=== PATIENT | male | born 1940 | race Caucasian/White ===

== ENCOUNTER 2016-11-16 12:00 | Emergency (ER) | payer MEDICARE ==
--- NOTE | 2016-11-16 14:03 | XR ---
EXAMINATION TYPE: XR Hip RT and AP Pelvis DATE OF EXAM: 11/16/2016 1:44 PM COMPARISON: Lumbosacral spine same date HISTORY: Trauma and pain 3 days prior TECHNIQUE: A single AP view of the pelvis is obtained. Two views of the right hip are obtained. 4 im ages FINDINGS: There is no acute fracture/dislocation evident in the pelvis. The hip and sacroiliac join ts appear symmetric and unremarkable. The overlying soft tissue appears unremarkable. Two views of right hip show no acute fracture or dislocation. No focal lytic or sclerotic lesion see n in the proximal right femur. The overlying soft tissue is unremarkable. Joint space loss is prese nt, there is marginal spurring. Bone mineralization mildly reduced. Suspect there is a compression deformity of L4. Vascular calcifications are present within the pelvis . IMPRESSION: There is no acute fracture or dislocation in the pelvis or hip. Compression fracture L4
--- NOTE | 2016-11-16 14:05 | XR ---
Lumbosacral spine HISTORY: Trauma and pain 5 views of the lumbosacral spine Comparison abdomen film 2011 There is a levoscoliosis centered at the mid lumbar spine. Loss of vertebral body height is present a t L4, approximately 25%. No evident retropulsion. Vacuum phenomenon present at L3-4 disc space. Multi level spondylosis is present. Sclerosis present in the posterior elements. Bone mineralization is red uced. There are atherosclerotic vascular calcifications noted incidentally. Loss of disc height great est at L5-S1. No spondylolysis or spondylolisthesis evident. IMPRESSION: Osteoporotic compression fracture L4. Degenerative disc disease and facet arthropathy
--- NOTE | 2016-11-16 15:04 | ED ---
General Adult HPI - General Chief complaint: Extremity Injury, Lower Stated complaint: rt hip pain from fall, MAGGY Time Seen by Provider: 11/16/16 13:10 Source: patient, family, RN notes reviewed, old records reviewed Mode of arrival: wheelchair - History of Present Illness Initial comments: Chief complaint history of present illness is a 76-year-old female here with family. The patient reports she's fallen several times at home over the past week. He reports he tripped over a rug. Complains discomfort to the right hip pelvis and lumbar area. Denies any injury to his head. Not on any blood thinners. - Related Data Home Medications Medication Instructions Recorded Confirmed ALPRAZolam [Xanax] 1 mg PO BID 11/16/16 11/16/16 Bismuth Subsalicylate 262 mg PO TID PRN 11/16/16 11/16/16 [Pepto-Bismol] D-Methorphan/Acetamin/Doxylamn 30 ml PO HS PRN 11/16/16 11/16/16 [Vicks Nyquil Cold & Flu Liquid] HYDROcodone/APAP 10-325MG [[place] 1 tab PO DAILY PRN 11/16/16 11/16/16 10-325] Loperamide [Imodium] 2 mg PO QID PRN 11/16/16 11/16/16 Naproxen Sodium [Aleve] 220 mg PO BID PRN 11/16/16 11/16/16 Nicotine 21Mg/24Hr Patch [Habitrol 1 patch TRANSDERM DAILY 11/16/16 11/16/16 21Mg/24Hr Patch] Sertraline [Zoloft] 50 mg PO DAILY 11/16/16 11/16/16 Previous Rx's Medication Instructions Recorded Hydrocodone/Acetaminophen [[place] 1 each PO Q6HR PRN #30 tab 11/16/16 5-325] Allergies Allergy/AdvReac Type Severity Reaction Status Date / Time No Known Allergies Allergy Verified 11/16/16 13:11 Review of Systems ROS Statement: Those systems with pertinent positive or pertinent negative responses have been documented in the HPI. Review of systems. The patient's chronically short of breath because of COPD family reports she does not uses nebulizer and he does smoke. Obviously advised as to increase his use of the nebulizer decreased use of cigarettes. No headache no chest pain. No abdominal pain. Discomfort sciatic type right side lumbar to the right hip area. He is able to stand and walk. But with discomfort. All systems were reviewed past medical problems significant for COPD which is not treated properly hypertension chronic back pain. Denies any previous back compression fractures. Denies any surgeries or slight. Family history stroke. ALLERGIES none. He does smoke strongly encouraged stop , drinks alcohol . ROS Other: All systems not noted in ROS Statement are negative. Past Medical History Past Medical History: COPD, Hypertension Additional Past Medical History / Comment(s): chronic back pain anxiety per family he as some serious digestive issues chronic diarrhea History of Any Multi-Drug Resistant Organisms: None Reported Past Surgical History: No Surgical Hx Reported Past Psychological History: Anxiety Smoking Status: Current every day smoker Past Alcohol Use History: Daily General Exam - General Exam Comments Initial Comments: General: The patient is awake and alert, complaining of discomfort from the right lumbar to the right hip area. Vital signs temperature 98.0 pulse 84 story rate 20 pulse ox 95% room air blood pressure 157/81 Eye: Pupils are equal, , extra-ocular movements are intact; there is normal conjunctiva bilaterally. No signs of icterus. Ears, nose, mouth and throat: Mildly dry mucous membranes. Neck: The neck is supple, no complaint of neck pain. No headache or neck injury Cardiovascular: No chest pain or palpitations Respiratory: History of COPD and smoking. No wheezing at this time Back Pain right paralumbar region radiating around the buttock to the right hip area. Musculoskeletal: Able to stand neurovascular status feet intact. Pain as noted above right paralumbar to the right hip area. Neurological: No complaint of or evidence of any neuro deficits. Skin: No complaint of any rashes or skin infections Course Vital Signs 11/16/16 12:38 Temperature 98.0 F Pulse Rate 84 Respiratory 20 Rate Blood Pressure 157/81 O2 Sat by Pulse 95 Oximetry Medical Decision Making - Medical Decision Making Medical decision making the patient had x-rays of the pelvis and hip. The radiologist's report these to be without fracture per Dr. Perez. X-ray of the lumbosacral spine was done and reviewed by radiologist his impression is there is a level scoliosis and at the mid lumbar spine. Loss of vertebral body height is present at L4, approximately 25%. No evidence of retropulsion. Vacuum phenomenon present L3-L4 disc space. Multilevel spondylosis is present. Sclerosis present in the posterior elements. Bone mineralization is reduced. There are atherosclerotic vascular calcifications noted incidentally. Loss of disc height present at L5-S1. No spondylosis or spondylolisthesis evident. Impression; osteoporotic compression fracture L4. Degenerative disc disease and facet arthropathy. As read by Dr. Perez The radiographic findings were explained to the patient and one daughter at bedside. They will be given a prescription for a back brace Patient be referred on to orthopedic surgeon Dr. Bhardwaj. The patient be prescribed a lumbar corset for his L4 compression fracture and will be following up with his eye doctor and orthopedic back surgeon Dr. Bhardwaj. They're to call for appointment Disposition Clinical Impression: Compression fracture of L4 lumbar vertebra, History of COPD Disposition: HOME SELF-CARE Condition: Fair Instructions: Thoracolumbar Fracture (ED) Additional Instructions: Stop smoking or at least decrease is much she can. And use albuterol updrafts as needed. Change positions slowly. Use pain medication judiciously. No balance may become worse while on pain medication. Have someone help you get around. Follow-up with Dr. Bhardwaj, orthopedic back surgeon. Wear brace. Prescriptions: Hydrocodone/Acetaminophen [[place] 5-325] 1 each PO Q6HR PRN #30 tab PRN Reason: Pain Time of Disposition: 15:15
[2016-11-16] MEDS ORDERED: HYDROcodone/APAP 5-325MG 1 EACH TAB PO STA (15:14)
[2016-11-16 15:49] VITALS: BP 122/81; PULSE 74; RESP 18; TEMP 97.2
== END 2016-11-16 15:49 | disposition home or self-care (01) ==
LOC: EC 12:00
DX: S32.048A Other fracture of fourth lumbar vertebra, initial encounter for closed fracture (principal); W01.0XXA Fall on same level from slipping, tripping and stumbling without subsequent striking against object, initial encounter; Z91.81 History of falling; J44.9 Chronic obstructive pulmonary disease, unspecified; F17.210 Nicotine dependence, cigarettes, uncomplicated; F41.9 Anxiety disorder, unspecified; Z79.899 Other long term (current) drug therapy
CPT/HCPCS: 72110; 73502; 99283

== ENCOUNTER 2016-11-18 14:10 | Inpatient (IN) | payer MEDICARE ==
[2016-11-18] MEDS ORDERED: IPRATROPIUM-ALBUTEROL 3 ML NEB INHALATION STA (14:28)
[2016-11-18] MEDS ORDERED: SODIUM CHLORIDE 0.9% 1,000 ML IV STA (14:28)
[2016-11-18] MEDS ORDERED: PANTOPRAZOLE 40 MG/10 ML VIAL IVP STA (14:28)
[2016-11-18] MEDS ORDERED: LORazepam 2 MG/ML SYRINGE IV PRN ×2 (14:30)
--- NOTE | 2016-11-18 14:33 | ED ---
General Adult HPI - General Chief complaint: GI Bleed Stated complaint: gi bleed Time Seen by Provider: 11/18/16 14:20 Source: patient, family, RN notes reviewed Mode of arrival: wheelchair Limitations: no limitations - History of Present Illness Initial comments: Patient is a pleasant 76-year-old male presenting to the emergency Department with GI bleed. Patient has had dark stools for the past couple of weeks. Patient saw his doctor today who tested positive for blood. Patient has had some increase in his chronic fatigue and some increase in his chronic shortness of breath. Patient does have COPD. No abdominal pain. No fevers. Patient has had a couple falls recently and has a new lumbar compression fracture diagnosed just 2 days ago. No nausea or vomiting. Patient does drink alcohol daily. No blood thinners. - Related Data Home Medications Medication Instructions Recorded Confirmed ALPRAZolam [Xanax] 1 mg PO BID 11/16/16 11/18/16 Bismuth Subsalicylate 262 mg PO TID PRN 11/16/16 11/18/16 [Pepto-Bismol] D-Methorphan/Acetamin/Doxylamn 30 ml PO HS PRN 11/16/16 11/18/16 [Vicks Nyquil Cold & Flu Liquid] HYDROcodone/APAP 10-325MG [[place] 1 tab PO DAILY PRN 11/16/16 11/18/16 10-325] Loperamide [Imodium] 2 mg PO QID PRN 11/16/16 11/18/16 Naproxen Sodium [Aleve] 220 mg PO BID PRN 11/16/16 11/18/16 Nicotine 21Mg/24Hr Patch [Habitrol 1 patch TRANSDERM DAILY 11/16/16 11/18/16 21Mg/24Hr Patch] Sertraline [Zoloft] 50 mg PO DAILY 11/16/16 11/18/16 Previous Rx's Medication Instructions Recorded Hydrocodone/Acetaminophen [[place] 1 each PO Q6HR PRN #30 tab 11/16/16 5-325] Allergies Allergy/AdvReac Type Severity Reaction Status Date / Time No Known Allergies Allergy Verified 11/18/16 14:17 Review of Systems ROS Statement: Those systems with pertinent positive or pertinent negative responses have been documented in the HPI. ROS Other: All systems not noted in ROS Statement are negative. Constitutional: Denies: fever Eyes: Denies: eye pain ENT: Denies: ear pain Respiratory: Reports: dyspnea. Denies: cough Cardiovascular: Denies: chest pain Endocrine: Reports: fatigue Gastrointestinal: Reports: melena. Denies: abdominal pain Genitourinary: Denies: dysuria Musculoskeletal: Reports: back pain Skin: Denies: rash Neurological: Denies: headache Past Medical History Past Medical History: COPD, Hypertension Additional Past Medical History / Comment(s): chronic back pain anxiety per family he as some serious digestive issues chronic diarrhea History of Any Multi-Drug Resistant Organisms: None Reported Past Surgical History: No Surgical Hx Reported Past Psychological History: Anxiety Smoking Status: Current every day smoker Past Alcohol Use History: Daily Past Drug Use History: None Reported General Exam Limitations: no limitations General appearance: alert, in no apparent distress Head exam: Present: atraumatic Eye exam: Present: normal appearance ENT exam: Present: normal oropharynx Neck exam: Present: normal inspection Respiratory exam: Present: decreased breath sounds Cardiovascular Exam: Present: regular rate, normal rhythm GI/Abdominal exam: Present: soft. Absent: distended, tenderness, guarding, rebound, rigid Rectal exam: Present: deferred (Done prior to arrival by primary care physician and reported as positive) Extremities exam: Present: normal inspection Neurological exam: Present: alert Psychiatric exam: Present: normal affect, normal mood Skin exam: Absent: rash Course Vital Signs 11/18/16 11/18/16 11/18/16 14:12 14:46 14:51 Temperature 97.6 F Pulse Rate 93 75 84 Respiratory 18 18 Rate Blood Pressure 173/84 159/103 O2 Sat by Pulse 93 L 97 Oximetry 11/18/16 14:55 Temperature Pulse Rate 89 Respiratory Rate Blood Pressure O2 Sat by Pulse Oximetry Medical Decision Making - Medical Decision Making Patient reexamined and resting comfortably in bed. Patient and family updated on results and plan. Case discussed in detail with Dr. Kumar, who will admit for Dr. Guerra. He is covering for Dr. santiago. - Lab Data Result diagrams: 11/18/16 14:45 11/18/16 14:45 Lab Results 11/18/16 11/18/16 11/18/16 Range/Units 14:45 14:45 14:45 WBC 18.3 H (3.8-10.6) k/uL RBC 4.41 (4.30-5.90) m/uL Hgb 15.3 (13.0-17.5) gm/dL Hct 44.8 (39.0-53.0) % MCV 101.5 H (80.0-100.0) fL MCH 34.6 (25.0-35.0) pg MCHC 34.1 (31.0-37.0) g/dL RDW 13.6 (11.5-15.5) % Plt Count 255 (150-450) k/uL Neutrophils % 86 % Lymphocytes % 5 % Monocytes % 7 % Eosinophils % 1 % Basophils % 0 % Neutrophils # 15.7 H (1.3-7.7) k/uL Lymphocytes # 0.9 L (1.0-4.8) k/uL Monocytes # 1.3 H (0-1.0) k/uL Eosinophils # 0.1 (0-0.7) k/uL Basophils # 0.1 (0-0.2) k/uL Macrocytosis Slight PT (9.0-12.0) sec INR (<1.1) APTT (22.0-30.0) sec Sodium 138 (137-145) mmol/L Potassium 4.8 (3.5-5.1) mmol/L Chloride 97 L (98-107) mmol/L Carbon Dioxide 27 (22-30) mmol/L Anion Gap 14 mmol/L BUN 18 (9-20) mg/dL Creatinine 0.91 (0.66-1.25) mg/dL Est GFR (MDRD) Af Amer >60 (>60 ml/min/1.73 sqM) Est GFR (MDRD) Non-Af >60 (>60 ml/min/1.73 sqM) Glucose 117 H (74-99) mg/dL Calcium 8.9 (8.4-10.2) mg/dL Magnesium 2.2 (1.6-2.3) mg/dL Total Bilirubin 0.9 (0.2-1.3) mg/dL AST 41 (17-59) U/L ALT 35 (21-72) U/L Alkaline Phosphatase 214 H (38-126) U/L Total Creatine Kinase 37 L (55-170) U/L CK-MB (CK-2) 1.2 (0.0-2.4) ng/mL CK-MB (CK-2) Rel Index 3.2 Troponin I <0.012 (0.000-0.034) ng/mL Total Protein 6.5 (6.3-8.2) g/dL Albumin 3.6 (3.5-5.0) g/dL Amylase <30 L (30-110) U/L Lipase 67 (23-300) U/L 11/18/16 Range/Units 14:45 WBC (3.8-10.6) k/uL RBC (4.30-5.90) m/uL Hgb (13.0-17.5) gm/dL Hct (39.0-53.0) % MCV (80.0-100.0) fL MCH (25.0-35.0) pg MCHC (31.0-37.0) g/dL RDW (11.5-15.5) % Plt Count (150-450) k/uL Neutrophils % % Lymphocytes % % Monocytes % % Eosinophils % % Basophils % % Neutrophils # (1.3-7.7) k/uL Lymphocytes # (1.0-4.8) k/uL Monocytes # (0-1.0) k/uL Eosinophils # (0-0.7) k/uL Basophils # (0-0.2) k/uL Macrocytosis PT 10.8 (9.0-12.0) sec INR 1.1 (<1.1) APTT 24.1 (22.0-30.0) sec Sodium (137-145) mmol/L Potassium (3.5-5.1) mmol/L Chloride (98-107) mmol/L Carbon Dioxide (22-30) mmol/L Anion Gap mmol/L BUN (9-20) mg/dL Creatinine (0.66-1.25) mg/dL Est GFR (MDRD) Af Amer (>60 ml/min/1.73 sqM) Est GFR (MDRD) Non-Af (>60 ml/min/1.73 sqM) Glucose (74-99) mg/dL Calcium (8.4-10.2) mg/dL Magnesium (1.6-2.3) mg/dL Total Bilirubin (0.2-1.3) mg/dL AST (17-59) U/L ALT (21-72) U/L Alkaline Phosphatase (38-126) U/L Total Creatine Kinase (55-170) U/L CK-MB (CK-2) (0.0-2.4) ng/mL CK-MB (CK-2) Rel Index Troponin I (0.000-0.034) ng/mL Total Protein (6.3-8.2) g/dL Albumin (3.5-5.0) g/dL Amylase (30-110) U/L Lipase (23-300) U/L - Radiology Data Radiology results: image reviewed (Abdominal x-ray shows possible ileus) Disposition Clinical Impression: GI hemorrhage Disposition: ADMITTED IP TO THIS HOSP
[2016-11-18 15:20] LABS: Basophils # (A) 0.1 k/uL (0-0.2); Basophils % (A) 0 %; CH 35.2; CHCM 34.8; Eosinophils # (A) 0.1 k/uL (0-0.7); Eosinophils % (A) 1 %; HCT 44.8 % (39.0-53.0); HGB 15.3 gm/dL (13.0-17.5); Luc # (Auto) 0.17; Luc % (Auto) 1; Lymphocytes # (A) 0.9 k/uL (1.0-4.8); Lymphocytes % (A) 5 %; MCH 34.6 pg (25.0-35.0); MCHC 34.1 g/dL (31.0-37.0); MCV 101.5 fL (80.0-100.0); Macrocytosis Slight; Monocytes # (A) 1.3 k/uL (0-1.0); Monocytes % (A) 7 %; Neutrophils # (A) 15.7 k/uL (1.3-7.7); Neutrophils % (A) 86 %; RBC 4.41 m/uL (4.30-5.90); RDW 13.6 % (11.5-15.5); WBC 18.3 k/uL (3.8-10.6); WBC (Perox) 19.04
--- NOTE | 2016-11-18 15:30 | XR ---
Abdomen HISTORY: Gastrointestinal bleeding Frontal view of the abdomen submitted on 2 images correlated to prior abdomen June There are air-fluid levels without bowel distention. Atherosclerotic vascular calcifications are pres ent. No pneumoperitoneum. There is a slight levoscoliosis of the mid lumbar spine. Lung bases show hy perinflation, difficult to exclude small effusion. IMPRESSION: There may be underlying COPD, hyperinflation versus small effusions. Possible underlying ileus or enteritis, follow-up as indicated.
[2016-11-18 15:33] LABS: ALT 35 U/L (21-72); AST 41 U/L (17-59); Alkaline Phosphatase 214 U/L (38-126); Amylase <30 U/L (30-110); Anion Gap 14 mmol/L; Blood Urea Nitrogen 18 mg/dL (9-20); Calcium 8.9 mg/dL (8.4-10.2); Carbon Dioxide 27 mmol/L (22-30); Chloride 97 mmol/L (98-107); Glucose 117 mg/dL (74-99); INR 1.1 (<1.1); Magnesium 2.2 mg/dL (1.6-2.3); Non-African American GFR(MDRD) >60 (>60 ml/min/1.73 sqM); Partial Thromboplastin Time 24.1 sec (22.0-30.0); Potassium 4.8 mmol/L (3.5-5.1); Prothrombin Time 10.8 sec (9.0-12.0); Sodium 138 mmol/L (137-145); Total Bilirubin 0.9 mg/dL (0.2-1.3); Total Protein 6.5 g/dL (6.3-8.2)
[2016-11-18 15:44] LABS: Creatine Kinase 37 U/L (55-170)
[2016-11-18 15:57] LABS: Creatine Kinase MB 1.2 ng/mL (0.0-2.4); Troponin I <0.012 ng/mL (0.000-0.034)
[2016-11-18] MEDS: NICOTINE 14MG/24HR PATCH TRANSDERM SCH (16:00)
[2016-11-18] MEDS ORDERED: NALOXONE 0.4 MG/ML 1 ML VIAL IV PRN (16:02)
[2016-11-18] MEDS ORDERED: ONDANSETRON 4 MG/2 ML VIAL IVP PRN (16:02)
[2016-11-18] MEDS: LORazepam 2 MG/ML SYRINGE IV PRN ×3 (16:22→19:35)
[2016-11-18] MEDS: MORPHINE SULFATE 4 MG/ML SYRINGE IV PRN ×2 (16:38→21:59)
[2016-11-18] MEDS: THIAMINE 100 MG TAB PO SCH (18:30)
[2016-11-18] MEDS ORDERED: hydrALAZINE HCL 20 MG/ML 1 ML VIAL IVP PRN (18:35)
[2016-11-18] MEDS: amLODIPine 10 MG TAB PO STA ×2 (18:47→19:38)
[2016-11-18] MEDS: SODIUM CHLORIDE 0.9% 1,000 ML IV SCH (19:37)
[2016-11-18] MEDS: ALPRAZolam 0.5 MG TAB PO SCH (20:33)
[2016-11-19] MEDS: SODIUM CHLORIDE 0.9% 1,000 ML IV SCH (03:54)
[2016-11-19 04:04] LABS: Basophils # (A) 0.1 k/uL (0-0.2); Basophils % (A) 0 %; CH 35.2; CHCM 34.3; Eosinophils # (A) 0.2 k/uL (0-0.7); Eosinophils % (A) 1 %; HCT 40.2 % (39.0-53.0); HDW 2.66; HGB 13.3 gm/dL (13.0-17.5); Luc # (Auto) 0.17; Luc % (Auto) 1; Lymphocytes # (A) 0.8 k/uL (1.0-4.8); Lymphocytes % (A) 4 %; Macrocytosis Slight; Mean Platelet Volume 8.1; Monocytes # (A) 1.2 k/uL (0-1.0); Monocytes % (A) 6 %; Neutrophils # (A) 18.5 k/uL (1.3-7.7); Neutrophils % (A) 89 %; RDW 13.6 % (11.5-15.5); WBC 20.9 k/uL (3.8-10.6)
[2016-11-19] MEDS: MORPHINE SULFATE 4 MG/ML SYRINGE IV PRN ×2 (05:04→16:49)
[2016-11-19] MEDS: SERTRALINE 50 MG TAB PO SCH (08:15)
[2016-11-19] MEDS: PANTOPRAZOLE 40 MG/10 ML VIAL IV SCH (08:15)
[2016-11-19] MEDS: ALPRAZolam 0.5 MG TAB PO SCH ×3 (08:18→22:04)
[2016-11-19 08:41] LABS: Basophils # (A) 0.1 k/uL (0-0.2); Basophils % (A) 0 %; CH 35.1; CHCM 33.8; Eosinophils # (A) 0.1 k/uL (0-0.7); Eosinophils % (A) 0 %; HDW 2.66; HGB 13.7 gm/dL (13.0-17.5); Luc % (Auto) 1; Lymphocytes % (A) 5 %; MCHC 32.6 g/dL (31.0-37.0); MCV 104.6 fL (80.0-100.0); Macrocytosis Slight; Mean Platelet Volume 9.1; Monocytes # (A) 1.4 k/uL (0-1.0); Monocytes % (A) 7 %; Neutrophils # (A) 18.9 k/uL (1.3-7.7); Neutrophils % (A) 87 %; RBC 4.01 m/uL (4.30-5.90); RDW 13.5 % (11.5-15.5); WBC 21.6 k/uL (3.8-10.6); WBC (Perox) 21.76
--- NOTE | 2016-11-19 08:51 | P.CONS ---
History of Present Illness - Reason for Consult Consult date: 11/19/16 GI bleed Requesting physician: Musa Kumar - History of Present Illness 76-year-old gentleman patient of Dr. Kilpatrick status post recent fall with L4 compression fracture, chronic back pain, daily alcohol usage; last alcoholic drink 2 days ago, COPD, anxiety, depression, and active nicotine cigarette dependency. Consultation requested for possible GI bleed. is a poor historian and limited on his history, upon review of medical records patient's been experiencing loose bowel movements black in color but has been taking Pepto -Bismol for indigestion. Hemoglobin on 11/18/2015 was 15.3 currently 13.7. MCV 104. Platelet 258. BUN 18. Creatinine 0.9. INR 1.1. Unsure if patient has had a history of peptic ulcer disease, colonoscopy or EGD. He has been afebrile. Nursing reports no witnessed episodes of hematemesis or hematochezia. Patient is passing small smears of black colored loose stool; Hemoccult stool testing has been obtained and is pending at time of this dictation. Review of Systems All systems: negative (See HPI) Past Medical History Past Medical History: COPD, Hypertension Additional Past Medical History / Comment(s): chronic back pain anxiety per family he as some serious digestive issues, chronic diarrhea for past few months ,incont at times of urine and stool, fell on wednesday- compression fx l4( stated theyh have'nt been able to get his back brace yet), depression/anxiety History of Any Multi-Drug Resistant Organisms: None Reported Past Surgical History: No Surgical Hx Reported Additional Past Surgical History / Comment(s): stated pt never had any sx Past Anesthesia/Blood Transfusion Reactions: No Reported Reaction Past Psychological History: Anxiety, Depression Smoking Status: Current every day smoker Past Alcohol Use History: Daily Additional Past Alcohol Use History / Comment(s): started smoking at age 15 smokes 2-3, stated pt drinks 6-8 beers per day sometimes more and sometimes will drink some whiskey with it to(vague about how much). last time drank 1-3-16. Past Drug Use History: None Reported - Past Family History Father Family Medical History: Unable to Obtain Additional Family Medical History / Comment(s): not sure of hx Mother Family Medical History: Unable to Obtain Additional Family Medical History / Comment(s): not sure of hx Medications and Allergies Home Medications Medication Instructions Recorded Confirmed Type ALPRAZolam [Xanax] 1 mg PO BID 11/16/16 11/18/16 History Bismuth Subsalicylate 262 mg PO TID PRN 11/16/16 11/18/16 History [Pepto-Bismol] D-Methorphan/Acetamin/Doxylamn 30 ml PO HS PRN 11/16/16 11/18/16 History [Vicks Nyquil Cold & Flu Liquid] HYDROcodone/APAP 10-325MG [[place] 1 tab PO DAILY PRN 11/16/16 11/18/16 History 10-325] Loperamide [Imodium] 2 mg PO QID PRN 11/16/16 11/18/16 History Naproxen Sodium [Aleve] 220 mg PO BID PRN 11/16/16 11/18/16 History Nicotine 21Mg/24Hr Patch [Habitrol 1 patch TRANSDERM DAILY 11/16/16 11/18/16 History 21Mg/24Hr Patch] Sertraline [Zoloft] 50 mg PO DAILY 11/16/16 11/18/16 History Allergies Allergy/AdvReac Type Severity Reaction Status Date / Time No Known Allergies Allergy Verified 11/18/16 14:17 Physical Exam Vitals: Vital Signs Temp Pulse Pulse Resp BP BP Pulse Ox 11/19/16 07:00 96.5 F L 97 28 H 181/105 93 L 11/18/16 23:00 98.0 F 110 H 24 137/85 95 11/18/16 19:30 22 96 11/18/16 18:56 96.2 F L 87 28 H 191/101 96 11/18/16 18:54 97 11/18/16 17:32 97 F L 84 20 160/89 90 L 11/18/16 17:19 160/89 11/18/16 16:35 179/90 11/18/16 16:32 97 F L 84 20 90 L Intake and Output 11/18/16 11/19/16 11/19/16 22:59 06:59 14:59 Intake Total 200 100 Balance 200 100 Intake: Oral 200 100 Other: Voiding Method Diaper # Voids 1 2 General appearance: The patient is alert, oriented, with increased respiratory rate. HET: Head is normocephalic and atraumatic. Pupils are equal and reactive. Oropharynx is clear without lesions. Neck: Supple without lymphadenopathy. Trachea midline. Heart: S1 S2. Regular rate and rhythm. Lungs: Diminished throughout with extremely wheezes.. Abdomen: Soft, nontender, nondistended with bowel sounds. No peritoneal signs. No palpable organomegaly or masses. Extremities: Normal skin color and turgor. No cyanosis, rash, ulceration, clubbing, or edema. Radial and pedal pulses are 2/4 bilaterally. Neurological: No focal deficits. Strength and sensation are grossly intact. Rectal: Black-colored stool on finger Hemoccult testing sent no palpable masses. Results CBC & Chem 7: 11/19/16 08:21 11/18/16 14:45 Labs: Abnormal Lab Results - Last 24 Hours (Table) 11/19/16 11/19/16 Range/Units 03:53 08:21 WBC 20.9 H 21.6 H (3.8-10.6) k/uL RBC 3.90 L 4.01 L (4.30-5.90) m/uL MCV 103.0 H 104.6 H (80.0-100.0) fL Neutrophils # 18.5 H 18.9 H (1.3-7.7) k/uL Lymphocytes # 0.8 L (1.0-4.8) k/uL Monocytes # 1.2 H 1.4 H (0-1.0) k/uL Assessment and Plan (1) Stool color black Narrative/Plan: 76-year-old male status post recent fall with lumbar compression fracture, daily EtOH intake presents withb lack color stool with Pepto-Bismol usage. Possible GI bleed however black colored stool could be related to his Pepto- Bismol usage. Hemoccult testing has been obtained and pending. Hemoglobin stable at 13.7. Status: Acute (2) ETOH abuse Status: Acute (3) History of recent fall Status: Acute (4) COPD (chronic obstructive pulmonary disease) Status: Acute (5) Lumbar vertebral fracture Status: Acute Plan: 1. Recommend optimization of lung status. 2. Alcohol abstinence was advised. 3. No NSAIDs or aspirin. GI prophylaxis. 4. Monitor CBC and clinically for any signs or symptoms of GI bleeding will await Hemoccult stool testing. Possible endoscopic exams based on critical course. We'll follow closely with you and reevaluate. Thank you for this kind referral and the opportunity to participate in the care of your patient. This consultation was discussed with Dr. Kitchen. The impression and plan of care have been directed as dictated.
[2016-11-19] MEDS ORDERED: amLODIPine 10 MG TAB PO SCH (09:00)
[2016-11-19] MEDS: NICOTINE 14MG/24HR PATCH TRANSDERM SCH (10:06)
--- NOTE | 2016-11-19 10:30 | P.HPOR ---
History of Present Illness H&P Date: 11/19/16 Chief Complaint: Low back pain Patient is 76-year-old male who is seen and examined today at bedside. He is quite to go to communicate with and has multiple medical issues with histories of alcoholism. He is currently admitted in regards to a possible GI bleed but per his nurse he was occult negative this morning. Apparently he has been complaining of some back pain though he does deny back pain currently at bedside. He says he is not having numbness tingling in his legs or feet. He is not having problems in his lower extremity. The staff states that whenever they try to move him he has significant complains of low back pain. He denies any specific injury but is not seem to be sure of this. He is quite poor historian. Apparently per the chart he did have a fall on Wednesday and there was a brace ordered but has not been applied yet. Review of Systems Denies headaches denies back pain in the past. Denies any specific injury. He denies lower extremity numbness Ruffin her weakness. He denies any neck pain or upper extremity pain Per his chart it seems that he did have a fall on Wednesday and they ordered him a brace that he does not have yet Past Medical History Past Medical History: COPD, Hypertension Additional Past Medical History / Comment(s): chronic back pain anxiety per family he as some serious digestive issues, chronic diarrhea for past few months ,incont at times of urine and stool, fell on wednesday- compression fx l4( stated theyh have'nt been able to get his back brace yet), depression/anxiety History of Any Multi-Drug Resistant Organisms: None Reported Past Surgical History: No Surgical Hx Reported Additional Past Surgical History / Comment(s): stated pt never had any sx Past Anesthesia/Blood Transfusion Reactions: No Reported Reaction Past Psychological History: Anxiety, Depression Smoking Status: Current every day smoker Past Alcohol Use History: Daily Additional Past Alcohol Use History / Comment(s): started smoking at age 15 smokes 2-3, stated pt drinks 6-8 beers per day sometimes more and sometimes will drink some whiskey with it to(vague about how much). last time drank 1-3-16. Past Drug Use History: None Reported - Past Family History Father Family Medical History: Unable to Obtain Additional Family Medical History / Comment(s): not sure of hx Mother Family Medical History: Unable to Obtain Additional Family Medical History / Comment(s): not sure of hx Medications and Allergies Home Medications Medication Instructions Recorded Confirmed Type ALPRAZolam [Xanax] 1 mg PO BID 11/16/16 11/18/16 History Bismuth Subsalicylate 262 mg PO TID PRN 11/16/16 11/18/16 History [Pepto-Bismol] D-Methorphan/Acetamin/Doxylamn 30 ml PO HS PRN 11/16/16 11/18/16 History [Vicks Nyquil Cold & Flu Liquid] HYDROcodone/APAP 10-325MG [[place] 1 tab PO DAILY PRN 11/16/16 11/18/16 History 10-325] Loperamide [Imodium] 2 mg PO QID PRN 11/16/16 11/18/16 History Naproxen Sodium [Aleve] 220 mg PO BID PRN 11/16/16 11/18/16 History Nicotine 21Mg/24Hr Patch [Habitrol 1 patch TRANSDERM DAILY 11/16/16 11/18/16 History 21Mg/24Hr Patch] Sertraline [Zoloft] 50 mg PO DAILY 11/16/16 11/18/16 History Allergies Allergy/AdvReac Type Severity Reaction Status Date / Time No Known Allergies Allergy Verified 11/18/16 14:17 Physical Examination Osteopathic Statement: *. No significant issues noted on an osteopathic structural exam other than those noted in the History and Physical/Consult. - L Spine: dermatomal strength & reflexes bilateral Strength: hip flexion: 5/5 (His back he has some tenderness and spasm in his lower lumbar spine. There is no open wounds lacerations or abrasions. He has some pain with motion. His lower extremities have sustained dorsal flexion plantar flexion and extensor hallucis longus with sustained strength.) Results - Labs Labs: Abnormal Lab Results - Last 24 Hours (Table) 11/19/16 11/19/16 Range/Units 03:53 08:21 WBC 20.9 H 21.6 H (3.8-10.6) k/uL RBC 3.90 L 4.01 L (4.30-5.90) m/uL MCV 103.0 H 104.6 H (80.0-100.0) fL Neutrophils # 18.5 H 18.9 H (1.3-7.7) k/uL Lymphocytes # 0.8 L (1.0-4.8) k/uL Monocytes # 1.2 H 1.4 H (0-1.0) k/uL H & H 11/19/16 11/19/16 Range/Units 03:53 08:21 Hgb 13.3 13.7 (13.0-17.5) gm/dL Hct 40.2 42.0 (39.0-53.0) % Result Diagrams: 11/19/16 08:21 11/18/16 14:45 - Diagnostic results Lumbar AP/lateral x-ray: report reviewed (X-rays of his lumbar spine from November 16 I reviewed that shows some osteopenia with evidence of a compression deformity at L4 with approximately 30% height loss. There is some degenerative scoliosis and facet arthrosis as well.), image reviewed Assessment and Plan Plan: L4 compression fracture, apparently acute Osteopenia Degenerative scoliosis with facet arthrosis Low back pain Possible GI bleed with history of alcohol abuse The patient has somewhat of an inconsistent history but he is having some symptoms of pain in his back with motion. His imaging shows a compression fracture L4 which seems to be new for him given his symptoms. I think that he can have benefit with use of bracing and conservative treatment for his lumbar spine L4 fracture. We will order an LSO brace for him which she should wear whenever he is out of bed or elevated greater than 60. He does not need use the brace while in bed or for bathing. Generally the fractures heal well over the course of 8-12 weeks during which time he should continue to use the brace and may ambulate to his tolerance with the brace intact. He should avoid any heavy or rigorous activity and avoid any repetitive bending twisting or lifting. given his overall medical status I do not think that he would be a candidate for surgical intervention. He should attempt conservative treatment with brace use and follow up with our office in 2-3 weeks for recheck evaluation and repeat x-rays.
[2016-11-19] MEDS ORDERED: AZITHROMYCIN 500 MG TAB PO SCH (11:30)
[2016-11-19] MEDS: THIAMINE 100 MG TAB PO SCH ×2 (11:44→17:12)
[2016-11-19] MEDS: METOPROLOL TARTRATE 12.5 MG TAB PO SCH ×2 (11:44→22:03)
--- NOTE | 2016-11-19 12:34 | XR ---
EXAMINATION TYPE: XR chest 1V DATE OF EXAM: 11/19/2016 11:10 AM COMPARISON: None HISTORY: Shortness of breath, dyspnea TECHNIQUE: Single frontal view of the chest is obtained. FINDINGS: Patient is rotated. Abnormal increased attenuation is present in the left lung base, there is blunting of left costophrenic angle, left pleural thickening laterally. No evident pneumothorax. Interstitium is increased. Heart size may be accentuated by rotation. IMPRESSION: Difficult to exclude pulmonary venous hypertension and interstitial edema, there may be left basilar atelectasis, effusion, edema or pneumonia. Follow-up PA and lateral chest x-ray are mariza mmended.
[2016-11-19] MEDS: IPRATROPIUM-ALBUTEROL 3 ML NEB INHALATION SCH ×3 (13:16→20:31)
[2016-11-19 13:55] VITALS: BMI 31.5
--- NOTE | 2016-11-19 14:12 | HP ---
DATE OF ADMISSION: Patient is admitted for dark stools and patient has a recent L4 compression fracture for which orthopedics evaluated the patient and they are recommending a brace and patient was admitted with possibility of GI bleed with dark stools and patient does have a history of COPD, continues to smoke and patient's respiratory status is not good and patient has been coughing up yellowish phlegm. Patient is a poor historian because of which most of the history is obtained from the nursing staff and in the medical records. Although chest x-ray was not obtained in the ER, because of which abdominal x-ray was obtained, which did not show any significant abnormality. I did obtain a chest x-ray, which showed left-sided pleural effusion. There may be a bit of pneumonic process going in there and patient does have leukocytosis, does not have any fevers and clinical exam is not consistent with pulmonary edema, but there is central congestion, because of which I stopped the IV fluids and I am going get an echocardiogram. Patient is on 3 L of oxygen at this point of time, saturating at 93%, not sure whether patient uses oxygen at home or not although patient's respiratory status is not good and patient has a shallow breathing and grunting with rhonchus breath sounds bilaterally. Patient does take Pepto Bismol for indigestion, which is contributing to his dark stools. Patient did not have any stools today. C. diff testing was ordered, but unable to obtain any sample for C. diff. Review of systems, unable to obtain except for those above mentioned. I am unable to obtain the rest of the review of systems. PAST MEDICAL HISTORY: Significant for COPD, hypertension, chronic low back pain and spondylosis along with a recent L4 compression fracture. Home medications include: 1. Alprazolam. 2. Pepto Bismol. 3. Dexter's Nyquil. 4. Hydrocodone/acetaminophen. 5. Loperamide. 6. Naproxen. 7. Sertraline. 8. Nicotine transdermal patch, in spite of which patient continues to smoke. PSYCHOLOGICAL HISTORY: Anxiety, depression and patient is a smoker. Smokes about a pack per day. Drinks about 6 to 8 beers per day along with that, patient also drinks some whiskey. Denied any drug abuse. PHYSICAL EXAMINATION: VITAL SIGNS: Temperature 96.0, pulse of 97, respiratory rate of 28, blood pressure is 181/105, saturating at 93% on room air. GENERAL: Patient is a ( ) gentleman, alert, unable to assess orientation. Patient is a poor historian, unable to provide any history. Patient appears to be congested with what appears to congestive lung exam, rhonchus breath sounds bilaterally, with minimal bilateral wheezing was appreciated. HEENT: Pupils are round and equally reacting to light. EOMI. No scleral icterus. No conjunctival pallor. Normocephalic, atraumatic. No pharyngeal erythema. No thyromegaly. CARDIOVASCULAR: S1 and S2 present. No murmurs, rubs, or gallops. PULMONARY: Chest is clear to auscultation, no wheezing or crackles. ABDOMEN: Soft, nontender, nondistended, normoactive bowel sounds. No palpable organomegaly. MUSCULOSKELETAL: No joint swelling or deformity. EXTREMITIES: No cyanosis, clubbing, or pedal edema. NEUROLOGICAL: Gross neurological examination did not reveal any focal deficits. SKIN: No rashes. LABORATORY DATA: Patient does have leukocytosis going up to 20,000 WBC. I ordered a UA as the urinalysis is not available and patient is a poor historian. ASSESSMENT AND PLAN: 1. Rule out acute lower gastrointestinal bleed and patient dark stools are secondary Pepto Bismol. Patient will not need any endoscopic intervention at this point of time. 2. Possibility of chronic obstructive pulmonary disease with a possibility of acute on chronic hypercapnic respiratory failure with chronic obstructive pulmonary disease exacerbation. Patient at this point time, I do not believe will need systemic steroids. Will use inhalational steroids and albuterol ipratropium. 3. Tracheobronchitis versus possibility of pneumonia. I obtained a chest x-ray with left-sided pleural effusion with the possibility of pneumonic effusion. I am awaiting official read on the x-ray. I will empirically start him on Rocephin and azithromycin at this point of time and there is a possibility of pulmonary edema. I will obtain echocardiogram. 4. Recent fall with compression fracture leading to lumbar vertebral fracture for which I will obtain a PT and OT. Patient already received a brace and patient has chronic back pain. 5. Anxiety, depression. 6. 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 For alcohol withdrawal patient will be on lorazepam. Patient will be on Protonix at this point of time. Elevated blood pressures are secondary to alcohol withdrawal. Amlodipine and hydralazine will be discontinued. Patient will be started on metoprolol because of tachycardia and this is a better medication for alcohol withdrawal related elevated blood pressure and tachycardia. Patient will need physical therapy evaluation. Patient's primary care physician is Ruiz Kilpatrick.
[2016-11-19] MEDS: LORazepam 2 MG/ML SYRINGE IV PRN (14:57)
[2016-11-19 16:12] LABS: Appearance,Urine Clear (Clear); Bilirubin,Urine Negative (Negative); Glucose,Urine (UA) Negative (Negative); Ketones,Urine Negative (Negative); Leukocyte Esterase,Urine Negative (Negative); Mucus,Urine Rare /hpf; Nitrite,Urine Negative (Negative); PH, Urine 5.5 (5.0-8.0); Particle Count 3482; Protein,Urine Trace (Negative); RBC,Urine 4 /hpf (0-5); Specific Gravity,Urine 1.016 (1.001-1.035); UA Billing (MACRO vs. MICRO) MICRO; Urobilinogen,Urine <2.0 mg/dL (<2.0); WBC,Urine 1 /hpf (0-5)
[2016-11-19] MEDS: SYMBICORT 160-4.5 MCG INHALER INHALATION SCH (20:31)
[2016-11-20] MEDS: MORPHINE SULFATE 4 MG/ML SYRINGE IV PRN (01:47)
[2016-11-20] MEDS: SYMBICORT 160-4.5 MCG INHALER INHALATION SCH ×3 (07:50→20:23)
[2016-11-20] MEDS: IPRATROPIUM-ALBUTEROL 3 ML NEB INHALATION SCH ×5 (07:50→20:15)
--- NOTE | 2016-11-20 08:51 | P.PN ---
Progress Note - Text Patient is a 76-year-old male who is seen and examined for follow-up evaluation for his L4 compression fracture. Since being seen and examined yesterday he has received his [place] LSO brace. Patient continues to be a poor historian and states he does not have back pain but then says he does have back pain with standing but then also states he has not been out of bed. He states he has been eating without significant difficulty. He is not currently complaining of lower extremity radiculopathy or weakness. He does state his pain is not exacerbated with movement of the lumbar spine. He continues to be evaluated for possible GI bleed. Nurse states his occult blood test is currently negative. He has a history of alcohol abuse. Physical exam: Patient is awake, alert, and oriented 3 Vital signs stable Good chest excursion with deep inspiration and expiration; currently on O2 nasal cannula Abdomen soft nontender Examination of lumbar spine reveals skin is intact with no abrasions, lacerations, or bruises; no erythema, purulence or signs of infection No significant pain with palpation of the lumbar spine Dorsiflexion, plantarflexion, and extensor hallucis longus positive sustained bilaterally Patient able to lift legs independently off bed Straight leg test negative bilateral lower extremities No signs or symptoms of DVT; no calf pain No pain with internal and external rotation of the hips bilaterally Assessment: L4 compression fracture, apparently acute Osteopenia Degenerative scoliosis with facet arthrosis Low back pain Possible GI bleed with history of alcohol abuse Plan: 1. Now that his [place] LSO brace has been delivered, patient should wear this brace while sitting upright at greater than 60, while ambulating, and while doing activities. He does not have to wear this brace while lying in bed or while bathing. We discussed from an orthopedic spine standpoint the patient is clear for discharge. We discussed he should avoid excessive bending, twisting, and lifting. No lifting greater than 10 pounds. We'll plan have him follow up in the office in approximately 2-3 weeks for further evaluation. 2. Medicine to continue following the patient 3. From an orthopedic spine standpoint, patient is now clear for discharge once cleared by other medical providers 4. Following discharge, patient may follow-up with Yannick Gilbert PA-C or Dr. Deep Bhardwaj at [facility] in approximately 2-3 weeks 5. I have discussed this patient in detail with Dr. Deep Bhardwaj and he agrees with this plan
[2016-11-20] MEDS: ALPRAZolam 0.5 MG TAB PO SCH ×2 (10:34→21:35)
[2016-11-20] MEDS: NICOTINE 14MG/24HR PATCH TRANSDERM SCH (10:35)
[2016-11-20] MEDS: METOPROLOL TARTRATE 12.5 MG TAB PO SCH ×2 (10:35→21:35)
[2016-11-20] MEDS: PANTOPRAZOLE 40 MG/10 ML VIAL IV SCH (10:35)
[2016-11-20] MEDS: SERTRALINE 50 MG TAB PO SCH (10:36)
[2016-11-20] MEDS: THIAMINE 100 MG TAB PO SCH ×2 (10:36→17:03)
--- NOTE | 2016-11-20 10:38 | ECHOF ---
Referral Reason:r/o CHF MEASUREMENTS -------- HEIGHT: 177.8 cm WEIGHT: 99.8 kg BP: 181/105 RVIDd: 3.5 cm (< 3.3) IVSd: 1.5 cm (0.6 - 1.1) LVIDd: 4.9 cm (3.9 - 5.3) LVPWd: 1.4 cm (0.6 - 1.1) IVSs: 1.9 cm LVIDs: 3.4 cm LVPWs: 1.8 cm LA Diam: 3.6 cm (2.7 - 3.8) Ao Diam: 3.9 cm (2.0 - 3.7) AV Cusp: 2.5 cm (1.5 - 2.6) MV EXCURSION: 12.777 mm (> 18.000) MV EF SLOPE: 50 mm/s (70 - 150) EPSS: 1.0 cm MV E Gabe: 0.85 m/s MV DecT: 302 ms MV A Gabe: 0.99 m/s MV E/A Ratio: 0.86 FINDINGS -------- Sinus rhythm with extra systolic beats. This was a technically difficult study with suboptimal views. The left ventricular size is normal. There is moderate concentric left ventricular hypertrophy. Overall left ventricular systolic function is normal with, an EF between 60 - 65 %. The right ventricle is mildly enlarged. The left atrium is normal in size. The right atrium is normal in size. 1.5mg of Definity was utilized for enhancement of images Aortic valve is trileaflet and is mildly thickened. The mitral valve was not well visualized. Mild mitral annular calcification present. The tricuspid valve was not well visualized. The pulmonic valve was not well visualized. The aortic root is dilated measuring 3.9cm. Small inferior vena cava consistent with a right atrial pressure of 5 mmHg. There is no pericardial effusion. CONCLUSIONS -------- 1. Sinus rhythm with extra systolic beats. 2. Aortic valve is trileaflet and is mildly thickened. 3. The mitral valve was not well visualized. 4. Mild mitral annular calcification present. 5. The tricuspid valve was not well visualized. 6. The pulmonic valve was not well visualized. 7. The aortic root is dilated measuring 3.9cm. 8. Small inferior vena cava consistent with a right atrial pressure of 5 mmHg. 9. There is no pericardial effusion. 10. This was a technically difficult study with suboptimal views. 11. The left ventricular size is normal. 12. There is moderate concentric left ventricular hypertrophy. 13. Overall left ventricular systolic function is normal with, an EF between 60 - 65 %. 14. The right ventricle is mildly enlarged. 15. The left atrium is normal in size. 16. The right atrium is normal in size. 17. 1.5mg of Definity was utilized for enhancement of images DIGITAL MEDIA REPRESENTATIVE: Naomi Marroquin RDCS
[2016-11-20] MEDS: LORazepam 2 MG/ML SYRINGE IV PRN ×2 (11:03→17:03)
[2016-11-20] MEDS: AZITHROMYCIN 500 MG in SODIUM CHLORIDE 0.9% 250 ML IVPB SCH (11:18)
--- NOTE | 2016-11-20 11:44 | P.PN ---
Subjective Principal diagnosis: Possible GI bleed 76-year-old gentleman reevaluated today in regards to black colored stools on admission questionable GI bleed. Hemoccult stool testing negative. Denies abdominal pain. No nausea or vomiting. Objective - Vital Signs Vital signs: Vital Signs Temp 97.4 F L 11/20/16 07:00 Pulse 106 H 11/20/16 08:09 Resp 16 11/20/16 07:50 BP 141/77 11/20/16 07:00 Pulse Ox 94 L 11/20/16 07:00 Intake & Output 11/19/16 11/20/16 11/20/16 18:59 06:59 18:59 Intake Total 650 Balance 650 Weight 99.79 kg Intake: IV 650 Sodium Chloride 0.9% 1, 600 000 ml @ 100 mls/hr IV . Q10H NANCY Rx#:[id number] cefTRIAXone 1,000 mg In 50 Sodium Chloride 0.9% 50 ml @ 100 mls/hr IVPB Q24H NANCY Rx#:[id number] Other: Voiding Method Diaper Diaper Incontinent Incontinent # Voids 3 - Exam General appearance: The patient is alert, oriented, with increased respiratory rate. HET: Head is normocephalic and atraumatic. Pupils are equal and reactive. Oropharynx is clear without lesions. Neck: Supple without lymphadenopathy. Trachea midline. Heart: S1 S2. Regular rate and rhythm. Lungs: Diminished throughout with extremely wheezes.. Abdomen: Soft, nontender, nondistended with bowel sounds. No peritoneal signs. No palpable organomegaly or masses. Extremities: Normal skin color and turgor. No cyanosis, rash, ulceration, clubbing, or edema. Radial and pedal pulses are 2/4 bilaterally. Neurological: No focal deficits. Strength and sensation are grossly intact. - Labs CBC & Chem 7: 11/19/16 08:21 11/18/16 14:45 Labs: Abnormal Lab Results - Last 24 Hours (Table) 11/19/16 Range/Units 15:00 Urine Protein Trace H (Negative) Urine Blood Trace H (Negative) Urine Mucus Rare H (None) /hpf Microbiology - Last 24 Hours (Table) 11/19/16 15:00 Urine Culture - Preliminary Urine,Catheterized Assessment and Plan (1) Stool color black Narrative/Plan: 76-year-old male status post recent fall with lumbar compression fracture, daily EtOH intake presents with black color and heme negative stool with Pepto- Bismol usage. Black colored stool most likely related to his Pepto-Bismol usage. Status: Acute (2) ETOH abuse Status: Acute (3) History of recent fall Status: Acute (4) COPD (chronic obstructive pulmonary disease) Status: Acute (5) Lumbar vertebral fracture Status: Acute Plan: 1. Supportive measures. Endoscopic exams not planned. We'll sign off and be available for additional questions or concerns. Follow up in GI office 1-2 weeks after discharge for reevaluation. Assessment and plan of care discussed with Dr. Kitchen.
[2016-11-20] MEDS: HYDROcodone/APAP 5-325MG 1 EACH TAB PO PRN (15:52)
--- NOTE | 2016-11-20 21:49 | PN ---
Patient was admitted with a compression fracture and alcohol withdrawal. Patient is also being treated for left lower lobe pneumonia. The patient continues to have leukocytosis. Will ask the pathologist to review the ( ) for any myelodysplastic syndrome, although patient does have elevated MCV; it probably ( ) myelodysplastic syndrome and patient is excessively drowsy because of the Ativan he received for alcohol withdrawal. Apparently later in the day he was doing okay, but when I evaluated him, patient was excessively drowsy. REVIEW OF SYSTEMS: Unable to obtain due to his drowsiness. Medications were reviewed. Medication changes: discontinued IV fluids. PHYSICAL EXAMINATION: VITAL SIGNS: Temperature afebrile, pulse of around 78, respiratory rate of 16. Blood pressure is 170/100. Saturating at 93% on 2 L of oxygen by nasal cannula. GENERAL: The patient is alert and oriented x3, not in any acute distress. Well developed, well nourished. HEENT: Pupils are round and equally reacting to light. EOMI. No scleral icterus. No conjunctival pallor. Normocephalic, atraumatic. No pharyngeal erythema. No thyromegaly. CARDIOVASCULAR: S1 and S2 present. No murmurs, rubs, or gallops. PULMONARY: Left lower lung crackles at the left lower lung bases. Fairly good air entry in bilateral lung colon. ABDOMEN: Soft, nontender, nondistended, normoactive bowel sounds. No palpable organomegaly. MUSCULOSKELETAL: No joint swelling or deformity. EXTREMITIES: No cyanosis, clubbing, or pedal edema. NEUROLOGICAL: Gross neurological examination did not reveal any focal deficits. SKIN: No rashes. LABORATORY DATA, SIGNIFICANT ONES: Continues to have leukocytosis of 20,000 and elevated MCV, as mentioned above. ASSESSMENT AND PLAN: 1. Acute on chronic obstructive pulmonary disease exacerbation. 2. Acute on chronic hypercapnic respiratory failure, improved with systemic steroids and inhalational treatments. 3. Right lower lobe pneumonia and tracheobronchitis, for which patient is on Rocephin and azithromycin, which will be continued. 4. Ruled out acute gastrointestinal bleed. Dark stools are secondary to Pepto-Bismol. Patient only had one bowel movement yesterday. 5. Recent fall and compression fracture, for which patient has a brace. 6. Anxiety, depression. 7. Alcohol withdrawal. 8. 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 9. Tachycardia secondary to alcohol withdrawal, improved with metoprolol. Starting him on metoprolol.
[2016-11-21] MEDS: LORazepam 2 MG/ML SYRINGE IV PRN ×2 (00:13→02:59)
[2016-11-21] MEDS: IPRATROPIUM-ALBUTEROL 3 ML NEB INHALATION PRN (03:33)
[2016-11-21] MEDS: ALPRAZolam 0.5 MG TAB PO SCH ×2 (07:58→21:36)
[2016-11-21] MEDS: NICOTINE 14MG/24HR PATCH TRANSDERM SCH (07:58)
[2016-11-21] MEDS: METOPROLOL TARTRATE 12.5 MG TAB PO SCH ×2 (07:58→21:36)
[2016-11-21] MEDS: SERTRALINE 50 MG TAB PO SCH (07:59)
[2016-11-21] MEDS: PANTOPRAZOLE 40 MG TABLET PO SCH (07:59)
[2016-11-21] MEDS: IPRATROPIUM-ALBUTEROL 3 ML NEB INHALATION SCH ×4 (09:28→20:08)
[2016-11-21] MEDS: SYMBICORT 160-4.5 MCG INHALER INHALATION SCH ×2 (09:28→20:08)
[2016-11-21 09:41] LABS: CHCM 33.6; HCT 41.2 % (39.0-53.0); HDW 2.71; HGB 13.6 gm/dL (13.0-17.5); MCH 34.6 pg (25.0-35.0); MCHC 33.1 g/dL (31.0-37.0); MCV 104.7 fL (80.0-100.0); Macrocytosis Slight; Mean Platelet Volume 9.2; RBC 3.94 m/uL (4.30-5.90); RDW 13.4 % (11.5-15.5); WBC 14.7 k/uL (3.8-10.6)
[2016-11-21 09:42] LABS: Anion Gap 7 mmol/L; Blood Urea Nitrogen 16 mg/dL (9-20); Calcium 8.8 mg/dL (8.4-10.2); Carbon Dioxide 29 mmol/L (22-30); Chloride 103 mmol/L (98-107); Glucose 94 mg/dL (74-99); Non-African American GFR(MDRD) >60 (>60 ml/min/1.73 sqM); Potassium 4.2 mmol/L (3.5-5.1); Sodium 139 mmol/L (137-145)
[2016-11-21] MEDS: AZITHROMYCIN 500 MG in SODIUM CHLORIDE 0.9% 250 ML IVPB SCH (13:37)
[2016-11-21] MEDS: THIAMINE 100 MG TAB PO SCH ×2 (13:38→17:30)
--- NOTE | 2016-11-21 15:02 | XR ---
EXAMINATION TYPE: XR chest 2V DATE OF EXAM: 11/21/2016 2:58 PM COMPARISON: Prior chest x-ray from 2 days earlier HISTORY: Shortness of breath and dyspnea. TECHNIQUE: Frontal and lateral views of the chest are obtained. FINDINGS: There is chronic emphysematous change with new small bilateral pleural effusions and new o pacities in the lateral right mid and lower lung consistent with developing edema and/or infiltrates. There is additional left basilar atelectasis and/or infiltrate stable or slightly more prominent. Th e cardiac silhouette size is stable and upper limits of normal. The osseous structures are deminerali zed. IMPRESSION: Chronic emphysematous change with developing lateral right mid and lower lung infiltrate s and/or edema and persistent left basilar atelectasis and/or infiltrate with new small bilateral ple ural effusions present.
[2016-11-21] MEDS ORDERED: FUROSEMIDE 10 MG/ML 4 ML VIAL IV STA (16:06)
[2016-11-21] MEDS: predniSONE 20 MG TAB PO SCH (16:27)
[2016-11-21] MEDS: CLINDAMYCIN 600 MG in DEXTROSE 5% IN WATER 50 ML IVPB SCH ×4 (16:27→23:54)
--- NOTE | 2016-11-21 17:21 | PN ---
Patient is admitted with compression fracture and alcohol withdrawal. Both of which are addressed, but patient became more septic with increased tachycardia and fever of 100.3. The patient is presently on Rocephin and azithromycin for left lower lobe pneumonia. Although patient has increased infiltrates the right lower lobe as well, which mostly appears like pulmonary edema. Patient will be given one dose of IV Lasix 40 mg to see how he responds. Patient is more lethargic. Patient is excessively sleepy, unable to provide any history to me. Although his leukocytosis is improving. I am consulting infectious disease. Patient may have diastolic dysfunction with acute exacerbation. Review of systems unable to obtain due to his clinical condition. Medications are reviewed and medication changes as mentioned above. PHYSICAL EXAMINATION: Temperature 96.9, pulse of 104 and is going up to around 120, blood pressure is 140/83, saturating at 94% on 4 liters of O2 by nasal cannula. GENERAL: Patient is excessively tired, unable to assess orientation. HEENT: Pupils are round and equally reacting to light. EOMI. No scleral icterus. No conjunctival pallor. Normocephalic, atraumatic. No pharyngeal erythema. No thyromegaly. CARDIOVASCULAR: S1 and S2 present. No murmurs, rubs, or gallops. PULMONARY: Diffuse wheezing bilaterally along with bibasilar crackles are appreciated. Rhonchus breath sounds. ABDOMEN: Soft, nontender, nondistended, normoactive bowel sounds. No palpable organomegaly. MUSCULOSKELETAL: No joint swelling or deformity. EXTREMITIES: No cyanosis, clubbing, or pedal edema. NEUROLOGICAL: Unable to assess due to his clinical condition, although does not appear to have any new focal neurological deficits. SKIN: No rashes. LABORATORY DATA: CBC, comprehensive basic metabolic profile significant for improvement in leukocytosis. ASSESSMENT AND PLAN: 1. Acute on chronic obstructive pulmonary disease exacerbation. 2. Acute on chronic hypercapnic respiratory failure. The patient will be started on systemic steroids inhalational treatments. 3. Right lower lobe pneumonia for which patient is on Rocephin and azithromycin. 4. Sepsis secondary to right lower lobe pneumonia. 5. Possible chronic diastolic dysfunction with mild acute exacerbation. We will give him Lasix today and reassess him tomorrow. 6. Tachycardia secondary to sepsis. 7. Anxiety disorder. 8. Alcohol withdrawal. 9. Alcoholic gastritis. 10. Alcohol intoxication on admission. PLAN: As mentioned above.
[2016-11-22] MEDS: METOPROLOL TARTRATE 12.5 MG TAB PO SCH ×3 (02:40→20:37)
[2016-11-22] MEDS: ALPRAZolam 0.5 MG TAB PO SCH ×3 (02:41→20:37)
[2016-11-22] MEDS: IPRATROPIUM-ALBUTEROL 3 ML NEB INHALATION PRN (05:49)
[2016-11-22] MEDS: SYMBICORT 160-4.5 MCG INHALER INHALATION SCH ×2 (07:33→20:14)
[2016-11-22] MEDS: IPRATROPIUM-ALBUTEROL 3 ML NEB INHALATION SCH ×4 (07:34→20:14)
[2016-11-22] MEDS: NICOTINE 14MG/24HR PATCH TRANSDERM SCH (08:11)
[2016-11-22] MEDS: predniSONE 20 MG TAB PO SCH (08:11)
[2016-11-22] MEDS: SERTRALINE 50 MG TAB PO SCH (08:11)
[2016-11-22] MEDS: PANTOPRAZOLE 40 MG TABLET PO SCH (08:11)
[2016-11-22] MEDS: CLINDAMYCIN 600 MG in DEXTROSE 5% IN WATER 50 ML IVPB SCH ×6 (08:12→23:45)
[2016-11-22 09:27] LABS: CH 35.2; CHCM 33.1; HCT 45.2 % (39.0-53.0); HDW 2.67; HGB 14.4 gm/dL (13.0-17.5); MCH 34.1 pg (25.0-35.0); MCHC 31.9 g/dL (31.0-37.0); MCV 106.9 fL (80.0-100.0); Macrocytosis Moderate; Mean Platelet Volume 8.8; RBC 4.23 m/uL (4.30-5.90); RDW 13.3 % (11.5-15.5)
[2016-11-22 09:42] LABS: Anion Gap 10 mmol/L; Blood Urea Nitrogen 23 mg/dL (9-20); Calcium 8.9 mg/dL (8.4-10.2); Carbon Dioxide 33 mmol/L (22-30); Chloride 100 mmol/L (98-107); Glucose 132 mg/dL (74-99); Non-African American GFR(MDRD) >60 (>60 ml/min/1.73 sqM); Potassium 3.6 mmol/L (3.5-5.1); Sodium 143 mmol/L (137-145)
[2016-11-22 10:43] LABS: Nucleated Red Blood Cells 0 /100 WBC (0-0); Total Cells Counted 100
[2016-11-22 10:44] LABS: Manual Review Performed
[2016-11-22] MEDS: THIAMINE 100 MG TAB PO SCH ×2 (12:11→17:34)
--- NOTE | 2016-11-22 12:38 | CONS ---
DATE OF CONSULTATION: 11/21/2016 Reason for consultation is pneumonia, persistent elevated white count. HISTORY OF PRESENT ILLNESS: The patient is a 76-year-old male who was brought into the ER on 11/18/2016 with the chief complaint of dark stools with concern for a GI bleed. Apparently, the patient is currently has been diagnosed with a lumbar compression fracture after a fall. Subsequently, the patient has been evaluated by the ER physician. The patient did have abdominal x-rays which did show underlying COPD, hyperinflation versus pleural effusion. Possible ileus or enteritis. Patient has been admitted to the hospital and has been evaluated by GI, Orthopedic Surgery. Patient also having elevated white count of 18.3 on admission, that jumped to 21.6 as of yesterday. Has been treated with Rocephin and azithromycin for underlying pneumonia. He did have a urine that has been negative. However, the patient because of his persistent elevated white count, chest x-ray obtained this morning did show chronic emphysematous change as well as developing left and right mid and lower lung infiltrate or edema. Patient did have a congested cough, but he is unable to bring up sputum , most of information has been obtained from the chart. No nausea, vomiting has been noticed. There is a consent for the patient has significant history of drinking and possible unresponsiveness. REVIEW OF SYSTEMS: Could not be obtained, positive points has been mentioned in the HPI. His past medical history is significant for COPD, hypertension, chronic back pain and anxiety. PAST SURGICAL HISTORY: No major surgery. SOCIAL HISTORY: The patient currently is an every day smoker and regularly drinks and no history of drug use. FAMILY HISTORY: No pertinent findings were noticed. ALLERGIES: No known drug allergies. Medications include the patient is currently on Laie, DuoNeb, Xanax, Symbicort, ceftriaxone, azithromycin, Ativan, Lopressor, morphine, Narcan, nicotine patch, Zofran, Protonix, Zoloft. On examination, blood pressure is 129/82 with a pulse of 109, temperature of 98. He is 96% on 4 L nasal cannula. General description is an elderly male, lying in bed in no distress. HEENT EXAMINATION: No pallor or scleral icterus. Oral mucosa dry. NECK: Trachea central, no thyromegaly. LUNGS: Unlabored breathing, coarse breath sounds at the bases bilaterally. HEART: S1, S2. Regular rate and rhythm. ABDOMEN: Soft, no tenderness. EXTREMITIES: No edema of the feet. SKIN EXAMINATION: No rash. No mass palpable Neurological : The patient is lethargic, but he responds to his name. full neuro exam could not be completed. LABS: Hemoglobin is 13.6, white count of 14.7, down from yesterday of 21.6. His BUN is 16, creatinine 0.80. UA has been negative. Repeat chest x-ray was performed that showed a right mid lateral infiltrate. DIAGNOSTIC IMPRESSION AND PLAN: Patient with admission to the hospital for dark stool. However, the patient also had a congested cough, now with evidence of right mid lateral infiltrate, with concern for likely an aspiration pneumonia. Patient has no other clinical course of infection. Abdomen was soft and his urine was clean. PLAN: 1. Rocephin to continue; however, discontinue the azithromycin and start the patient on clindamycin. 2. Obtain sputum for gram-negative culture and sensitivity. 3. Will follow up with clinical condition and cultures to further adjust medications. Thank you for this consultation. Will follow this patient along with you. ALEXIS
--- NOTE | 2016-11-22 14:58 | XR ---
EXAMINATION TYPE: XR chest 1V DATE OF EXAM: 11/22/2016 2:51 PM COMPARISON: Yesterday HISTORY: Short of breath TECHNIQUE: Single frontal view of the chest is obtained. FINDINGS: There is patchy pneumonic interstitial and alveolar edema on the right side. There is mild infiltrate at the left lung base. There is slight blunting of the costophrenic angles. Summary vascu larity is difficult to evaluate because of the lung disease. Heart size is normal. There are no defin ite hilar masses. IMPRESSION: There is pulmonary edema and pleural effusions that are not significantly different than yesterday. I would consider possibilities of heart failure and RDS.
[2016-11-22] MEDS: HEPARIN SODIUM,PORCINE 5,000 UNIT/ML 1 ML VIAL SQ SCH (20:37)
[2016-11-23] MEDS: ALPRAZolam 0.5 MG TAB PO SCH (08:26)
[2016-11-23] MEDS: PANTOPRAZOLE 40 MG TABLET PO SCH (08:27)
[2016-11-23] MEDS: HEPARIN SODIUM,PORCINE 5,000 UNIT/ML 1 ML VIAL SQ SCH ×2 (08:27→20:50)
[2016-11-23] MEDS: SERTRALINE 50 MG TAB PO SCH (08:27)
[2016-11-23] MEDS: METOPROLOL TARTRATE 12.5 MG TAB PO SCH ×2 (08:27→20:49)
[2016-11-23] MEDS: predniSONE 20 MG TAB PO SCH (08:27)
[2016-11-23] MEDS: NICOTINE 14MG/24HR PATCH TRANSDERM SCH (08:27)
[2016-11-23] MEDS: HYDROcodone/APAP 5-325MG 1 EACH TAB PO PRN ×2 (08:33→20:51)
[2016-11-23] MEDS: CLINDAMYCIN 600 MG in DEXTROSE 5% IN WATER 50 ML IVPB SCH ×6 (08:37→23:56)
[2016-11-23] MEDS: SYMBICORT 160-4.5 MCG INHALER INHALATION SCH ×2 (09:01→19:12)
[2016-11-23] MEDS: IPRATROPIUM-ALBUTEROL 3 ML NEB INHALATION SCH ×4 (09:01→19:12)
[2016-11-23 09:13] LABS: CH 34.6; CHCM 33.2; HCT 42.8 % (39.0-53.0); HDW 2.68; MCH 34.2 pg (25.0-35.0); MCHC 32.7 g/dL (31.0-37.0); MCV 104.8 fL (80.0-100.0); Macrocytosis Slight; Mean Platelet Volume 8.3; RBC 4.09 m/uL (4.30-5.90); RDW 13.3 % (11.5-15.5); WBC 15.5 k/uL (3.8-10.6)
[2016-11-23 09:23] LABS: Anion Gap 11 mmol/L; Blood Urea Nitrogen 29 mg/dL (9-20); Calcium 8.8 mg/dL (8.4-10.2); Carbon Dioxide 31 mmol/L (22-30); Chloride 102 mmol/L (98-107); Glucose 97 mg/dL (74-99); Non-African American GFR(MDRD) >60 (>60 ml/min/1.73 sqM); Potassium 3.8 mmol/L (3.5-5.1); Sodium 144 mmol/L (137-145)
--- NOTE | 2016-11-23 11:48 | FL ---
EXAMINATION TYPE: FL barium swallow w video DATE OF EXAM: 11/23/2016 11:26 AM MODIFIED SWALLOW / DEGLUTITION STUDY CLINICAL HISTORY: Dysphagia. History of COPD, possible silent aspiration. Recurrent pneumonia. TECHNIQUE: Deglutition study is performed utilizing thin liquid barium, honey and nectar thick liqui d barium, barium thick applesauce, and barium coated cracker. A total of 2 minutes 58 seconds of fluo roscopic time was utilized during procedure. COMPARISON: None. FINDINGS: The oral and pharyngeal phases show satisfactory initiation and propagation with all modali ties tested. Normal mastication is seen with solid modalities tested. There is deep penetration and /or silent aspiration with less viscous modalities. This stayed in position without clearance. No pen etration or aspiration is seen with more viscous modalities. No initiation of cough reflux is seen. M ild pharyngeal residue was appreciated. Some residual shows penetration during swallowing of more vis cous modalities. Chin tuck procedure did not improve findings. IMPRESSION: Deep penetration/silent aspiration with less viscous modalities as cough reflux was not i nitiated. Please refer to speech therapist notes for further details if necessary.
[2016-11-23] MEDS: THIAMINE 100 MG TAB PO SCH ×2 (12:24→16:07)
--- NOTE | 2016-11-23 12:30 | PN ---
The patient is admitted to the hospital with compression fracture, alcohol withdrawal. Patient was septic secondary to left lower lobe pneumonia. Patient afebrile for the last 24 hours. Patient has significant clinical improvement but still quite weak. Will need physical therapy evaluation. Because of his continued fevers, I consulted infectious disease, appreciated their recommendations. ( ) was switched to ( ). REVIEW OF SYSTEMS: CARDIOVASCULAR: No chest pain, no orthopnea, no PND, no palpitations. PULMONARY: Denied any shortness of breath. No cough or hemoptysis. GASTROINTESTINAL: No diarrhea, nausea or vomiting. No abdominal pain. Normoactive bowel sounds. NEUROLOGIC: No headaches, no weakness, no numbness. Medications are reviewed. Medications changes as mentioned earlier in interval history. PHYSICAL EXAMINATION: VITAL SIGNS: Temperature 96.9, pulse of 75, respiratory rate of 18, blood pressure is 156/93, saturating at 94% on 3 liters of O2 by nasal cannula. GENERAL: The patient is alert and oriented x3, not in any acute distress. Well developed, well nourished. HEENT: Pupils are round and equally reacting to light. EOMI. No scleral icterus. No conjunctival pallor. Normocephalic, atraumatic. No pharyngeal erythema. No thyromegaly. CARDIOVASCULAR: S1 and S2 present. No murmurs, rubs, or gallops. PULMONARY: ( ) yesterday. Wheezing did improve significantly. Patient does have crackles in the left lower lung bases. I do not hear any bronchophony or egophony on exam. ABDOMEN: Soft, nontender, nondistended, normoactive bowel sounds. No palpable organomegaly. MUSCULOSKELETAL: No joint swelling or deformity. EXTREMITIES: No cyanosis, clubbing, or pedal edema. NEUROLOGICAL: Gross neurological examination did not reveal any focal deficits. SKIN: No rashes. LABORATORY DATA: CBC and BMP are abnormal for elevated WBC count of 16,000, leukocytosis secondary to systemic steroids. ASSESSMENT AND PLAN: 1. Acute on chronic hypercapnic respiratory failure secondary to chronic obstructive pulmonary disease exacerbation the patient will be continued on systemic steroids and inhalational treatments. 2. Left lower lobe pneumonia. Continue Rocephin and ( ). 3. ( ) secondary to left lower lobe pneumonia. 4. Possible chronic diastolic dysfunction with minimal exacerbation. Was given a dose of Lasix with improvement in her symptoms. 5. Tachycardia secondary to sepsis, which improved. 6. Anxiety disorder. 7. Alcoholic withdrawal. 8. Alcohol gastritis. ( ) alcohol intoxication on admission. PLAN: As mentioned
--- NOTE | 2016-11-23 16:01 | PN ---
DATE OF SERVICE: 11/22/2016 Reason for follow-up: Possible aspiration pneumonia. INTERVAL HISTORY: The patient is afebrile. He seems to be more awake, alert today. He is breathing comfortably. No nausea, vomiting. He did have some coughing but not bringing up of any sputum. No diarrhea. On examination, blood pressure to 156/93 with a pulse of 72, temperature 96.9, he is 95% on 3 liters nasal cannula. General description is an elderly male, lying in bed in no distress. RESPIRATORY SYSTEM: Unlabored breathing. Some coarse breath sounds no wheeze. HEART: S1, S2, regular rate and rhythm. ABDOMEN: Soft, slightly distended. No guarding or rigidity. LABS: Hemoglobin is 14.4, white count of 16 with a BUN of 23, creatinine 0.84, blood cultures so far negative. DIAGNOSTIC IMPRESSION AND PLAN: Patient with possible aspiration pneumonia, Xray is more suggestive of pleural effusion and pulmonary edema. The patient did have an elevated white count, though no significant fever. He will be maintained on Rocephin and clinda at this point for possible aspiration pneumonia. elevated white count could be related to steroids the patient is already on. If spike any new fever or any change to reculture and adjust antibiotics further. Continue supportive care. MTDD
--- NOTE | 2016-11-23 23:27 | PN ---
DATE OF SERVICE: 11/23/2016 PRESENTING COMPLAINT: Tired. INTERVAL HISTORY: This is a patient who presented with multiple issues, including COPD exacerbation, aspiration pneumonia, alcoholism with alcoholic withdrawal. Apparently patient was delirious earlier and he was more confused, but now he is more lucid today when I am seeing him. Patient could even talk about the news. Patient did have silent aspiration per swallow evaluation; hence has been put on a modified diet. Patient did have a good breakfast, per the aide. At home patient is using a walker. Patient is more perky; he also got a brace for a lumbar vertebra. REVIEW OF SYSTEMS: CONSTITUTIONAL: Tired. HEENT: None. RESPIRATORY: Congested cough. CARDIOVASCULAR: None. GASTROINTESTINAL: None. MUSCULOSKELETAL: As above. Current medications are reviewed and include: 1. Nebulized bronchodilators. 2. Xanax scheduled. 3. IV clindamycin. 4. Ceftriaxone. 5. Ativan. 6. Prednisone. On examination, temperature 98.8, pulse 74, respiration 20, blood pressure 133/70, pulse ox 93% on 3 L. GENERAL APPEARANCE: Somewhat disheveled. Sitting up. Awake. Tired. EYES: Pupils equal. Conjunctivae normal. NECK: JVD not raised. Mass not palpable. RESPIRATORY: Effort increased. LUNGS: Diminished breath sounds. Some crackles. CARDIOVASCULAR: First and second sounds normal. No edema. ABDOMEN: Soft, non-tender. Liver and spleen not palpable. PSYCHIATRY: Awake. Answering questions rather appropriately. INVESTIGATIONS: White count 15.5, hemoglobin 14. Potassium 3.8. BUN 29, creatinine 0.74. Chest x-ray from yesterday shows possible infiltrate versus interstitial edema. Video fluoroscopic swallow showing some deep penetration, silent aspiration with less viscous modalities. ASSESSMENT: 1. Aspiration pneumonia; could be a component of mental status contributing. 2. Acute on chronic hypercapnic respiratory failure secondary to chronic obstructive pulmonary disease, present on admission. 3. Acute chronic obstructive pulmonary disease exacerbation in a smoker. 4. Chronic nicotine dependence. Patient is a smoker. 5. Acute on chronic congestive heart failure exacerbation from diastolic dysfunction; ejection fraction not known. 6. Initially sepsis from possible pneumonia, present on admission. 7. Anxiety disorder. 8. Alcohol withdrawal. 9. Chronic alcohol use. 10. Gait dysfunction; uses a walker at home. 11. L4 compression fracture, acute, with a brace in place. 12. Chronic osteopenia. PLAN: I had a very lengthy discussion with the patient's daughter, answered several questions. Given patient's overall mental status, will discontinue patient's Ativan and also discontinue the Xanax. I am hoping patient's swallowing will improve down the road. PT/OT is also consulted. Patient may qualify for rehab. ID is also following the case. Overall prognosis guarded.
[2016-11-24] MEDS: CLINDAMYCIN 600 MG in DEXTROSE 5% IN WATER 50 ML IVPB SCH ×2 (08:14)
[2016-11-24] MEDS: HEPARIN SODIUM,PORCINE 5,000 UNIT/ML 1 ML VIAL SQ SCH ×2 (08:14→21:23)
[2016-11-24] MEDS: METOPROLOL TARTRATE 12.5 MG TAB PO SCH ×2 (08:14→21:23)
[2016-11-24] MEDS: NICOTINE 14MG/24HR PATCH TRANSDERM SCH (08:14)
[2016-11-24] MEDS: predniSONE 20 MG TAB PO SCH (08:14)
[2016-11-24] MEDS: SERTRALINE 50 MG TAB PO SCH (08:14)
[2016-11-24] MEDS: PANTOPRAZOLE 40 MG TABLET PO SCH (08:14)
[2016-11-24] MEDS: IPRATROPIUM-ALBUTEROL 3 ML NEB INHALATION SCH ×4 (09:31→19:25)
[2016-11-24] MEDS: SYMBICORT 160-4.5 MCG INHALER INHALATION SCH ×2 (09:38→19:25)
[2016-11-24] MEDS: AMPICILLIN-SULBACTAM 3 GM in SODIUM CHLORIDE 0.9% 100 ML IVPB SCH ×3 (12:27→23:37)
[2016-11-24] MEDS: THIAMINE 100 MG TAB PO SCH ×2 (12:27→17:37)
[2016-11-24] MEDS: HYDROcodone/APAP 5-325MG 1 EACH TAB PO PRN (21:23)
--- NOTE | 2016-11-24 22:02 | PN ---
DATE OF SERVICE: 11/24/2016 Reason for follow-up: Aspiration pneumonia. INTERVAL HISTORY: The patient is afebrile. He seems to be breathing more comfortably. The patient denies having any chest pain. Occasional cough. No abdominal pain or any diarrhea. On examination, blood pressure is 161/74, with a pulse of 74, temperature 97. He is 92% on 3 liters nasal cannula. General description is an elderly male up in the chair in no distress. RESPIRATORY SYSTEM: Unlabored breathing. Some coarse breath sounds at base. No wheeze. HEART: S1, S2 with regular rate and rhythm. ABDOMEN: Soft. No tenderness. LABS: Hemoglobin is 14, white count 15.5. BUN of 29, creatinine 0.74. Blood culture negative. Sputum collected currently pending. DIAGNOSTIC IMPRESSION AND PLAN: Patient with aspiration pneumonia white count still elevated. Antibiotic was adjusted to Unasyn. We are awaiting for the sputum culture to finalize to adjust antibiotic further. Continue supportive care.
[2016-11-25] MEDS: AMPICILLIN-SULBACTAM 3 GM in SODIUM CHLORIDE 0.9% 100 ML IVPB SCH ×4 (05:57→23:59)
--- NOTE | 2016-11-25 07:57 | PN ---
DATE OF SERVICE: 11/24/2016 PRESENTING COMPLAINT: More awake. INTERVAL HISTORY: This is a patient admitted with COPD exacerbation, aspiration pneumonia, alcoholism. The patient was seen by me yesterday on 11/24/16. Patient is far more awake, actually ate better. Patient has not decided about his discharge in terms of where he wants to go. Definitely more perky. Pain is well controlled. Review of systems done for constitutional, cardiovascular, GI, pulmonary; relevant findings as above. Current medications are reviewed that include IV Unasyn. On examination, temperature 97, pulse 71, respirations 21, blood pressure 161/74, pulse ox 92% on 3 L. GENERAL APPEARANCE: Sitting up, more comfortable. EYES: Pupils equal. Conjunctivae normal. NECK: JVD not raised. Mass not palpable. RESPIRATORY: Effort increased. LUNGS: Diminished breath sounds. CARDIOVASCULAR: First and second sounds normal. No edema. ABDOMEN: Soft. Nontender. Liver and spleen not palpable. PSYCHIATRY: Far more awake, answering questions appropriately. INVESTIGATIONS: No blood work from today. ASSESSMENT: 1. Aspiration pneumonia could be contribution from metabolic encephalopathy. Patient definitely far more awake now. 2. Acute on chronic hypercapnic respiratory failure secondary to chronic obstructive pulmonary disease, present on admission. 3. Acute chronic obstructive pulmonary disease exacerbation in a smoker. 4. Chronic nicotine dependence. Patient is a smoker. 5. Acute on chronic congestive heart failure exacerbation from diastolic dysfunction. 6. Initial sepsis, probably from pneumonia, present on admission. 7. Anxiety disorder. 8. Alcohol withdrawal, now improved. 9. Chronic alcohol use. 10. Gait dysfunction, uses a walker at home. 11. L4 compression fracture, acute, with a brace in place. 12. Chronic osteopenia. PLAN: I had a talk with the patient. He is concerned about his anxiety. Will start the patient on Paxil in the morning. I am going to repeat the modified videoscopic barium. I think his aspiration could be related to his mental status then that we can advance his diet. We will see how the patient does with ambulation.
[2016-11-25] MEDS: IPRATROPIUM-ALBUTEROL 3 ML NEB INHALATION SCH ×4 (08:22→21:02)
[2016-11-25] MEDS: SYMBICORT 160-4.5 MCG INHALER INHALATION SCH ×2 (08:22→21:02)
[2016-11-25] MEDS: NICOTINE 14MG/24HR PATCH TRANSDERM SCH (08:46)
[2016-11-25] MEDS: PARoxetine 20 MG TAB PO SCH (08:46)
[2016-11-25] MEDS: HEPARIN SODIUM,PORCINE 5,000 UNIT/ML 1 ML VIAL SQ SCH ×2 (08:46→20:20)
[2016-11-25] MEDS: METOPROLOL TARTRATE 12.5 MG TAB PO SCH ×2 (08:47→20:20)
[2016-11-25] MEDS: PANTOPRAZOLE 40 MG TABLET PO SCH (08:48)
[2016-11-25] MEDS: HYDROcodone/APAP 5-325MG 1 EACH TAB PO PRN ×2 (08:48→18:12)
[2016-11-25] MEDS: predniSONE 10 MG TAB PO SCH (08:51)
--- NOTE | 2016-11-25 11:54 | XR ---
EXAMINATION TYPE: XR chest 2V DATE OF EXAM: 11/25/2016 11:44 AM COMPARISON: 11/22/2016 HISTORY: Shortness of breath FINDINGS: Persistent coarsened interstitial pattern with small left effusion or pleural thickening and basilar infiltrates. Calcified granuloma right lower lobe. Arthropathy of the shoulders. IMPRESSION: 1. Findings suggest COPD with interstitial lung disease. Differential include pulmonary fibrosis. Sup erimposed venous congestion or pneumonitis not excluded. Overall the findings are slightly improved f rom exam of 11/22/2016. 2. Basilar infiltrate and small left effusion are stable.
--- NOTE | 2016-11-25 12:13 | FL ---
EXAMINATION TYPE: FL barium swallow w video DATE OF EXAM: 11/25/2016 11:31 AM COMPARISON: NONE HISTORY: TECHNIQUE: Fluoroscopy. FINDINGS: Fluoroscopic guidance was provided for the procedure performed in conjunction with the [facility] pathology department. Please see complete report forthcoming from the Speech Pathology departmen t. Various consistencies from thin liquid to solids were administered. No aspiration was evident during the exam. Penetration occurred with thin liquids. This improved with chin tuck method. No significant pooling was observed in the vallecula. There was delay in propulsion of the bolus. IMPRESSION: 1. Penetration with thin liquids. Remaining consistencies appeared normal
[2016-11-25] MEDS: THIAMINE 100 MG TAB PO SCH ×2 (12:40→17:57)
[2016-11-25] MEDS: FUROSEMIDE 10 MG/ML 4 ML VIAL IV SCH (20:20)
--- NOTE | 2016-11-25 21:52 | PN ---
DATE OF SERVICE: 11/25/2016 PRESENTING COMPLAINT: Tired. INTERVAL HISTORY: This patient presented with COPD exacerbation and aspiration pneumonia, alcoholism. Continues to feel better. Physical Therapy has recommended inpatient rehab, but patient is reluctant about the same. Patient has just come back from a modified barium swallow; results are not known. Review of systems done for constitutional, cardiovascular, GI, pulmonary; relevant findings as above. Current medications include IV Unasyn. On examination, temperature 97.4, pulse 83, respiration 22, blood pressure 179/80, pulse ox 96% on 3 L. GENERAL APPEARANCE: Sitting up in bed. Far more awake. EYES: Pupils equal. Conjunctivae normal. NECK: JVD not raised. Mass not palpable. RESPIRATORY: Effort normal. LUNGS: Diminished breath sounds. CARDIOVASCULAR: First and second sounds normal. No edema. ABDOMEN: Soft, non-tender. Liver and spleen not palpable. PSYCHIATRY: Alert and oriented x3. Mood and affect normal. INVESTIGATIONS: No blood work from today. ASSESSMENT: 1. Aspiration pneumonia that could be contributing to metabolic encephalopathy, present on admission, now much improved. 2. Acute on chronic hypercapnic respiratory failure secondary to chronic obstructive pulmonary disease, present on admission. 3. Acute chronic obstructive pulmonary disease exacerbation in a smoker. 4. Chronic nicotine dependence. Patient is a smoker. 5. Acute on chronic congestive heart failure exacerbation from diastolic dysfunction. 6. Initial sepsis, probably from pneumonia, present on admission. 7. Anxiety disorder. 8. Alcohol withdrawal, now improved. 9. Chronic alcohol use. 10. Gait dysfunction; uses a walker at home. 11. L4 compression fracture, acute; has a brace in place. 12. Chronic osteopenia. PLAN: I spoke to the patient in the presence of case folder Lulu Sommers. Did explain to him the importance of inpatient rehab, but patient is rather keen to go home. At this point awaiting results of modified ( ) barium swallow. If patient is not agreeable to go to [facility], will then be discharged home. Patient's will be coming in this afternoon.
[2016-11-26] MEDS: HYDROcodone/APAP 5-325MG 1 EACH TAB PO PRN ×3 (00:02→17:57)
[2016-11-26] MEDS: AMPICILLIN-SULBACTAM 3 GM in SODIUM CHLORIDE 0.9% 100 ML IVPB SCH ×2 (05:25→12:48)
--- NOTE | 2016-11-26 06:25 | PN ---
DATE OF SERVICE: 11/25/2016 Reason for followup is aspiration pneumonia. INTERVAL HISTORY: The patient is afebrile. Has been breathing more comfortably. Denies having any chest pain or shortness of breath. Occasional cough. No abdominal pain or any diarrhea. On examination, blood pressure 157/78 with a pulse of 72, temperature 96.7. He is 97% on 3 L nasal cannula. General description is an elderly male up in the chair in no distress. RESPIRATORY SYSTEM: Unlabored breathing. Clear to auscultation anteriorly. HEART: S1, S2. Regular rate and rhythm. ABDOMEN: Soft, no tenderness. LABS: Blood culture negative. Sputum indicated to have been received though not showing up on the culture. DIAGNOSTIC IMPRESSION AND PLAN: Patient with aspiration pneumonia with evidence of aspiration on the video esophagram. He is currently responding to the Unasyn. Awaiting for the sputum culture to finalize to determine his discharge antibiotic. However, in view of overall improvement on the Unasyn, he may be able to finish therapy with oral Augmentin. Continue supportive care.
[2016-11-26] MEDS: SYMBICORT 160-4.5 MCG INHALER INHALATION SCH ×2 (07:48→19:17)
[2016-11-26] MEDS: IPRATROPIUM-ALBUTEROL 3 ML NEB INHALATION SCH ×4 (07:48→19:17)
[2016-11-26] MEDS: FUROSEMIDE 10 MG/ML 4 ML VIAL IV SCH (09:16)
[2016-11-26] MEDS: METOPROLOL TARTRATE 12.5 MG TAB PO SCH ×2 (09:17→20:46)
[2016-11-26] MEDS: HEPARIN SODIUM,PORCINE 5,000 UNIT/ML 1 ML VIAL SQ SCH ×2 (09:17→20:46)
[2016-11-26] MEDS: predniSONE 10 MG TAB PO SCH (09:17)
[2016-11-26] MEDS: NICOTINE 14MG/24HR PATCH TRANSDERM SCH (09:17)
[2016-11-26] MEDS: PANTOPRAZOLE 40 MG TABLET PO SCH (09:17)
[2016-11-26] MEDS: PARoxetine 20 MG TAB PO SCH (09:17)
[2016-11-26 09:27] LABS: Anion Gap 9 mmol/L; Blood Urea Nitrogen 21 mg/dL (9-20); Calcium 8.6 mg/dL (8.4-10.2); Carbon Dioxide 30 mmol/L (22-30); Chloride 103 mmol/L (98-107); Glucose 97 mg/dL (74-99); Non-African American GFR(MDRD) >60 (>60 ml/min/1.73 sqM); Potassium 3.5 mmol/L (3.5-5.1); Sodium 142 mmol/L (137-145)
--- NOTE | 2016-11-26 12:27 | PN ---
DATE OF SERVICE: 11/26/2016 Reason for followup is aspiration pneumonia. INTERVAL HISTORY: The patient is afebrile. He is breathing comfortably. Denies having any significant chest pain, shortness of breath. No cough, no abdominal pain or any diarrhea. On examination, blood pressure is 169/68 with a pulse of 54, temperature 97.2, he is 96% on 3 L nasal cannula. General description is an elderly male, up in the room in no distress. RESPIRATORY SYSTEM: Unlabored breathing. Some decreased breath sounds at the base. HEART: S1, S2, regular rate and rhythm. ABDOMEN: Soft, no tenderness. LABS: BUN of 21, creatinine 0.82, sputum is usually respiratory anca. Blood cultures negative. DIAGNOSTIC IMPRESSION AND PLAN: Patient with a recurrent aspiration pneumonia. Sputum has been negative for any resistant pathogen. PLAN: At this time is to finish therapy with oral Augmentin 875 b.i.d. for another 7 to 10 days with close outpatient followup. Family present at the bedside. Their questions were answered.
[2016-11-26] MEDS: THIAMINE 100 MG TAB PO SCH ×2 (12:48→17:51)
[2016-11-26 19:52] LABS: ABG HCO3 27 mmol/L (21-25); ABG Oxygen Saturation 95.6 % (94-97); ABG PCO2 31 mmHg (35-45); ABG PH 7.54 (7.35-7.45); ABG PO2 68 mmHg (83-108); ABG TCO2 28 mmol/L (19-24)
[2016-11-26] MEDS: AMOXIC-POT CLAV 875-125MG 1 EACH TAB PO SCH (20:46)
--- NOTE | 2016-11-26 22:21 | CT ---
EXAMINATION TYPE: High-resolution CT chest DATE OF EXAM: 11/26/2016 6:34 PM COMPARISON: Correlation radiographs 11/25/2016 HISTORY: 76-year-old male shortness of breath, possible pulmonary fibrosis. TECHNIQUE: Contiguous axial scanning of the chest without IV contrast. HRCT technique with 1 mm slice thickness and 1 cm gap was utilized. The patient could not complete prone imaging. CT DLP: 422.70 mGycm Automated exposure control for dose reduction was used. FINDINGS: Heart is normal size without pericardial effusion. Coronary vessel calcifications are present and are remarkable for coronary artery disease. Ascending aorta is borderline aneurysmal at 4.0 cm. There is mild atherosclerotic arch calcifications and conventional arch vessel branching anatomy with tortuous arch vessels. 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 Allowing for HRCT technique, no thoracic lymphadenopathy is identified. There is diffuse bronchial wall thickening with moderate centrilobular emphysema, some linear areas o f soft tissue thickening in both peripheral mid to lower lungs, and some associated lower lung cicatr icial bronchiectasis. There is some soft tissue thickening along the fissures at the right base measu ring up to 2.5 cm and some additional nodularity basilar right lower lobe measuring up to 1.2 cm. Ass essment of these areas is limited due to HRCT technique. There is a small right pleural effusion. No yumiko consolidation, honeycombing, mosaic attenuation, or centrilobular nodules. While there is so me dependent groundglass in the right upper lobe, this probably relates to dependent atelectasis. Ass essment limited as prone imaging not performed. There is otherwise no dominant groundglass seen. Moderate bilateral gynecomastia. Visualized upper abdomen shows no gross abnormality. Bones: Endplate spondylosis throughout. IMPRESSION: 1. HRCT DEMONSTRATING COPD WITH MODERATE EMPHYSEMA. 2. ADDITIONAL BIBASILAR PLEURAL PARENCHYMAL SCARRING AND ASSOCIATED CICATRICIAL BRONCHIECTASIS. BRONC HIECTASIS COULD BE IDIOPATHIC OR COULD BE THE RESULT OF CHRONIC INFECTIONS OR ASPIRATION. 3. NO YUMIKO HONEYCOMBING TO SUPPORT IPF AT THIS TIME. 4. UNABLE TO EXCLUDE RIGHT BASILAR PULMONARY NODULES MEASURING UP TO 2.5 CM. RECOMMEND 3 MONTH FOLLOW -UP EXAM WITH CONTRAST ENHANCED CT CHEST. 5. SMALL RIGHT PLEURAL EFFUSION. 6. 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
--- NOTE | 2016-11-26 22:26 | PN ---
DATE OF SERVICE: 11/26/2016 PRESENTING COMPLAINT: Tired. INTERVAL HISTORY: This patient presented with COPD exacerbation, aspiration pneumonia, history of alcoholism. Continues to improve. Daughter is at his bedside. Repeat barium modified swallow results are noted. Review of systems done for constitutional, cardiovascular, GI, pulmonary; relevant findings as above. Current medications include IV Unasyn. On examination, temperature 97.2, pulse 58, respiration 22, blood pressure 169/68, pulse ox 94% on 3 L. GENERAL APPEARANCE: Sitting up in bed. Not in distress. EYES: Pupils equal. Conjunctivae normal. NECK: JVD not raised. Mass not palpable. RESPIRATORY: Effort normal. LUNGS: Diminished breath sounds. Crackles. CARDIOVASCULAR: First and second sounds normal. No edema. ABDOMEN: Soft, non-tender. Liver and spleen not palpable. PSYCHIATRY: Alert and oriented x3. Mood and affect normal. INVESTIGATIONS: Potassium 3.5. BUN 21, creatinine 0.82. ASSESSMENT: 1. Aspiration pneumonia causing acute metabolic encephalopathy, present on admission, now improved. 2. Acute on chronic hypercapnic respiratory failure secondary to chronic obstructive pulmonary disease, present on admission. 3. Acute chronic obstructive pulmonary disease exacerbation in a smoker. 4. Chronic nicotine dependence. Patient is an active cigarette smoker. 5. Acute on chronic congestive heart failure exacerbation from diastolic dysfunction; ejection fraction 60% to 65%. 6. Initial sepsis from pneumonia, present on admission. 7. Anxiety disorder. 8. Alcohol withdrawal, now corrected. 9. Chronic alcohol use. 10. Gait dysfunction; uses a walker. 11. L4 compression fracture, acute. Has a brace in place. 12. Chronic osteopenia. PLAN: Given x-ray findings and hypoxia, I will do a high-resolution CT chest to rule out pulmonary fibrosis. Also check a set of blood gases on room air. Patient does desaturate easily with walking. Care was discussed at length with the patient and daughter. They are looking at home care and providing nursing. Also spoke to Lulu, social contact worker. Total time spent was about 40 minutes with over 25 minutes of discussion. Reinforced ( ) smoking and alcoholism.
[2016-11-27] MEDS: HYDROcodone/APAP 5-325MG 1 EACH TAB PO PRN ×2 (00:04→07:10)
[2016-11-27 07:48] VITALS: BP 140/80; RESP 22; TEMP 97.5
[2016-11-27] MEDS: IPRATROPIUM-ALBUTEROL 3 ML NEB INHALATION SCH ×2 (09:13→13:23)
[2016-11-27] MEDS: SYMBICORT 160-4.5 MCG INHALER INHALATION SCH (09:19)
[2016-11-27] MEDS: HEPARIN SODIUM,PORCINE 5,000 UNIT/ML 1 ML VIAL SQ SCH (09:57)
[2016-11-27] MEDS: NICOTINE 14MG/24HR PATCH TRANSDERM SCH (09:58)
[2016-11-27] MEDS: AMOXIC-POT CLAV 875-125MG 1 EACH TAB PO SCH (09:58)
[2016-11-27] MEDS: METOPROLOL TARTRATE 12.5 MG TAB PO SCH (09:58)
[2016-11-27] MEDS: PARoxetine 20 MG TAB PO SCH (09:59)
[2016-11-27] MEDS: PANTOPRAZOLE 40 MG TABLET PO SCH (09:59)
[2016-11-27] MEDS: predniSONE 10 MG TAB PO SCH (09:59)
[2016-11-27] MEDS: THIAMINE 100 MG TAB PO SCH (12:44)
[2016-11-27 16:00] VITALS: PULSE 80
--- NOTE | 2016-11-27 16:54 | PN ---
DATE OF SERVICE: 11/27/2016 Reason for follow-up pneumonia. INTERVAL HISTORY: The patient is afebrile. The patient overall is feeling better. He is breathing comfortably. Has some occasional cough and bringing up some sputum and hemoptysis. Denies any chest pain, abdominal pain or any diarrhea. On examination, blood pressure is 140/80 with a pulse of 80, temperature 97.5, he is 94% on 3 liters nasal cannula. General description is an elderly male, up in the bed in no distress. RESPIRATORY SYSTEM: Unlabored breathing. Some decreased breath sounds at the bases. No wheeze. HEART: S1, S2 regular rate and rhythm. ABDOMEN: Soft. No tenderness. LABS: He did have an ABG today, but no CBC was done. Blood cultures are negative. Sputum is usual respiratory anca. DIAGNOSTIC IMPRESSION AND PLAN: Patient with sepsis, source likely aspiration pneumonia and he did have documentation of aspiration on the swallow evaluation. Did well on Unasyn and switched to Augmentin for another 7 days of therapy to finish the course of the therapy. Continue supportive care. MTDD
--- NOTE | 2016-11-27 21:51 | DS ---
DATE OF ADMISSION: 11/18/2016 DATE OF DISCHARGE: 11/27/2016 FINAL DIAGNOSES: 1. Aspiration pneumonia from acute metabolic encephalopathy on admission, probably from alcoholism. 2. Acute hypercapnic respiratory failure secondary to chronic obstructive pulmonary disease, present on admission. Patient does not have chronic hypercapnia. 3. Acute chronic obstructive pulmonary disease exacerbation in a smoker. 4. Chronic nicotine dependence. Patient is an active cigarette smoker. 5. Acute on chronic congestive heart failure exacerbation from diastolic dysfunction; ejection fraction 60% to 65% from hypertension. 6. Initial presentation from sepsis from pneumonia on admission. 7. Anxiety disorder. 8. Alcohol withdrawal on presentation. 9. Chronic alcohol use. 10. Gait disorder, uses a walker. 11. L4 compression fracture, acute, present on admission, has a brace in place. 12. Chronic osteopenia. HOSPITAL COURSE: This patient presented with a sepsis picture, smoking, alcohol, found to have aspiration pneumonia. The patient did improve well after alcohol withdrawal settled down. Patient was reinforced several times, including in front of the daughter, about not smoking and drinking alcohol. Patient eventually by the time of discharge was pulse oxing good on room air. Patient has some chronic lung findings and will follow up with Pulmonary as an outpatient. Care was discussed in detail with the patient on day of discharge. Discharge planning more than 35 minutes. On examination: LUNGS: Decreased breath sounds. PSYCH: Alert and oriented x3. Also, patient had a video fluoroscopic swallow evaluation that showed aspiration with thin liquids, aspiration with a modified diet. A 2-D echocardiogram showed preserved LV function. CONSULTATIONS: Dr. Teague from infectious disease, Dr. Rema Kitchen from GI, Dr. Bhardwaj from orthopedics. DISCHARGE MEDICATIONS: 1. [place] 5, 1 tablet p.o. every 6 hours p.r.n. 2. Augmentin 875, 1 tablet p.o. q.12, 10 tablets. 3. Symbicort 160/4.5, 2 puffs b.i.d. 4. DuoNeb q.i.d. 5. Lopressor 12.5 p.o. b.i.d. 6. Nicotine 14 mg patch for 14 days. 7. Paxil 20 mg daily. 8. Protonix 40 mg daily. 9. Thiamine 100 mg p.o. b.i.d. 10. Prednisone 30 mg for 5 days. 11. No oxygen needed. Follow up with ( ) 12/11/2016, Dr. Rema Kitchen on 12/21/2016, Dr. Kilpatrick 12/04/2016, Dr. Mcclellan on 12/07/2016.
== END 2016-11-27 15:37 | disposition home health service (06) | DRG 871 ==
LOC: EC 14:10 → 4MS4W 16:02
PROVIDERS: ADMIT Internal Medicine; ATTEND Hospitalist
DX: A41.9 Sepsis, unspecified organism (principal); G93.41 Metabolic encephalopathy; J69.0 Pneumonitis due to inhalation of food and vomit; J96.22 Acute and chronic respiratory failure with hypercapnia; I50.33 Acute on chronic diastolic (congestive) heart failure; F10.239 Alcohol dependence with withdrawal, unspecified; J44.1 Chronic obstructive pulmonary disease with (acute) exacerbation; M48.56XA Collapsed vertebra, not elsewhere classified, lumbar region, initial encounter for fracture; F17.210 Nicotine dependence, cigarettes, uncomplicated; F32.9 Major depressive disorder, single episode, unspecified; F41.9 Anxiety disorder, unspecified; I10 Essential (primary) hypertension; K29.20 Alcoholic gastritis without bleeding; M41.80 Other forms of scoliosis, site unspecified; M47.9 Spondylosis, unspecified; M85.80 Other specified disorders of bone density and structure, unspecified site; G89.29 Other chronic pain; R26.9 Unspecified abnormalities of gait and mobility; M54.5 Low back pain; K52.9 Noninfective gastroenteritis and colitis, unspecified; F10.229 Alcohol dependence with intoxication, unspecified; K70.10 Alcoholic hepatitis without ascites; R32 Unspecified urinary incontinence; Z79.899 Other long term (current) drug therapy
CPT/HCPCS: 36415; 36600; 71010; 71020; 71250; 72110; 73502; 74000; 74230; 80048; 80053; 81001; 82150; 82271; 82272; 82550; 82553; 82805; 83605; 83690; 83735; 84484; 85025; 85027; 85610; 85730; 86850; 86900; 86901; 87040; 87070; 87086; 87205; 93306; 94640; 94760; 96361; 96374; 96375; 99285

== ENCOUNTER → 2016-12-30 | Outpatient (CLI) | payer MEDICARE ==
--- NOTE | 2016-12-30 12:48 | CT ---
EXAMINATION TYPE: CT lumbar spine wo con DATE OF EXAM: 12/30/2016 11:59 AM COMPARISON: NONE HISTORY: compression fx CT DLP: 1170 mGycm CONTRAST: None TECHNIQUE: CT of the lumbar spine is performed on a spiral scan at 3 mm thick sections. Reconstructed images are performed in the coronal and sagittal planes. FINDINGS: T11-T12: No focal disc herniation or significant disc bulge is evident. No spinal canal stenosis or n eural foraminal stenosis is present T12-L1: There is narrowing of the disc height. No focal disc herniation or significant disc bulge is evident. No spinal canal stenosis or neural foraminal stenosis is present. L1-L2: Anterior vertebral body spurring is present. No focal disc herniation or significant disc bulg e is evident. No spinal canal stenosis or neural foraminal stenosis present. L2-L3: No focal disc herniation or significant disc bulge is evident. No spinal canal stenosis or n eural foraminal stenosis is present L3-L4: Broad-based disc bulge is present with anterior thecal sac flattening. Some subligamentous dis c herniation extending superiorly with moderate anterior thecal sac compression. Facet hypertrophy is mild ligamentum flavum laxity. These are contributing to spinal canal narrowing. L4: There is a compression deformity of L4 and estimated 70% vertebral body height loss. Posterior wa ll displacement is evident contributing to borderline spinal canal stenosis of 0.8 cm AP dimension po sterior to the vertebral body. L4-L5: No focal disc herniation or significant disc bulge is evident. Mild facet hypertrophy is prese nt. No spinal canal stenosis is present. This may be a burst fracture. Soft tissue swelling is not ad jacent. This fracture appears to have occurred between November 16 and November 18, 2016. L5-S1: Mild disc space narrowing is present. No spinal canal stenosis is evident. No focal disc herni ation is evident. Foramen are patent. Vertebral alignment appears normal. IMPRESSION: 1. Recent compression deformity of L4 with posterior wall displacement contributing to borderline spi nal canal stenosis. 2. Central disc herniation L3-4 extending superiorly with moderate anterior thecal sac compression 3. Multilevel degenerative disc changes and some facet hypertrophy discussed above.
--- NOTE | 2016-12-30 13:13 | CT ---
EXAMINATION TYPE: CT hip RT wo con DATE OF EXAM: 12/30/2016 12:00 PM COMPARISON: NONE HISTORY: Rt hip pain CT DLP: 394 mGycm Automated exposure control for dose reduction was used. TECHNIQUE: Axial images 3 mm thick sections through the right hip. Three-D reconstructed images perfo rmed separately on the [employer] computer were performed by the technologist. Reconstructed coronal and sagittal plane images are reviewed FINDINGS: Joint space is narrowed. No acute fracture is identified. Soft tissues appear normal. No large joint effusion is evident. IMPRESSION: 1. OSTEOARTHRITIS RIGHT HIP
== END | disposition home or self-care (01) ==
LOC: RADCTMAIN 11:31
PROVIDERS: ATTEND Internal Medicine
DX: M16.11 Unilateral primary osteoarthritis, right hip (principal); M48.06 Spinal stenosis, lumbar region; M51.26 Other intervertebral disc displacement, lumbar region; M51.36 Other intervertebral disc degeneration, lumbar region; M46.86 Other specified inflammatory spondylopathies, lumbar region; M43.8X6 Other specified deforming dorsopathies, lumbar region
CPT/HCPCS: 72131

== ENCOUNTER → 2017-01-14 | Outpatient (CLI) | payer MEDICARE ==
[2017-01-14 16:29] LABS: Basophils # (A) 0.1 k/uL (0-0.2); Basophils % (A) 1 %; CHCM 32.6; Eosinophils # (A) 0.3 k/uL (0-0.7); Eosinophils % (A) 3 %; HCT 44.1 % (39.0-53.0); HDW 2.71; HGB 14.4 gm/dL (13.0-17.5); Luc # (Auto) 0.21; Luc % (Auto) 2; Lymphocytes # (A) 1.5 k/uL (1.0-4.8); Lymphocytes % (A) 12 %; MCH 33.1 pg (25.0-35.0); MCHC 32.5 g/dL (31.0-37.0); MCV 101.6 fL (80.0-100.0); Macrocytosis Slight; Monocytes # (A) 0.7 k/uL (0-1.0); Monocytes % (A) 6 %; Neutrophils # (A) 9.7 k/uL (1.3-7.7); Neutrophils % (A) 77 %; RBC 4.35 m/uL (4.30-5.90); RDW 13.4 % (11.5-15.5); WBC 12.6 k/uL (3.8-10.6); WBC (Perox) 12.95
[2017-01-14 16:39] LABS: Anion Gap 11 mmol/L; Appearance,Urine Clear (Clear); Bilirubin,Urine Negative (Negative); Blood Urea Nitrogen 12 mg/dL (9-20); Calcium 9.8 mg/dL (8.4-10.2); Carbon Dioxide 26 mmol/L (22-30); Chloride 101 mmol/L (98-107); Glucose 118 mg/dL (74-99); Glucose,Urine (UA) Negative (Negative); Ketones,Urine Negative (Negative); Leukocyte Esterase,Urine Negative (Negative); Nitrite,Urine Negative (Negative); Non-African American GFR(MDRD) >60 (>60 ml/min/1.73 sqM); PH, Urine 6.5 (5.0-8.0); Potassium 6.1 mmol/L (3.5-5.1); Protein,Urine Negative (Negative); Sodium 138 mmol/L (137-145); Specific Gravity,Urine 1.011 (1.001-1.035); UA Billing (MACRO vs. MICRO) CHEM; Urobilinogen,Urine <2.0 mg/dL (<2.0)
[2017-01-14 16:47] LABS: Partial Thromboplastin Time 24.6 sec (22.0-30.0); Prothrombin Time 9.9 sec (9.0-12.0)
== END | disposition home or self-care (01) ==
LOC: LABPAT 15:55
PROVIDERS: ATTEND Orthopaedic Surgery Orthopaedic Surgery of the Spine
DX: Z01.812 Encounter for preprocedural laboratory examination (principal)
CPT/HCPCS: 80048; 81003; 85025; 85610; 85730; 86850; 86900; 86901; 87070

== ENCOUNTER → 2017-01-19 | Outpatient (CLI) | payer MEDICARE | END | disposition home or self-care (01) | LOC: LABPAT 17:40 | PROVIDERS: ATTEND Internal Medicine | DX: E87.5 Hyperkalemia (principal) | CPT/HCPCS: 36415; 84132 ==

== ENCOUNTER 2017-01-21 11:19 | Day surgery (SDC) | payer MEDICARE ==
--- NOTE | 2017-01-21 08:43 | P.OP ---
Date of Procedure: 01/21/17 Preoperative Diagnosis: L4 compression fracture, subacute and pathologic to the osteoporosis Postoperative Diagnosis: Same Anesthesia: GETA Pathology: other (L4 vertebral body biopsy sent to pathology) Condition: stable Disposition: PACU Description of Procedure: BRIEF OPERATIVE NOTE Preoperative Diagnosis: Vertebral compression fracture L4, subacute and pathologic due to osteoporosis Postoperative Diagnosis: Same Procedure: Kyphoplasty L4 Vertebral body biopsy L4 Use of biplanar fluoroscopic guidance Surgeon: Dr. Bhardwaj Tube Cutter: None Anesthesia: General anesthesia Estimated blood loss: Less than 10 mL Specimen: Vertebral body L4 biopsy sent to pathology in formalin Complications: None apparent Components implanted: Bone cement Disposition: To recovery room in good stable condition. OPERATIVE INDICATIONS The patient has been having issues in their back ever since sustaining an injury. The patient has significant osteoporosis and had subsequent vertebral compression fracture at L4. The patient has been through conservative treatment. They attempted conservative care with bracing however they're not having any benefit despite brace use. He has continued have significant pain and debility with progressive vertebral body height loss his bite conservative treatment with bracing and activity modification. They continue to have significant pain and debility due to their fracture. We discussed various treatment options including surgery, and the patient wishes to proceed with surgery We discussed the risk, patient's alternatives and benefits of surgery including but not limited to, risk of bleeding risk of infection, risk of need for further surgery, risk of decreased, loss of motion, loss of function, cement extravasation, nerve damage, paralysis, heart attack, blindness and . We discussed the issues involved with the fracture as well as the other issues at his back with degenerative changes and he understands that procedure planned is meant to treat the compression fracture and will not be addressing the degenerative changes at his lumbar spine. OPERATIVE SUMMARY After discussing all the risks, patient alternatives and benefits at length, the patient elected to proceed with surgical intervention, signed informed consent, and presented for their procedure. The patient was seen and examined in the preoperative holding area and the surgical site was marked. The patient was given antibiotics and brought to the operating room. The patient was sedated and intubated by anesthesia in standard fashion. The patient was positioned on to the operating room table in a prone position on the appropriate well-padded and well molded bilateral chest rolls. We were careful to pad any bony prominences and pressure points. We were careful to maintain the patient's cervical spine and good neutral alignment and position throughout. We used 2 C-arm machines to establish biplanar fluoroscopic guidance in AP and lateral positions. We were able to localize the fractures appropriately at L4. The patient was prepped and draped in a normal standard fashion. An appropriate timeout and keystone protocol performed. We were able to proceed with the surgery. The local wound area was infiltrated with local anesthetic. An incision was made over the lateral aspect of the pedicle over the appropriate levels with a small 2 mm stab incision on the right over L4 pedicle. Intraoperative fluoroscopy was taken which showed a marker at the appropriate level at L4. With the appropriate level positively confirmed, I was able to position a sharp trocar over the lateral aspect of the pedicle. As able to advance the trocar into the pedicle and into the posterior aspect of vertebral body being careful to avoid penetration cephalad caudad or medially. The trocar was placed appropriately into the posterior aspect of vertebral body at the appropriate level. This was confirmed with C-arm guidance. With the trocar intact I was then able to take a bone biopsy with a biopsy punch or a bony drill. The biopsy specimen was passed off to be sent to pathology in formalin. I was then able to place the kyphoplasty balloon within the vertebral body. The position was checked on C-arm. I was able to inflate the balloon under low pressure and visualization with C-arm. The balloon was well enclosed within the vertebral body. The cement was prepared. With the cement at appropriate working condition the balloons were deflated and removed. I was able to place bony cement with trocar with the cement delivery device under low pressure. It had good fill within the vertebral body across the vertebral body anteriorly. There is no evidence of any extravasation of the cement posteriorly toward the canal. The cement was well contained at the appropriate level with some cement entering into the disc space at L3 4 but remaining well contained. The cement was allowed to cure appropriately. The trochars removed and final images were taken on C-arm. This showed the cement at the appropriate level of L4. We were able to proceed with closure. The wound was cleaned and dried and dressed with the appropriate dressing. The drapes were broken down. The patient was gently rolled back onto their hospital bed being careful to maintain their cervical spine and good neutral alignment and position. They were woken up by anesthesia, extubated, and brought to the recovery room in good stable condition. The patient will be admitted to the hospital for observation and for appropriate postoperative care, medical management and monitoring. We will continue to follow them closely about the postoperative course.
--- NOTE | 2017-01-21 09:01 | FL ---
EXAMINATION TYPE: FL guidance operating room DATE OF EXAM: 01/21/2017 8:34 AM HISTORY: Flouroscopy time 77 seconds of fluoroscopy provided. IMPRESSION: 1. Fluoroscopy time.
--- NOTE | 2017-01-21 09:03 | XR ---
EXAM TYPE: LUMBAR SPINE X RAY SERIES COMPARISON: NONE HISTORY: Kyphoplasty TECHNIQUE: 2 views are submitted. FINDINGS: Technique is markedly limited. Appears to be contrast injection. Approximately 77 seconds of fluorosc opy utilized IMPRESSION: 1. Postoperative change
[2017-01-21] MEDS: LABETALOL 5 MG/ML VIAL MDV IVP ONE ×2 (09:10→09:17)
[2017-01-21 10:25] VITALS: BMI 31.5
[~2017-01-21 11:19] MED LIST: ACETAMINOPHEN PO PRN; BACITRACIN 50,000 UNIT, POLYMYXIN B 500,000 UNIT in SODIUM CHLORIDE 0.9% IRRIGATIO 1,00... IRRIGATION ONE; BENZOCAINE/MENTHOL LOZENG 1 EACH LOZENGE MUCOUS MEM PRN; DEXAMETHASONE SOD PHOSPHATE 10 MG/ML 1 ML VIAL IV ONE; FUROSEMIDE 20 MG TAB PO SCH; HYDROCODONE PO PRN; HYDROcodone/APAP 5-325MG 1 EACH TAB PO PRN; HYDROmorphone 1 MG/ML 1 ML SYRINGE IVP PRN; IBUPROFEN 600 MG TAB PO PRN; IOHEXOL 180 MG/ML 1 ML ML MISCELLANE ONE; LACTATED RINGERS 1,000 ML IV SCH; LIDOCAINE 0.5%-EPI 1:200,000 50 ML VIAL SQ ONE; LIDOCAINE 1% 20 ML VIAL (10MG/ML) FOR IV START INTRADERMA ONE; LIDOCAINE 1% 20 ML VIAL (10MG/ML) FOR IV START INTRADERMA PRN; LIDOCAINE 1% INJ 10MG/ML (20 ML MDV) ONE; METOPROLOL TARTRATE 12.5 MG TAB PO SCH; MIDAZOLAM 2 MG/2 ML VIAL IV PRN; MIDAZOLAM 2 MG/2 ML VIAL ONE; ONDANSETRON 4 MG/2 ML VIAL IVP ONE; PARoxetine 20 MG TAB PO SCH; PHENYLEPHRINE-0.9% NACL SYG 1 MG/10 ML SYRINGE ONE; PROPOFOL 10 MG/ML 20 ML VIAL IV ONE; SCOPOLAMINE 1.5MG/72HR PATCH TRANSDERM ONE; SODIUM CHLORIDE 0.9% 1,000 ML IV SCH; SUCCINYLCHOLINE CHLORIDE 100 MG/5 ML SYR IV ONE; TAMSULOSIN 0.4 MG CAP.ER.24H PO SCH; TIOTROPIUM 18 MCG/PUFF INHALER INHALATION SCH; ceFAZolin 2 GM in SODIUM CHLORIDE 0.9% 100 ML IVPB ONE; ePHEDrine 50 MG/ML 1 ML AMP ONE; fentaNYL (PF) 50 MCG/ML 2 ML AMP ONE
[2017-01-21] MEDS ORDERED: IPRATROPIUM-ALBUTEROL 3 ML NEB INHALATION SCH (12:00)
[2017-01-21] MEDS ORDERED: HYDROcodone/APAP 5-325MG 1 EACH TAB PO PRN (12:33)
[2017-01-21 14:59] VITALS: BP 126/74; PULSE 88; RESP 18; TEMP 99.3
[2017-01-21] MEDS ORDERED: ceFAZolin 2 GM in SODIUM CHLORIDE 0.9% 100 ML IVPB SCH (16:00)
[2017-01-21] MEDS ORDERED: SYMBICORT 160-4.5 MCG INHALER INHALATION SCH (20:00)
== END 2017-01-21 16:25 | disposition home or self-care (01) ==
LOC: OR 11:19 → 5MS5E 11:20 → OR 16:25
PROVIDERS: ATTEND Orthopaedic Surgery Orthopaedic Surgery of the Spine
DX: S32.040A Wedge compression fracture of fourth lumbar vertebra, initial encounter for closed fracture (principal); M80.88XA Other osteoporosis with current pathological fracture, vertebra(e), initial encounter for fracture; W19.XXXA Unspecified fall, initial encounter; Z91.81 History of falling; I10 Essential (primary) hypertension; J44.9 Chronic obstructive pulmonary disease, unspecified; I27.9 Pulmonary heart disease, unspecified; F32.9 Major depressive disorder, single episode, unspecified; F41.9 Anxiety disorder, unspecified; M19.90 Unspecified osteoarthritis, unspecified site; K21.9 Gastro-esophageal reflux disease without esophagitis; Z99.81 Dependence on supplemental oxygen; Z79.1 Long term (current) use of non-steroidal anti-inflammatories (NSAID); Z79.891 Long term (current) use of opiate analgesic; Z79.51 Long term (current) use of inhaled steroids; Z79.899 Other long term (current) drug therapy; Z87.891 Personal history of nicotine dependence
CPT/HCPCS: 72100; 22514; Q9965; J0690; J2405; 86850; 86900; 86901; 88307; 88311

== ENCOUNTER 2017-09-14 13:05 | Inpatient (IN) | payer MEDICARE ==
--- NOTE | 2017-09-14 14:09 | ED ---
General Adult HPI <Stephen Melchor - Last Filed: 09/14/17 15:03> - General Source: patient, family, RN notes reviewed Mode of arrival: wheelchair Limitations: no limitations <Wali Weir - Last Filed: 09/14/17 15:08> - General Chief complaint: Anxiety Stated complaint: Anxiety Time Seen by Provider: 09/14/17 13:24 - History of Present Illness Initial comments: Patient's a 77-year-old male who presents emergency room today with a chief complaint of increased weakness. He does admit that he believes that some anxiety. He states been suffering from this for a long time. He states he takes his back so for this. States he has been taking his medication. He states that yesterday as the day went on he noticed that he became increasingly weak. States he does feel better today. Patient denies any other complaints at this time. His daughters are at bedside worried that he may have had a mini stroke. States that she have his left eye appears to be somewhat droopy. They deny any other complaints or symptoms. Patient denies any increased cough or congestion. Patient denies any recent fever, chills, shortness of breath, chest pain, back pain, abdominal pain, nausea or vomiting, numbness or tingling , dysuria or hematuria, constipation or diarrhea, headaches or visual changes, or any other complaints. (Wali Weir) - Related Data Home Medications Medication Instructions Recorded Confirmed Metoprolol Tartrate [Lopressor] 12.5 mg PO BID 01/14/17 09/14/17 Tamsulosin [Flomax] 0.4 mg PO HS 01/21/17 09/14/17 Furosemide [Lasix] 40 mg PO QAM 09/14/17 09/14/17 Melatonin 10 mg PO HS 09/14/17 09/14/17 Mometasone/Formoterol [Dulera 200 2 puff INHALATION RT-BID 09/14/17 09/14/17 Mcg/5 Mcg Inhaler] Naproxen Sod/Diphenhydramine 1 tab PO HS 09/14/17 09/14/17 [Aleve Pm Caplet] PARoxetine HCL [Paxil] 30 mg PO HS 09/14/17 09/14/17 Pantoprazole Sodium [Protonix] 40 mg PO QAM 09/14/17 09/14/17 Allergies Allergy/AdvReac Type Severity Reaction Status Date / Time No Known Allergies Allergy Verified 09/14/17 14:18 Review of Systems ROS Other: All systems not noted in ROS Statement are negative. <Stephen Melchor - Last Filed: 09/14/17 15:03> ROS Other: All systems not noted in ROS Statement are negative. <Wali Weir - Last Filed: 09/14/17 15:08> ROS Statement: Those systems with pertinent positive or pertinent negative responses have been documented in the HPI. Past Medical History Past Medical History: COPD, Hypertension, Sleep Apnea/CPAP/BIPAP Additional Past Medical History / Comment(s): does not wear BIPAP/CPAP for sleep apnea History of Any Multi-Drug Resistant Organisms: None Reported Past Surgical History: No Surgical Hx Reported Additional Past Surgical History / Comment(s): stated pt never had any sx Past Anesthesia/Blood Transfusion Reactions: No Reported Reaction Past Psychological History: Anxiety Smoking Status: Current every day smoker Past Alcohol Use History: Occasional Past Drug Use History: None Reported - Past Family History Father History Unknown: Yes Family Medical History: Unable to Obtain Additional Family Medical History / Comment(s): arthritis Mother Family Medical History: No Reported History Additional Family Medical History / Comment(s): pt unsure of mothers history <[place]Wali - Last Filed: 09/14/17 15:08> General Exam <Stephen Melchor - Last Filed: 09/14/17 15:03> Limitations: no limitations <Wali Weir - Last Filed: 09/14/17 15:08> - General Exam Comments Initial Comments: General: The patient is awake and alert, in no distress, and does not appear acutely ill. Eye: Pupils are equal, round and reactive to light, extra-ocular movements are intact. No nystagmus. There is normal conjunctiva bilaterally. No signs of icterus. Ears, nose, mouth and throat: There are moist mucous membranes and no oral lesions. Neck: The neck is supple, there is no tenderness or JVD. Cardiovascular: There is a regular rate and rhythm. No murmur, rub or gallop is appreciated. Respiratory: Decreased lung sounds bilaterally, respirations are non-labored, breath sounds are equal. No stridor, rales, or rhonchi. Gastrointestinal: Soft, non-distended, non-tender abdomen without masses or organomegaly noted. There is no rebound or guarding present. No CVA tenderness. Bowel sounds are unremarkable. Musculoskeletal: Normal ROM, no tenderness. Strength 5/5. Sensation intact. Pulses equal bilaterally 2+. Neurological: A&O x 3. CN II-XII intact, There are no obvious motor or sensory deficits. Coordination appears grossly intact. Speech is normal. Skin: Skin is warm and dry and no rashes or lesions are noted. Psychiatric: Cooperative, appropriate mood & affect, normal judgment. (Wali Weir) Course <Stephen Melchor - Last Filed: 09/14/17 15:03> <Wali Weir - Last Filed: 09/14/17 15:08> Vital Signs 09/14/17 13:14 Temperature 96.8 F L Pulse Rate 74 Respiratory 20 Rate Blood Pressure 133/82 O2 Sat by Pulse 97 Oximetry - Reevaluation(s) Reevaluation #1: 09/14/17 15:03 I did personally do a [id number] evaluation the patient did discuss findings with patient and his family members were present. The patient is awake alert oriented 3 he does demonstrate audible wheezing and diminished breath sounds bilaterally. He does have a sodium of 1:15 which has likely come on gradually as he is awake alert and oriented. No prior history that he is aware of hyponatremia. He does have some clinical evidence of CHF as well as COPD. He will be admitted the case is discussed with Dr. Kramer (Stephen Melchor) EKG Findings - EKG Comments: EKG Findings:: EKG performed at 1355: Shows sinus rhythm at 67 bpm. Second- degree AV block. QRS is 88 with QT/QTc 406/429. No acute ST-T changes. No old EKG to compare. <Wali Weir - Last Filed: 09/14/17 15:08> Medical Decision Making - Lab Data Result diagrams: 09/14/17 13:58 09/14/17 13:58 <Stephen Melchor - Last Filed: 09/14/17 15:03> - Lab Data Result diagrams: 09/14/17 13:58 09/14/17 13:58 <Wali Weir - Last Filed: 09/14/17 15:08> - Lab Data Lab Results 09/14/17 09/14/17 09/14/17 Range/Units 13:58 13:58 13:58 WBC 12.8 H (3.8-10.6) k/uL RBC 3.93 L (4.30-5.90) m/uL Hgb 13.2 (13.0-17.5) gm/dL Hct 38.7 L (39.0-53.0) % MCV 98.2 (80.0-100.0) fL MCH 33.5 (25.0-35.0) pg MCHC 34.1 (31.0-37.0) g/dL RDW 13.2 (11.5-15.5) % Plt Count 262 (150-450) k/uL Neutrophils % 89 % Lymphocytes % 5 % Monocytes % 5 % Eosinophils % 1 % Basophils % 0 % Neutrophils # 11.4 H (1.3-7.7) k/uL Lymphocytes # 0.6 L (1.0-4.8) k/uL Monocytes # 0.6 (0-1.0) k/uL Eosinophils # 0.1 (0-0.7) k/uL Basophils # 0.0 (0-0.2) k/uL PT (9.0-12.0) sec INR (<1.2) APTT (22.0-30.0) sec Sodium 115 L* (137-145) mmol/L Potassium 3.9 (3.5-5.1) mmol/L Chloride 79 L* (98-107) mmol/L Carbon Dioxide 29 (22-30) mmol/L Anion Gap 7 mmol/L BUN 13 (9-20) mg/dL Creatinine 0.90 (0.66-1.25) mg/dL Est GFR (MDRD) Af Amer >60 (>60 ml/min/1.73 sqM) Est GFR (MDRD) Non-Af >60 (>60 ml/min/1.73 sqM) Glucose 123 H (74-99) mg/dL Calcium 8.6 (8.4-10.2) mg/dL Magnesium 1.9 (1.6-2.3) mg/dL Total Bilirubin 1.6 H (0.2-1.3) mg/dL AST 58 (17-59) U/L ALT 37 (21-72) U/L Alkaline Phosphatase 108 (38-126) U/L Total Creatine Kinase 533 H (55-170) U/L CK-MB (CK-2) 9.8 H* (0.0-2.4) ng/mL CK-MB (CK-2) Rel Index 1.8 Troponin I 0.012 (0.000-0.034) ng/mL NT-Pro-B Natriuret Pep pg/mL Total Protein 5.7 L (6.3-8.2) g/dL Albumin 3.2 L (3.5-5.0) g/dL 09/14/17 09/14/17 Range/Units 13:58 13:58 WBC (3.8-10.6) k/uL RBC (4.30-5.90) m/uL Hgb (13.0-17.5) gm/dL Hct (39.0-53.0) % MCV (80.0-100.0) fL MCH (25.0-35.0) pg MCHC (31.0-37.0) g/dL RDW (11.5-15.5) % Plt Count (150-450) k/uL Neutrophils % % Lymphocytes % % Monocytes % % Eosinophils % % Basophils % % Neutrophils # (1.3-7.7) k/uL Lymphocytes # (1.0-4.8) k/uL Monocytes # (0-1.0) k/uL Eosinophils # (0-0.7) k/uL Basophils # (0-0.2) k/uL PT 10.2 (9.0-12.0) sec INR 1.0 (<1.2) APTT 25.5 (22.0-30.0) sec Sodium (137-145) mmol/L Potassium (3.5-5.1) mmol/L Chloride (98-107) mmol/L Carbon Dioxide (22-30) mmol/L Anion Gap mmol/L BUN (9-20) mg/dL Creatinine (0.66-1.25) mg/dL Est GFR (MDRD) Af Amer (>60 ml/min/1.73 sqM) Est GFR (MDRD) Non-Af (>60 ml/min/1.73 sqM) Glucose (74-99) mg/dL Calcium (8.4-10.2) mg/dL Magnesium (1.6-2.3) mg/dL Total Bilirubin (0.2-1.3) mg/dL AST (17-59) U/L ALT (21-72) U/L Alkaline Phosphatase (38-126) U/L Total Creatine Kinase (55-170) U/L CK-MB (CK-2) (0.0-2.4) ng/mL CK-MB (CK-2) Rel Index Troponin I (0.000-0.034) ng/mL NT-Pro-B Natriuret Pep 2360 pg/mL Total Protein (6.3-8.2) g/dL Albumin (3.5-5.0) g/dL Disposition <Stephen Melchor - Last Filed: 09/14/17 15:03> Time of Disposition: 15:01 <Wali Weir - Last Filed: 09/14/17 15:08> Clinical Impression: Hyponatremia Disposition: ADMITTED IP TO THIS HOSP Condition: Good Referrals: Ruiz Kilpatrick MD [Primary Care Provider] - 1-2 days
[2017-09-14 14:18] LABS: Basophils % (A) 0 %; CH 35.3; Eosinophils # (A) 0.1 k/uL (0-0.7); Eosinophils % (A) 1 %; HCT 38.7 % (39.0-53.0); HDW 2.36; HGB 13.2 gm/dL (13.0-17.5); Luc # (Auto) 0.07; Luc % (Auto) 1; Lymphocytes # (A) 0.6 k/uL (1.0-4.8); Lymphocytes % (A) 5 %; MCH 33.5 pg (25.0-35.0); MCHC 34.1 g/dL (31.0-37.0); MCV 98.2 fL (80.0-100.0); Mean Platelet Volume 7.7; Monocytes # (A) 0.6 k/uL (0-1.0); Monocytes % (A) 5 %; Neutrophils # (A) 11.4 k/uL (1.3-7.7); Neutrophils % (A) 89 %; RBC 3.93 m/uL (4.30-5.90); RDW 13.2 % (11.5-15.5); WBC 12.8 k/uL (3.8-10.6)
[2017-09-14 14:23] LABS: Partial Thromboplastin Time 25.5 sec (22.0-30.0); Prothrombin Time 10.2 sec (9.0-12.0)
[2017-09-14 14:26] LABS: ALT 37 U/L (21-72); AST 58 U/L (17-59); Alkaline Phosphatase 108 U/L (38-126); Anion Gap 7 mmol/L; Blood Urea Nitrogen 13 mg/dL (9-20); Calcium 8.6 mg/dL (8.4-10.2); Carbon Dioxide 29 mmol/L (22-30); Glucose 123 mg/dL (74-99); Magnesium 1.9 mg/dL (1.6-2.3); Non-African American GFR(MDRD) >60 (>60 ml/min/1.73 sqM); Potassium 3.9 mmol/L (3.5-5.1); Total Bilirubin 1.6 mg/dL (0.2-1.3); Total Protein 5.7 g/dL (6.3-8.2)
[2017-09-14 14:30] LABS: Sodium 115 mmol/L (137-145)
[2017-09-14 14:31] LABS: Chloride 79 mmol/L (98-107)
[2017-09-14] MEDS ORDERED: SODIUM CHLORIDE 0.9% 1,000 ML IV STA (14:42)
[2017-09-14 14:50] LABS: Troponin I 0.012 ng/mL (0.000-0.034)
[2017-09-14 14:54] LABS: Creatine Kinase MB 9.8 ng/mL (0.0-2.4)
--- NOTE | 2017-09-14 14:54 | XR ---
EXAMINATION TYPE: XR chest 2V DATE OF EXAM: 09/14/2017 COMPARISON: 12/07/2016 TECHNIQUE: PA and lateral views submitted. HISTORY: Chest pain FINDINGS: The lungs are clear and there is no pneumothorax, pleural effusion, or focal pneumonia. Hypertrophi c change of the spine noted. Hyperinflation suggests COPD. Bilateral lower lobe infiltrate and small effusion. Cannot exclude mild central venous congestion. Findings are suspicious for a 1 cm nodule ri ght lower lobe. Arthropathy of the shoulders. IMPRESSION: 1. Bilateral lower lobe infiltrate and small effusion. Underlying COPD noted. Mild central venous con gestion not excluded. 2. There appears to be a 1 cm nodule within the right lower lobe which could be correlated with CT sc an.
[2017-09-14] MEDS ORDERED: IPRATROPIUM-ALBUTEROL 3 ML NEB INHALATION STA (14:59)
[2017-09-14] MEDS ORDERED: FUROSEMIDE 10 MG/ML 4 ML VIAL IV STA ×2 (14:59→15:15)
[2017-09-14] MEDS ORDERED: NALOXONE 0.4 MG/ML 1 ML VIAL IV PRN (15:09)
[2017-09-14] MEDS ORDERED: IPRATROPIUM-ALBUTEROL 3 ML NEB INHALATION PRN (15:10)
--- NOTE | 2017-09-14 15:10 | CT ---
EXAMINATION TYPE: CT brain wo con DATE OF EXAM: 09/14/2017 COMPARISON: NONE HISTORY: 77-year-old male with recent falls. TECHNIQUE: Examination was done in axial plane without intravenous contrast. Coronal and sagittal r econstructions performed. CT DLP: 2505.00 mGycm Automated exposure control for dose reduction was used. FINDINGS: Moderate generalized supratentorial volume loss. Moderate patchy and confluent white matter hypodensi ties in both cerebral hemispheres. Excessive motion artifacts limiting assessment. Within this limitation, no evidence of acute intracr anial hemorrhage, acute ischemic changes, mass, mass-effect, or extra-axial fluid collection. There is no effacement of cerebral sulci or basal subarachnoid cisterns. There is no hydrocephalus. There is no midline shift. [place]-white matter distinction is preserved. Rightward nasal septal deviation. Visualized paranasal sinuses and mastoid air cells are clear. Orbit s and globes appear intact. IMPRESSION: Motion limited exam. Moderate atrophy and changes of chronic small vessel ischemic disease. No acute intracranial abnormality seen allowing for exam limitations.
[2017-09-14] MEDS ORDERED: AZITHROMYCIN 500 MG in SODIUM CHLORIDE 0.9% 250 ML IVPB STA (15:13)
[2017-09-14 15:19] LABS: Appearance,Urine Clear (Clear); Bilirubin,Urine Negative (Negative); Glucose,Urine (UA) Negative (Negative); Ketones,Urine 1+ (Negative); Leukocyte Esterase,Urine Negative (Negative); Nitrite,Urine Negative (Negative); PH, Urine 6.5 (5.0-8.0); Protein,Urine Negative (Negative); Specific Gravity,Urine 1.009 (1.001-1.035); UA Billing (MACRO vs. MICRO) CHEM
[2017-09-14] MEDS ORDERED: LORazepam 2 MG/ML INJ IV PRN (15:53)
[2017-09-14] MEDS ORDERED: THIAMINE 100 MG/ML 2 ML VIAL IM STA (15:53)
--- NOTE | 2017-09-14 15:59 | P.HPIM ---
History of Present Illness Patient [id number] gentleman came in with complains of generalized increased generalized weakness shortness of breath and cough. Patient does drink alcohol every day patient back with a month of November started drinking again patient drinks about 4-6 beers a day, patient had withdrawals in the past. Patient is found to be severely hyponatremic. Patient the is found to have elevated JVD, bilateral pleural effusions along with the central venous congestion consistent with pulmonary edema patient had normal ejection fraction the past. Patient is a poor historian didn't give a clear history of orthopnea or PND but the patient is unable to sleep for some time. Patient denied any fever chills patient has been short of breath and wheezing patient has history of COPD started smoking again after quitting briefly earlier this year. Patient denied any fever chills chest pain. Review of Systems REVIEW OF SYSTEMS: CONSTITUTIONAL: As mentioned in HPI HEENT: No recent visual problems or hearing problems. Denied any sore throat. CARDIOVASCULAR: No chest pain, orthopnea, PND, no palpitations, no syncope. PULMONARY: Patient is comparing of cough without any significant sputum production no hemoptysis. GASTROINTESTINAL: No diarrhea, no nausea, no vomiting, no abdominal pain. Normoactive bowel sounds. NEUROLOGICAL: No headaches, no weakness, no numbness. HEMATOLOGICAL: Denies any bleeding or petechiae. GENITOURINARY: Denies any burning micturition, frequency, or urgency. MUSCULOSKELETAL/RHEUMATOLOGICAL: Denies any joint pain, swelling, or any muscle pain. ENDOCRINE: Denies any polyuria or polydipsia. The rest of the 14-point review of systems is negative. Past Medical History Past Medical History: COPD, Hypertension, Sleep Apnea/CPAP/BIPAP Additional Past Medical History / Comment(s): does not wear BIPAP/CPAP for sleep apnea History of Any Multi-Drug Resistant Organisms: None Reported Past Surgical History: No Surgical Hx Reported Additional Past Surgical History / Comment(s): stated pt never had any sx Past Anesthesia/Blood Transfusion Reactions: No Reported Reaction Past Psychological History: Anxiety Smoking Status: Current every day smoker Past Alcohol Use History: Occasional Past Drug Use History: None Reported - Past Family History Father History Unknown: Yes Family Medical History: Unable to Obtain Additional Family Medical History / Comment(s): arthritis Mother Family Medical History: No Reported History Additional Family Medical History / Comment(s): pt unsure of mothers history Medications and Allergies Home Medications Medication Instructions Recorded Confirmed Type Metoprolol Tartrate [Lopressor] 12.5 mg PO BID 01/14/17 09/14/17 History Tamsulosin [Flomax] 0.4 mg PO HS 01/21/17 09/14/17 History Furosemide [Lasix] 40 mg PO QAM 09/14/17 09/14/17 History Melatonin 10 mg PO HS 09/14/17 09/14/17 History Mometasone/Formoterol [Dulera 200 2 puff INHALATION RT-BID 09/14/17 09/14/17 History Mcg/5 Mcg Inhaler] Naproxen Sod/Diphenhydramine 1 tab PO HS 09/14/17 09/14/17 History [Aleve Pm Caplet] PARoxetine HCL [Paxil] 30 mg PO HS 09/14/17 09/14/17 History Pantoprazole Sodium [Protonix] 40 mg PO QAM 09/14/17 09/14/17 History Allergies Allergy/AdvReac Type Severity Reaction Status Date / Time No Known Allergies Allergy Verified 09/14/17 14:18 Physical Exam Vitals: Vital Signs Temp Pulse Resp BP Pulse Ox 09/14/17 15:30 81 18 151/103 99 09/14/17 13:14 96.8 F L 74 20 133/82 97 Intake and Output 09/14/17 09/14/17 09/14/17 06:59 14:59 22:59 Other: Weight 90.718 kg Patient Weight 09/15/17 06:59 Weight 90.718 kg PHYSICAL EXAMINATION: GENERAL: The patient is alert and oriented x3, not in any acute distress. Well developed, well nourished. HEENT: Pupils are round and equally reacting to light. EOMI. No scleral icterus. No conjunctival pallor. Normocephalic, atraumatic. No pharyngeal erythema. No thyromegaly. CARDIOVASCULAR: S1 and S2 present. No murmurs, rubs, or gallops. PULMONARY: Chest is clear to auscultation, patient has minimal expiratory wheezing Patient appears to have S3 but I am unable to clearly appreciate JVD because of faxing models of breathing ABDOMEN: Soft, nontender, nondistended, normoactive bowel sounds. No palpable organomegaly. MUSCULOSKELETAL: No joint swelling or deformity. EXTREMITIES: No cyanosis, clubbing, or pedal edema. NEUROLOGICAL: Gross neurological examination did not reveal any focal deficits. SKIN: No rashes. Results CBC & Chem 7: 09/14/17 13:58 09/14/17 13:58 Labs: Abnormal Lab Results - Last 24 Hours (Table) 09/14/17 09/14/17 09/14/17 Range/Units 13:45 13:58 13:58 WBC 12.8 H (3.8-10.6) k/uL RBC 3.93 L (4.30-5.90) m/uL Hct 38.7 L (39.0-53.0) % Neutrophils # 11.4 H (1.3-7.7) k/uL Lymphocytes # 0.6 L (1.0-4.8) k/uL Sodium (137-145) mmol/L Chloride (98-107) mmol/L Glucose (74-99) mg/dL Total Bilirubin (0.2-1.3) mg/dL Total Creatine Kinase 533 H (55-170) U/L CK-MB (CK-2) 9.8 H* (0.0-2.4) ng/mL Total Protein (6.3-8.2) g/dL Albumin (3.5-5.0) g/dL Urine Ketones 1+ H (Negative) 09/14/17 Range/Units 13:58 WBC (3.8-10.6) k/uL RBC (4.30-5.90) m/uL Hct (39.0-53.0) % Neutrophils # (1.3-7.7) k/uL Lymphocytes # (1.0-4.8) k/uL Sodium 115 L* (137-145) mmol/L Chloride 79 L* (98-107) mmol/L Glucose 123 H (74-99) mg/dL Total Bilirubin 1.6 H (0.2-1.3) mg/dL Total Creatine Kinase (55-170) U/L CK-MB (CK-2) (0.0-2.4) ng/mL Total Protein 5.7 L (6.3-8.2) g/dL Albumin 3.2 L (3.5-5.0) g/dL Urine Ketones (Negative) Assessment and Plan Plan: #1 hyponatremia: Patient appears to have hypervolemic hyponatremia secondary to congestive heart failure with acute exacerbation patient may have new systolic dysfunction may have cardiomyopathy induced by alcoholism will obtain echocardiogram he had normal echocardiogram and normal ejection fraction in the past patient will be started on Lasix will closely monitor his sodium. IV fluids will be discontinued there is a concern that his hyponatremia can be secondary to be [place] #2 congestive heart failure: Possibility of chronic systolic dysfunction from alcoholism. #3 alcohol abuse: Counseling was provided #4 alcohol withdrawal: Patient will be on Ativan withdrawal protocol. #5 COPD with acute exacerbation patient will be started on oral steroids and inhalational treatments and azithromycin. Patient does not appear to have pneumonia. #7 anxiety depression next and #8 leukocytosis reactive in nature.
[2017-09-14] MEDS ORDERED: LORazepam 2 MG/ML INJ IV STA (16:54)
[2017-09-14] MEDS: LORazepam 2 MG/ML INJ IV PRN ×2 (17:40→21:50)
[2017-09-14] MEDS ORDERED: SYMBICORT 160-4.5 MCG INHALER INHALATION SCH (20:00)
[2017-09-14] MEDS ORDERED: PARoxetine 10 MG TAB PO SCH (21:00)
[2017-09-14] MEDS ORDERED: FUROSEMIDE 10 MG/ML 4 ML VIAL IV SCH (21:00)
[2017-09-14 23:46] LABS: Basophils % (A) 0 %; CH 33.9; CHCM 34.5; Eosinophils # (A) 0.2 k/uL (0-0.7); Eosinophils % (A) 2 %; HCT 37.9 % (39.0-53.0); HDW 2.19; HGB 12.7 gm/dL (13.0-17.5); Luc # (Auto) 0.15; Luc % (Auto) 1; Lymphocytes # (A) 0.9 k/uL (1.0-4.8); Lymphocytes % (A) 7 %; MCH 32.9 pg (25.0-35.0); MCHC 33.5 g/dL (31.0-37.0); MCV 98.4 fL (80.0-100.0); Mean Platelet Volume 8.2; Monocytes % (A) 8 %; Neutrophils # (A) 10.6 k/uL (1.3-7.7); Neutrophils % (A) 82 %; RBC 3.85 m/uL (4.30-5.90); RDW 13.8 % (11.5-15.5); WBC 12.9 k/uL (3.8-10.6); WBC (Perox) 13.54
[2017-09-14 23:46] LABS: ABG Base Excess 9.6 mmol/L; ABG HCO3 33 mmol/L (21-25); ABG PCO2 38 mmHg (35-45); ABG PH 7.55 (7.35-7.45); ABG PO2 82 mmHg (83-108); ABG TCO2 34 mmol/L (19-24)
[2017-09-14 23:54] LABS: Anion Gap 7 mmol/L; Blood Urea Nitrogen 11 mg/dL (9-20); Calcium 8.3 mg/dL (8.4-10.2); Carbon Dioxide 31 mmol/L (22-30); Chloride 81 mmol/L (98-107); Glucose 83 mg/dL (74-99); Non-African American GFR(MDRD) >60 (>60 ml/min/1.73 sqM); Potassium 3.3 mmol/L (3.5-5.1)
[2017-09-14 23:55] LABS: Sodium 119 mmol/L (137-145)
[2017-09-15] MEDS: METOPROLOL TARTRATE 12.5 MG TAB PO SCH ×2 (00:15→08:54)
[2017-09-15] MEDS: TAMSULOSIN 0.4 MG CAP.ER.24H PO SCH ×2 (00:16→20:29)
[2017-09-15 00:33] LABS: Glucose,Whole Blood 96 mg/dL (75-99)
[2017-09-15] MEDS: PIPERACILLIN-TAZOBACTAM 3.375 GM in DEXTROSE/WATER 1 50ML.BAG IVPB SCH ×4 (01:34→23:51)
[2017-09-15] MEDS: methylPREDNISolone SOD SUCCI 125 MG/2 ML VIAL IV SCH ×4 (01:34→18:33)
[2017-09-15] MEDS: HEPARIN SODIUM,PORCINE 5,000 UNIT/ML 1 ML VIAL SQ SCH ×3 (01:34→16:30)
--- NOTE | 2017-09-15 01:56 | XR ---
EXAMINATION TYPE: XR chest 1V DATE OF EXAM: 09/15/2017 COMPARISON: 09/14/2017 HISTORY: Difficulty breathing TECHNIQUE: Single frontal view of the chest is obtained. FINDINGS: There is some blunting of the costophrenic angles and more on the left side. There are olivia st leads. There is no gross heart failure. There is probably some pleural scarring on the left latera l chest wall. IMPRESSION: Bilateral pleural diaphragmatic scarring. No gross heart failure. Fibrotic changes at th e left lung base. No change compared to yesterday.
[2017-09-15] MEDS: FUROSEMIDE 10 MG/ML 4 ML VIAL IV SCH ×3 (02:11→20:14)
[2017-09-15] MEDS: LORazepam 2 MG/ML INJ IV PRN ×6 (02:11→23:51)
[2017-09-15] MEDS: IPRATROPIUM-ALBUTEROL 3 ML NEB INHALATION SCH ×6 (03:42→22:57)
[2017-09-15 03:48] LABS: Basophils % (A) 0 %; CH 34.3; CHCM 34.5; Eosinophils # (A) 0.1 k/uL (0-0.7); Eosinophils % (A) 1 %; HCT 40.2 % (39.0-53.0); HGB 13.3 gm/dL (13.0-17.5); Luc # (Auto) 0.06; Luc % (Auto) 1; Lymphocytes # (A) 0.5 k/uL (1.0-4.8); Lymphocytes % (A) 4 %; Mean Platelet Volume 8.3; Monocytes # (A) 0.5 k/uL (0-1.0); Monocytes % (A) 4 %; Neutrophils # (A) 11.7 k/uL (1.3-7.7); Neutrophils % (A) 91 %; RBC 4.02 m/uL (4.30-5.90); RDW 13.9 % (11.5-15.5); WBC 12.8 k/uL (3.8-10.6); WBC (Perox) 13.79
[2017-09-15 04:07] LABS: ALT 43 U/L (21-72); AST 77 U/L (17-59); Alkaline Phosphatase 113 U/L (38-126); Anion Gap 8 mmol/L; Blood Urea Nitrogen 11 mg/dL (9-20); Calcium 8.6 mg/dL (8.4-10.2); Carbon Dioxide 33 mmol/L (22-30); Chloride 82 mmol/L (98-107); Glucose 95 mg/dL (74-99); Magnesium 1.9 mg/dL (1.6-2.3); Non-African American GFR(MDRD) >60 (>60 ml/min/1.73 sqM); Phosphorus 2.7 mg/dL (2.5-4.5); Potassium 3.9 mmol/L (3.5-5.1); Sodium 123 mmol/L (137-145); Total Bilirubin 1.2 mg/dL (0.2-1.3)
[2017-09-15] MEDS ORDERED: Potassium Replacement Protocol 1 EACH MISC MISCELLANE PRN ×3 (04:52→17:58)
[2017-09-15] MEDS ORDERED: Magnesium Replacement Protocol 1 EACH MISC MISCELLANE PRN (04:53)
[2017-09-15] MEDS: MAGNESIUM SULFATE-D5W PMX 1 GM in DEXTROSE/WATER 1 100ML.BAG IVPB SCH ×2 (05:03→06:36)
[2017-09-15] MEDS: POTASSIUM CHLORIDE 10 MEQ, LIDOCAINE 2% INJ 10 MG in SODIUM CHLORIDE 0.9% 100 ML IV SCH ×6 (05:03→19:42)
[2017-09-15] MEDS ORDERED: predniSONE 20 MG TAB PO SCH (09:00)
[2017-09-15] MEDS ORDERED: PANTOPRAZOLE 40 MG TABLET PO SCH (09:00)
[2017-09-15] MEDS: PANTOPRAZOLE 40 MG/10 ML VIAL IVP SCH (09:17)
[2017-09-15 09:41] LABS: Anion Gap 11 mmol/L; Blood Urea Nitrogen 11 mg/dL (9-20); Calcium 8.5 mg/dL (8.4-10.2); Carbon Dioxide 29 mmol/L (22-30); Chloride 84 mmol/L (98-107); Glucose 168 mg/dL (74-99); Non-African American GFR(MDRD) >60 (>60 ml/min/1.73 sqM); Potassium 3.6 mmol/L (3.5-5.1); Sodium 124 mmol/L (137-145)
--- NOTE | 2017-09-15 10:38 | P.CNPUL ---
History of Present Illness Consult date: 09/15/17 Chief complaint: altered MS, COPD, low Na History of present illness: 77-year-old male patient, advanced COPD, alcoholic with excessive beer drinking approximately 8 bottles of beer daily basis, along with history of hypertension and obstructive sleep apnea, noncompliant to CPAP therapy. The patient has been followed up with Dr. Guerra on outpatient basis, his primary care physician. He comes in yesterday to the emergency department because of altered mentation and generalized weakness. The patient was noted by family members to act unusual, trying to eat napkins and this is not a typical behavior for him and it seems that he was getting progressively more short of breath, anxious, tachypneic and uncomfortable. I was told by his daughter the patient has chronic anxiety for which he was given Paxil at a dose of 30 mg by mouth daily by his primary care physician. He does not take any form of benzodiazepines In the emergency department, the patient was found to be profoundly hyponatremic. His sodium level was 115. In addition, the patient had a potassium level of 3.9, he was hypochloremic with a chloride level of 79 and a serum bicarb of 29. Anion gap was 7. He had a normal renal function with a BUN of 13 and creatinine of 0.9. Liver function tests are within normal limits. -year-old was slightly elevated at 1.6, his lactic acid level was at 1, CPK was mildly elevated at 533, first set of cardiac enzymes/troponin was at 0.012. Urinalysis positive for ketones negative for any infection. The patient was initially admitted to the medical floor. In addition, the patient had He was restless, uncomfortable, tachypneic and short of breath. He was started on bronchodilators. He was given a dose of Lasix. Following that he was admitted to the medical floor. CAT scan of the head done in the emergency department showed moderate degree of atrophy and chronic small vessel ischemic disease without any acute intracranial abnormalities. The patient had a chest x-ray that showed bilateral lower lobe pulmonary infiltrate and small effusion. The chest x-ray was consistent with COPD and there was a mild component of pulmonary vascular congestion. A 1 cm right lower lobe pulmonary nodule cannot be completely excluded on the chest x-ray findings. Overnight, the patient became progressively more short of breath, bronchospastic and wheezy and confused. At a time of arrival to the ICU, the patient was unresponsive. The patient had received a total of 3 mg of Ativan since the emergency department for agitation. At that point, the patient was immediately placed on a BiPAP which is currently on a day setting of 14/5 cm of water with an FiO2 of 35%. He was started on IV Zosyn. He was started on DuoNeb nebulized treatment [id number] on IV Solu-Medrol 60 mg every 6 hours. I also started him on Lasix 40 mg every 12 hours. He is producing adequate amount of urine output in his urine output is more than 100 mL an hour. At a time of my evaluation this morning, the patient was arousable. He would respond to deep painful stimuli. He will move all 4 extremities without any limitation. He would open up his eyes. He is unable to hold a conversation as the patient has a full face BiPAP mask to which she seems to be more synchronous at this point. At times he wakes up spontaneously and he thrashes and he will have a bedside sitter. Serial monitoring of his sodium level showed a sodium level is gradually improving is up to 123. His renal function remains stable. No significant electrolyte imbalance at this point. Repeat chest x-ray in the morning showed no major interval change. Echo was done this morning and there is also still pending. Meanwhile the patient had an echo on 11/19/2016 that showed a preserved LV function without any significant LV dysfunction. The patient also has history of compression fracture of the lumbar spine. Review of Systems ROS unobtainable: due to mental status Past Medical History Past Medical History: Heart Failure, COPD, Hypertension, Pneumonia, Prostate Disorder, Sleep Apnea/CPAP/BIPAP Additional Past Medical History / Comment(s): COPD, chronic anxiety, obstructive sleep apnea, depression, history of falls, compression fracture of the lumbar spine, osteopenia, chronic back pain, alcoholism, chronic smoker the patient smokes one pack of cigarettes on a daily basis. Hypertension, BPH History of Any Multi-Drug Resistant Organisms: None Reported Past Surgical History: No Surgical Hx Reported Additional Past Surgical History / Comment(s): Vertebral compression fracture of L4, subacute second is also sclerosis. The patient underwent kyphoplasty L4 with a vertebral body biopsy on 4. He has also received patient is back in the past. Past Anesthesia/Blood Transfusion Reactions: No Reported Reaction Smoking Status: Current every day smoker - Past Family History Father History Unknown: Yes Family Medical History: Congestive Heart Failure (CHF) Additional Family Medical History / Comment(s): arthritis Mother Family Medical History: Congestive Heart Failure (CHF) Additional Family Medical History / Comment(s): pt unsure of mothers history Medications and Allergies Home Medications Medication Instructions Recorded Confirmed Type Metoprolol Tartrate [Lopressor] 12.5 mg PO BID 01/14/17 09/14/17 History Tamsulosin [Flomax] 0.4 mg PO HS 01/21/17 09/14/17 History Furosemide [Lasix] 40 mg PO QAM 09/14/17 09/14/17 History Melatonin 10 mg PO HS 09/14/17 09/14/17 History Mometasone/Formoterol [Dulera 200 2 puff INHALATION RT-BID 09/14/17 09/14/17 History Mcg/5 Mcg Inhaler] Naproxen Sod/Diphenhydramine 1 tab PO HS 09/14/17 09/14/17 History [Aleve Pm Caplet] PARoxetine HCL [Paxil] 30 mg PO HS 09/14/17 09/14/17 History Pantoprazole Sodium [Protonix] 40 mg PO QAM 09/14/17 09/14/17 History Allergies Allergy/AdvReac Type Severity Reaction Status Date / Time No Known Allergies Allergy Verified 09/14/17 14:18 Physical Exam Vitals: Vital Signs Temp Pulse Pulse Resp BP BP Pulse Ox 09/15/17 07:57 107 H 09/15/17 07:35 99 09/15/17 07:00 97 19 143/76 100 09/15/17 06:30 81 25 H 136/97 100 09/15/17 06:00 85 21 164/87 100 09/15/17 05:30 88 19 134/78 98 09/15/17 05:00 109 H 19 163/72 100 09/15/17 04:30 98 20 157/76 99 09/15/17 04:00 98.0 F 92 20 163/86 100 09/15/17 03:56 96 09/15/17 03:42 94 09/15/17 03:30 96 27 H 100 09/15/17 03:00 99 19 120/93 09/15/17 02:30 88 34 H 153/73 09/15/17 02:00 76 18 147/109 98 09/15/17 01:30 80 87 18 133/78 96 09/15/17 01:00 97.6 F 93 18 129/81 98 09/15/17 00:33 80 17 98 09/15/17 00:00 97.9 F 87 22 112/56 97 09/14/17 21:08 88 09/14/17 20:56 88 09/14/17 20:00 98.0 F 102 H 22 153/108 97 09/14/17 18:52 98.4 F 91 20 119/70 93 L 09/14/17 16:59 98.3 F 85 24 134/85 96 09/14/17 15:30 81 18 151/103 99 09/14/17 13:14 96.8 F L 74 20 133/82 97 Intake and Output 09/14/17 09/15/17 09/15/17 22:59 06:59 14:59 Intake Total 500 102.5 20 Output Total 1550 75 Balance 500 -1447.5 -55 Intake: IV 102.5 20 .9 KVO 40 20 Piperacillin-Tazobactam 3 62.5 .375 gm In Dextrose/Water 1 50ml.bag @ 12.5 mls/hr IVPB Q8HR [facility] Rx#: [id number] Intake, IV Titration 500 Amount Azithromycin 500 mg In 500 Sodium Chloride 0.9% 250 ml @ 125 mls/hr IVPB ONCE STA Rx#:[id number] Output: Urine 1550 75 Other: Voiding Method Indwelling Catheter Gen. appearance the patient is at times comfortable gets other times he would wake up and move around yet these are very limited episodes of restlessness and thrashing. He still under the effect of Ativan for now. He is synchronous with a full face BiPAP. He seems to be a mild degree of respiratory distress even with the BiPAP treatment.Head exam was generally normal. There was no scleral icterus or corneal arcus. Mucous membranes were moist. Neck is supple and there is mild JVDs there is no goiter or neck masses. The patient's has a full face BiPAP mask in place. Lung sounds are diminished and the patient had diffuse expiratory wheezes throughout lung colon bilaterally and the patient is a prolongation of the extremities of breathing.Cardiac exam revealed the PMI to be normally situated and sized. The rhythm was regular and no extrasystoles were noted during several minutes of auscultation. The first and second heart sounds were normal and physiologic splitting of the second heart sound was noted. There were no murmurs, rubs, clicks, or gallops.Abdominal exam revealed normal bowel sounds. The abdomen was soft, non-tender, and without masses, organomegaly, or appreciable enlargement of the abdominal aorta. There is a small area of bruising over the left lower quadrant abdominal wall related to her recent fall. No abdominal distention. No ascites. No organomegaly.Examination of the extremities revealed easily palpable radial, femoral and pedal pulses. There was no cyanosis, clubbing or edema. Neurologically the patient is moving all 4 extremities. He is encephalopathic at this point. Probably may have an underlying component of the abdominis. He has received Ativan. No active seizures noted. Pupils are equal and reactive to light. No facial asymmetry. He has a good coughing reflex.Examination of the skin revealed no evidence of significant rashes, suspicious appearing nevi or other concerning lesions. I catheter likely the patient has chronic anxiety. Results - Laboratory Findings CBC and BMP: 09/15/17 03:35 09/15/17 08:27 ABG ABG pH 7.55 (7.35-7.45) H 09/14/17 23:41 ABG pCO2 38 mmHg (35-45) 09/14/17 23:41 ABG pO2 82 mmHg (83-108) L 09/14/17 23:41 ABG O2 Saturation 97.0 % (94-97) 09/14/17 23:41 PT/INR, D-dimer PT 10.2 sec (9.0-12.0) 09/14/17 13:58 INR 1.0 (<1.2) 09/14/17 13:58 Abnormal lab findings: Abnormal Labs 09/14/17 09/14/17 09/14/17 13:45 13:58 13:58 WBC 12.8 H RBC 3.93 L Hgb Hct 38.7 L Neutrophils # 11.4 H Lymphocytes # 0.6 L ABG pH ABG pO2 ABG HCO3 ABG Total CO2 Sodium Potassium Chloride Carbon Dioxide Glucose Calcium Total Bilirubin AST Total Creatine Kinase 533 H CK-MB (CK-2) 9.8 H* Total Protein Albumin Urine Ketones 1+ H 10/31/17 10/31/17 10/31/17 13:58 23:33 23:33 WBC 12.9 H RBC 3.85 L Hgb 12.7 L Hct 37.9 L Neutrophils # 10.6 H Lymphocytes # 0.9 L ABG pH ABG pO2 ABG HCO3 ABG Total CO2 Sodium 115 L* 119 L* Potassium 3.3 L Chloride 79 L* 81 L Carbon Dioxide 31 H Glucose 123 H Calcium 8.3 L Total Bilirubin 1.6 H AST Total Creatine Kinase CK-MB (CK-2) Total Protein 5.7 L Albumin 3.2 L Urine Ketones 09/14/17 09/15/17 09/15/17 23:41 03:35 03:35 WBC 12.8 H RBC 4.02 L Hgb Hct Neutrophils # 11.7 H Lymphocytes # 0.5 L ABG pH 7.55 H ABG pO2 82 L ABG HCO3 33 H ABG Total CO2 34 H Sodium 123 L Potassium Chloride 82 L Carbon Dioxide 33 H Glucose Calcium Total Bilirubin AST 77 H Total Creatine Kinase CK-MB (CK-2) Total Protein 6.0 L Albumin Urine Ketones 09/15/17 08:27 WBC RBC Hgb Hct Neutrophils # Lymphocytes # ABG pH ABG pO2 ABG HCO3 ABG Total CO2 Sodium 124 L Potassium Chloride 84 L Carbon Dioxide Glucose 168 H Calcium Total Bilirubin AST Total Creatine Kinase CK-MB (CK-2) Total Protein Albumin Urine Ketones - Diagnostic Findings Chest x-ray: image reviewed Assessment and Plan Plan: Assessment 1 change in mental status, multifactorial. The patient is alcoholic and he presented with severe hyponatremia with a sodium level of 115. The underlying cause of hyponatremia is under investigation. Rule out Beer potomania. Rule out a component of hypovolemic hyponatremia/SIADH. The patient had a computed tomography scan of the brain that showed diffuse cerebral atrophy without any acute changes. His neurologic exam is nonfocal. Sodium level is gradually improving is up to 123. Rule out underlying delirium tremens secondary to alcohol withdrawal 2 acute COPD exacerbation, BiPAP dependent. The patient is actively bronchus spastic and wheezy and is requiring BiPAP for respiratory support at this point. Blood gases from midnight showed a component of respiratory and metabolic alkalosis. 3 hyponatremia, see above mentioned discussion 4 limited bibasilar pulmonary infiltrates, rule out aspiration pneumonia, currently on IV Zosyn 5 alcoholism 6 smoker 7 obstructive sleep apnea not receiving any CPAP therapy on outpatient basis 8 frequent falls with a blunt trauma to his lower abdomen with some limited bruising. 9 compression fracture of the L4 spine status post kyphoplasty 10 chronic anxiety 11 depression 12 hypertension 13 osteoporosis 14 BPH Plan The ongoing issue for now as patient's acute COPD exacerbation and his altered mental status. As far as the COPD exacerbation, the patient be offered BiPAP therapy in addition to bronchodilators around the clock, we will add a combination of Perforomist and Pulmicort neb last treatment twice a day and continue with IV Solu-Medrol. There is a possibility of lower lobe pneumonias and for that reason the patient is on IV Zosyn. Meanwhile, the second active issue for now his altered mentation, agitation and encephalopathy. The hyponatremia is probably contributing to this altered mentation. Nevertheless, there is a possibility of underlying psychiatric disorder increased anxiety and addition to evolution of delirium tremens secondary to alcohol withdrawal. The patient is receiving Ativan. We'll try to limit the use of Ativan and use Haldol not to cause any further respiratory suppression on this patient. We'll give the patient Haldol 1 mg every 3 hours on a when necessary basis. We'll get a bedside sitter. The patient made a follow-up CAT scan of the next 24 hours. The patient may need a nephrology consultation regarding his hyponatremia. Thiamine will be added along with multivitamins. Heparin subcu for DVT prophylaxis. IV Protonix. Keep the patient ICU to be monitored very closely. He may be an increased risk of going into respiratory failure requiring intubation mechanical ventilation specially if he develops further agitation ongoing mental status requiring more sedatives. The family was made aware. Discussed the case with the brother and the daughter the bedside. Condition is critical. We'll continue to follow.
[2017-09-15] MEDS: HALOPERIDOL LACTATE 5 MG/ML 1 ML VIAL IVP PRN ×3 (11:11→22:26)
--- NOTE | 2017-09-15 11:25 | ECHOF ---
Referral Reason:CHF MEASUREMENTS -------- HEIGHT: 177.8 cm WEIGHT: 90.7 kg BP: 143/76 RVIDd: 3.6 cm (< 3.3) IVSd: 1.3 cm (0.6 - 1.1) LVIDd: 3.3 cm (3.9 - 5.3) LVPWd: 1.4 cm (0.6 - 1.1) IVSs: 1.7 cm LVIDs: 2.0 cm LVPWs: 1.6 cm LA Diam: 3.2 cm (2.7 - 3.8) LAESV Index (A-L): 21.16 ml/m Ao Diam: 4.2 cm (2.0 - 3.7) AV Cusp: 1.7 cm (1.5 - 2.6) MV EXCURSION: 15.228 mm (> 18.000) MV EF SLOPE: 46 mm/s (70 - 150) EPSS: 0.8 cm FINDINGS -------- Atrial fibrillation. This was a technically difficult study with suboptimal views. The left ventricular size is normal. There is moderate concentric left ventricular hypertrophy. O verall left ventricular systolic function is normal with, an EF between 55 - 60 %. The right ventricle is mildly enlarged. Normal LA size by volume 22+/-6 ml/m2. The right atrium was not well visualized. 1.5mg of Definity was utilized for enhancement of images Aortic valve is trileaflet and is mildly thickened. The mitral valve is normal. The tricuspid valve was not well visualized. The pulmonic valve was not well visualized. The aortic root is dilated measuring 4.2cm. IVC Not well visulized. Echo free space may represent effusion or a pericardial fat pad. CONCLUSIONS -------- 1. This was a technically difficult study with suboptimal views. 2. There is moderate concentric left ventricular hypertrophy. 3. Overall left ventricular systolic function is normal with, an EF between 55 - 60 %. 4. The right ventricle is mildly enlarged. 5. Normal LA size by volume 22+/-6 ml/m2. 6. The right atrium was not well visualized. 7. 1.5mg of Definity was utilized for enhancement of images 8. Aortic valve is trileaflet and is mildly thickened. 9. The mitral valve is normal. 10. The tricuspid valve was not well visualized. 11. The pulmonic valve was not well visualized. 12. The aortic root is dilated measuring 4.2cm. 13. IVC Not well visulized. 14. Echo free space may represent effusion or a pericardial fat pad. DRY BOSS: Naomi Marroquin RDCS
[2017-09-15 12:55] LABS: Glucose,Whole Blood 200 mg/dL (75-99)
[2017-09-15] MEDS: INSULIN LISPRO (humaLOG) 300 UNIT/3 ML VIAL SQ SCH ×3 (12:55→23:02)
--- NOTE | 2017-09-15 13:06 | US ---
EXAMINATION TYPE: US abdominal trauma fluid DATE OF EXAM: 09/15/2017 COMPARISON: NONE CLINICAL HISTORY: recent fall. Poor historian. Nurse states patient fell at home per family. Hypona tremia. Stable hemoglobin. Findings: All four quadrants scanned. No free fluid seen at this time. IMPRESSION: No sizable fluid collection identified. Correlate with CT scan as clinically warranted.
--- NOTE | 2017-09-15 15:48 | P.PN ---
Subjective Patient is a admitted for altered mental status secondary to hyponatremia and COPD exacerbation hyponatremia improved patient appears to have hypervolemic hyponatremia improved with IV Lasix patient has normal ejection fraction, may have diastolic dysfunction patient overnight went into respiratory failure requiring noninvasive ventilation with bilevel ventilation and patient is undergoing alcohol withdrawals. For which patient is on Ativan alcohol withdrawal protocol is ordered mental status is toxic and metabolic and multifactorial Review of systems unable to obtain. Objective - Vital Signs Vital signs: Vital Signs Temp 97 F L 09/15/17 12:00 Pulse 94 09/15/17 15:00 Resp 23 09/15/17 15:00 BP 99/74 09/15/17 15:00 Pulse Ox 100 09/15/17 15:00 Intake & Output 09/14/17 09/15/17 09/15/17 18:59 06:59 18:59 Intake Total 500 102.5 342.5 Output Total 1550 1015 Balance 500 -1447.5 -672.5 Weight 90.718 kg 90.718 kg Intake: IV 102.5 142.5 .9 KVO 40 80 Piperacillin-Tazobactam 3 62.5 62.5 .375 gm In Dextrose/Water 1 50ml.bag @ 12.5 mls/hr IVPB Q8HR [facility] Rx#: [id number] Intake, IV Titration 500 200 Amount Azithromycin 500 mg In 500 Sodium Chloride 0.9% 250 ml @ 125 mls/hr IVPB ONCE STA Rx#:[id number] Potassium Chloride 10 meq 200 Lidocaine 2% Inj 10 mg In Sodium Chloride 0.9% 100 ml @ 100 mls/hr IV Q1HR [facility] Rx#:[id number] Output: Urine 1550 1015 Other: Voiding Method Indwelling Catheter Indwelling Catheter - Exam PHYSICAL EXAMINATION: GENERAL: Patient is sleeping with a BiPAP mask on does have alcohol withdrawal symptoms HEENT: Pupils are round and equally reacting to light. EOMI. No scleral icterus. No conjunctival pallor. Normocephalic, atraumatic. No pharyngeal erythema. No thyromegaly. CARDIOVASCULAR: S1 and S2 present. No murmurs, rubs, or gallops. PULMONARY: Expiratory wheezing was appreciated. ABDOMEN: Soft, nontender, nondistended, normoactive bowel sounds. No palpable organomegaly. MUSCULOSKELETAL: No joint swelling or deformity. EXTREMITIES: No cyanosis, clubbing, or pedal edema. NEUROLOGICAL: Gross neurological examination did not reveal any focal deficits. SKIN: No rashes. - Labs CBC & Chem 7: 09/15/17 03:35 09/15/17 08:27 Labs: Abnormal Lab Results - Last 24 Hours (Table) 09/14/17 09/14/17 09/14/17 Range/Units 23:33 23:33 23:41 WBC 12.9 H (3.8-10.6) k/uL RBC 3.85 L (4.30-5.90) m/uL Hgb 12.7 L (13.0-17.5) gm/dL Hct 37.9 L (39.0-53.0) % Neutrophils # 10.6 H (1.3-7.7) k/uL Lymphocytes # 0.9 L (1.0-4.8) k/uL ABG pH 7.55 H (7.35-7.45) ABG pO2 82 L (83-108) mmHg ABG HCO3 33 H (21-25) mmol/L ABG Total CO2 34 H (19-24) mmol/L Sodium 119 L* (137-145) mmol/L Potassium 3.3 L (3.5-5.1) mmol/L Chloride 81 L (98-107) mmol/L Carbon Dioxide 31 H (22-30) mmol/L Glucose (74-99) mg/dL POC Glucose (mg/dL) (75-99) mg/dL Calcium 8.3 L (8.4-10.2) mg/dL AST (17-59) U/L Total Protein (6.3-8.2) g/dL 09/15/17 09/15/17 09/15/17 Range/Units 03:35 03:35 08:27 WBC 12.8 H (3.8-10.6) k/uL RBC 4.02 L (4.30-5.90) m/uL Hgb (13.0-17.5) gm/dL Hct (39.0-53.0) % Neutrophils # 11.7 H (1.3-7.7) k/uL Lymphocytes # 0.5 L (1.0-4.8) k/uL ABG pH (7.35-7.45) ABG pO2 (83-108) mmHg ABG HCO3 (21-25) mmol/L ABG Total CO2 (19-24) mmol/L Sodium 123 L 124 L (137-145) mmol/L Potassium (3.5-5.1) mmol/L Chloride 82 L 84 L (98-107) mmol/L Carbon Dioxide 33 H (22-30) mmol/L Glucose 168 H (74-99) mg/dL POC Glucose (mg/dL) (75-99) mg/dL Calcium (8.4-10.2) mg/dL AST 77 H (17-59) U/L Total Protein 6.0 L (6.3-8.2) g/dL 09/15/17 Range/Units 12:53 WBC (3.8-10.6) k/uL RBC (4.30-5.90) m/uL Hgb (13.0-17.5) gm/dL Hct (39.0-53.0) % Neutrophils # (1.3-7.7) k/uL Lymphocytes # (1.0-4.8) k/uL ABG pH (7.35-7.45) ABG pO2 (83-108) mmHg ABG HCO3 (21-25) mmol/L ABG Total CO2 (19-24) mmol/L Sodium (137-145) mmol/L Potassium (3.5-5.1) mmol/L Chloride (98-107) mmol/L Carbon Dioxide (22-30) mmol/L Glucose (74-99) mg/dL POC Glucose (mg/dL) 200 H (75-99) mg/dL Calcium (8.4-10.2) mg/dL AST (17-59) U/L Total Protein (6.3-8.2) g/dL Microbiology - Last 24 Hours (Table) 09/15/17 03:20 Urine Culture - Preliminary Urine,Catheterized Assessment and Plan Plan: #1 hyponatremia: Patient appears to have hypervolemic hyponatremia secondary to chronic diastolic dysfunction with acute exacerbation improved with IV Lasix which is being continued #2 congestive heart failure: Diastolic dysfunction with acute exacerbation #3 alcohol abuse: Counseling was provided #4 alcohol withdrawal: Patient will be on Ativan withdrawal protocol, thiamine and multivitamin supplementation #5 COPD with acute exacerbation patient is on oral steroids and inhalational treatments and azithromycin. Patient was also started on Zosyn by pulmonology with concerns of pneumonia #7 anxiety depression next and #8 leukocytosis reactive in nature. #8 acute hypercapnic respiratory failure secondary to COPD exacerbation, patient is requiring noninvasive bilevel ventilation. #9 metabolic and toxic encephalopathy multifactorial related to above-mentioned reasons
[2017-09-15 17:44] LABS: Anion Gap 9 mmol/L; Blood Urea Nitrogen 12 mg/dL (9-20); Calcium 9.1 mg/dL (8.4-10.2); Carbon Dioxide 33 mmol/L (22-30); Chloride 84 mmol/L (98-107); Glucose 134 mg/dL (74-99); Magnesium 2.1 mg/dL (1.6-2.3); Non-African American GFR(MDRD) >60 (>60 ml/min/1.73 sqM); Potassium 3.9 mmol/L (3.5-5.1); Sodium 126 mmol/L (137-145)
[2017-09-15] MEDS: BUDESONIDE 0.5 MG/2 ML NEBU INHALATION SCH (19:52)
[2017-09-15] MEDS: FORMOTEROL FUMARATE 20 MCG/2 ML NEBU INHALATION SCH (19:52)
[2017-09-15 23:03] LABS: Glucose,Whole Blood 162 mg/dL (75-99)
[2017-09-16] MEDS: methylPREDNISolone SOD SUCCI 125 MG/2 ML VIAL IV SCH ×5 (01:08→23:40)
[2017-09-16] MEDS: HEPARIN SODIUM,PORCINE 5,000 UNIT/ML 1 ML VIAL SQ SCH ×4 (01:14→23:39)
[2017-09-16] MEDS: IPRATROPIUM-ALBUTEROL 3 ML NEB INHALATION SCH ×6 (03:06→22:58)
[2017-09-16] MEDS: LORazepam 2 MG/ML INJ IV PRN ×3 (04:54→21:41)
[2017-09-16 05:02] LABS: Basophils % (A) 0 %; CH 34.6; CHCM 34.4; Eosinophils % (A) 0 %; HDW 2.32; HGB 12.9 gm/dL (13.0-17.5); Luc # (Auto) 0.06; Luc % (Auto) 0; Lymphocytes # (A) 0.4 k/uL (1.0-4.8); Lymphocytes % (A) 2 %; MCH 34.2 pg (25.0-35.0); MCV 100.7 fL (80.0-100.0); Mean Platelet Volume 7.9; Monocytes # (A) 0.7 k/uL (0-1.0); Monocytes % (A) 3 %; Neutrophils # (A) 19.3 k/uL (1.3-7.7); Neutrophils % (A) 94 %; RBC 3.77 m/uL (4.30-5.90); RDW 13.1 % (11.5-15.5); WBC 20.6 k/uL (3.8-10.6); WBC (Perox) 20.23
[2017-09-16] MEDS: INSULIN LISPRO (humaLOG) 300 UNIT/3 ML VIAL SQ SCH ×4 (05:40→23:40)
[2017-09-16 05:41] LABS: Glucose,Whole Blood 156 mg/dL (75-99)
[2017-09-16] MEDS: METOPROLOL TARTRATE 5 MG/5 ML VIAL IVP PRN (05:55)
[2017-09-16 06:10] LABS: Anion Gap 9 mmol/L; Blood Urea Nitrogen 13 mg/dL (9-20); Carbon Dioxide 33 mmol/L (22-30); Chloride 86 mmol/L (98-107); Glucose 120 mg/dL (74-99); Magnesium 2.1 mg/dL (1.6-2.3); Non-African American GFR(MDRD) >60 (>60 ml/min/1.73 sqM); Phosphorus 3.4 mg/dL (2.5-4.5); Potassium 3.7 mmol/L (3.5-5.1); Sodium 128 mmol/L (137-145)
[2017-09-16] MEDS ORDERED: Potassium Replacement Protocol 1 EACH MISC MISCELLANE PRN (06:17)
[2017-09-16] MEDS: POTASSIUM CHLORIDE 10 MEQ, LIDOCAINE 2% INJ 10 MG in SODIUM CHLORIDE 0.9% 100 ML IV SCH ×4 (06:34→18:17)
[2017-09-16] MEDS: FORMOTEROL FUMARATE 20 MCG/2 ML NEBU INHALATION SCH ×2 (07:33→20:00)
[2017-09-16] MEDS: BUDESONIDE 0.5 MG/2 ML NEBU INHALATION SCH ×2 (07:33→20:00)
[2017-09-16] MEDS: FUROSEMIDE 10 MG/ML 4 ML VIAL IV SCH (07:59)
[2017-09-16] MEDS: PANTOPRAZOLE 40 MG/10 ML VIAL IVP SCH (08:00)
--- NOTE | 2017-09-16 08:11 | XR ---
EXAMINATION TYPE: XR chest 1V DATE OF EXAM: 09/16/2017 COMPARISON: 09/15/2017 HISTORY: Shortness of breath TECHNIQUE: Single frontal view of the chest is obtained. FINDINGS: Bilateral infiltrate and small effusion. Underlying COPD noted. Heart size stable. Atheros clerotic change aorta. Mild prominence of interstitium. IMPRESSION: 1. Stable bilateral infiltrate and small pleural effusion. Correlate for COPD. mild venous congestion not excluded.
[2017-09-16] MEDS: PIPERACILLIN-TAZOBACTAM 3.375 GM in DEXTROSE/WATER 1 50ML.BAG IVPB SCH ×3 (08:34→23:40)
--- NOTE | 2017-09-16 10:47 | P.PN ---
Subjective Progress Note Date: 09/16/17 77-year-old male patient, advanced COPD, alcoholic with excessive beer drinking approximately 8 bottles of beer daily basis, along with history of hypertension and obstructive sleep apnea, noncompliant to CPAP therapy. The patient has been followed up with Dr. Guerra on outpatient basis, his primary care physician. He comes in yesterday to the emergency department because of altered mentation and generalized weakness. The patient was noted by family members to act unusual, trying to eat napkins and this is not a typical behavior for him and it seems that he was getting progressively more short of breath, anxious, tachypneic and uncomfortable. I was told by his daughter the patient has chronic anxiety for which he was given Paxil at a dose of 30 mg by mouth daily by his primary care physician. He does not take any form of benzodiazepines In the emergency department, the patient was found to be profoundly hyponatremic. His sodium level was 115. In addition, the patient had a potassium level of 3.9, he was hypochloremic with a chloride level of 79 and a serum bicarb of 29. Anion gap was 7. He had a normal renal function with a BUN of 13 and creatinine of 0.9. Liver function tests are within normal limits. -year-old was slightly elevated at 1.6, his lactic acid level was at 1, CPK was mildly elevated at 533, first set of cardiac enzymes/troponin was at 0.012. Urinalysis positive for ketones negative for any infection. The patient was initially admitted to the medical floor. In addition, the patient had He was restless, uncomfortable, tachypneic and short of breath. He was started on bronchodilators. He was given a dose of Lasix. Following that he was admitted to the medical floor. CAT scan of the head done in the emergency department showed moderate degree of atrophy and chronic small vessel ischemic disease without any acute intracranial abnormalities. The patient had a chest x-ray that showed bilateral lower lobe pulmonary infiltrate and small effusion. The chest x-ray was consistent with COPD and there was a mild component of pulmonary vascular congestion. A 1 cm right lower lobe pulmonary nodule cannot be completely excluded on the chest x-ray findings. Overnight, the patient became progressively more short of breath, bronchospastic and wheezy and confused. At a time of arrival to the ICU, the patient was unresponsive. The patient had received a total of 3 mg of Ativan since the emergency department for agitation. At that point, the patient was immediately placed on a BiPAP which is currently on a day setting of 14/5 cm of water with an FiO2 of 35%. He was started on IV Zosyn. He was started on DuoNeb nebulized treatment [id number] on IV Solu-Medrol 60 mg every 6 hours. I also started him on Lasix 40 mg every 12 hours. He is producing adequate amount of urine output in his urine output is more than 100 mL an hour. At a time of my evaluation this morning, the patient was arousable. He would respond to deep painful stimuli. He will move all 4 extremities without any limitation. He would open up his eyes. He is unable to hold a conversation as the patient has a full face BiPAP mask to which she seems to be more synchronous at this point. At times he wakes up spontaneously and he thrashes and he will have a bedside sitter. Serial monitoring of his sodium level showed a sodium level is gradually improving is up to 123. His renal function remains stable. No significant electrolyte imbalance at this point. Repeat chest x-ray in the morning showed no major interval change. Echo was done this morning and there is also still pending. Meanwhile the patient had an echo on 11/19/2016 that showed a preserved LV function without any significant LV dysfunction. The patient also has history of compression fracture of the lumbar spine. On 2016 the patient is being seen for a follow-up. The patient spent the past 24 hours on a BiPAP at a pressure of 14 over 5 cm of water no FiO2 of 35%. He was treated with bronchodilators and systemic steroids and he was also given IV Zosyn for possible left lower lobe aspiration pneumonia. On today's evaluation his last bronchus spastic and wheezy compared to yesterday. He'll be given a trial off the BiPAP and placed on oxygen by nasal cannula. As such, the BiPAP was discontinued. Clinically the patient is more awake compared to yesterday. He opens up his eyes. He followed simple commands. He is moving all 4 extremities without any limitation. He remains lethargic. Less dose of Ativan was around 4 AM this morning. Delirium tremens is still a concern in this patient has been chronic alcoholic. As far as the sodium level, is gradually improving is up to 128. Fluid balance is been negative as the patient has been diuresed with IV Lasix. Echocardiac Wolf showed no acute abnormalities and the LV function is well-preserved. As for the ultrasound of the abdomen, there was no significant abnormalities noted. No significant electrode imbalance and the potassium level and a chloride level and the sodium level gradually improving and normalizing. No fever. No chills. Objective - Vital Signs Vital signs: Vital Signs Temp 98 F 09/16/17 08:00 Pulse 97 09/16/17 10:00 Resp 16 09/16/17 10:00 BP 148/95 09/16/17 10:00 Pulse Ox 99 09/16/17 10:00 Intake & Output 09/15/17 09/16/17 09/16/17 18:59 06:59 18:59 Intake Total 367.5 535.0 210 Output Total 1160 800 300 Balance -792.5 -265.0 -90 Weight 90.718 kg 92.3 kg Intake: IV 167.5 335.0 210 .9 KVO 80 160 60 Piperacillin-Tazobactam 3 87.5 75.0 50 .375 gm In Dextrose/Water 1 50ml.bag @ 12.5 mls/hr IVPB Q8HR NANCY Rx#: [id number] Potassium Chloride 10 meq 100 Lidocaine 2% Inj 10 mg In Sodium Chloride 0.9% 100 ml @ 100 mls/hr IV Q1HR NANCY Rx#:[id number] Potassium Chloride 10 meq 100 Lidocaine 2% Inj 10 mg In Sodium Chloride 0.9% 100 ml @ 100 mls/hr IV Q1HR NANCY Rx#:[id number] Intake, IV Titration 200 200 Amount Potassium Chloride 10 meq 200 200 Lidocaine 2% Inj 10 mg In Sodium Chloride 0.9% 100 ml @ 100 mls/hr IV Q1HR NANCY Rx#:[id number] Output: Urine 1160 800 300 Other: Voiding Method Indwelling Catheter Indwelling Catheter Indwelling Catheter - Exam The patient is calm and comfortable was taken off the BiPAP this morning. No agitation. He is lethargic and sleepy he would open up his eyes and upon repeated stimulation he would follow simple commands and he was able to wiggle his toes and move upper extremities and grab. Head is atraumatic normocephalic. Neck is supple and there is no significant JVDs no goiter or neck masses. Mucus from veins are relatively dry. He has poor dental hygiene.Neck was supple and without jugular venous distension, thyromegaly, or carotid bruits. Carotids were easily palpable bilaterally. There was no adenopathy. Lung sounds are diminished and there is prolongation of expiratory phase of breathing and scattered expiratory wheezes throughout the lung colon bilaterally.Cardiac exam revealed the PMI to be normally situated and sized. The rhythm was regular and no extrasystoles were noted during several minutes of auscultation. The first and second heart sounds were normal and physiologic splitting of the second heart sound was noted. There were no murmurs, rubs, clicks, or gallops.Abdominal exam revealed normal bowel sounds. The abdomen was soft, non-tender, and without masses, organomegaly, or appreciable enlargement of the abdominal aorta.Examination of the extremities revealed easily palpable radial, femoral and pedal pulses. There was no cyanosis, clubbing or edema. Skin is within normal limits, Examination of the skin revealed no evidence of significant rashes, suspicious appearing nevi or other concerning lesions. Neurologically the patient is much more awake compared to yesterday. He follows some simple commands. He is lethargic and somewhat sedated probably under the effect of Ativan and Haldol. No agitation this morning. No focal neurological deficits. - Labs CBC & Chem 7: 09/16/17 04:22 09/16/17 04:19 Labs: Abnormal Lab Results - Last 24 Hours (Table) 09/15/17 09/15/17 09/15/17 Range/Units 12:53 17:04 23:00 WBC (3.8-10.6) k/uL RBC (4.30-5.90) m/uL Hgb (13.0-17.5) gm/dL Hct (39.0-53.0) % MCV (80.0-100.0) fL Neutrophils # (1.3-7.7) k/uL Lymphocytes # (1.0-4.8) k/uL Sodium 126 L (137-145) mmol/L Chloride 84 L (98-107) mmol/L Carbon Dioxide 33 H (22-30) mmol/L Glucose 134 H (74-99) mg/dL POC Glucose (mg/dL) 200 H 162 H (75-99) mg/dL 1109/16/17 09/16/17 Range/Units 04:19 04:22 05:39 WBC 20.6 H (3.8-10.6) k/uL RBC 3.77 L (4.30-5.90) m/uL Hgb 12.9 L (13.0-17.5) gm/dL Hct 38.0 L (39.0-53.0) % MCV 100.7 H (80.0-100.0) fL Neutrophils # 19.3 H (1.3-7.7) k/uL Lymphocytes # 0.4 L (1.0-4.8) k/uL Sodium 128 L (137-145) mmol/L Chloride 86 L (98-107) mmol/L Carbon Dioxide 33 H (22-30) mmol/L Glucose 120 H (74-99) mg/dL POC Glucose (mg/dL) 156 H (75-99) mg/dL Microbiology - Last 24 Hours (Table) 09/14/17 13:58 Blood Culture - Preliminary Blood No Growth after 24 hours 09/15/17 03:20 Urine Culture - Preliminary Urine,Catheterized Assessment and Plan Plan: Assessment 1 change in mental status, multifactorial. The patient is alcoholic and he presented with severe hyponatremia with a sodium level of 115. The underlying cause of hyponatremia is under investigation. Rule out Beer potomania. Rule out a component of hypovolemic hyponatremia/SIADH. The patient had a computed tomography scan of the brain that showed diffuse cerebral atrophy without any acute changes. His neurologic exam is nonfocal. Sodium level is gradually improving is up to 123. Rule out underlying delirium tremens secondary to alcohol withdrawal On 09/16/2017 the patient is more awake compared to yesterday. His mental status gradually improving. There was a concern for delirium tremens as the patient was quite agitated yesterday in conjunction with his underlying hyponatremia. The sodium level is improving. The delirium tremens was treated with a combination of Ativan and Haldol. This morning she seems to be more awake compared to yesterday. No focal neurological deficits. 2 acute COPD exacerbation, BiPAP dependent. The patient is actively bronchus spastic and wheezy and is requiring BiPAP for respiratory support at this point. Blood gases from midnight showed a component of respiratory and metabolic alkalosis. On 09/16/2017, the patient's acute COPD exacerbation improving and the patient will be given a trial off the BiPAP. 3 hyponatremia, see above mentioned discussion my improving and the sodium level is up to 128 4 limited bibasilar pulmonary infiltrates, rule out aspiration pneumonia, currently on IV Zosyn 5 alcoholism 6 smoker 7 obstructive sleep apnea not receiving any CPAP therapy on outpatient basis 8 frequent falls with a blunt trauma to his lower abdomen with some limited bruising. 9 compression fracture of the L4 spine status post kyphoplasty 10 chronic anxiety 11 depression 12 hypertension 13 osteoporosis 14 BPH Plan Stop the IV Lasix. Gentle hydration with D5 normal saline at the rate of 50 mL an hour. Monitor sodium level. Hold Ativan and Haldol unless there is significant agitation or any signs of delirium tremens. Take the patient off the BiPAP. Keep the patient nothing by mouth. Monitor neurologic status. Continued IV Zosyn. Monitor electrolytes. Aspiration precautions. Keep the patient ICU for another 24 hours. Echocardiogram was noted. Ultrasound the abdomen was noted. Rest of the blood work was all noted. Family was also updated on his condition. Overall improved compared to yesterday. We'll continue the bronchodilators and systemic steroids for another 24 hours.
[2017-09-16 11:45] LABS: Glucose,Whole Blood 140 mg/dL (75-99)
--- NOTE | 2017-09-16 12:07 | CONS ---
CONSULTATION REASON FOR CONSULT: Hyponatremia. HISTORY OF PRESENT ILLNESS: Patient is a 77-year-old male who was admitted to the hospital with significant shortness of breath. He had severe COPD exacerbation. Patient also has a history of alcohol abuse. He was admitted to the ICU because of decreased mentation and hyponatremia. There was also evidence of bilateral pleural effusions and pulmonary vascular congestion noted on chest x-ray. Patient's serum sodium was 115 on initial admission. Patient was started on Lasix. His serum sodium started to improve slowly and this morning it is up to 128. I have discussed with Pulmonary. His chest x-ray currently is not consistent with CHF, mainly changes suggestive of COPD and therefore the Lasix will be held and patient will be started on gentle IV hydration with normal saline. He has not been eating or drinking much and given the strong history of alcohol abuse, this may be a chronic problem too. A random urine sodium was not done on initial admission, and patient has been receiving Lasix. Therefore, it will not be accurate. Serum creatinine has been at about 1 mg/dL. PAST MEDICAL HISTORY: EtOH abuse, COPD, hypertension, obstructive sleep apnea, anxiety. SOCIAL HISTORY: Positive for smoking. No history of other drug abuse. There is a history of excessive beer intake. MEDICATIONS: Prior to admission included Lopressor, Flomax, Lasix, Paxil, Protonix. ALLERGIES: None. REVIEW OF SYSTEMS: Negative for any bleeding. His mentation is slightly better. Respiratory status is also improved. There is no fever. No discharge or rashes or wounds. PHYSICAL EXAMINATION: Patient is currently sleeping. He is arousable. He is not in any acute distress. Blood pressure is 132/91, heart rate 92 per minute. He is afebrile. Examination of the heart, S1, S2. Examination of the lungs, decreased breath sounds at the bases. Bilateral wheezing is heard. Abdomen is soft, nontender. Examination of the lower extremities showed no evidence of edema. PROJECT DIRECTOR exam is not done in detail. Patient does respond to verbal stimuli. LABS: Show sodium 128, potassium 3.7, chloride of 86, CO2 is 33, BUN 13, serum creatinine 1.0, phosphorus 3.4, magnesium 2.1. ASSESSMENT: 1. Hypovolemia initially hypervolemic, currently status post diuresis for about 2 days. Serum sodium has improved slowly and appropriately. However, patient has not been eating and upon further discussion with Pulmonary, we will try gentle hydration with saline and follow up on the sodium level. Random urine sodium will be ordered. However, this will not be accurate given the fact that patient has been receiving IV Lasix, but if it is significantly low, then this would point more towards hypovolemia. Patient's BUN did not increase significantly with the continued diuresis for the next few days and this may be also secondary to decreased intake in view of alcohol abuse, particularly of protein and possibly liver disease. 2. Severe chronic obstructive pulmonary disease exacerbation, slowly improving. PLAN: Agree with holding Lasix and trying 50 mL/hour of saline. Patient's x-ray does not appear to have pulmonary vascular congestion per Pulmonary. Once he is able to eat, we will encourage increased protein intake. This will also help with the hyponatremia. A urine sodium will be sent out. However, this will not be accurate given the fact that he has been on Lasix recently. Thank you for this consultation. Will continue to follow the patient with you during his hospitalization. LINO / SAGRARION: [id number] /
--- NOTE | 2017-09-16 15:16 | P.PN ---
Subjective Patient is a admitted for altered mental status secondary to hyponatremia and COPD exacerbation hyponatremia improved patient appears to have hypervolemic hyponatremia improved with IV Lasix patient has normal ejection fraction, may have diastolic dysfunction patient overnight went into respiratory failure requiring noninvasive ventilation with bilevel ventilation and patient is undergoing alcohol withdrawals. For which patient is on Ativan alcohol withdrawal protocol is ordered mental status is toxic and metabolic and multifactorial 09/16/2017 Patient has significant improvement in his respiratory status competitors to the patient is on aspirin and boxes and patient is still bit confused but much better than yesterday. Review of systems unable to obtain. Objective - Vital Signs Vital signs: Vital Signs Temp 97.9 F 09/16/17 12:00 Pulse 86 09/16/17 14:00 Resp 21 09/16/17 14:00 BP 112/86 09/16/17 14:00 Pulse Ox 95 09/16/17 14:00 Intake & Output 09/15/17 09/16/17 09/16/17 18:59 06:59 18:59 Intake Total 367.5 535.0 410 Output Total 1160 800 495 Balance -792.5 -265.0 -85 Weight 90.718 kg 92.3 kg Intake: IV 167.5 335.0 410 .9 KVO 80 160 60 Piperacillin-Tazobactam 3 87.5 75.0 50 .375 gm In Dextrose/Water 1 50ml.bag @ 12.5 mls/hr IVPB Q8HR NANCY Rx#: [id number] Potassium Chloride 10 meq 100 Lidocaine 2% Inj 10 mg In Sodium Chloride 0.9% 100 ml @ 100 mls/hr IV Q1HR NANCY Rx#:[id number] Potassium Chloride 10 meq 100 Lidocaine 2% Inj 10 mg In Sodium Chloride 0.9% 100 ml @ 100 mls/hr IV Q1HR NANCY Rx#:[id number] d5ns 200 Intake, IV Titration 200 200 Amount Potassium Chloride 10 meq 200 200 Lidocaine 2% Inj 10 mg In Sodium Chloride 0.9% 100 ml @ 100 mls/hr IV Q1HR NANCY Rx#:[id number] Output: Urine 1160 800 495 Other: Voiding Method Indwelling Catheter Indwelling Catheter Indwelling Catheter - Exam PHYSICAL EXAMINATION: GENERAL: comfortable and bit confused with [employer] cannula oxygen does have alcohol withdrawal symptoms HEENT: Pupils are round and equally reacting to light. EOMI. No scleral icterus. No conjunctival pallor. Normocephalic, atraumatic. No pharyngeal erythema. No thyromegaly. CARDIOVASCULAR: S1 and S2 present. No murmurs, rubs, or gallops. PULMONARY: Expiratory wheezing was appreciated. ABDOMEN: Soft, nontender, nondistended, normoactive bowel sounds. No palpable organomegaly. MUSCULOSKELETAL: No joint swelling or deformity. EXTREMITIES: No cyanosis, clubbing, or pedal edema. NEUROLOGICAL: Gross neurological examination did not reveal any focal deficits. SKIN: No rashes. - Labs CBC & Chem 7: 09/16/17 04:22 09/16/17 13:12 Labs: Abnormal Lab Results - Last 24 Hours (Table) 09/15/17 09/15/17 09/16/17 Range/Units 17:04 23:00 04:19 WBC (3.8-10.6) k/uL RBC (4.30-5.90) m/uL Hgb (13.0-17.5) gm/dL Hct (39.0-53.0) % MCV (80.0-100.0) fL Neutrophils # (1.3-7.7) k/uL Lymphocytes # (1.0-4.8) k/uL Sodium 126 L 128 L (137-145) mmol/L Chloride 84 L 86 L (98-107) mmol/L Carbon Dioxide 33 H 33 H (22-30) mmol/L Glucose 134 H 120 H (74-99) mg/dL POC Glucose (mg/dL) 162 H (75-99) mg/dL 09/16/17 09/16/17 09/16/17 Range/Units 04:22 05:39 11:42 WBC 20.6 H (3.8-10.6) k/uL RBC 3.77 L (4.30-5.90) m/uL Hgb 12.9 L (13.0-17.5) gm/dL Hct 38.0 L (39.0-53.0) % MCV 100.7 H (80.0-100.0) fL Neutrophils # 19.3 H (1.3-7.7) k/uL Lymphocytes # 0.4 L (1.0-4.8) k/uL Sodium (137-145) mmol/L Chloride (98-107) mmol/L Carbon Dioxide (22-30) mmol/L Glucose (74-99) mg/dL POC Glucose (mg/dL) 156 H 140 H (75-99) mg/dL Microbiology - Last 24 Hours (Table) 09/15/17 03:20 Urine Culture - Final Urine,Catheterized 09/14/17 13:58 Blood Culture - Preliminary Blood No Growth after 24 hours Assessment and Plan Plan: #1 hyponatremia:appendectomy improved significantly Patient appears to have hypervolemic hyponatremia secondary to chronic diastolic dysfunction with acute exacerbation improved, patient's IV Lasix is being held at this point of time as patient started becoming hypovolemic and bit tachycardic #2 congestive heart failure: Diastolic dysfunction with acute exacerbation #3 alcohol abuse: Counseling was provided #4 alcohol withdrawal: Patient will be on Ativan withdrawal protocol, thiamine and multivitamin supplementation #5 COPD with acute exacerbation patient is on oral steroids and inhalational treatments and azithromycin. Patient was also started on Zosyn by pulmonology with concerns of pneumonia #7 anxiety depression #8 leukocytosis reactive in nature. #8 acute hypercapnic respiratory failure secondary to COPD exacerbation, improved now and patient is in aspirin cannula oxygen #9 metabolic and toxic encephalopathy multifactorial related to above-mentioned reasons
[2017-09-16 17:10] LABS: Glucose,Whole Blood 139 mg/dL (75-99)
[2017-09-16] MEDS: DEXTROSE 5%-0.9% NACL 1,000 ML IV SCH (18:17)
[2017-09-16] MEDS: HALOPERIDOL LACTATE 5 MG/ML 1 ML VIAL IVP PRN (19:34)
[2017-09-16] MEDS: TAMSULOSIN 0.4 MG CAP.ER.24H PO SCH (21:14)
[2017-09-16] MEDS ORDERED: HALOPERIDOL LACTATE 5 MG/ML 1 ML VIAL IVP ONE (21:30)
[2017-09-16] MEDS ORDERED: LORazepam 2 MG/ML INJ IV STA ×2 (21:37→21:59)
[2017-09-16] MEDS ORDERED: HALOPERIDOL LACTATE 5 MG/ML 1 ML VIAL IVP STA (21:58)
[2017-09-16 23:39] LABS: Glucose,Whole Blood 163 mg/dL (75-99)
[2017-09-17 01:16] LABS: Anion Gap 7 mmol/L; Blood Urea Nitrogen 18 mg/dL (9-20); Calcium 9.1 mg/dL (8.4-10.2); Carbon Dioxide 33 mmol/L (22-30); Chloride 91 mmol/L (98-107); Glucose 156 mg/dL (74-99); Non-African American GFR(MDRD) >60 (>60 ml/min/1.73 sqM); Potassium 3.6 mmol/L (3.5-5.1); Sodium 131 mmol/L (137-145)
[2017-09-17] MEDS ORDERED: Potassium Replacement Protocol 1 EACH MISC MISCELLANE PRN (01:31)
[2017-09-17] MEDS: POTASSIUM CHLORIDE 10 MEQ, LIDOCAINE 2% INJ 10 MG in SODIUM CHLORIDE 0.9% 100 ML IV SCH ×2 (01:42→02:48)
[2017-09-17] MEDS: IPRATROPIUM-ALBUTEROL 3 ML NEB INHALATION SCH ×6 (03:04→23:31)
[2017-09-17] MEDS: HALOPERIDOL LACTATE 5 MG/ML 1 ML VIAL IVP PRN ×3 (03:25→23:51)
[2017-09-17 05:41] LABS: Basophils % (A) 0 %; CH 33.2; CHCM 32.7; Eosinophils % (A) 0 %; HCT 38.6 % (39.0-53.0); HDW 2.18; HGB 12.7 gm/dL (13.0-17.5); Luc # (Auto) 0.03; Luc % (Auto) 0; Lymphocytes # (A) 0.4 k/uL (1.0-4.8); Lymphocytes % (A) 2 %; MCH 33.7 pg (25.0-35.0); MCV 101.9 fL (80.0-100.0); Macrocytosis Slight; Mean Platelet Volume 8.7; Monocytes # (A) 0.5 k/uL (0-1.0); Monocytes % (A) 3 %; Neutrophils # (A) 15.5 k/uL (1.3-7.7); Neutrophils % (A) 94 %; RBC 3.79 m/uL (4.30-5.90); WBC 16.4 k/uL (3.8-10.6); WBC (Perox) 17.53
[2017-09-17 05:50] LABS: Anion Gap 7 mmol/L; Blood Urea Nitrogen 19 mg/dL (9-20); Calcium 9.1 mg/dL (8.4-10.2); Carbon Dioxide 34 mmol/L (22-30); Chloride 92 mmol/L (98-107); Glucose 136 mg/dL (74-99); Magnesium 2.3 mg/dL (1.6-2.3); Non-African American GFR(MDRD) >60 (>60 ml/min/1.73 sqM); Phosphorus 3.9 mg/dL (2.5-4.5); Sodium 133 mmol/L (137-145)
[2017-09-17 05:54] LABS: Glucose,Whole Blood 143 mg/dL (75-99)
[2017-09-17] MEDS: methylPREDNISolone SOD SUCCI 125 MG/2 ML VIAL IV SCH ×4 (06:29→23:48)
[2017-09-17] MEDS: INSULIN LISPRO (humaLOG) 300 UNIT/3 ML VIAL SQ SCH ×4 (06:30→23:46)
--- NOTE | 2017-09-17 06:47 | XR ---
EXAMINATION TYPE: XR chest 1V DATE OF EXAM: 09/17/2017 HISTORY: SOB. REFERENCE: Previous study dated 09/16/2017. FINDINGS: Heart size is normal. There is improved aeration at the left lung base. There continues to be a small, left-sided effusion and a smaller right-sided effusion.. IMPRESSION: 1. SMALL, BILATERAL EFFUSIONS, GREATER ON THE LEFT THAN THE RIGHT. 2. CONTINUING LEFT BASILAR AIRSPACE DISEASE, IMPROVED FROM PREVIOUS.
[2017-09-17] MEDS: BUDESONIDE 0.5 MG/2 ML NEBU INHALATION SCH ×2 (07:23→19:58)
[2017-09-17] MEDS: FORMOTEROL FUMARATE 20 MCG/2 ML NEBU INHALATION SCH ×2 (07:23→19:59)
[2017-09-17] MEDS: PIPERACILLIN-TAZOBACTAM 3.375 GM in DEXTROSE/WATER 1 50ML.BAG IVPB SCH ×2 (07:57→16:47)
[2017-09-17] MEDS: PANTOPRAZOLE 40 MG/10 ML VIAL IVP SCH (07:59)
[2017-09-17] MEDS: HEPARIN SODIUM,PORCINE 5,000 UNIT/ML 1 ML VIAL SQ SCH ×3 (07:59→23:46)
[2017-09-17] MEDS ORDERED: FUROSEMIDE 10 MG/ML 4 ML VIAL IV STA (08:13)
--- NOTE | 2017-09-17 09:17 | P.PN ---
Subjective Progress Note Date: 09/17/17 77-year-old male patient, advanced COPD, alcoholic with excessive beer drinking approximately 8 bottles of beer daily basis, along with history of hypertension and obstructive sleep apnea, noncompliant to CPAP therapy. The patient has been followed up with Dr. Guerra on outpatient basis, his primary care physician. He comes in yesterday to the emergency department because of altered mentation and generalized weakness. The patient was noted by family members to act unusual, trying to eat napkins and this is not a typical behavior for him and it seems that he was getting progressively more short of breath, anxious, tachypneic and uncomfortable. I was told by his daughter the patient has chronic anxiety for which he was given Paxil at a dose of 30 mg by mouth daily by his primary care physician. He does not take any form of benzodiazepines In the emergency department, the patient was found to be profoundly hyponatremic. His sodium level was 115. In addition, the patient had a potassium level of 3.9, he was hypochloremic with a chloride level of 79 and a serum bicarb of 29. Anion gap was 7. He had a normal renal function with a BUN of 13 and creatinine of 0.9. Liver function tests are within normal limits. -year-old was slightly elevated at 1.6, his lactic acid level was at 1, CPK was mildly elevated at 533, first set of cardiac enzymes/troponin was at 0.012. Urinalysis positive for ketones negative for any infection. The patient was initially admitted to the medical floor. In addition, the patient had He was restless, uncomfortable, tachypneic and short of breath. He was started on bronchodilators. He was given a dose of Lasix. Following that he was admitted to the medical floor. CAT scan of the head done in the emergency department showed moderate degree of atrophy and chronic small vessel ischemic disease without any acute intracranial abnormalities. The patient had a chest x-ray that showed bilateral lower lobe pulmonary infiltrate and small effusion. The chest x-ray was consistent with COPD and there was a mild component of pulmonary vascular congestion. A 1 cm right lower lobe pulmonary nodule cannot be completely excluded on the chest x-ray findings. Overnight, the patient became progressively more short of breath, bronchospastic and wheezy and confused. At a time of arrival to the ICU, the patient was unresponsive. The patient had received a total of 3 mg of Ativan since the emergency department for agitation. At that point, the patient was immediately placed on a BiPAP which is currently on a day setting of 14/5 cm of water with an FiO2 of 35%. He was started on IV Zosyn. He was started on DuoNeb nebulized treatment [id number] on IV Solu-Medrol 60 mg every 6 hours. I also started him on Lasix 40 mg every 12 hours. He is producing adequate amount of urine output in his urine output is more than 100 mL an hour. At a time of my evaluation this morning, the patient was arousable. He would respond to deep painful stimuli. He will move all 4 extremities without any limitation. He would open up his eyes. He is unable to hold a conversation as the patient has a full face BiPAP mask to which she seems to be more synchronous at this point. At times he wakes up spontaneously and he thrashes and he will have a bedside sitter. Serial monitoring of his sodium level showed a sodium level is gradually improving is up to 123. His renal function remains stable. No significant electrolyte imbalance at this point. Repeat chest x-ray in the morning showed no major interval change. Echo was done this morning and there is also still pending. Meanwhile the patient had an echo on 11/19/2016 that showed a preserved LV function without any significant LV dysfunction. The patient also has history of compression fracture of the lumbar spine. On 2016 the patient is being seen for a follow-up. The patient spent the past 24 hours on a BiPAP at a pressure of 14 over 5 cm of water no FiO2 of 35%. He was treated with bronchodilators and systemic steroids and he was also given IV Zosyn for possible left lower lobe aspiration pneumonia. On today's evaluation his last bronchus spastic and wheezy compared to yesterday. He'll be given a trial off the BiPAP and placed on oxygen by nasal cannula. As such, the BiPAP was discontinued. Clinically the patient is more awake compared to yesterday. He opens up his eyes. He followed simple commands. He is moving all 4 extremities without any limitation. He remains lethargic. Less dose of Ativan was around 4 AM this morning. Delirium tremens is still a concern in this patient has been chronic alcoholic. As far as the sodium level, is gradually improving is up to 128. Fluid balance is been negative as the patient has been diuresed with IV Lasix. Echocardiac Wolf showed no acute abnormalities and the LV function is well-preserved. As for the ultrasound of the abdomen, there was no significant abnormalities noted. No significant electrode imbalance and the potassium level and a chloride level and the sodium level gradually improving and normalizing. No fever. No chills. On 09/17/2017 the patient is being seen in follow-up. Note that the patient did well yesterday now was able to get him off the BiPAP yesterday morning. I checked on him yesterday evening and late in afternoon and in the early evening the patient was doing well and he was in the point where he was waking up and following commands and answering questions. He was getting more appropriate . However, later on, the patient became progressively more agitated and confused and overnight he required a total of 2 mg of Ativan and a total of 50 mg of Haldol. This morning it is quite sedated. He is less restless. He was on a BiPAP at a pressure of 14/5 throughout the night and he was taken off the BiPAP again this morning. He has bronchus spastic and wheezy. He has a congested cough. Chest x-ray from today is showing small bilateral pleural effusion left greater than right. There is continuing left basilar airspace disease that is improved from previous evaluation. The patient remains on DuoNeb nebulized treatments around the clock, IV Solu-Medrol, Pulmicort and Perforomist neb last treatment twice a day, and IV Zosyn as empiric antibiotic coverage for possible left lower lobe pneumonia. The patient has a congested cough. Unable to bring up much sputum. At time he gets worked up and he uses abdominal muscles of breathing. No witnessed aspiration. In terms of fluid balance, the patient was placed on normal state rate of 50 mL an hour. Sodium level continues to improve and it's up to 133. Renal function stable with a creatinine of 1.1. The echocardiogram showed a preserved LV function. Objective - Vital Signs Vital signs: Vital Signs Temp 98.2 F 09/17/17 08:00 Pulse 108 H 09/17/17 08:00 Resp 22 09/17/17 08:00 BP 140/84 09/17/17 08:00 Pulse Ox 98 09/17/17 08:00 Intake & Output 09/16/17 09/17/17 09/17/17 18:59 06:59 18:59 Intake Total 660 840 112.5 Output Total 649 570 170 Balance 11 270 -57.5 Weight 93.2 kg Intake: IV 660 590 112.5 .9 KVO 60 Dextrose 5%-0.9% NaCl 1, 500 100 000 ml @ 50 mls/hr IV . Q20H NANCY Rx#:[id number] Piperacillin-Tazobactam 3 50 50 12.5 .375 gm In Dextrose/Water 1 50ml.bag @ 12.5 mls/hr IVPB Q8HR NANCY Rx#: [id number] Potassium Chloride 10 meq 100 Lidocaine 2% Inj 10 mg In Sodium Chloride 0.9% 100 ml @ 100 mls/hr IV Q1HR NANCY Rx#:[id number] d5ns 450 40 Intake, IV Titration 250 Amount Piperacillin-Tazobactam 3 50 .375 gm In Dextrose/Water 1 50ml.bag @ 12.5 mls/hr IVPB Q8HR NANCY Rx#: [id number] Potassium Chloride 10 meq 200 Lidocaine 2% Inj 10 mg In Sodium Chloride 0.9% 100 ml @ 100 mls/hr IV Q1HR NANCY Rx#:[id number] Output: Urine 649 570 170 Other: Voiding Method Indwelling Catheter Indwelling Catheter - Exam The patient is sedated, somewhat delirious, at times restless and occasionally agitated. He would open up his eyes and upon repeated stimulation he would follow simple commands and he was able to wiggle his toes and move upper extremities and grab. Head is atraumatic normocephalic. Neck is supple and there is no significant JVDs no goiter or neck masses. Mucus from veins are relatively dry. He has poor dental hygiene.Neck was supple and without jugular venous distension, thyromegaly, or carotid bruits. Carotids were easily palpable bilaterally. There was no adenopathy. Lung sounds are diminished and there is prolongation of expiratory phase of breathing and scattered expiratory wheezes throughout the lung colon bilaterally.Cardiac exam revealed the PMI to be normally situated and sized. The rhythm was regular and no extrasystoles were noted during several minutes of auscultation. The first and second heart sounds were normal and physiologic splitting of the second heart sound was noted. There were no murmurs, rubs, clicks, or gallops.Abdominal exam revealed normal bowel sounds. The abdomen was soft, non-tender, and without masses, organomegaly, or appreciable enlargement of the abdominal aorta.Examination of the extremities revealed easily palpable radial, femoral and pedal pulses. There was no cyanosis, clubbing or edema. Skin is within normal limits, Examination of the skin revealed no evidence of significant rashes, suspicious appearing nevi or other concerning lesions. Neurologically the patient has no focal neurological deficits. He is moving all 4 extremities although limitation. No facial asymmetry. Cough is weak at is present. - Labs CBC & Chem 7: 09/17/17 05:12 09/17/17 05:12 Labs: Abnormal Lab Results - Last 24 Hours (Table) 09/16/17 09/16/17 09/16/17 Range/Units 11:42 17:08 18:32 WBC (3.8-10.6) k/uL RBC (4.30-5.90) m/uL Hgb (13.0-17.5) gm/dL Hct (39.0-53.0) % MCV (80.0-100.0) fL Neutrophils # (1.3-7.7) k/uL Lymphocytes # (1.0-4.8) k/uL Sodium 131 L (137-145) mmol/L Chloride (98-107) mmol/L Carbon Dioxide (22-30) mmol/L Glucose (74-99) mg/dL POC Glucose (mg/dL) 140 H 139 H (75-99) mg/dL 09/16/17 09/17/17 09/17/17 Range/Units 23:36 00:48 05:12 WBC 16.4 H (3.8-10.6) k/uL RBC 3.79 L (4.30-5.90) m/uL Hgb 12.7 L (13.0-17.5) gm/dL Hct 38.6 L (39.0-53.0) % MCV 101.9 H (80.0-100.0) fL Neutrophils # 15.5 H (1.3-7.7) k/uL Lymphocytes # 0.4 L (1.0-4.8) k/uL Sodium 131 L (137-145) mmol/L Chloride 91 L (98-107) mmol/L Carbon Dioxide 33 H (22-30) mmol/L Glucose 156 H (74-99) mg/dL POC Glucose (mg/dL) 163 H (75-99) mg/dL 09/17/17 09/17/17 Range/Units 05:12 05:52 WBC (3.8-10.6) k/uL RBC (4.30-5.90) m/uL Hgb (13.0-17.5) gm/dL Hct (39.0-53.0) % MCV (80.0-100.0) fL Neutrophils # (1.3-7.7) k/uL Lymphocytes # (1.0-4.8) k/uL Sodium 133 L (137-145) mmol/L Chloride 92 L (98-107) mmol/L Carbon Dioxide 34 H (22-30) mmol/L Glucose 136 H (74-99) mg/dL POC Glucose (mg/dL) 143 H (75-99) mg/dL Microbiology - Last 24 Hours (Table) 09/14/17 13:58 Blood Culture - Preliminary Blood No Growth after 48 hours 09/15/17 03:20 Urine Culture - Final Urine,Catheterized Assessment and Plan Plan: Assessment 1 change in mental status, multifactorial. The patient is alcoholic and he presented with severe hyponatremia with a sodium level of 115. The underlying cause of hyponatremia is under investigation. Rule out Beer potomania. Rule out a component of hypovolemic hyponatremia/SIADH. The patient had a computed tomography scan of the brain that showed diffuse cerebral atrophy without any acute changes. His neurologic exam is nonfocal. Sodium level is gradually improving is up to 123. Rule out underlying delirium tremens secondary to alcohol withdrawal On 09/16/2017 the patient is more awake compared to yesterday. His mental status gradually improving. There was a concern for delirium tremens as the patient was quite agitated yesterday in conjunction with his underlying hyponatremia. The sodium level is improving. The delirium tremens was treated with a combination of Ativan and Haldol. This morning she seems to be more awake compared to yesterday. No focal neurological deficits. On 09/17/2017, the active issues remain altered mentation, agitation, the patient minutes, along with COPD exacerbation. After doing some progress with his mentation, the patient became progressively more agitated overnight and he required a total of 15 mg of Haldol and 2 mg of Ativan to control his agitation. This morning it is more sedated and more calm and comfortable. Nevertheless, there is concern that he was gradually will lose ground as the patient remains in acute COPD exacerbation is requiring BiPAP for respiratory support on and off, he remains bronchus spastic and wheezy, and there is obviously the concern that he may go into respiratory failure especially with his altered mentation and increased requirements for sedative medications and Haldol. 2 acute COPD exacerbation, BiPAP dependent. The patient is actively bronchus spastic and wheezy and is requiring BiPAP for respiratory support at this point , and a chest x-ray shows improved aeration of the left lung base along with some mild four-vessel congestion. 3 hyponatremia, recovered 4 limited bibasilar pulmonary infiltrates, rule out aspiration pneumonia, currently on IV Zosyn 5 alcoholism 6 smoker 7 obstructive sleep apnea not receiving any CPAP therapy on outpatient basis 8 frequent falls with a blunt trauma to his lower abdomen with some limited bruising. 9 compression fracture of the L4 spine status post kyphoplasty 10 chronic anxiety 11 depression 12 hypertension 13 osteoporosis 14 BPH Plan The patient will be monitored very closely here in the intensive care unit. I am a bit concerned about his pulmonary condition and he is obviously not being fed and he may lose ground on his nutrition. I will make a decision whether he may need intubation over the next few hours depending is his clinical condition. Intubation will give us 24-48 hours still his delirium tremens settles in his same time the patient could be fed and his COPD exacerbation can be treated adequately. I would like to discuss it with the family, specifically the daughter and the brother. I will take him off the BiPAP for now. Will given a dose of Lasix 40 mg IV push. We'll check a blood gas. Aspiration precautions. Pulmonary toileting. Continue IV Zosyn. Continue bronchodilators discontinue steroids. Condition remains critical. We'll continue to follow. CODE STATUS is full.
[2017-09-17 09:33] LABS: ABG Base Excess 10.9 mmol/L; ABG HCO3 35 mmol/L (21-25); ABG PCO2 47 mmHg (35-45); ABG PH 7.48 (7.35-7.45); ABG PO2 125 mmHg (83-108); ABG TCO2 37 mmol/L (19-24)
[2017-09-17] MEDS: METOPROLOL TARTRATE 5 MG/5 ML VIAL IVP PRN ×2 (12:14→20:21)
[2017-09-17 12:17] LABS: Glucose,Whole Blood 142 mg/dL (75-99)
--- NOTE | 2017-09-17 15:48 | P.PN ---
Subjective Patient is a admitted for altered mental status secondary to hyponatremia and COPD exacerbation hyponatremia improved patient appears to have hypervolemic hyponatremia improved with IV Lasix patient has normal ejection fraction, may have diastolic dysfunction patient overnight went into respiratory failure requiring noninvasive ventilation with bilevel ventilation and patient is undergoing alcohol withdrawals. For which patient is on Ativan alcohol withdrawal protocol is ordered mental status is toxic and metabolic and multifactorial 09/16/2017 Patient has significant improvement in his respiratory status competitors to the patient is on aspirin and boxes and patient is still bit confused but much better than yesterday. 09/17/2017 Patient is drowsy sleepy received Haldol as today because of agitation episodes unable to provide me any history. Review of systems unable to obtain. Objective - Vital Signs Vital signs: Vital Signs Temp 98.4 F 09/17/17 12:00 Pulse 86 09/17/17 15:00 Resp 20 09/17/17 15:00 BP 165/85 09/17/17 15:00 Pulse Ox 96 09/17/17 15:00 Intake & Output 09/16/17 09/17/17 09/17/17 18:59 06:59 18:59 Intake Total 660 840 360.0 Output Total 649 570 755 Balance 11 270 -395.0 Weight 93.2 kg Intake: IV 660 590 360.0 .9 KVO 60 Dextrose 5%-0.9% NaCl 1, 500 310 000 ml @ 50 mls/hr IV . Q20H NANCY Rx#:[id number] Piperacillin-Tazobactam 3 50 50 50.0 .375 gm In Dextrose/Water 1 50ml.bag @ 12.5 mls/hr IVPB Q8HR NANCY Rx#: [id number] Potassium Chloride 10 meq 100 Lidocaine 2% Inj 10 mg In Sodium Chloride 0.9% 100 ml @ 100 mls/hr IV Q1HR NANCY Rx#:[id number] d5ns 450 40 Intake, IV Titration 250 Amount Piperacillin-Tazobactam 3 50 .375 gm In Dextrose/Water 1 50ml.bag @ 12.5 mls/hr IVPB Q8HR NANCY Rx#: [id number] Potassium Chloride 10 meq 200 Lidocaine 2% Inj 10 mg In Sodium Chloride 0.9% 100 ml @ 100 mls/hr IV Q1HR NANCY Rx#:[id number] Output: Urine 649 570 755 Other: Voiding Method Indwelling Catheter Indwelling Catheter Indwelling Catheter - Exam PHYSICAL EXAMINATION: GENERAL: drowsy sleepy unable to provide any history to me HEENT: Pupils are round and equally reacting to light. EOMI. No scleral icterus. No conjunctival pallor. Normocephalic, atraumatic. No pharyngeal erythema. No thyromegaly. CARDIOVASCULAR: S1 and S2 present. No murmurs, rubs, or gallops. PULMONARY: Expiratory wheezing was appreciated. ABDOMEN: Soft, nontender, nondistended, normoactive bowel sounds. No palpable organomegaly. MUSCULOSKELETAL: No joint swelling or deformity. EXTREMITIES: No cyanosis, clubbing, or pedal edema. NEUROLOGICAL: Gross neurological examination did not reveal any focal deficits. SKIN: No rashes. - Labs CBC & Chem 7: 09/17/17 05:12 09/17/17 05:12 Labs: Abnormal Lab Results - Last 24 Hours (Table) 09/16/17 09/16/17 09/16/17 Range/Units 17:08 18:32 23:36 WBC (3.8-10.6) k/uL RBC (4.30-5.90) m/uL Hgb (13.0-17.5) gm/dL Hct (39.0-53.0) % MCV (80.0-100.0) fL Neutrophils # (1.3-7.7) k/uL Lymphocytes # (1.0-4.8) k/uL ABG pH (7.35-7.45) ABG pCO2 (35-45) mmHg ABG pO2 (83-108) mmHg ABG HCO3 (21-25) mmol/L ABG Total CO2 (19-24) mmol/L ABG O2 Saturation (94-97) % Sodium 131 L (137-145) mmol/L Chloride (98-107) mmol/L Carbon Dioxide (22-30) mmol/L Glucose (74-99) mg/dL POC Glucose (mg/dL) 139 H 163 H (75-99) mg/dL 09/17/17 09/17/17 09/17/17 Range/Units 00:48 05:12 05:12 WBC 16.4 H (3.8-10.6) k/uL RBC 3.79 L (4.30-5.90) m/uL Hgb 12.7 L (13.0-17.5) gm/dL Hct 38.6 L (39.0-53.0) % MCV 101.9 H (80.0-100.0) fL Neutrophils # 15.5 H (1.3-7.7) k/uL Lymphocytes # 0.4 L (1.0-4.8) k/uL ABG pH (7.35-7.45) ABG pCO2 (35-45) mmHg ABG pO2 (83-108) mmHg ABG HCO3 (21-25) mmol/L ABG Total CO2 (19-24) mmol/L ABG O2 Saturation (94-97) % Sodium 131 L 133 L (137-145) mmol/L Chloride 91 L 92 L (98-107) mmol/L Carbon Dioxide 33 H 34 H (22-30) mmol/L Glucose 156 H 136 H (74-99) mg/dL POC Glucose (mg/dL) (75-99) mg/dL 09/17/17 09/17/17 09/17/17 Range/Units 05:52 09:29 12:14 WBC (3.8-10.6) k/uL RBC (4.30-5.90) m/uL Hgb (13.0-17.5) gm/dL Hct (39.0-53.0) % MCV (80.0-100.0) fL Neutrophils # (1.3-7.7) k/uL Lymphocytes # (1.0-4.8) k/uL ABG pH 7.48 H (7.35-7.45) ABG pCO2 47 H (35-45) mmHg ABG pO2 125 H (83-108) mmHg ABG HCO3 35 H (21-25) mmol/L ABG Total CO2 37 H (19-24) mmol/L ABG O2 Saturation 99.0 H (94-97) % Sodium (137-145) mmol/L Chloride (98-107) mmol/L Carbon Dioxide (22-30) mmol/L Glucose (74-99) mg/dL POC Glucose (mg/dL) 143 H 142 H (75-99) mg/dL Microbiology - Last 24 Hours (Table) 09/14/17 13:58 Blood Culture - Preliminary Blood No Growth after 48 hours 09/15/17 03:20 Urine Culture - Final Urine,Catheterized Assessment and Plan Plan: #1 hyponatremia:appendectomy improved significantly Patient appears to have hypervolemic hyponatremia secondary to chronic diastolic dysfunction with acute exacerbation improved, #2 congestive heart failure: Diastolic dysfunction with acute exacerbation #3 alcohol abuse: Counseling was provided #4 alcohol withdrawal: Patient will be on Ativan withdrawal protocol, thiamine and multivitamin supplementation #5 COPD with acute exacerbation patient is on oral steroids and inhalational treatments and azithromycin. Patient was also started on Zosyn by pulmonology with concerns of pneumonia #7 anxiety depression #8 leukocytosis reactive in nature. #8 acute hypercapnic respiratory failure secondary to COPD exacerbation, improved now and patient is in aspirin cannula oxygen #9 metabolic and toxic encephalopathy multifactorial related to above-mentioned reasons
--- NOTE | 2017-09-17 16:18 | PN ---
PROGRESS NOTE Patient is seen for followup for hyponatremia. He is currently still in the ICU. His mentation remains poor. He barely arouses. He is not hypoxic. He was started on normal saline yesterday at 50 mL an hour. This morning he received Lasix for possible worsening fluid status. The serum sodium has improved, it is up to 133 now. Patient COPD status has improved. EXAMINATION: Blood pressure is 154/98, heart rate 109 per minute. He is afebrile. Examination of the heart S1, S2. Examination of the lungs bilateral breath sounds are heard. Wheezing is heard bilaterally. No crackles are heard. Abdomen is soft, nontender. Examination lower extremities shows no evidence of edema. LAB: Show sodium 133. ASSESSMENT: 1. Hyponatremia. Initially hypervolemic status post diuresis with improvement in the serum sodium level. Yesterday, patient was started on 50 mL an hour of D5 0.9 and his serum sodium has improved to 133. Urine sodium was not low, but patient was already on Lasix when the urine sodium was done. At this time, we need to encourage increased oral intake once patient is more awake. I had a discussion with Pulmonary and there was some concern regarding his mentation and poor intake with possibility of extubation since he continues to be withdrawing and in delirium tremens. 2. Severe chronic obstructive pulmonary disease, improved since admission. 3. Delirium tremens. 4. Hypomagnesemia, status post replacement. PLAN: Agree with feeding. The patient needs to increase his oral intake once he is more alert and if his mentation does not improve, there is consideration for possible intubation. MMODL / IJN: [id number] /
[2017-09-17] MEDS: DEXTROSE 5%-0.9% NACL 1,000 ML IV SCH ×2 (16:48→23:28)
[2017-09-17 16:55] LABS: Glucose,Whole Blood 142 mg/dL (75-99)
[2017-09-17] MEDS: TAMSULOSIN 0.4 MG CAP.ER.24H PO SCH (20:25)
[2017-09-17] MEDS: LORazepam 2 MG/ML INJ IV PRN ×3 (21:28→22:15)
[2017-09-17 23:44] LABS: Glucose,Whole Blood 142 mg/dL (75-99)
[2017-09-18] MEDS: PIPERACILLIN-TAZOBACTAM 3.375 GM in DEXTROSE/WATER 1 50ML.BAG IVPB SCH ×4 (00:07→23:03)
[2017-09-18] MEDS: LORazepam 2 MG/ML INJ IV PRN ×3 (00:07→20:23)
[2017-09-18] MEDS: METOPROLOL TARTRATE 5 MG/5 ML VIAL IVP PRN ×3 (02:05→15:22)
[2017-09-18] MEDS: IPRATROPIUM-ALBUTEROL 3 ML NEB INHALATION SCH ×6 (03:12→23:37)
[2017-09-18 05:07] LABS: Basophils % (A) 0 %; CH 33.9; CHCM 33.2; Eosinophils # (A) 0.1 k/uL (0-0.7); Eosinophils % (A) 0 %; HCT 39.1 % (39.0-53.0); HDW 2.32; HGB 12.7 gm/dL (13.0-17.5); Luc # (Auto) 0.05; Luc % (Auto) 0; Lymphocytes # (A) 0.4 k/uL (1.0-4.8); Lymphocytes % (A) 2 %; MCH 33.3 pg (25.0-35.0); MCHC 32.4 g/dL (31.0-37.0); MCV 102.7 fL (80.0-100.0); Macrocytosis Slight; Mean Platelet Volume 7.8; Monocytes # (A) 0.7 k/uL (0-1.0); Monocytes % (A) 4 %; Neutrophils # (A) 14.6 k/uL (1.3-7.7); Neutrophils % (A) 93 %; RBC 3.81 m/uL (4.30-5.90); RDW 13.1 % (11.5-15.5); WBC 15.7 k/uL (3.8-10.6); WBC (Perox) 16.02
[2017-09-18 05:12] LABS: Anion Gap 5 mmol/L; Blood Urea Nitrogen 24 mg/dL (9-20); Carbon Dioxide 34 mmol/L (22-30); Chloride 98 mmol/L (98-107); Glucose 131 mg/dL (74-99); Magnesium 2.4 mg/dL (1.6-2.3); Non-African American GFR(MDRD) >60 (>60 ml/min/1.73 sqM); Potassium 3.7 mmol/L (3.5-5.1); Sodium 137 mmol/L (137-145)
[2017-09-18 05:13] LABS: INR 1.1 (<1.2); Partial Thromboplastin Time 29.2 sec (22.0-30.0); Prothrombin Time 10.8 sec (9.0-12.0)
[2017-09-18 06:21] LABS: Glucose,Whole Blood 148 mg/dL (75-99)
[2017-09-18] MEDS: methylPREDNISolone SOD SUCCI 125 MG/2 ML VIAL IV SCH ×4 (06:29→23:03)
[2017-09-18] MEDS: INSULIN LISPRO (humaLOG) 300 UNIT/3 ML VIAL SQ SCH ×4 (06:30→23:02)
[2017-09-18] MEDS: POTASSIUM CHLORIDE 10 MEQ in WATER FOR INJECTION 1 100ML.BAG IVPB SCH ×2 (06:45→09:06)
--- NOTE | 2017-09-18 07:29 | XR ---
EXAMINATION TYPE: XR chest 1V DATE OF EXAM: 09/18/2017 HISTORY: SOB. REFERENCE: Previous study dated 09/17/2017. FINDINGS: The patient's chin projects over the upper chest. Heart size is upper limits of normal. There continues be left basilar airspace disease. There is a sm all left effusion. There does not appear to be a significant interval change in the appearance of the chest. IMPRESSION: NO SIGNIFICANT INTERVAL CHANGE IN THE APPEARANCE OF THE CHEST.
[2017-09-18] MEDS: BUDESONIDE 0.5 MG/2 ML NEBU INHALATION SCH ×2 (08:30→20:11)
[2017-09-18] MEDS: FORMOTEROL FUMARATE 20 MCG/2 ML NEBU INHALATION SCH ×2 (08:30→20:10)
[2017-09-18] MEDS: HEPARIN SODIUM,PORCINE 5,000 UNIT/ML 1 ML VIAL SQ SCH ×3 (09:06→23:02)
[2017-09-18] MEDS: PANTOPRAZOLE 40 MG/10 ML VIAL IVP SCH (09:06)
[2017-09-18] MEDS: HALOPERIDOL LACTATE 5 MG/ML 1 ML VIAL IVP PRN ×2 (10:51→20:04)
[2017-09-18 12:01] LABS: Glucose,Whole Blood 130 mg/dL (75-99)
--- NOTE | 2017-09-18 12:02 | P.PN ---
Subjective Progress Note Date: 09/18/17 Principal diagnosis: Follow-up for hyponatremia Still in ICU confused Objective - Vital Signs Vital signs: Vital Signs Temp 98.4 F 09/18/17 09:00 Pulse 88 09/18/17 11:00 Resp 23 09/18/17 11:00 BP 198/109 09/18/17 11:00 Pulse Ox 90 L 09/18/17 10:00 Intake & Output 09/17/17 09/18/17 09/18/17 18:59 06:59 18:59 Intake Total 660.0 605.0 400 Output Total 969 680 560 Balance -309.0 -75.0 -160 Weight 89.7 kg 89.7 kg Intake: IV 660.0 605.0 400 Dextrose 5%-0.9% NaCl 1, 610 530 250 000 ml @ 50 mls/hr IV . Q20H [facility] Rx#:[id number] Piperacillin-Tazobactam 3 50.0 75.0 .375 gm In Dextrose/Water 1 50ml.bag @ 12.5 mls/hr IVPB Q8HR N[facility]Y Rx#: [id number] Potassium Chloride 10 meq 150 In Water For Injection 1 100ml.bag @ 100 mls/hr IVPB Q1H NANCY Rx#: [id number] Output: Urine 969 680 560 Other: Voiding Method Indwelling Catheter Indwelling Catheter Indwelling Catheter # Bowel Movements 1 0 - Exam Lying in bed, confused S1-S2 heard Clear to auscultation Esquivel catheter in place, dark urine No edema - Labs CBC & Chem 7: 09/18/17 04:19 09/18/17 04:19 Labs: Abnormal Lab Results - Last 24 Hours (Table) 09/17/17 09/17/17 09/17/17 Range/Units 12:14 16:53 23:41 WBC (3.8-10.6) k/uL RBC (4.30-5.90) m/uL Hgb (13.0-17.5) gm/dL MCV (80.0-100.0) fL Neutrophils # (1.3-7.7) k/uL Lymphocytes # (1.0-4.8) k/uL Carbon Dioxide (22-30) mmol/L BUN (9-20) mg/dL Glucose (74-99) mg/dL POC Glucose (mg/dL) 142 H 142 H 142 H (75-99) mg/dL Magnesium (1.6-2.3) mg/dL 09/18/17 09/18/17 09/18/17 Range/Units 04:19 04:19 06:18 WBC 15.7 H (3.8-10.6) k/uL RBC 3.81 L (4.30-5.90) m/uL Hgb 12.7 L (13.0-17.5) gm/dL MCV 102.7 H (80.0-100.0) fL Neutrophils # 14.6 H (1.3-7.7) k/uL Lymphocytes # 0.4 L (1.0-4.8) k/uL Carbon Dioxide 34 H (22-30) mmol/L BUN 24 H (9-20) mg/dL Glucose 131 H (74-99) mg/dL POC Glucose (mg/dL) 148 H (75-99) mg/dL Magnesium 2.4 H (1.6-2.3) mg/dL Microbiology - Last 24 Hours (Table) 09/18/17 02:45 Sputum Culture - Preliminary Sputum 09/14/17 13:58 Blood Culture - Preliminary Blood No Growth after 72 hours Assessment and Plan Assessment: Impression: #1 hypovolemic hyponatremia. Sodium back to normal. #2 normal renal function #3 encephalopathy, possible delirium tremens #4 hypomagnesemia Recommendations: #1 continue with IV fluids #2 supportive care, replace electrolytes.
--- NOTE | 2017-09-18 14:00 | P.PN ---
Subjective Progress Note Date: 09/18/17 77-year-old male patient, advanced COPD, alcoholic with excessive beer drinking approximately 8 bottles of beer daily basis, along with history of hypertension and obstructive sleep apnea, noncompliant to CPAP therapy. The patient has been followed up with Dr. Guerra on outpatient basis, his primary care physician. He comes in yesterday to the emergency department because of altered mentation and generalized weakness. The patient was noted by family members to act unusual, trying to eat napkins and this is not a typical behavior for him and it seems that he was getting progressively more short of breath, anxious, tachypneic and uncomfortable. I was told by his daughter the patient has chronic anxiety for which he was given Paxil at a dose of 30 mg by mouth daily by his primary care physician. He does not take any form of benzodiazepines In the emergency department, the patient was found to be profoundly hyponatremic. His sodium level was 115. In addition, the patient had a potassium level of 3.9, he was hypochloremic with a chloride level of 79 and a serum bicarb of 29. Anion gap was 7. He had a normal renal function with a BUN of 13 and creatinine of 0.9. Liver function tests are within normal limits. -year-old was slightly elevated at 1.6, his lactic acid level was at 1, CPK was mildly elevated at 533, first set of cardiac enzymes/troponin was at 0.012. Urinalysis positive for ketones negative for any infection. The patient was initially admitted to the medical floor. In addition, the patient had He was restless, uncomfortable, tachypneic and short of breath. He was started on bronchodilators. He was given a dose of Lasix. Following that he was admitted to the medical floor. CAT scan of the head done in the emergency department showed moderate degree of atrophy and chronic small vessel ischemic disease without any acute intracranial abnormalities. The patient had a chest x-ray that showed bilateral lower lobe pulmonary infiltrate and small effusion. The chest x-ray was consistent with COPD and there was a mild component of pulmonary vascular congestion. A 1 cm right lower lobe pulmonary nodule cannot be completely excluded on the chest x-ray findings. Overnight, the patient became progressively more short of breath, bronchospastic and wheezy and confused. At a time of arrival to the ICU, the patient was unresponsive. The patient had received a total of 3 mg of Ativan since the emergency department for agitation. At that point, the patient was immediately placed on a BiPAP which is currently on a day setting of 14/5 cm of water with an FiO2 of 35%. He was started on IV Zosyn. He was started on DuoNeb nebulized treatment [id number] on IV Solu-Medrol 60 mg every 6 hours. I also started him on Lasix 40 mg every 12 hours. He is producing adequate amount of urine output in his urine output is more than 100 mL an hour. At a time of my evaluation this morning, the patient was arousable. He would respond to deep painful stimuli. He will move all 4 extremities without any limitation. He would open up his eyes. He is unable to hold a conversation as the patient has a full face BiPAP mask to which she seems to be more synchronous at this point. At times he wakes up spontaneously and he thrashes and he will have a bedside sitter. Serial monitoring of his sodium level showed a sodium level is gradually improving is up to 123. His renal function remains stable. No significant electrolyte imbalance at this point. Repeat chest x-ray in the morning showed no major interval change. Echo was done this morning and there is also still pending. Meanwhile the patient had an echo on 11/19/2016 that showed a preserved LV function without any significant LV dysfunction. The patient also has history of compression fracture of the lumbar spine. On 2016 the patient is being seen for a follow-up. The patient spent the past 24 hours on a BiPAP at a pressure of 14 over 5 cm of water no FiO2 of 35%. He was treated with bronchodilators and systemic steroids and he was also given IV Zosyn for possible left lower lobe aspiration pneumonia. On today's evaluation his last bronchus spastic and wheezy compared to yesterday. He'll be given a trial off the BiPAP and placed on oxygen by nasal cannula. As such, the BiPAP was discontinued. Clinically the patient is more awake compared to yesterday. He opens up his eyes. He followed simple commands. He is moving all 4 extremities without any limitation. He remains lethargic. Less dose of Ativan was around 4 AM this morning. Delirium tremens is still a concern in this patient has been chronic alcoholic. As far as the sodium level, is gradually improving is up to 128. Fluid balance is been negative as the patient has been diuresed with IV Lasix. Echocardiac Wolf showed no acute abnormalities and the LV function is well-preserved. As for the ultrasound of the abdomen, there was no significant abnormalities noted. No significant electrode imbalance and the potassium level and a chloride level and the sodium level gradually improving and normalizing. No fever. No chills. On 09/17/2017 the patient is being seen in follow-up. Note that the patient did well yesterday now was able to get him off the BiPAP yesterday morning. I checked on him yesterday evening and late in afternoon and in the early evening the patient was doing well and he was in the point where he was waking up and following commands and answering questions. He was getting more appropriate . However, later on, the patient became progressively more agitated and confused and overnight he required a total of 2 mg of Ativan and a total of 50 mg of Haldol. This morning it is quite sedated. He is less restless. He was on a BiPAP at a pressure of 14/5 throughout the night and he was taken off the BiPAP again this morning. He has bronchus spastic and wheezy. He has a congested cough. Chest x-ray from today is showing small bilateral pleural effusion left greater than right. There is continuing left basilar airspace disease that is improved from previous evaluation. The patient remains on DuoNeb nebulized treatments around the clock, IV Solu-Medrol, Pulmicort and Perforomist neb last treatment twice a day, and IV Zosyn as empiric antibiotic coverage for possible left lower lobe pneumonia. The patient has a congested cough. Unable to bring up much sputum. At time he gets worked up and he uses abdominal muscles of breathing. No witnessed aspiration. In terms of fluid balance, the patient was placed on normal state rate of 50 mL an hour. Sodium level continues to improve and it's up to 133. Renal function stable with a creatinine of 1.1. The echocardiogram showed a preserved LV function. On 09/18/2017 the patient remains essentially the same condition. His mentation is waxing and waning. He gets agitated and restless and he requires Ativan and Haldol. Noted the patient arouses in between. He sometimes follows simple commands and answer simple questions. Yet when he gets agitated he required Haldol and he becomes more sedated. I think this is a manifestation of delirium tremens noted the patient is an alcoholic and he will need another few days to fully recovers from this episode. He is hemodynamically stable. On and off is requiring BiPAP for respiratory support. Whenever agitated his blood pressure rises and the patient would require IV Lopressor for heart rate and blood pressure control. No aspiration. He remains nothing by mouth. Chest x-ray is still showing no acute pulmonary infiltration or pneumonias. The patient is also being cheered for his acute COPD exacerbation with a combination of DuoNeb nebulized treatments around the clock, Pulmicort Respules , Perforomist neb last treatment and systemic steroids. He is producing adequate amount of urine output and 50 mL an hour of normal saline. The patient is also normalized his sodium level and the rest of the electrolytes. Objective - Vital Signs Vital signs: Vital Signs Temp 98.4 F 09/18/17 09:00 Pulse 93 09/18/17 13:00 Resp 26 H 09/18/17 13:00 BP 193/102 09/18/17 13:00 Pulse Ox 92 L 09/18/17 13:00 Intake & Output 09/17/17 09/18/17 09/18/17 18:59 06:59 18:59 Intake Total 660.0 605.0 500 Output Total 969 680 830 Balance -309.0 -75.0 -330 Weight 89.7 kg 89.7 kg Intake: IV 660.0 605.0 500 Dextrose 5%-0.9% NaCl 1, 610 530 350 000 ml @ 50 mls/hr IV . Q20H [facility] Rx#:[id number] Piperacillin-Tazobactam 3 50.0 75.0 .375 gm In Dextrose/Water 1 50ml.bag @ 12.5 mls/hr IVPB Q8HR [facility] Rx#: [id number] Potassium Chloride 10 meq 150 In Water For Injection 1 100ml.bag @ 100 mls/hr IVPB Q1H [facility] Rx#: [id number] Output: Urine 969 680 830 Other: Voiding Method Indwelling Catheter Indwelling Catheter Indwelling Catheter # Bowel Movements 1 0 - Exam The patient is sedated, somewhat delirious, at times restless and occasionally agitated. He would open up his eyes and upon repeated stimulation he would follow simple commands and he was able to wiggle his toes and move upper extremities and grab. Head is atraumatic normocephalic. Neck is supple and there is no significant JVDs no goiter or neck masses. Mucus from veins are relatively dry. He has poor dental hygiene.Neck was supple and without jugular venous distension, thyromegaly, or carotid bruits. Carotids were easily palpable bilaterally. There was no adenopathy. Lung sounds are diminished and there is prolongation of expiratory phase of breathing and scattered expiratory wheezes throughout the lung colon bilaterally.Cardiac exam revealed the PMI to be normally situated and sized. The rhythm was regular and no extrasystoles were noted during several minutes of auscultation. The first and second heart sounds were normal and physiologic splitting of the second heart sound was noted. There were no murmurs, rubs, clicks, or gallops.Abdominal exam revealed normal bowel sounds. The abdomen was soft, non-tender, and without masses, organomegaly, or appreciable enlargement of the abdominal aorta.Examination of the extremities revealed easily palpable radial, femoral and pedal pulses. There was no cyanosis, clubbing or edema. Skin is within normal limits, Examination of the skin revealed no evidence of significant rashes, suspicious appearing nevi or other concerning lesions. Neurologically the patient has no focal neurological deficits. He is moving all 4 extremities although limitation. No facial asymmetry. Cough is weak at is present. I would say that his been no significant changes in his neurologic and overall physical examination compared to yesterday. - Labs CBC & Chem 7: 09/18/17 04:19 09/18/17 04:19 Labs: Abnormal Lab Results - Last 24 Hours (Table) 09/17/17 09/17/17 09/18/17 Range/Units 16:53 23:41 04:19 WBC 15.7 H (3.8-10.6) k/uL RBC 3.81 L (4.30-5.90) m/uL Hgb 12.7 L (13.0-17.5) gm/dL MCV 102.7 H (80.0-100.0) fL Neutrophils # 14.6 H (1.3-7.7) k/uL Lymphocytes # 0.4 L (1.0-4.8) k/uL Carbon Dioxide (22-30) mmol/L BUN (9-20) mg/dL Glucose (74-99) mg/dL POC Glucose (mg/dL) 142 H 142 H (75-99) mg/dL Magnesium (1.6-2.3) mg/dL 09/18/17 09/18/17 09/18/17 Range/Units 04:19 06:18 11:59 WBC (3.8-10.6) k/uL RBC (4.30-5.90) m/uL Hgb (13.0-17.5) gm/dL MCV (80.0-100.0) fL Neutrophils # (1.3-7.7) k/uL Lymphocytes # (1.0-4.8) k/uL Carbon Dioxide 34 H (22-30) mmol/L BUN 24 H (9-20) mg/dL Glucose 131 H (74-99) mg/dL POC Glucose (mg/dL) 148 H 130 H (75-99) mg/dL Magnesium 2.4 H (1.6-2.3) mg/dL Microbiology - Last 24 Hours (Table) 09/18/17 02:45 Sputum Culture - Preliminary Sputum 09/14/17 13:58 Blood Culture - Preliminary Blood No Growth after 72 hours Assessment and Plan Plan: Assessment 1 change in mental status, multifactorial. The patient is alcoholic and he presented with severe hyponatremia with a sodium level of 115. The underlying cause of hyponatremia is under investigation. Rule out Beer potomania. Rule out a component of hypovolemic hyponatremia/SIADH. The patient had a computed tomography scan of the brain that showed diffuse cerebral atrophy without any acute changes. His neurologic exam is nonfocal. Sodium level is gradually improving is up to 123. Rule out underlying delirium tremens secondary to alcohol withdrawal On 09/16/2017 the patient is more awake compared to yesterday. His mental status gradually improving. There was a concern for delirium tremens as the patient was quite agitated yesterday in conjunction with his underlying hyponatremia. The sodium level is improving. The delirium tremens was treated with a combination of Ativan and Haldol. This morning she seems to be more awake compared to yesterday. No focal neurological deficits. On 09/17/2017, the active issues remain altered mentation, agitation, the patient minutes, along with COPD exacerbation. After doing some progress with his mentation, the patient became progressively more agitated overnight and he required a total of 15 mg of Haldol and 2 mg of Ativan to control his agitation. This morning it is more sedated and more calm and comfortable. Nevertheless, there is concern that he was gradually will lose ground as the patient remains in acute COPD exacerbation is requiring BiPAP for respiratory support on and off, he remains bronchus spastic and wheezy, and there is obviously the concern that he may go into respiratory failure especially with his altered mentation and increased requirements for sedative medications and Haldol. On 09/18/2017 the active issue remains to be the altered mentation and delerium tremors. He is still requiring Haldol and some Ativan. The patient is being monitored here in the intensive care unit. He is able to protect his airways and there is no need for intubation mechanical ventilation units. Family is at the bedside. On and off requiring sitter for further monitoring. 2 acute COPD exacerbation, BiPAP dependent. The patient is actively bronchus spastic and wheezy and is requiring BiPAP for respiratory support at this point , and a chest x-ray findings are essentially stable. 3 hyponatremia, recovered 4 limited bibasilar pulmonary infiltrates, rule out aspiration pneumonia, currently on IV Zosyn 5 alcoholism 6 smoker 7 obstructive sleep apnea not receiving any CPAP therapy on outpatient basis 8 frequent falls with a blunt trauma to his lower abdomen with some limited bruising. 9 compression fracture of the L4 spine status post kyphoplasty 10 chronic anxiety 11 depression 12 hypertension 13 osteoporosis 14 BPH Plan Today same treatment. Had a lengthy discussion with the family. This is expected to go on for an additional few days. In the interim, may need intubation if his condition gets worse and/or he is felt to be decompensating or losing grounds and or any other problem arise. We'll continue to follow. No changes on treatment will be done today.
[2017-09-18] MEDS: ENALAPRILAT 1.25 MG/ML 1 ML VIAL IVP PRN ×2 (14:03→14:05)
--- NOTE | 2017-09-18 14:05 | P.PN ---
Subjective Patient is a admitted for altered mental status secondary to hyponatremia and COPD exacerbation hyponatremia improved patient appears to have hypervolemic hyponatremia improved with IV Lasix patient has normal ejection fraction, may have diastolic dysfunction patient overnight went into respiratory failure requiring noninvasive ventilation with bilevel ventilation and patient is undergoing alcohol withdrawals. For which patient is on Ativan alcohol withdrawal protocol is ordered mental status is toxic and metabolic and multifactorial 09/16/2017 Patient has significant improvement in his respiratory status competitors to the patient is on aspirin and boxes and patient is still bit confused but much better than yesterday. 09/17/2017 Patient is drowsy sleepy received Haldol as today because of agitation episodes unable to provide me any history. #4 2017 Patient is still having bad withdrawals at this time patient is drowsy secondary to that patient received quite a few doses of Haldol and Ativan Review of systems unable to obtain. Objective - Vital Signs Vital signs: Vital Signs Temp 98.4 F 09/18/17 09:00 Pulse 93 09/18/17 13:00 Resp 26 H 09/18/17 13:00 BP 193/102 09/18/17 13:00 Pulse Ox 92 L 09/18/17 13:00 Intake & Output 09/17/17 09/18/17 09/18/17 18:59 06:59 18:59 Intake Total 660.0 605.0 500 Output Total 969 680 830 Balance -309.0 -75.0 -330 Weight 89.7 kg 89.7 kg Intake: IV 660.0 605.0 500 Dextrose 5%-0.9% NaCl 1, 610 530 350 000 ml @ 50 mls/hr IV . Q20H [facility] Rx#:[id number] Piperacillin-Tazobactam 3 50.0 75.0 .375 gm In Dextrose/Water 1 50ml.bag @ 12.5 mls/hr IVPB Q8HR [facility] Rx#: [id number] Potassium Chloride 10 meq 150 In Water For Injection 1 100ml.bag @ 100 mls/hr IVPB Q1H [facility] Rx#: [id number] Output: Urine 969 680 830 Other: Voiding Method Indwelling Catheter Indwelling Catheter Indwelling Catheter # Bowel Movements 1 0 - Exam PHYSICAL EXAMINATION: GENERAL: drowsy sleepy unable to provide any history to me HEENT: Pupils are round and equally reacting to light. EOMI. No scleral icterus. No conjunctival pallor. Normocephalic, atraumatic. No pharyngeal erythema. No thyromegaly. CARDIOVASCULAR: S1 and S2 present. No murmurs, rubs, or gallops. PULMONARY: Expiratory wheezing was appreciated. ABDOMEN: Soft, nontender, nondistended, normoactive bowel sounds. No palpable organomegaly. MUSCULOSKELETAL: No joint swelling or deformity. EXTREMITIES: No cyanosis, clubbing, or pedal edema. NEUROLOGICAL: Gross neurological examination did not reveal any focal deficits. SKIN: No rashes. - Labs CBC & Chem 7: 09/18/17 04:19 09/18/17 04:19 Labs: Abnormal Lab Results - Last 24 Hours (Table) 09/17/17 09/17/17 09/18/17 Range/Units 16:53 23:41 04:19 WBC 15.7 H (3.8-10.6) k/uL RBC 3.81 L (4.30-5.90) m/uL Hgb 12.7 L (13.0-17.5) gm/dL MCV 102.7 H (80.0-100.0) fL Neutrophils # 14.6 H (1.3-7.7) k/uL Lymphocytes # 0.4 L (1.0-4.8) k/uL Carbon Dioxide (22-30) mmol/L BUN (9-20) mg/dL Glucose (74-99) mg/dL POC Glucose (mg/dL) 142 H 142 H (75-99) mg/dL Magnesium (1.6-2.3) mg/dL 09/18/17 09/18/17 09/18/17 Range/Units 04:19 06:18 11:59 WBC (3.8-10.6) k/uL RBC (4.30-5.90) m/uL Hgb (13.0-17.5) gm/dL MCV (80.0-100.0) fL Neutrophils # (1.3-7.7) k/uL Lymphocytes # (1.0-4.8) k/uL Carbon Dioxide 34 H (22-30) mmol/L BUN 24 H (9-20) mg/dL Glucose 131 H (74-99) mg/dL POC Glucose (mg/dL) 148 H 130 H (75-99) mg/dL Magnesium 2.4 H (1.6-2.3) mg/dL Microbiology - Last 24 Hours (Table) 09/18/17 02:45 Sputum Culture - Preliminary Sputum 09/14/17 13:58 Blood Culture - Preliminary Blood No Growth after 72 hours Assessment and Plan Plan: #1 hyponatremia:appendectomy improved significantly Patient appears to have hypervolemic hyponatremia secondary to chronic diastolic dysfunction with acute exacerbation improved, #2 congestive heart failure: Diastolic dysfunction with acute exacerbation #3 alcohol abuse #4 alcohol withdrawal: Patient will be on Ativan withdrawal protocol, thiamine and multivitamin supplementation, patient is still undergoing withdrawals and requiring Haldol as well for agitation episodes #5 COPD with acute exacerbation patient is on oral steroids and inhalational treatments and azithromycin. Patient was also started on Zosyn by pulmonology with concerns of pneumonia #7 anxiety depression #8 leukocytosis reactive in nature. #8 acute hypercapnic respiratory failure secondary to COPD exacerbation, improved now and patient is in aspirin cannula oxygen #9 metabolic and toxic encephalopathy multifactorial related to above-mentioned reasons
[2017-09-18] MEDS ORDERED: cloNIDine 0.2 MG/24HR PATCH 1 PATCH PATCH TRANSDERM SCH (15:15)
[2017-09-18] MEDS ORDERED: cloNIDine 0.1 MG/24HR PATCH 1 PATCH PATCH TRANSDERM SCH (15:15)
[2017-09-18] MEDS ORDERED: cloNIDine 0.3 MG/24HR PATCH 1 PATCH PATCH TRANSDERM SCH (18:30)
[2017-09-18 18:34] LABS: Glucose,Whole Blood 117 mg/dL (75-99)
[2017-09-18] MEDS ORDERED: CLEVIDIPINE BUTYRATE 25 MG/50 ML VIAL IV ONE (18:42)
[2017-09-18] MEDS: CLEVIDIPINE BUTYRATE 25 MG in EMPTY BAG 1 BAG IV SCH (18:49)
[2017-09-18] MEDS: TAMSULOSIN 0.4 MG CAP.ER.24H PO SCH (21:02)
[2017-09-18 23:03] LABS: Glucose,Whole Blood 141 mg/dL (75-99)
[2017-09-19] MEDS: LORazepam 2 MG/ML INJ IV PRN ×2 (01:13→20:15)
[2017-09-19] MEDS: IPRATROPIUM-ALBUTEROL 3 ML NEB INHALATION SCH ×6 (02:58→19:50)
[2017-09-19 04:41] LABS: Basophils % (A) 0 %; CH 33.8; CHCM 32.7; Eosinophils # (A) 0.1 k/uL (0-0.7); Eosinophils % (A) 1 %; HCT 41.5 % (39.0-53.0); HDW 2.33; HGB 13.4 gm/dL (13.0-17.5); Luc # (Auto) 0.07; Luc % (Auto) 1; Lymphocytes # (A) 0.5 k/uL (1.0-4.8); Lymphocytes % (A) 5 %; MCH 33.6 pg (25.0-35.0); MCHC 32.3 g/dL (31.0-37.0); MCV 103.8 fL (80.0-100.0); Macrocytosis Slight; Mean Platelet Volume 7.7; Monocytes # (A) 0.5 k/uL (0-1.0); Monocytes % (A) 5 %; Neutrophils # (A) 8.8 k/uL (1.3-7.7); Neutrophils % (A) 88 %; RBC 3.99 m/uL (4.30-5.90); RDW 13.2 % (11.5-15.5); WBC (Perox) 10.04
[2017-09-19 04:51] LABS: Partial Thromboplastin Time 24.3 sec (22.0-30.0); Prothrombin Time 10.6 sec (9.0-12.0)
[2017-09-19 05:03] LABS: Anion Gap 6 mmol/L; Blood Urea Nitrogen 21 mg/dL (9-20); Carbon Dioxide 31 mmol/L (22-30); Chloride 103 mmol/L (98-107); Glucose 132 mg/dL (74-99); Magnesium 2.4 mg/dL (1.6-2.3); Non-African American GFR(MDRD) >60 (>60 ml/min/1.73 sqM); Phosphorus 3.2 mg/dL (2.5-4.5); Potassium 3.7 mmol/L (3.5-5.1); Sodium 140 mmol/L (137-145)
[2017-09-19] MEDS ORDERED: Potassium Replacement Protocol 1 EACH MISC MISCELLANE PRN ×2 (05:15→21:23)
[2017-09-19 06:38] LABS: Glucose,Whole Blood 148 mg/dL (75-99)
[2017-09-19] MEDS: INSULIN LISPRO (humaLOG) 300 UNIT/3 ML VIAL SQ SCH ×3 (06:38→17:54)
[2017-09-19] MEDS: DEXTROSE 5%-0.9% NACL 1,000 ML IV SCH (06:38)
[2017-09-19] MEDS: POTASSIUM CHLORIDE 10 MEQ, LIDOCAINE 2% INJ 10 MG in SODIUM CHLORIDE 0.9% 100 ML IV SCH ×6 (06:38→23:06)
[2017-09-19] MEDS: methylPREDNISolone SOD SUCCI 125 MG/2 ML VIAL IV SCH ×3 (06:39→16:49)
--- NOTE | 2017-09-19 06:47 | XR ---
EXAMINATION TYPE: XR chest 1V DATE OF EXAM: 09/19/2017 HISTORY: SOB. REFERENCE: Previous study dated 09/18/2017. FINDINGS: Heart size is upper limits of normal. There is left basilar airspace disease. There is a le ft effusion. The overall appearance is similar to previous. IMPRESSION: NO SIGNIFICANT INTERVAL CHANGE IN THE APPEARANCE OF THE CHEST.
[2017-09-19] MEDS: CLEVIDIPINE BUTYRATE 25 MG in EMPTY BAG 1 BAG IV SCH (07:06)
[2017-09-19] MEDS: BUDESONIDE 0.5 MG/2 ML NEBU INHALATION SCH ×2 (07:45→19:21)
[2017-09-19] MEDS: FORMOTEROL FUMARATE 20 MCG/2 ML NEBU INHALATION SCH ×2 (07:46→19:21)
[2017-09-19] MEDS: PANTOPRAZOLE 40 MG/10 ML VIAL IVP SCH (08:09)
[2017-09-19] MEDS: HEPARIN SODIUM,PORCINE 5,000 UNIT/ML 1 ML VIAL SQ SCH ×2 (08:09→15:00)
[2017-09-19] MEDS: PIPERACILLIN-TAZOBACTAM 3.375 GM in DEXTROSE/WATER 1 50ML.BAG IVPB SCH ×2 (08:09→16:49)
--- NOTE | 2017-09-19 09:46 | P.PN ---
Subjective Progress Note Date: 09/19/17 Principal diagnosis: Hyponatremia Still confused and encephalopathy. Moving all 4 extremities. Objective - Vital Signs Vital signs: Vital Signs Temp 98.4 F 09/19/17 08:00 Pulse 95 09/19/17 08:09 Resp 22 09/19/17 08:00 BP 152/105 09/19/17 08:00 Pulse Ox 100 09/19/17 08:00 Intake & Output 09/18/17 09/19/17 09/19/17 19:59 06:59 18:59 Intake Total 150.2 Output Total 200 Balance -49.8 Weight Intake: IV 150 Dextrose 5%-0.9% NaCl 1, 100 000 ml @ 50 mls/hr IV . Q20H [facility] Rx#:[id number] Piperacillin-Tazobactam 3 50 .375 gm In Dextrose/Water 1 50ml.bag @ 12.5 mls/hr IVPB Q8HR [facility] Rx#: [id number] Potassium Chloride 10 meq In Water For Injection 1 100ml.bag @ 100 mls/hr IVPB Q1H [facility] Rx#: [id number] Intake, IV Titration 0.2 Amount Clevidipine Butyrate 25 0.2 mg In Empty Bag 1 bag @ 1 MG/HR 2 mls/hr IV .Q24H [facility] Rx#:[id number] Output: Urine 200 Other: Voiding Method Indwelling Catheter # Bowel Movements - Exam No acute distress S1-S2 heard Clear to auscultation Esquivel draining urine No edema - Labs CBC & Chem 7: 09/19/17 04:09 09/19/17 04:09 Labs: Abnormal Lab Results - Last 24 Hours (Table) 09/18/17 09/18/17 09/18/17 Range/Units 11:59 18:33 23:00 RBC (4.30-5.90) m/uL MCV (80.0-100.0) fL Neutrophils # (1.3-7.7) k/uL Lymphocytes # (1.0-4.8) k/uL Carbon Dioxide (22-30) mmol/L BUN (9-20) mg/dL Glucose (74-99) mg/dL POC Glucose (mg/dL) 130 H 117 H 141 H (75-99) mg/dL Magnesium (1.6-2.3) mg/dL 1109/19/17 09/19/17 Range/Units 04:09 04:09 06:37 RBC 3.99 L (4.30-5.90) m/uL MCV 103.8 H (80.0-100.0) fL Neutrophils # 8.8 H (1.3-7.7) k/uL Lymphocytes # 0.5 L (1.0-4.8) k/uL Carbon Dioxide 31 H (22-30) mmol/L BUN 21 H (9-20) mg/dL Glucose 132 H (74-99) mg/dL POC Glucose (mg/dL) 148 H (75-99) mg/dL Magnesium 2.4 H (1.6-2.3) mg/dL Microbiology - Last 24 Hours (Table) 09/18/17 02:45 Gram Stain - Preliminary Sputum Sputum Culture - Preliminary 09/14/17 13:58 Blood Culture - Preliminary Blood No Growth after 96 hours Assessment and Plan Assessment: Impression: #1 hypovolemic hyponatremia. Sodium back to baseline #2 normal renal function #3 encephalopathy, multifactorial possibly related to delirium tremens. Rule out other neurological causes. #4 metabolic alkalosis Recommendations: #1 currently on IV fluids D5/0.9 normal saline at 50 ML's an hour. Continue with fluids for now. #2 supportive care, encephalopathy workup by primary team. We will follow as needed.
--- NOTE | 2017-09-19 09:56 | P.PN ---
Subjective Progress Note Date: 09/19/17 77-year-old male patient, advanced COPD, alcoholic with excessive beer drinking approximately 8 bottles of beer daily basis, along with history of hypertension and obstructive sleep apnea, noncompliant to CPAP therapy. The patient has been followed up with Dr. Guerra on outpatient basis, his primary care physician. He comes in yesterday to the emergency department because of altered mentation and generalized weakness. The patient was noted by family members to act unusual, trying to eat napkins and this is not a typical behavior for him and it seems that he was getting progressively more short of breath, anxious, tachypneic and uncomfortable. I was told by his daughter the patient has chronic anxiety for which he was given Paxil at a dose of 30 mg by mouth daily by his primary care physician. He does not take any form of benzodiazepines In the emergency department, the patient was found to be profoundly hyponatremic. His sodium level was 115. In addition, the patient had a potassium level of 3.9, he was hypochloremic with a chloride level of 79 and a serum bicarb of 29. Anion gap was 7. He had a normal renal function with a BUN of 13 and creatinine of 0.9. Liver function tests are within normal limits. -year-old was slightly elevated at 1.6, his lactic acid level was at 1, CPK was mildly elevated at 533, first set of cardiac enzymes/troponin was at 0.012. Urinalysis positive for ketones negative for any infection. The patient was initially admitted to the medical floor. In addition, the patient had He was restless, uncomfortable, tachypneic and short of breath. He was started on bronchodilators. He was given a dose of Lasix. Following that he was admitted to the medical floor. CAT scan of the head done in the emergency department showed moderate degree of atrophy and chronic small vessel ischemic disease without any acute intracranial abnormalities. The patient had a chest x-ray that showed bilateral lower lobe pulmonary infiltrate and small effusion. The chest x-ray was consistent with COPD and there was a mild component of pulmonary vascular congestion. A 1 cm right lower lobe pulmonary nodule cannot be completely excluded on the chest x-ray findings. Overnight, the patient became progressively more short of breath, bronchospastic and wheezy and confused. At a time of arrival to the ICU, the patient was unresponsive. The patient had received a total of 3 mg of Ativan since the emergency department for agitation. At that point, the patient was immediately placed on a BiPAP which is currently on a day setting of 14/5 cm of water with an FiO2 of 35%. He was started on IV Zosyn. He was started on DuoNeb nebulized treatment [id number] on IV Solu-Medrol 60 mg every 6 hours. I also started him on Lasix 40 mg every 12 hours. He is producing adequate amount of urine output in his urine output is more than 100 mL an hour. At a time of my evaluation this morning, the patient was arousable. He would respond to deep painful stimuli. He will move all 4 extremities without any limitation. He would open up his eyes. He is unable to hold a conversation as the patient has a full face BiPAP mask to which she seems to be more synchronous at this point. At times he wakes up spontaneously and he thrashes and he will have a bedside sitter. Serial monitoring of his sodium level showed a sodium level is gradually improving is up to 123. His renal function remains stable. No significant electrolyte imbalance at this point. Repeat chest x-ray in the morning showed no major interval change. Echo was done this morning and there is also still pending. Meanwhile the patient had an echo on 11/19/2016 that showed a preserved LV function without any significant LV dysfunction. The patient also has history of compression fracture of the lumbar spine. On 2016 the patient is being seen for a follow-up. The patient spent the past 24 hours on a BiPAP at a pressure of 14 over 5 cm of water no FiO2 of 35%. He was treated with bronchodilators and systemic steroids and he was also given IV Zosyn for possible left lower lobe aspiration pneumonia. On today's evaluation his last bronchus spastic and wheezy compared to yesterday. He'll be given a trial off the BiPAP and placed on oxygen by nasal cannula. As such, the BiPAP was discontinued. Clinically the patient is more awake compared to yesterday. He opens up his eyes. He followed simple commands. He is moving all 4 extremities without any limitation. He remains lethargic. Less dose of Ativan was around 4 AM this morning. Delirium tremens is still a concern in this patient has been chronic alcoholic. As far as the sodium level, is gradually improving is up to 128. Fluid balance is been negative as the patient has been diuresed with IV Lasix. Echocardiac Wolf showed no acute abnormalities and the LV function is well-preserved. As for the ultrasound of the abdomen, there was no significant abnormalities noted. No significant electrode imbalance and the potassium level and a chloride level and the sodium level gradually improving and normalizing. No fever. No chills. On 09/17/2017 the patient is being seen in follow-up. Note that the patient did well yesterday now was able to get him off the BiPAP yesterday morning. I checked on him yesterday evening and late in afternoon and in the early evening the patient was doing well and he was in the point where he was waking up and following commands and answering questions. He was getting more appropriate . However, later on, the patient became progressively more agitated and confused and overnight he required a total of 2 mg of Ativan and a total of 50 mg of Haldol. This morning it is quite sedated. He is less restless. He was on a BiPAP at a pressure of 14/5 throughout the night and he was taken off the BiPAP again this morning. He has bronchus spastic and wheezy. He has a congested cough. Chest x-ray from today is showing small bilateral pleural effusion left greater than right. There is continuing left basilar airspace disease that is improved from previous evaluation. The patient remains on DuoNeb nebulized treatments around the clock, IV Solu-Medrol, Pulmicort and Perforomist neb last treatment twice a day, and IV Zosyn as empiric antibiotic coverage for possible left lower lobe pneumonia. The patient has a congested cough. Unable to bring up much sputum. At time he gets worked up and he uses abdominal muscles of breathing. No witnessed aspiration. In terms of fluid balance, the patient was placed on normal state rate of 50 mL an hour. Sodium level continues to improve and it's up to 133. Renal function stable with a creatinine of 1.1. The echocardiogram showed a preserved LV function. On 09/18/2017 the patient remains essentially the same condition. His mentation is waxing and waning. He gets agitated and restless and he requires Ativan and Haldol. Noted the patient arouses in between. He sometimes follows simple commands and answer simple questions. Yet when he gets agitated he required Haldol and he becomes more sedated. I think this is a manifestation of delirium tremens noted the patient is an alcoholic and he will need another few days to fully recovers from this episode. He is hemodynamically stable. On and off is requiring BiPAP for respiratory support. Whenever agitated his blood pressure rises and the patient would require IV Lopressor for heart rate and blood pressure control. No aspiration. He remains nothing by mouth. Chest x-ray is still showing no acute pulmonary infiltration or pneumonias. The patient is also being cheered for his acute COPD exacerbation with a combination of DuoNeb nebulized treatments around the clock, Pulmicort Respules , Perforomist neb last treatment and systemic steroids. He is producing adequate amount of urine output and 50 mL an hour of normal saline. The patient is also normalized his sodium level and the rest of the electrolytes. On 09/19/2017, the patient is slightly improved compared to yesterday. Overnight he required only 1 mg of Haldol and he was less agitated and he was able to tolerate the BiPAP without any major difficulties. This morning, he is opening his eyes and holding some simple conversations. He was able to recognize his daughter the bedside. He is moving all 4 extremities. No focal neurological deficit at this point. He is still nothing by mouth. Chest x- rays showing a stable left lower lobe consolidation. No fever. No chills. No chest pain. No hemodynamic instability. Sodium level has normalized. The rest of the electrodes are all within normal limits. He is less bronchospastic and wheezy also in terms of his COPD exacerbation. Objective - Vital Signs Vital signs: Vital Signs Temp 98.4 F 09/19/17 08:00 Pulse 95 09/19/17 08:09 Resp 22 09/19/17 08:00 BP 152/105 09/19/17 08:00 Pulse Ox 100 09/19/17 08:00 Intake & Output 09/18/17 09/19/17 09/19/17 19:59 06:59 18:59 Intake Total 150.2 Output Total 200 Balance -49.8 Weight Intake: IV 150 Dextrose 5%-0.9% NaCl 1, 100 000 ml @ 50 mls/hr IV . Q20H [facility] Rx#:[id number] Piperacillin-Tazobactam 3 50 .375 gm In Dextrose/Water 1 50ml.bag @ 12.5 mls/hr IVPB Q8HR [facility] Rx#: [id number] Potassium Chloride 10 meq In Water For Injection 1 100ml.bag @ 100 mls/hr IVPB Q1H [facility] Rx#: [id number] Intake, IV Titration 0.2 Amount Clevidipine Butyrate 25 0.2 mg In Empty Bag 1 bag @ 1 MG/HR 2 mls/hr IV .Q24H [facility] Rx#:[id number] Output: Urine 200 Other: Voiding Method Indwelling Catheter # Bowel Movements - Exam The patient is awake, not agitated, somewhat sedated still.. He would open up his eyes and he is able to hold some simple conversations and follow simple commands.. Head is atraumatic normocephalic. Neck is supple and there is no significant JVDs no goiter or neck masses. Mucus from veins are relatively dry. He has poor dental hygiene.Neck was supple and without jugular venous distension, thyromegaly, or carotid bruits. Carotids were easily palpable bilaterally. There was no adenopathy. Lung sounds are diminished and there is prolongation of expiratory phase of breathing and scattered expiratory wheezes throughout the lung colon bilaterally.Cardiac exam revealed the PMI to be normally situated and sized. The rhythm was regular and no extrasystoles were noted during several minutes of auscultation. The first and second heart sounds were normal and physiologic splitting of the second heart sound was noted. There were no murmurs, rubs, clicks, or gallops.Abdominal exam revealed normal bowel sounds. The abdomen was soft, non-tender, and without masses, organomegaly , or appreciable enlargement of the abdominal aorta.Examination of the extremities revealed easily palpable radial, femoral and pedal pulses. There was no cyanosis, clubbing or edema. Skin is within normal limits, Examination of the skin revealed no evidence of significant rashes, suspicious appearing nevi or other concerning lesions. Neurologically the patient has no focal neurological deficits. He is moving all 4 extremities although limitation. No facial asymmetry. Cough is weak at is present. Less encephalopathic compared to yesterday's evaluation. - Labs CBC & Chem 7: 09/19/17 04:09 09/19/17 04:09 Labs: Abnormal Lab Results - Last 24 Hours (Table) 09/18/17 09/18/17 09/18/17 Range/Units 11:59 18:33 23:00 RBC (4.30-5.90) m/uL MCV (80.0-100.0) fL Neutrophils # (1.3-7.7) k/uL Lymphocytes # (1.0-4.8) k/uL Carbon Dioxide (22-30) mmol/L BUN (9-20) mg/dL Glucose (74-99) mg/dL POC Glucose (mg/dL) 130 H 117 H 141 H (75-99) mg/dL Magnesium (1.6-2.3) mg/dL 09/19/17 09/19/17 09/19/17 Range/Units 04:09 04:09 06:37 RBC 3.99 L (4.30-5.90) m/uL MCV 103.8 H (80.0-100.0) fL Neutrophils # 8.8 H (1.3-7.7) k/uL Lymphocytes # 0.5 L (1.0-4.8) k/uL Carbon Dioxide 31 H (22-30) mmol/L BUN 21 H (9-20) mg/dL Glucose 132 H (74-99) mg/dL POC Glucose (mg/dL) 148 H (75-99) mg/dL Magnesium 2.4 H (1.6-2.3) mg/dL Microbiology - Last 24 Hours (Table) 09/18/17 02:45 Gram Stain - Preliminary Sputum Sputum Culture - Preliminary 09/14/17 13:58 Blood Culture - Preliminary Blood No Growth after 96 hours Assessment and Plan Plan: Assessment 1 change in mental status, multifactorial. The patient is alcoholic and he presented with severe hyponatremia with a sodium level of 115. The underlying cause of hyponatremia is under investigation. Rule out Beer potomania. Rule out a component of hypovolemic hyponatremia/SIADH. The patient had a computed tomography scan of the brain that showed diffuse cerebral atrophy without any acute changes. His neurologic exam is nonfocal. Sodium level is gradually improving is up to 123. Rule out underlying delirium tremens secondary to alcohol withdrawal On 09/16/2017 the patient is more awake compared to yesterday. His mental status gradually improving. There was a concern for delirium tremens as the patient was quite agitated yesterday in conjunction with his underlying hyponatremia. The sodium level is improving. The delirium tremens was treated with a combination of Ativan and Haldol. This morning she seems to be more awake compared to yesterday. No focal neurological deficits. On 09/17/2017, the active issues remain altered mentation, agitation, the patient minutes, along with COPD exacerbation. After doing some progress with his mentation, the patient became progressively more agitated overnight and he required a total of 15 mg of Haldol and 2 mg of Ativan to control his agitation. This morning it is more sedated and more calm and comfortable. Nevertheless, there is concern that he was gradually will lose ground as the patient remains in acute COPD exacerbation is requiring BiPAP for respiratory support on and off, he remains bronchus spastic and wheezy, and there is obviously the concern that he may go into respiratory failure especially with his altered mentation and increased requirements for sedative medications and Haldol. On 09/18/2017 the active issue remains to be the altered mentation and delerium tremors. He is still requiring Haldol and some Ativan. The patient is being monitored here in the intensive care unit. He is able to protect his airways and there is no need for intubation mechanical ventilation units. Family is at the bedside. On and off requiring sitter for further monitoring. On 09/19/2017 the patient is less delirious compared to yesterday. He has required minimal amount of Haldol, and he was given only 1 mg since yesterday. He is moving all 4 extremities. No focal neurological deficit at this point. Family is at the bedside. 2 acute COPD exacerbation, BiPAP dependent. The patient is actively bronchus spastic and wheezy and is requiring BiPAP for respiratory support at this point , and a chest x-ray findings are essentially stable. 3 hyponatremia, recovered 4 limited bibasilar pulmonary infiltrates, rule out aspiration pneumonia, currently on IV Zosyn 5 alcoholism 6 smoker 7 obstructive sleep apnea not receiving any CPAP therapy on outpatient basis 8 frequent falls with a blunt trauma to his lower abdomen with some limited bruising. 9 compression fracture of the L4 spine status post kyphoplasty 10 chronic anxiety 11 depression 12 hypertension 13 osteoporosis 14 BPH Plan Today same treatment. Cut down the use of Haldol to minimal. No respiratory Ativan use at this point. Thiamine. Aspiration precautions. Monitor mental status. Set him up on a chair. No feeding.. We'll continue to follow.
[2017-09-19] MEDS: THIAMINE 100 MG/ML 2 ML VIAL IVP SCH (11:36)
[2017-09-19] MEDS: METOPROLOL TARTRATE 5 MG/5 ML VIAL IVP PRN ×2 (11:40→21:30)
--- NOTE | 2017-09-19 14:39 | P.PN ---
Subjective Patient is a admitted for altered mental status secondary to hyponatremia and COPD exacerbation hyponatremia improved patient appears to have hypervolemic hyponatremia improved with IV Lasix patient has normal ejection fraction, may have diastolic dysfunction patient overnight went into respiratory failure requiring noninvasive ventilation with bilevel ventilation and patient is undergoing alcohol withdrawals. For which patient is on Ativan alcohol withdrawal protocol is ordered mental status is toxic and metabolic and multifactorial 09/16/2017 Patient has significant improvement in his respiratory status competitors to the patient is on aspirin and boxes and patient is still bit confused but much better than yesterday. 09/17/2017 Patient is drowsy sleepy received Haldol as today because of agitation episodes unable to provide me any history. #4 2017 Patient is still having bad withdrawals at this time patient is drowsy secondary to that patient received quite a few doses of Haldol and Ativan 09/19/2017 patient is doing much better today patient has recent episodes improved patient is sitting in the chair8 much improved alcohol withdrawals Review of systems unable to obtain. Objective - Vital Signs Vital signs: Vital Signs Temp 98.4 F 09/19/17 08:00 Pulse 88 09/19/17 13:00 Resp 27 H 09/19/17 13:00 BP 113/62 09/19/17 13:00 Pulse Ox 100 09/19/17 13:00 Intake & Output 09/18/17 09/19/17 09/19/17 19:59 06:59 18:59 Intake Total 423.4 Output Total 690 Balance -266.6 Weight Intake: IV 400 Dextrose 5%-0.9% NaCl 1, 350 000 ml @ 50 mls/hr IV . Q20H [facility] Rx#:[id number] Piperacillin-Tazobactam 3 50 .375 gm In Dextrose/Water 1 50ml.bag @ 12.5 mls/hr IVPB Q8HR [facility] Rx#: [id number] Potassium Chloride 10 meq In Water For Injection 1 100ml.bag @ 100 mls/hr IVPB Q1H [facility] Rx#: [id number] Intake, IV Titration 23.4 Amount Clevidipine Butyrate 25 23.4 mg In Empty Bag 1 bag @ 1 MG/HR 2 mls/hr IV .Q24H [facility] Rx#:[id number] Output: Urine 690 Other: Voiding Method Indwelling Catheter # Bowel Movements - Exam PHYSICAL EXAMINATION: GENERAL: being in the chair less agitated still unable to answer all cushions due to generalized weakness but confusion improved HEENT: Pupils are round and equally reacting to light. EOMI. No scleral icterus. No conjunctival pallor. Normocephalic, atraumatic. No pharyngeal erythema. No thyromegaly. CARDIOVASCULAR: S1 and S2 present. No murmurs, rubs, or gallops. PULMONARY: Expiratory wheezing was appreciated. ABDOMEN: Soft, nontender, nondistended, normoactive bowel sounds. No palpable organomegaly. MUSCULOSKELETAL: No joint swelling or deformity. EXTREMITIES: No cyanosis, clubbing, or pedal edema. NEUROLOGICAL: Gross neurological examination did not reveal any focal deficits. SKIN: No rashes. - Labs CBC & Chem 7: 09/19/17 04:09 09/19/17 12:07 Labs: Abnormal Lab Results - Last 24 Hours (Table) 09/18/17 09/18/17 09/19/17 Range/Units 18:33 23:00 04:09 RBC 3.99 L (4.30-5.90) m/uL MCV 103.8 H (80.0-100.0) fL Neutrophils # 8.8 H (1.3-7.7) k/uL Lymphocytes # 0.5 L (1.0-4.8) k/uL Carbon Dioxide (22-30) mmol/L BUN (9-20) mg/dL Glucose (74-99) mg/dL POC Glucose (mg/dL) 117 H 141 H (75-99) mg/dL Magnesium (1.6-2.3) mg/dL 09/19/17 09/19/17 Range/Units 04:09 06:37 RBC (4.30-5.90) m/uL MCV (80.0-100.0) fL Neutrophils # (1.3-7.7) k/uL Lymphocytes # (1.0-4.8) k/uL Carbon Dioxide 31 H (22-30) mmol/L BUN 21 H (9-20) mg/dL Glucose 132 H (74-99) mg/dL POC Glucose (mg/dL) 148 H (75-99) mg/dL Magnesium 2.4 H (1.6-2.3) mg/dL Microbiology - Last 24 Hours (Table) 09/18/17 02:45 Gram Stain - Preliminary Sputum Sputum Culture - Preliminary 09/14/17 13:58 Blood Culture - Preliminary Blood No Growth after 96 hours Assessment and Plan Plan: #1 hyponatremia:appendectomy improved significantly Patient appears to have hypervolemic hyponatremia secondary to chronic diastolic dysfunction with acute exacerbation improved, #2 congestive heart failure: Diastolic dysfunction with acute exacerbation #3 alcohol abuse #4 alcohol withdrawal: Patient will be on Ativan withdrawal protocol, thiamine and multivitamin supplementation, patient is still undergoing withdrawals and requiring Haldol as well for agitation episodes #5 COPD with acute exacerbation patient is on oral steroids and inhalational treatments and azithromycin. Patient was also started on Zosyn by pulmonology with concerns of pneumonia #7 anxiety depression #8 leukocytosis reactive in nature. #8 acute hypercapnic respiratory failure secondary to COPD exacerbation, improved now and patient is in aspirin cannula oxygen #9 metabolic and toxic encephalopathy multifactorial related to above-mentioned reasons overall patient has significant improvement continue with present care patient will be transferred out of ICU tomorrow morning, will obtain PT and OT evaluation.
[2017-09-19] MEDS: HALOPERIDOL LACTATE 5 MG/ML 1 ML VIAL IVP PRN (17:41)
[2017-09-19 17:46] LABS: Glucose,Whole Blood 134 mg/dL (75-99)
[2017-09-19] MEDS ORDERED: IPRATROPIUM-ALBUTEROL 3 ML NEB INHALATION PRN (19:32)
[2017-09-19] MEDS: TAMSULOSIN 0.4 MG CAP.ER.24H PO SCH (21:04)
[2017-09-20 00:03] LABS: Glucose,Whole Blood 124 mg/dL (75-99)
[2017-09-20] MEDS: HEPARIN SODIUM,PORCINE 5,000 UNIT/ML 1 ML VIAL SQ SCH ×3 (00:44→16:34)
[2017-09-20] MEDS: methylPREDNISolone SOD SUCCI 125 MG/2 ML VIAL IV SCH ×4 (00:45→17:57)
[2017-09-20] MEDS: INSULIN LISPRO (humaLOG) 300 UNIT/3 ML VIAL SQ SCH ×4 (00:45→17:56)
[2017-09-20] MEDS: PIPERACILLIN-TAZOBACTAM 3.375 GM in DEXTROSE/WATER 1 50ML.BAG IVPB SCH ×3 (00:45→16:42)
[2017-09-20] MEDS: METOPROLOL TARTRATE 5 MG/5 ML VIAL IVP PRN (03:05)
[2017-09-20] MEDS: DEXTROSE 5%-0.9% NACL 1,000 ML IV SCH ×2 (03:31→11:23)
[2017-09-20 04:50] LABS: Basophils % (A) 0 %; CH 33.7; CHCM 32.7; Eosinophils % (A) 0 %; HCT 41.6 % (39.0-53.0); HDW 2.36; HGB 13.6 gm/dL (13.0-17.5); Luc # (Auto) 0.08; Luc % (Auto) 1; Lymphocytes # (A) 0.6 k/uL (1.0-4.8); Lymphocytes % (A) 5 %; MCH 33.8 pg (25.0-35.0); MCHC 32.6 g/dL (31.0-37.0); MCV 103.6 fL (80.0-100.0); Macrocytosis Slight; Mean Platelet Volume 8.1; Monocytes # (A) 0.7 k/uL (0-1.0); Monocytes % (A) 6 %; Neutrophils # (A) 10.4 k/uL (1.3-7.7); Neutrophils % (A) 89 %; RBC 4.02 m/uL (4.30-5.90); WBC 11.8 k/uL (3.8-10.6); WBC (Perox) 11.92
[2017-09-20 05:08] LABS: Anion Gap 5 mmol/L; Blood Urea Nitrogen 21 mg/dL (9-20); Calcium 9.1 mg/dL (8.4-10.2); Carbon Dioxide 30 mmol/L (22-30); Chloride 109 mmol/L (98-107); Glucose 125 mg/dL (74-99); Magnesium 2.3 mg/dL (1.6-2.3); Non-African American GFR(MDRD) >60 (>60 ml/min/1.73 sqM); Phosphorus 3.2 mg/dL (2.5-4.5); Potassium 3.9 mmol/L (3.5-5.1); Sodium 144 mmol/L (137-145)
[2017-09-20] MEDS ORDERED: Potassium Replacement Protocol 1 EACH MISC MISCELLANE PRN ×3 (05:37→19:51)
[2017-09-20 06:52] LABS: Glucose,Whole Blood 120 mg/dL (75-99)
[2017-09-20] MEDS: POTASSIUM CHLORIDE 10 MEQ, LIDOCAINE 2% INJ 10 MG in SODIUM CHLORIDE 0.9% 100 ML IV SCH ×4 (07:06→23:04)
[2017-09-20] MEDS: FORMOTEROL FUMARATE 20 MCG/2 ML NEBU INHALATION SCH ×2 (07:41→19:50)
[2017-09-20] MEDS: IPRATROPIUM-ALBUTEROL 3 ML NEB INHALATION SCH ×4 (07:41→19:50)
[2017-09-20] MEDS: BUDESONIDE 0.5 MG/2 ML NEBU INHALATION SCH ×2 (07:41→19:50)
--- NOTE | 2017-09-20 07:42 | XR ---
EXAMINATION TYPE: XR chest 1V DATE OF EXAM: 09/20/2017 COMPARISON: Prior chest x-ray 09/19/2017 HISTORY: Shortness of breath TECHNIQUE: frontal view of the chest is obtained on 2 images. FINDINGS: Patchy basilar density persists on the left greater than right. Interstitium is increased. Patient is rotated. No evident pneumothorax. No sizable effusion. Cardiac mediastinal silhouette, pu lmonary vascularity and lauren are stable. IMPRESSION: There may be basilar atelectasis or pneumonia, follow-up to resolution. Interstitial alexandra g disease.
[2017-09-20] MEDS: THIAMINE 100 MG/ML 2 ML VIAL IVP SCH (09:06)
[2017-09-20] MEDS: PANTOPRAZOLE 40 MG/10 ML VIAL IVP SCH (09:10)
[2017-09-20 12:04] LABS: Glucose,Whole Blood 122 mg/dL (75-99)
[2017-09-20] MEDS: LORazepam 2 MG/ML INJ IV PRN ×5 (12:29→23:24)
--- NOTE | 2017-09-20 14:18 | P.PN ---
Subjective Progress Note Date: 09/20/17 Principal diagnosis: Acute mental status change and hyponatremia. 77-year-old male patient, advanced COPD, alcoholic with excessive beer drinking approximately 8 bottles of beer daily basis, along with history of hypertension and obstructive sleep apnea, noncompliant to CPAP therapy. The patient has been followed up with Dr. Guerra on outpatient basis, his primary care physician. He comes in yesterday to the emergency department because of altered mentation and generalized weakness. The patient was noted by family members to act unusual, trying to eat napkins and this is not a typical behavior for him and it seems that he was getting progressively more short of breath, anxious, tachypneic and uncomfortable. I was told by his daughter the patient has chronic anxiety for which he was given Paxil at a dose of 30 mg by mouth daily by his primary care physician. He does not take any form of benzodiazepines In the emergency department, the patient was found to be profoundly hyponatremic. His sodium level was 115. In addition, the patient had a potassium level of 3.9, he was hypochloremic with a chloride level of 79 and a serum bicarb of 29. Anion gap was 7. He had a normal renal function with a BUN of 13 and creatinine of 0.9. Liver function tests are within normal limits. -year-old was slightly elevated at 1.6, his lactic acid level was at 1, CPK was mildly elevated at 533, first set of cardiac enzymes/troponin was at 0.012. Urinalysis positive for ketones negative for any infection. The patient was initially admitted to the medical floor. In addition, the patient had He was restless, uncomfortable, tachypneic and short of breath. He was started on bronchodilators. He was given a dose of Lasix. Following that he was admitted to the medical floor. CAT scan of the head done in the emergency department showed moderate degree of atrophy and chronic small vessel ischemic disease without any acute intracranial abnormalities. The patient had a chest x-ray that showed bilateral lower lobe pulmonary infiltrate and small effusion. The chest x-ray was consistent with COPD and there was a mild component of pulmonary vascular congestion. A 1 cm right lower lobe pulmonary nodule cannot be completely excluded on the chest x-ray findings. Overnight, the patient became progressively more short of breath, bronchospastic and wheezy and confused. At a time of arrival to the ICU, the patient was unresponsive. The patient had received a total of 3 mg of Ativan since the emergency department for agitation. At that point, the patient was immediately placed on a BiPAP which is currently on a day setting of 14/5 cm of water with an FiO2 of 35%. He was started on IV Zosyn. He was started on DuoNeb nebulized treatment [id number] on IV Solu-Medrol 60 mg every 6 hours. I also started him on Lasix 40 mg every 12 hours. He is producing adequate amount of urine output in his urine output is more than 100 mL an hour. At a time of my evaluation this morning, the patient was arousable. He would respond to deep painful stimuli. He will move all 4 extremities without any limitation. He would open up his eyes. He is unable to hold a conversation as the patient has a full face BiPAP mask to which she seems to be more synchronous at this point. At times he wakes up spontaneously and he thrashes and he will have a bedside sitter. Serial monitoring of his sodium level showed a sodium level is gradually improving is up to 123. His renal function remains stable. No significant electrolyte imbalance at this point. Repeat chest x-ray in the morning showed no major interval change. Echo was done this morning and there is also still pending. Meanwhile the patient had an echo on 11/19/2016 that showed a preserved LV function without any significant LV dysfunction. The patient also has history of compression fracture of the lumbar spine. On 2016 the patient is being seen for a follow-up. The patient spent the past 24 hours on a BiPAP at a pressure of 14 over 5 cm of water no FiO2 of 35%. He was treated with bronchodilators and systemic steroids and he was also given IV Zosyn for possible left lower lobe aspiration pneumonia. On today's evaluation his last bronchus spastic and wheezy compared to yesterday. He'll be given a trial off the BiPAP and placed on oxygen by nasal cannula. As such, the BiPAP was discontinued. Clinically the patient is more awake compared to yesterday. He opens up his eyes. He followed simple commands. He is moving all 4 extremities without any limitation. He remains lethargic. Less dose of Ativan was around 4 AM this morning. Delirium tremens is still a concern in this patient has been chronic alcoholic. As far as the sodium level, is gradually improving is up to 128. Fluid balance is been negative as the patient has been diuresed with IV Lasix. Echocardiac Wolf showed no acute abnormalities and the LV function is well-preserved. As for the ultrasound of the abdomen, there was no significant abnormalities noted. No significant electrode imbalance and the potassium level and a chloride level and the sodium level gradually improving and normalizing. No fever. No chills. On 09/17/2017 the patient is being seen in follow-up. Note that the patient did well yesterday now was able to get him off the BiPAP yesterday morning. I checked on him yesterday evening and late in afternoon and in the early evening the patient was doing well and he was in the point where he was waking up and following commands and answering questions. He was getting more appropriate . However, later on, the patient became progressively more agitated and confused and overnight he required a total of 2 mg of Ativan and a total of 50 mg of Haldol. This morning it is quite sedated. He is less restless. He was on a BiPAP at a pressure of 14/5 throughout the night and he was taken off the BiPAP again this morning. He has bronchus spastic and wheezy. He has a congested cough. Chest x-ray from today is showing small bilateral pleural effusion left greater than right. There is continuing left basilar airspace disease that is improved from previous evaluation. The patient remains on DuoNeb nebulized treatments around the clock, IV Solu-Medrol, Pulmicort and Perforomist neb last treatment twice a day, and IV Zosyn as empiric antibiotic coverage for possible left lower lobe pneumonia. The patient has a congested cough. Unable to bring up much sputum. At time he gets worked up and he uses abdominal muscles of breathing. No witnessed aspiration. In terms of fluid balance, the patient was placed on normal state rate of 50 mL an hour. Sodium level continues to improve and it's up to 133. Renal function stable with a creatinine of 1.1. The echocardiogram showed a preserved LV function. On 09/18/2017 the patient remains essentially the same condition. His mentation is waxing and waning. He gets agitated and restless and he requires Ativan and Haldol. Noted the patient arouses in between. He sometimes follows simple commands and answer simple questions. Yet when he gets agitated he required Haldol and he becomes more sedated. I think this is a manifestation of delirium tremens noted the patient is an alcoholic and he will need another few days to fully recovers from this episode. He is hemodynamically stable. On and off is requiring BiPAP for respiratory support. Whenever agitated his blood pressure rises and the patient would require IV Lopressor for heart rate and blood pressure control. No aspiration. He remains nothing by mouth. Chest x-ray is still showing no acute pulmonary infiltration or pneumonias. The patient is also being cheered for his acute COPD exacerbation with a combination of DuoNeb nebulized treatments around the clock, Pulmicort Respules , Perforomist neb last treatment and systemic steroids. He is producing adequate amount of urine output and 50 mL an hour of normal saline. The patient is also normalized his sodium level and the rest of the electrolytes. On 09/19/2017, the patient is slightly improved compared to yesterday. Overnight he required only 1 mg of Haldol and he was less agitated and he was able to tolerate the BiPAP without any major difficulties. This morning, he is opening his eyes and holding some simple conversations. He was able to recognize his daughter the bedside. He is moving all 4 extremities. No focal neurological deficit at this point. He is still nothing by mouth. Chest x- rays showing a stable left lower lobe consolidation. No fever. No chills. No chest pain. No hemodynamic instability. Sodium level has normalized. The rest of the electrodes are all within normal limits. He is less bronchospastic and wheezy also in terms of his COPD exacerbation. On 09/20/2017, patient seems to be gradually improving, he had intermittent episodes of agitation last night, but today he seems to be very appropriate, in no form of distress, recognizing relatives around him, oriented to place but not to time. Chest x-ray continues to show left lower lobe airspace disease/ pneumonia. Swallow evaluation report is pending at this time. Patient remains nothing by mouth. Blood pressure is elevated, hence I recommended Apresoline for elevated blood pressure. I also recommended that we keep the patient in the ICU for one more day today. Labs were reviewed, renal profile is relatively unremarkable, sodium is 144. CBC is relatively normal. Objective - Vital Signs Vital signs: Vital Signs Temp 97.4 F L 09/20/17 12:00 Pulse 76 09/20/17 13:00 Resp 27 H 09/20/17 13:00 BP 158/97 09/20/17 13:00 Pulse Ox 91 L 09/20/17 13:00 Intake & Output 09/19/17 09/20/17 09/20/17 18:59 06:59 18:59 Intake Total 723.4 850 600.0 Output Total 1090 1220 560 Balance -366.6 -370 40.0 Weight 88.5 kg Intake: IV 700 850 400.0 Dextrose 5%-0.9% NaCl 1, 600 600 350 000 ml @ 50 mls/hr IV . Q20H NANCY Rx#:[id number] Piperacillin-Tazobactam 3 100 50 50.0 .375 gm In Dextrose/Water 1 50ml.bag @ 12.5 mls/hr IVPB Q8HR NANCY Rx#: [id number] Potassium Chloride 10 meq 100 In Water For Injection 1 100ml.bag @ 100 mls/hr IVPB Q1H NANCY Rx#: [id number] Potassium Chloride 10 meq 100 Lidocaine 2% Inj 10 mg In Sodium Chloride 0.9% 100 ml @ 100 mls/hr IV Q1HR NANCY Rx#:[id number] Intake, IV Titration 23.4 200 Amount Clevidipine Butyrate 25 23.4 mg In Empty Bag 1 bag @ 1 MG/HR 2 mls/hr IV .Q24H NANCY Rx#:[id number] Potassium Chloride 10 meq 100 Lidocaine 2% Inj 10 mg In Sodium Chloride 0.9% 100 ml @ 100 mls/hr IV Q1HR NANCY Rx#:[id number] Potassium Chloride 10 meq 100 Lidocaine 2% Inj 10 mg In Sodium Chloride 0.9% 100 ml @ 100 mls/hr IV Q1HR NANCY Rx#:[id number] Output: Urine 1090 1220 560 Other: Voiding Method Indwelling Catheter Indwelling Catheter Indwelling Catheter - Exam Physical Exam: Revealed a 77-year-old white male in no distress. HEENT:[Neck is supple.] [No neck masses.] [No thyromegaly.] [No JVD.] Chest: [Minimal fine crackles at the left base, otherwise unremarkable. Cardiac Exam: [Normal S1 and S2, no S3 gallop, no murmur.] Abdomen: [Soft, nontender, no megaly, no rebound, no guarding, normal bowel sounds.] Extremities: [No clubbing, no edema, no cyanosis.] Neurological Exam: [No focal neurologic deficit. Psychiatric: Marginal mental status examination with slight confusion, normal mood and affect. Lymphatics: No lymphadenopathy. Musculoskeletal: No limitations in range of motion, no deformities noted.] - Labs CBC & Chem 7: 09/20/17 04:02 09/20/17 04:02 Labs: Abnormal Lab Results - Last 24 Hours (Table) 09/19/17 09/20/17 09/20/17 Range/Units 17:44 00:02 04:02 WBC 11.8 H (3.8-10.6) k/uL RBC 4.02 L (4.30-5.90) m/uL MCV 103.6 H (80.0-100.0) fL Neutrophils # 10.4 H (1.3-7.7) k/uL Lymphocytes # 0.6 L (1.0-4.8) k/uL Chloride (98-107) mmol/L BUN (9-20) mg/dL Glucose (74-99) mg/dL POC Glucose (mg/dL) 134 H 124 H (75-99) mg/dL 09/20/17 09/20/17 09/20/17 Range/Units 04:02 06:50 12:01 WBC (3.8-10.6) k/uL RBC (4.30-5.90) m/uL MCV (80.0-100.0) fL Neutrophils # (1.3-7.7) k/uL Lymphocytes # (1.0-4.8) k/uL Chloride 109 H (98-107) mmol/L BUN 21 H (9-20) mg/dL Glucose 125 H (74-99) mg/dL POC Glucose (mg/dL) 120 H 122 H (75-99) mg/dL Microbiology - Last 24 Hours (Table) 09/18/17 02:45 Gram Stain - Preliminary Sputum Sputum Culture - Preliminary Diphtheroid species Gram Neg Bacilli 09/14/17 13:58 Blood Culture - Preliminary Blood No Growth after 120 hours Assessment and Plan Plan: 1 change in mental status, multifactorial. The patient is alcoholic and he presented with severe hyponatremia with a sodium level of 115. The underlying cause of hyponatremia is under investigation. Rule out Beer potomania. Rule out a component of hypovolemic hyponatremia/SIADH. The patient had a computed tomography scan of the brain that showed diffuse cerebral atrophy without any acute changes. His neurologic exam is nonfocal. Sodium level is gradually improving is up to 123. Rule out underlying delirium tremens secondary to alcohol withdrawal 2 acute COPD exacerbation, improving. 3 hyponatremia, resolved 4 limited bibasilar pulmonary infiltrates, rule out aspiration pneumonia, currently on IV Zosyn 5 alcoholism 6 smoker 7 obstructive sleep apnea not receiving any CPAP therapy on outpatient basis 8 frequent falls with a blunt trauma to his lower abdomen with some limited bruising. 9 compression fracture of the L4 spine status post kyphoplasty 10 chronic anxiety 11 depression 12 hypertension 13 osteoporosis 14 BPH Recommendation: Continue present supportive care measures, continue aspiration precautions, continue to monitor the mental status closely, started on Apresoline for elevated blood pressure, follow the recommendations of the speech therapist regarding feedings, we'll continue to follow closely we will keep in the ICU for today. Time with Patient: Less than 30
--- NOTE | 2017-09-20 16:04 | P.PN ---
Progress Note - Text Progress Note Date: 09/20/17 DATE OF SERVICE: 09/20/2017 PRESENTING COMPLAINT: Increasing weakness HISTORY OF PRESENT ILLNESS: 77-year-old male who presented with increasing generalized weakness shortness of breath and cough. Has a long-standing history of alcohol abuse, stopped drinking in November and restarted again drinking about 4-6 beers a day. On admission found to be severely hyponatremic, elevated JVD, bilateral pleural effusions and was admitted to the ICU for the same. INTERVAL HISTORY: 09/20/2017: Patient seen in the ICU today, not able to answer many questions. Is somewhat redirectable and is restless on exam. Has had some swallowing difficulties speech to evaluate patient today. Not tolerating much food, concerns for aspiration, will await speech evaluation. Requires assistance in and out of bed. REVIEW OF SYSTEMS: Done for constitutional ,cardiovascular, GI, pulmonary with relevant findings as above. CURRENT MEDICATIONS DuoNeb, Pulmicort, Catapres patch 0.3 mg every 7 days, Perforomist, Haldol, heparin 5000 units subcu every 8 hours, hydralazine 10 mg IV push every 6 hours , Ativan per [facility] protocol., Solu-Medrol 60 mg IV every 6 hours, Lopressor IV push, Protonix 40 mg IV push daily, Zosyn 3.375 g IV piggyback, Flomax 0.4 mg by mouth at bedtime, vitamin B 100 mg IV push daily. PHYSICAL EXAM VITAL SIGNS: Temperature 98.1, pulse 85, respiratory rate 18, blood pressure 181/108, oxygen saturation 92% on 2 L. GENERAL APPEARANCE: . Lying in bed, appears restless. EYES: Pupils equal. Conjunctiva normal. NECK: JVD not raised. Mass not palpable. RESPIRATORY: Respiratory effort increased. Lungs diminished with coarse rhonchi to auscultation. CARDIOVASCULAR: Irregular rhythm. No edema. ABDOMEN: Soft. Liver and spleen not palpable. No tenderness. No mass palpable. PSYCHIATRY: Alert and oriented x1. Mood and affect somewhat anxious INVESTIGATIONS: White blood cell count 11.8, chloride 109, sodium 144, Accu-Cheks noted. Chest x-ray: Bibasilar atelectasis or pneumonia. 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 IV antibiotics continue for pneumonia. Continue IV fluids. Overall mentation improving, will continue alcohol withdrawal protocol, symptoms are improving. Plan of care discussed with family and patient at the bedside. DIRECTOR OF ANESTHESIA SERVICES statement: Patient was seen and examined by nurse practitioner Shanel Ahumada and all elements of the case discussed with attending Dr. Spain
[2017-09-20 17:56] LABS: Glucose,Whole Blood 134 mg/dL (75-99)
[2017-09-20] MEDS ORDERED: POTASSIUM CHLORIDE 20 MEQ in WATER FOR INJECTION 1 100ML.BAG IVPB STA ×2 (18:50→19:21)
[2017-09-20] MEDS: HALOPERIDOL LACTATE 5 MG/ML 1 ML VIAL IVP PRN ×2 (20:30→23:24)
[2017-09-20] MEDS: TAMSULOSIN 0.4 MG CAP.ER.24H PO SCH (21:03)
--- NOTE | 2017-09-20 22:03 | PN ---
PROGRESS NOTE DATE OF SERVICE: 09/20/17 ATTENDING NOTE: This patient seen examined by me. I discussed with nurse practitioner, Ms. Ahumada. This is a patient with long-standing smoker, smoked for many years and also drink alcohol for many years. Presented with multiple problems including hyponatremia, possible aspiration pneumonia, had a bout of confusion. The patient has not been very mentally clear, still in the ICU this morning when I saw him, presents at the bedside. Seen by speech therapy who said the patient can have honey thickened liquid and we will do a modified barium swallow. The patient does answer simple questions. The patient is a bit distant. PHYSICAL EXAMINATION: Temperature 97.4, pulse 90, respiration 29, blood pressure 185/103, repeat 150/97, pulse ox 91% on room air. General appearance is sitting up, tired appearing. Eyes pupils equal, conjunctivae normal. Neck JVD unable to assess. Respiratory effort increased. LUNGS: Diminished breath sounds. No wheezing. Cardiovascular 1st and 2nd toe. Mild edema. ABDOMEN: Soft nontender. Psych: Patient is answering some questions, otherwise smiling. INVESTIGATIONS: White count 11.8, hemoglobin 9.6, potassium 3.9, sodium 144. Accu-Cheks are noted. Chest x-ray, some basilar infiltrates. ASSESSMENT: 1. Possible bilateral aspiration pneumonia. 2. Chronic alcoholism. 3. Chronic hypercapnic respiratory failure. 4. Gait dysfunction, chronic use a walker at home. 5. Chronic L4 compression fracture with kyphoplasty. 6. Acute delirium, improving. 7. Possible chronic metabolic encephalopathy. 8. Severe hypoosmolar hyponatremia improved. 9. 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 10.Acute on chronic congestive heart failure exacerbation from diastolic dysfunction from underlying hypertensive heart disease. 11.Chronic obstructive pulmonary disease in a smoker, acute exacerbation. 12.Depression otherwise specified. 13.Osteopenia. 14.Benign prostatic hypertrophy. 15.Essential hypertension. PLAN: The patient's medications are reviewed. The patient is on IV Zosyn. We will cut back on Solu-Medrol from 60 q.6 to 40 q.8h. PT/OT will see the patient. Speech swallowing is being assessed by speech therapy. Care was discussed with the patient at the bedside. Overall prognosis is guarded. MMODL / IJN: [id number] /
[2017-09-20] MEDS: hydrALAZINE HCL 20 MG/ML 1 ML VIAL IVP PRN (22:48)
[2017-09-21] MEDS: PIPERACILLIN-TAZOBACTAM 3.375 GM in DEXTROSE/WATER 1 50ML.BAG IVPB SCH ×3 (00:14→16:45)
[2017-09-21] MEDS: methylPREDNISolone SOD SUCCI 40 MG/ML 1 ML VIAL IV SCH ×4 (00:19→23:56)
[2017-09-21] MEDS: INSULIN LISPRO (humaLOG) 300 UNIT/3 ML VIAL SQ SCH ×4 (00:24→22:12)
[2017-09-21 00:25] LABS: Glucose,Whole Blood 131 mg/dL (75-99)
[2017-09-21] MEDS: HEPARIN SODIUM,PORCINE 5,000 UNIT/ML 1 ML VIAL SQ SCH ×3 (00:27→16:45)
[2017-09-21] MEDS: METOPROLOL TARTRATE 5 MG/5 ML VIAL IVP PRN ×2 (02:46→11:19)
[2017-09-21 04:23] LABS: CH 33.3; CHCM 32.1; HCT 41.5 % (39.0-53.0); HDW 2.21; HGB 13.3 gm/dL (13.0-17.5); MCH 33.4 pg (25.0-35.0); MCV 104.3 fL (80.0-100.0); Macrocytosis Slight; Mean Platelet Volume 8.7; RBC 3.98 m/uL (4.30-5.90); RDW 14.6 % (11.5-15.5); WBC 11.4 k/uL (3.8-10.6)
[2017-09-21 04:39] LABS: Anion Gap 4 mmol/L; Blood Urea Nitrogen 23 mg/dL (9-20); Calcium 9.2 mg/dL (8.4-10.2); Carbon Dioxide 30 mmol/L (22-30); Chloride 112 mmol/L (98-107); Glucose 137 mg/dL (74-99); Magnesium 2.3 mg/dL (1.6-2.3); Non-African American GFR(MDRD) >60 (>60 ml/min/1.73 sqM); Phosphorus 3.3 mg/dL (2.5-4.5); Potassium 3.9 mmol/L (3.5-5.1); Sodium 146 mmol/L (137-145)
[2017-09-21 05:53] LABS: Glucose,Whole Blood 137 mg/dL (75-99)
[2017-09-21] MEDS ORDERED: Potassium Replacement Protocol 1 EACH MISC MISCELLANE PRN (06:31)
--- NOTE | 2017-09-21 07:26 | XR ---
EXAMINATION TYPE: XR chest 1V DATE OF EXAM: 09/21/2017 COMPARISON: Prior chest x-ray 09/20/2017 HISTORY: Infiltrates, abnormal chest x-ray TECHNIQUE: Single frontal view of the chest is obtained. FINDINGS: Retrocardiac density persists, there is elevation of the left hemidiaphragm. Heart is like ly enlarged. Patient is rotated which may accentuate the appearance. No evident pneumothorax. Interst itium is increased. IMPRESSION: Similar findings. Correlate for left lower lobe pneumonia versus atelectasis, there is i nterstitial lung disease. Follow-up recommended.
[2017-09-21] MEDS: BUDESONIDE 0.5 MG/2 ML NEBU INHALATION SCH ×2 (07:39→20:29)
[2017-09-21] MEDS: FORMOTEROL FUMARATE 20 MCG/2 ML NEBU INHALATION SCH ×2 (07:39→20:29)
[2017-09-21] MEDS: IPRATROPIUM-ALBUTEROL 3 ML NEB INHALATION SCH ×4 (07:39→20:29)
[2017-09-21] MEDS: POTASSIUM CHLORIDE 10 MEQ, LIDOCAINE 2% INJ 10 MG in SODIUM CHLORIDE 0.9% 100 ML IV SCH ×2 (08:49→11:18)
[2017-09-21] MEDS: PANTOPRAZOLE 40 MG/10 ML VIAL IVP SCH (08:55)
[2017-09-21] MEDS: THIAMINE 100 MG/ML 2 ML VIAL IVP SCH (08:55)
--- NOTE | 2017-09-21 11:30 | P.PN ---
Subjective Progress Note Date: 09/21/17 Principal diagnosis: Acute mental status change and hyponatremia. 77-year-old male patient, advanced COPD, alcoholic with excessive beer drinking approximately 8 bottles of beer daily basis, along with history of hypertension and obstructive sleep apnea, noncompliant to CPAP therapy. The patient has been followed up with Dr. Guerra on outpatient basis, his primary care physician. He comes in yesterday to the emergency department because of altered mentation and generalized weakness. The patient was noted by family members to act unusual, trying to eat napkins and this is not a typical behavior for him and it seems that he was getting progressively more short of breath, anxious, tachypneic and uncomfortable. I was told by his daughter the patient has chronic anxiety for which he was given Paxil at a dose of 30 mg by mouth daily by his primary care physician. He does not take any form of benzodiazepines In the emergency department, the patient was found to be profoundly hyponatremic. His sodium level was 115. In addition, the patient had a potassium level of 3.9, he was hypochloremic with a chloride level of 79 and a serum bicarb of 29. Anion gap was 7. He had a normal renal function with a BUN of 13 and creatinine of 0.9. Liver function tests are within normal limits. -year-old was slightly elevated at 1.6, his lactic acid level was at 1, CPK was mildly elevated at 533, first set of cardiac enzymes/troponin was at 0.012. Urinalysis positive for ketones negative for any infection. The patient was initially admitted to the medical floor. In addition, the patient had He was restless, uncomfortable, tachypneic and short of breath. He was started on bronchodilators. He was given a dose of Lasix. Following that he was admitted to the medical floor. CAT scan of the head done in the emergency department showed moderate degree of atrophy and chronic small vessel ischemic disease without any acute intracranial abnormalities. The patient had a chest x-ray that showed bilateral lower lobe pulmonary infiltrate and small effusion. The chest x-ray was consistent with COPD and there was a mild component of pulmonary vascular congestion. A 1 cm right lower lobe pulmonary nodule cannot be completely excluded on the chest x-ray findings. Overnight, the patient became progressively more short of breath, bronchospastic and wheezy and confused. At a time of arrival to the ICU, the patient was unresponsive. The patient had received a total of 3 mg of Ativan since the emergency department for agitation. At that point, the patient was immediately placed on a BiPAP which is currently on a day setting of 14/5 cm of water with an FiO2 of 35%. He was started on IV Zosyn. He was started on DuoNeb nebulized treatment [id number] on IV Solu-Medrol 60 mg every 6 hours. I also started him on Lasix 40 mg every 12 hours. He is producing adequate amount of urine output in his urine output is more than 100 mL an hour. At a time of my evaluation this morning, the patient was arousable. He would respond to deep painful stimuli. He will move all 4 extremities without any limitation. He would open up his eyes. He is unable to hold a conversation as the patient has a full face BiPAP mask to which she seems to be more synchronous at this point. At times he wakes up spontaneously and he thrashes and he will have a bedside sitter. Serial monitoring of his sodium level showed a sodium level is gradually improving is up to 123. His renal function remains stable. No significant electrolyte imbalance at this point. Repeat chest x-ray in the morning showed no major interval change. Echo was done this morning and there is also still pending. Meanwhile the patient had an echo on 11/19/2016 that showed a preserved LV function without any significant LV dysfunction. The patient also has history of compression fracture of the lumbar spine. On 2016 the patient is being seen for a follow-up. The patient spent the past 24 hours on a BiPAP at a pressure of 14 over 5 cm of water no FiO2 of 35%. He was treated with bronchodilators and systemic steroids and he was also given IV Zosyn for possible left lower lobe aspiration pneumonia. On today's evaluation his last bronchus spastic and wheezy compared to yesterday. He'll be given a trial off the BiPAP and placed on oxygen by nasal cannula. As such, the BiPAP was discontinued. Clinically the patient is more awake compared to yesterday. He opens up his eyes. He followed simple commands. He is moving all 4 extremities without any limitation. He remains lethargic. Less dose of Ativan was around 4 AM this morning. Delirium tremens is still a concern in this patient has been chronic alcoholic. As far as the sodium level, is gradually improving is up to 128. Fluid balance is been negative as the patient has been diuresed with IV Lasix. Echocardiac Wolf showed no acute abnormalities and the LV function is well-preserved. As for the ultrasound of the abdomen, there was no significant abnormalities noted. No significant electrode imbalance and the potassium level and a chloride level and the sodium level gradually improving and normalizing. No fever. No chills. On 09/17/2017 the patient is being seen in follow-up. Note that the patient did well yesterday now was able to get him off the BiPAP yesterday morning. I checked on him yesterday evening and late in afternoon and in the early evening the patient was doing well and he was in the point where he was waking up and following commands and answering questions. He was getting more appropriate . However, later on, the patient became progressively more agitated and confused and overnight he required a total of 2 mg of Ativan and a total of 50 mg of Haldol. This morning it is quite sedated. He is less restless. He was on a BiPAP at a pressure of 14/5 throughout the night and he was taken off the BiPAP again this morning. He has bronchus spastic and wheezy. He has a congested cough. Chest x-ray from today is showing small bilateral pleural effusion left greater than right. There is continuing left basilar airspace disease that is improved from previous evaluation. The patient remains on DuoNeb nebulized treatments around the clock, IV Solu-Medrol, Pulmicort and Perforomist neb last treatment twice a day, and IV Zosyn as empiric antibiotic coverage for possible left lower lobe pneumonia. The patient has a congested cough. Unable to bring up much sputum. At time he gets worked up and he uses abdominal muscles of breathing. No witnessed aspiration. In terms of fluid balance, the patient was placed on normal state rate of 50 mL an hour. Sodium level continues to improve and it's up to 133. Renal function stable with a creatinine of 1.1. The echocardiogram showed a preserved LV function. On 09/18/2017 the patient remains essentially the same condition. His mentation is waxing and waning. He gets agitated and restless and he requires Ativan and Haldol. Noted the patient arouses in between. He sometimes follows simple commands and answer simple questions. Yet when he gets agitated he required Haldol and he becomes more sedated. I think this is a manifestation of delirium tremens noted the patient is an alcoholic and he will need another few days to fully recovers from this episode. He is hemodynamically stable. On and off is requiring BiPAP for respiratory support. Whenever agitated his blood pressure rises and the patient would require IV Lopressor for heart rate and blood pressure control. No aspiration. He remains nothing by mouth. Chest x-ray is still showing no acute pulmonary infiltration or pneumonias. The patient is also being cheered for his acute COPD exacerbation with a combination of DuoNeb nebulized treatments around the clock, Pulmicort Respules , Perforomist neb last treatment and systemic steroids. He is producing adequate amount of urine output and 50 mL an hour of normal saline. The patient is also normalized his sodium level and the rest of the electrolytes. On 09/19/2017, the patient is slightly improved compared to yesterday. Overnight he required only 1 mg of Haldol and he was less agitated and he was able to tolerate the BiPAP without any major difficulties. This morning, he is opening his eyes and holding some simple conversations. He was able to recognize his daughter the bedside. He is moving all 4 extremities. No focal neurological deficit at this point. He is still nothing by mouth. Chest x- rays showing a stable left lower lobe consolidation. No fever. No chills. No chest pain. No hemodynamic instability. Sodium level has normalized. The rest of the electrodes are all within normal limits. He is less bronchospastic and wheezy also in terms of his COPD exacerbation. On 09/20/2017, patient seems to be gradually improving, he had intermittent episodes of agitation last night, but today he seems to be very appropriate, in no form of distress, recognizing relatives around him, oriented to place but not to time. Chest x-ray continues to show left lower lobe airspace disease/ pneumonia. Swallow evaluation report is pending at this time. Patient remains nothing by mouth. Blood pressure is elevated, hence I recommended Apresoline for elevated blood pressure. I also recommended that we keep the patient in the ICU for one more day today. Labs were reviewed, renal profile is relatively unremarkable, sodium is 144. CBC is relatively normal. On 09/21/2017, patient continues to have intermittent episodes of vegetations and confusions, received multiple doses of Ativan yesterday along with Haldol, patient is lethargic today, however he is arousable, and follows simple instructions. Seems to be a bit more confused compared to yesterday. Chest x- ray continues to show left lower lobe airspace disease. The patient remains intermittently elevated, however he is receiving Apresoline. CBC showed WBC count of 11.4 hemoglobin is 13.3 basic metabolic profile is normal sodium is back to normal. Objective - Vital Signs Vital signs: Vital Signs Temp 97.7 F 09/21/17 08:00 Pulse 79 09/21/17 11:00 Resp 12 09/21/17 11:00 BP 191/99 09/21/17 11:00 Pulse Ox 99 09/21/17 11:00 Intake & Output 09/20/17 09/21/17 09/21/17 18:59 06:59 18:59 Intake Total 975.0 1025.0 250 Output Total 1005 860 285 Balance -30.0 165.0 -35 Weight 88.5 kg 85.2 kg Intake: IV 725.0 775.0 250 Dextrose 5%-0.9% NaCl 1, 650 600 250 000 ml @ 50 mls/hr IV . Q20H NANCY Rx#:[id number] Piperacillin-Tazobactam 3 75.0 75.0 .375 gm In Dextrose/Water 1 50ml.bag @ 12.5 mls/hr IVPB Q8HR NANCY Rx#: [id number] Potassium Chloride 10 meq 100 Lidocaine 2% Inj 10 mg In Sodium Chloride 0.9% 100 ml @ 100 mls/hr IV Q1HR NANCY Rx#:[id number] Intake, IV Titration 200 200 Amount Potassium Chloride 10 meq 100 Lidocaine 2% Inj 10 mg In Sodium Chloride 0.9% 100 ml @ 100 mls/hr IV Q1HR NANCY Rx#:[id number] Potassium Chloride 10 meq 100 200 Lidocaine 2% Inj 10 mg In Sodium Chloride 0.9% 100 ml @ 100 mls/hr IV Q1HR NANCY Rx#:[id number] Oral 50 50 Output: Urine 1005 860 285 Other: Voiding Method Indwelling Catheter Indwelling Catheter - Exam Physical Exam: Revealed a 77-year-old white male in no distress. HEENT:[Neck is supple.] [No neck masses.] [No thyromegaly.] [No JVD.] Chest: [Minimal fine crackles at the left base, otherwise unremarkable. Cardiac Exam: [Normal S1 and S2, no S3 gallop, no murmur.] Abdomen: [Soft, nontender, no megaly, no rebound, no guarding, normal bowel sounds.] Extremities: [No clubbing, no edema, no cyanosis.] Neurological Exam: [No focal neurologic deficit. Psychiatric: Marginal mental status examination with slight confusion, normal mood and affect. Lymphatics: No lymphadenopathy. Musculoskeletal: No limitations in range of motion, no deformities noted.] - Labs CBC & Chem 7: 09/21/17 03:47 09/21/17 03:47 Labs: Abnormal Lab Results - Last 24 Hours (Table) 09/20/17 09/20/17 09/21/17 Range/Units 12:01 17:54 00:23 WBC (3.8-10.6) k/uL RBC (4.30-5.90) m/uL MCV (80.0-100.0) fL Sodium (137-145) mmol/L Chloride (98-107) mmol/L BUN (9-20) mg/dL Glucose (74-99) mg/dL POC Glucose (mg/dL) 122 H 134 H 131 H (75-99) mg/dL 09/21/17 09/21/17 09/21/17 Range/Units 03:47 03:47 05:51 WBC 11.4 H (3.8-10.6) k/uL RBC 3.98 L (4.30-5.90) m/uL MCV 104.3 H (80.0-100.0) fL Sodium 146 H (137-145) mmol/L Chloride 112 H (98-107) mmol/L BUN 23 H (9-20) mg/dL Glucose 137 H (74-99) mg/dL POC Glucose (mg/dL) 137 H (75-99) mg/dL Microbiology - Last 24 Hours (Table) 09/18/17 02:45 Gram Stain - Final Sputum Sputum Culture - Final Corynebacterium striatum Klebsiella oxytoca 09/14/17 13:58 Blood Culture - Final Blood No Growth after 144 hours Assessment and Plan Plan: 1 change in mental status, multifactorial. The patient is alcoholic and he presented with severe hyponatremia with a sodium level of 115. The underlying cause of hyponatremia is under investigation. Rule out Beer potomania. Rule out a component of hypovolemic hyponatremia/SIADH. The patient had a computed tomography scan of the brain that showed diffuse cerebral atrophy without any acute changes. His neurologic exam is nonfocal. Sodium corrected nicely over the last few days. 2 acute COPD exacerbation, improving. 3 hyponatremia, resolved 4 limited bibasilar pulmonary infiltrates, rule out aspiration pneumonia, currently on IV Zosyn 5 alcoholism 6 smoker 7 obstructive sleep apnea not receiving any CPAP therapy on outpatient basis 8 frequent falls with a blunt trauma to his lower abdomen with some limited bruising. 9 compression fracture of the L4 spine status post kyphoplasty 10 chronic anxiety 11 depression 12 hypertension 13 osteoporosis 14 BPH Recommendation: Continue present supportive care measures, continue aspiration precautions, continue to monitor the mental status closely, continue Apresoline for elevated blood pressure, follow the recommendations of the speech therapist regarding feedings, we'll continue to follow closely we will keep in the ICU for today. Time with Patient: Less than 30
[2017-09-21 11:54] LABS: Glucose,Whole Blood 114 mg/dL (75-99)
[2017-09-21] MEDS: hydrALAZINE HCL 20 MG/ML 1 ML VIAL IVP PRN (12:32)
--- NOTE | 2017-09-21 15:16 | FL ---
EXAMINATION TYPE: FL barium swallow w video DATE OF EXAM: 09/21/2017 COMPARISON: NONE HISTORY: TECHNIQUE: Fluoroscopy. FINDINGS: Fluoroscopic guidance was provided for the procedure performed in conjunction with the [facility] pathology department. Please see complete report forthcoming from the Speech Pathology departmen t. Various consistencies from thin liquid to solids were administered. Fluoroscopy time 2 minute 7 seconds. Number of images: 0. There is some penetration with thin liquids. Remaining consistencies without penetration or aspiratio n. Mild pooling was observed in the piriform sinus. There is hesitancy of bolus formation or transport to the posterior oropharynx. IMPRESSION: 1. Penetration with thin liquids. Remaining consistencies were swallowed without penetration or aspir ation. 2. There is some pooling within the piriform sinuses and hesitancy of bolus formation and transport.
[2017-09-21] MEDS: HALOPERIDOL LACTATE 5 MG/ML 1 ML VIAL IVP PRN ×2 (15:33→22:12)
--- NOTE | 2017-09-21 15:47 | P.PN ---
Progress Note - Text Progress Note Date: 09/21/17 DATE OF SERVICE: 09/21/2017 PRESENTING COMPLAINT: Increasing weakness HISTORY OF PRESENT ILLNESS: 77-year-old male who presented with increasing generalized weakness shortness of breath and cough. Has a long-standing history of alcohol abuse, stopped drinking in November and restarted again drinking about 4-6 beers a day. On admission found to be severely hyponatremic, elevated JVD, bilateral pleural effusions and was admitted to the ICU for the same. INTERVAL HISTORY: 09/21/2017: Patient seen in the ICU today, unable to answer questions received Ativan and Haldol for agitation about 11:30 PM on 09/20/2017. Family at the bedside, patient is unable to stay awake long enough to eat, continues on honey thick liquids and pured diet. Requires assistance to move about the bed and getting in and out of bed. Last BM 09/18/2017. 09/20/2017: Patient seen in the ICU today, not able to answer many questions. Is somewhat redirectable and is restless on exam. Has had some swallowing difficulties speech to evaluate patient today. Not tolerating much food, concerns for aspiration, will await speech evaluation. Requires assistance in and out of bed. REVIEW OF SYSTEMS: Done for constitutional ,cardiovascular, GI, pulmonary with relevant findings as above. CURRENT MEDICATIONS DuoNeb, Pulmicort, Catapres patch 0.3 mg every 7 days, Perforomist, Haldol, heparin 5000 units subcu every 8 hours, hydralazine 10 mg IV push every 6 hours , Ativan per [facility] protocol., Solu-Medrol 40 mg IV every 8 hours, Lopressor IV push, Protonix 40 mg IV push daily, Zosyn 3.375 g IV piggyback, Flomax 0.4 mg by mouth at bedtime, vitamin B 100 mg IV push daily. PHYSICAL EXAM VITAL SIGNS: Temperature 97.9 pulse 72, respiratory rate 13, blood pressure 140/85, oxygen saturation 100% on 2 L GENERAL APPEARANCE: . Lying in bed, appears restless. EYES: Pupils equal. Conjunctiva normal. NECK: JVD not raised. Mass not palpable. RESPIRATORY: Respiratory effort increased. Lungs diminished with coarse rhonchi to auscultation. CARDIOVASCULAR: Irregular rhythm. No edema. ABDOMEN: Soft. Liver and spleen not palpable. No tenderness. No mass palpable. PSYCHIATRY: Alert and oriented x1. Mood and affect somewhat anxious INTEGUMENT: Multiple scattered reddened flat abrasions to the coccyx area, skin intact no drainage, tender to touch. INVESTIGATIONS: White blood cell count 11.4, sodium 146, chloride 112, Accu-Cheks noted. Fluoroscopic barium swallow: Nutrition within liquids some pooling in the pyriform sinuses. Chest x-ray: Left lower lobe pneumonia versus atelectasis there is interstitial lung disease. 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 Await full report from speech regarding swallow eval continue aspiration precautions. IV antibiotics continue for pneumonia. Continue IV fluids. will continue alcohol withdrawal protocol. Plan of care discussed with family and patient at the bedside. We'll follow closely CAROUSEL ATTENDANT statement: Patient was seen and examined by nurse practitioner Shanel Ahumada and all elements of the case discussed with attending Dr. Spain
--- NOTE | 2017-09-21 17:49 | PN ---
PROGRESS NOTE Dictating a progress on Eyal Page account #[id number] DATE OF SERVICE: 08/21/17. ATTENDING NOTE: Patient seen and examined by me. I discussed with my nurse practitioner, Ms. Ahumada. The patient is in the ICU presented with bilateral aspiration pneumonia and acute respiratory failure. The patient at baseline does not eat much at home, pretty much drinks alcohol and smokes cigarettes, felt to be delirious and encephalopathic. The patient has been on a honey thickened liquids and when I saw the patient this morning was awaiting further evaluation by speech therapist. Brother is at the bedside. PHYSICAL EXAMINATION: On examination, afebrile, pulse 74, respiratory 20, blood pressure 135/93. LUNGS: Decreased breath sounds. The patient does say hello to talk, but does not know where he is or why he is here, able to answer some simple questions. INVESTIGATIONS: White count 11.4, sodium 146, potassium 4.9. ASSESSMENT: 1. Bilateral aspiration pneumonia on antibiotics. 2. Chronic hypercapnic respiratory failure. 3. Acute delirium, slow to respond. 4. Probably chronic metabolic encephalopathy. PLAN: Patient's Solu-Medrol was cut back yesterday. Will d/c the Haldol and use Seroquel in the evening and await swallow evaluation. MMODL / IJN: [id number] /
[2017-09-21 18:24] LABS: Glucose,Whole Blood 117 mg/dL (75-99)
[2017-09-21] MEDS ORDERED: SODIUM CHLORIDE 0.45% 1,000 ML IV SCH (21:00)
[2017-09-21] MEDS ORDERED: SODIUM CHLORIDE 0.9% 250 ML IV ONE (21:00)
[2017-09-21] MEDS: LORazepam 2 MG/ML INJ IV PRN (21:10)
[2017-09-21 21:51] LABS: Glucose,Whole Blood 144 mg/dL (75-99)
[2017-09-21] MEDS: QUEtiapine 25 MG TAB PO SCH (22:13)
[2017-09-21] MEDS: TAMSULOSIN 0.4 MG CAP.ER.24H PO SCH (22:13)
[2017-09-22] MEDS: HEPARIN SODIUM,PORCINE 5,000 UNIT/ML 1 ML VIAL SQ SCH ×3 (00:04→16:59)
[2017-09-22] MEDS: PIPERACILLIN-TAZOBACTAM 3.375 GM in DEXTROSE/WATER 1 50ML.BAG IVPB SCH ×3 (00:06→17:01)
[2017-09-22] MEDS: METOPROLOL TARTRATE 5 MG/5 ML VIAL IVP PRN (01:55)
[2017-09-22 04:16] LABS: CH 33.1; CHCM 31.9; HDW 2.23; HGB 13.7 gm/dL (13.0-17.5); MCHC 32.7 g/dL (31.0-37.0); Macrocytosis Slight; Mean Platelet Volume 9.2; RBC 4.04 m/uL (4.30-5.90); RDW 14.3 % (11.5-15.5); WBC 15.7 k/uL (3.8-10.6)
[2017-09-22] MEDS: hydrALAZINE HCL 20 MG/ML 1 ML VIAL IVP PRN (04:54)
[2017-09-22] MEDS: LORazepam 2 MG/ML INJ IV PRN ×2 (04:54→13:07)
[2017-09-22 04:57] LABS: Anion Gap 4 mmol/L; Blood Urea Nitrogen 30 mg/dL (9-20); Calcium 9.1 mg/dL (8.4-10.2); Carbon Dioxide 28 mmol/L (22-30); Chloride 117 mmol/L (98-107); Glucose 114 mg/dL (74-99); Magnesium 2.2 mg/dL (1.6-2.3); Non-African American GFR(MDRD) >60 (>60 ml/min/1.73 sqM); Phosphorus 3.8 mg/dL (2.5-4.5); Sodium 149 mmol/L (137-145)
[2017-09-22] MEDS: HALOPERIDOL LACTATE 5 MG/ML 1 ML VIAL IVP PRN (05:35)
[2017-09-22] MEDS: BUDESONIDE 0.5 MG/2 ML NEBU INHALATION SCH ×2 (07:37→20:43)
[2017-09-22] MEDS: IPRATROPIUM-ALBUTEROL 3 ML NEB INHALATION SCH ×4 (07:37→20:43)
[2017-09-22] MEDS: FORMOTEROL FUMARATE 20 MCG/2 ML NEBU INHALATION SCH ×2 (07:37→20:43)
[2017-09-22] MEDS: INSULIN LISPRO (humaLOG) 300 UNIT/3 ML VIAL SQ SCH ×2 (08:00→13:08)
--- NOTE | 2017-09-22 08:00 | XR ---
EXAMINATION TYPE: XR chest 1V DATE OF EXAM: 09/22/2017 COMPARISON: Prior chest x-ray 09/21/2017 HISTORY: Abnormal chest x-ray and infiltrates TECHNIQUE: Single frontal view of the chest is obtained. FINDINGS: There is some slight interval improved aeration at the left lung base, no other significan t interval change. IMPRESSION: Basilar atelectasis versus pneumonia and a possible associated effusion. Additional foll ow-up recommended.
[2017-09-22] MEDS: PANTOPRAZOLE 40 MG/10 ML VIAL IVP SCH (08:59)
[2017-09-22] MEDS: methylPREDNISolone SOD SUCCI 40 MG/ML 1 ML VIAL IV SCH ×2 (08:59→16:59)
[2017-09-22] MEDS: DEXTROSE 5% IN WATER 1,000 ML IV SCH (09:15)
[2017-09-22] MEDS: THIAMINE 100 MG/ML 2 ML VIAL IVP SCH (09:45)
[2017-09-22] MEDS: BISACODYL 10 MG SUPP RECTAL SCH (10:31)
--- NOTE | 2017-09-22 10:59 | P.PN ---
Subjective Progress Note Date: 09/22/17 Principal diagnosis: Acute mental status change and hyponatremia. 77-year-old male patient, advanced COPD, alcoholic with excessive beer drinking approximately 8 bottles of beer daily basis, along with history of hypertension and obstructive sleep apnea, noncompliant to CPAP therapy. The patient has been followed up with Dr. Guerra on outpatient basis, his primary care physician. He comes in yesterday to the emergency department because of altered mentation and generalized weakness. The patient was noted by family members to act unusual, trying to eat napkins and this is not a typical behavior for him and it seems that he was getting progressively more short of breath, anxious, tachypneic and uncomfortable. I was told by his daughter the patient has chronic anxiety for which he was given Paxil at a dose of 30 mg by mouth daily by his primary care physician. He does not take any form of benzodiazepines In the emergency department, the patient was found to be profoundly hyponatremic. His sodium level was 115. In addition, the patient had a potassium level of 3.9, he was hypochloremic with a chloride level of 79 and a serum bicarb of 29. Anion gap was 7. He had a normal renal function with a BUN of 13 and creatinine of 0.9. Liver function tests are within normal limits. -year-old was slightly elevated at 1.6, his lactic acid level was at 1, CPK was mildly elevated at 533, first set of cardiac enzymes/troponin was at 0.012. Urinalysis positive for ketones negative for any infection. The patient was initially admitted to the medical floor. In addition, the patient had He was restless, uncomfortable, tachypneic and short of breath. He was started on bronchodilators. He was given a dose of Lasix. Following that he was admitted to the medical floor. CAT scan of the head done in the emergency department showed moderate degree of atrophy and chronic small vessel ischemic disease without any acute intracranial abnormalities. The patient had a chest x-ray that showed bilateral lower lobe pulmonary infiltrate and small effusion. The chest x-ray was consistent with COPD and there was a mild component of pulmonary vascular congestion. A 1 cm right lower lobe pulmonary nodule cannot be completely excluded on the chest x-ray findings. Overnight, the patient became progressively more short of breath, bronchospastic and wheezy and confused. At a time of arrival to the ICU, the patient was unresponsive. The patient had received a total of 3 mg of Ativan since the emergency department for agitation. At that point, the patient was immediately placed on a BiPAP which is currently on a day setting of 14/5 cm of water with an FiO2 of 35%. He was started on IV Zosyn. He was started on DuoNeb nebulized treatment [id number] on IV Solu-Medrol 60 mg every 6 hours. I also started him on Lasix 40 mg every 12 hours. He is producing adequate amount of urine output in his urine output is more than 100 mL an hour. At a time of my evaluation this morning, the patient was arousable. He would respond to deep painful stimuli. He will move all 4 extremities without any limitation. He would open up his eyes. He is unable to hold a conversation as the patient has a full face BiPAP mask to which she seems to be more synchronous at this point. At times he wakes up spontaneously and he thrashes and he will have a bedside sitter. Serial monitoring of his sodium level showed a sodium level is gradually improving is up to 123. His renal function remains stable. No significant electrolyte imbalance at this point. Repeat chest x-ray in the morning showed no major interval change. Echo was done this morning and there is also still pending. Meanwhile the patient had an echo on 11/19/2016 that showed a preserved LV function without any significant LV dysfunction. The patient also has history of compression fracture of the lumbar spine. On 2016 the patient is being seen for a follow-up. The patient spent the past 24 hours on a BiPAP at a pressure of 14 over 5 cm of water no FiO2 of 35%. He was treated with bronchodilators and systemic steroids and he was also given IV Zosyn for possible left lower lobe aspiration pneumonia. On today's evaluation his last bronchus spastic and wheezy compared to yesterday. He'll be given a trial off the BiPAP and placed on oxygen by nasal cannula. As such, the BiPAP was discontinued. Clinically the patient is more awake compared to yesterday. He opens up his eyes. He followed simple commands. He is moving all 4 extremities without any limitation. He remains lethargic. Less dose of Ativan was around 4 AM this morning. Delirium tremens is still a concern in this patient has been chronic alcoholic. As far as the sodium level, is gradually improving is up to 128. Fluid balance is been negative as the patient has been diuresed with IV Lasix. Echocardiac Wolf showed no acute abnormalities and the LV function is well-preserved. As for the ultrasound of the abdomen, there was no significant abnormalities noted. No significant electrode imbalance and the potassium level and a chloride level and the sodium level gradually improving and normalizing. No fever. No chills. On 09/17/2017 the patient is being seen in follow-up. Note that the patient did well yesterday now was able to get him off the BiPAP yesterday morning. I checked on him yesterday evening and late in afternoon and in the early evening the patient was doing well and he was in the point where he was waking up and following commands and answering questions. He was getting more appropriate . However, later on, the patient became progressively more agitated and confused and overnight he required a total of 2 mg of Ativan and a total of 50 mg of Haldol. This morning it is quite sedated. He is less restless. He was on a BiPAP at a pressure of 14/5 throughout the night and he was taken off the BiPAP again this morning. He has bronchus spastic and wheezy. He has a congested cough. Chest x-ray from today is showing small bilateral pleural effusion left greater than right. There is continuing left basilar airspace disease that is improved from previous evaluation. The patient remains on DuoNeb nebulized treatments around the clock, IV Solu-Medrol, Pulmicort and Perforomist neb last treatment twice a day, and IV Zosyn as empiric antibiotic coverage for possible left lower lobe pneumonia. The patient has a congested cough. Unable to bring up much sputum. At time he gets worked up and he uses abdominal muscles of breathing. No witnessed aspiration. In terms of fluid balance, the patient was placed on normal state rate of 50 mL an hour. Sodium level continues to improve and it's up to 133. Renal function stable with a creatinine of 1.1. The echocardiogram showed a preserved LV function. On 09/18/2017 the patient remains essentially the same condition. His mentation is waxing and waning. He gets agitated and restless and he requires Ativan and Haldol. Noted the patient arouses in between. He sometimes follows simple commands and answer simple questions. Yet when he gets agitated he required Haldol and he becomes more sedated. I think this is a manifestation of delirium tremens noted the patient is an alcoholic and he will need another few days to fully recovers from this episode. He is hemodynamically stable. On and off is requiring BiPAP for respiratory support. Whenever agitated his blood pressure rises and the patient would require IV Lopressor for heart rate and blood pressure control. No aspiration. He remains nothing by mouth. Chest x-ray is still showing no acute pulmonary infiltration or pneumonias. The patient is also being cheered for his acute COPD exacerbation with a combination of DuoNeb nebulized treatments around the clock, Pulmicort Respules , Perforomist neb last treatment and systemic steroids. He is producing adequate amount of urine output and 50 mL an hour of normal saline. The patient is also normalized his sodium level and the rest of the electrolytes. On 09/19/2017, the patient is slightly improved compared to yesterday. Overnight he required only 1 mg of Haldol and he was less agitated and he was able to tolerate the BiPAP without any major difficulties. This morning, he is opening his eyes and holding some simple conversations. He was able to recognize his daughter the bedside. He is moving all 4 extremities. No focal neurological deficit at this point. He is still nothing by mouth. Chest x- rays showing a stable left lower lobe consolidation. No fever. No chills. No chest pain. No hemodynamic instability. Sodium level has normalized. The rest of the electrodes are all within normal limits. He is less bronchospastic and wheezy also in terms of his COPD exacerbation. On 09/20/2017, patient seems to be gradually improving, he had intermittent episodes of agitation last night, but today he seems to be very appropriate, in no form of distress, recognizing relatives around him, oriented to place but not to time. Chest x-ray continues to show left lower lobe airspace disease/ pneumonia. Swallow evaluation report is pending at this time. Patient remains nothing by mouth. Blood pressure is elevated, hence I recommended Apresoline for elevated blood pressure. I also recommended that we keep the patient in the ICU for one more day today. Labs were reviewed, renal profile is relatively unremarkable, sodium is 144. CBC is relatively normal. On 09/21/2017, patient continues to have intermittent episodes of agitation and confusions, received multiple doses of Ativan yesterday along with Haldol, patient is lethargic today, however he is arousable, and follows simple instructions. Seems to be a bit more confused compared to yesterday. Chest x- ray continues to show left lower lobe airspace disease. The patient remains intermittently elevated, however he is receiving Apresoline. CBC showed WBC count of 11.4 hemoglobin is 13.3 basic metabolic profile is normal sodium is back to normal. On 09/22/2017, patient seems to be more appropriate today, awake, follows simple instructions, not fully oriented to time and place. Did require Ativan and Haldol last night for extreme agitation. But seems to be much improved today. His brother Ester is at bedside, and he feels that the patient is much more appropriate today compared to yesterday. His sodium however is 149, and we will correct that by changing his IV fluid to D5W. WBC count is 15.7. Hemoglobin is 13.7 I discussed the plan to may be transfer the patient out of the ICU to a monitored bed on however the patient will need to have a sitter next to him at all times. Objective - Vital Signs Vital signs: Vital Signs Temp 98.2 F 09/22/17 08:00 Pulse 98 09/22/17 10:00 Resp 16 09/22/17 10:00 BP 132/79 09/22/17 10:00 Pulse Ox 94 L 09/22/17 10:00 Intake & Output 09/21/17 09/22/17 09/22/17 18:59 06:59 18:59 Intake Total 600 900.0 50 Output Total 675 820 250 Balance -75 80.0 -200 Intake: IV 600 900.0 50 Dextrose 5%-0.9% NaCl 1, 600 100 000 ml @ 50 mls/hr IV . Q20H NANCY Rx#:[id number] Piperacillin-Tazobactam 3 50.0 .375 gm In Dextrose/Water 1 50ml.bag @ 12.5 mls/hr IVPB Q8HR NANCY Rx#: [id number] Sodium Chloride 0.45% 1, 500 50 000 ml @ 50 mls/hr IV . Q20H NANCY Rx#:[id number] Sodium Chloride 0.9% 250 250 ml @ 999 mls/hr IV .Q16M ONE Rx#:[id number] Output: Urine 675 820 250 Other: Voiding Method Indwelling Catheter Indwelling Catheter Indwelling Catheter # Bowel Movements 2 1 - Exam Physical Exam: Revealed a 77-year-old white male in no distress. HEENT:[Neck is supple.] [No neck masses.] [No thyromegaly.] [No JVD.] Chest: [Minimal fine crackles at the left base, otherwise unremarkable. Cardiac Exam: [Normal S1 and S2, no S3 gallop, no murmur.] Abdomen: [Soft, nontender, no megaly, no rebound, no guarding, normal bowel sounds.] Extremities: [No clubbing, no edema, no cyanosis.] Neurological Exam: [No focal neurologic deficit. Psychiatric: Marginal mental status examination with slight confusion, normal mood and affect. Lymphatics: No lymphadenopathy. Musculoskeletal: No limitations in range of motion, no deformities noted.] - Labs CBC & Chem 7: 09/22/17 03:46 09/22/17 03:46 Labs: Abnormal Lab Results - Last 24 Hours (Table) 09/21/17 09/21/17 09/21/17 Range/Units 11:52 18:22 21:49 WBC (3.8-10.6) k/uL RBC (4.30-5.90) m/uL MCV (80.0-100.0) fL Sodium (137-145) mmol/L Chloride (98-107) mmol/L BUN (9-20) mg/dL Glucose (74-99) mg/dL POC Glucose (mg/dL) 114 H 117 H 144 H (75-99) mg/dL 09/22/17 09/22/17 Range/Units 03:46 03:46 WBC 15.7 H (3.8-10.6) k/uL RBC 4.04 L (4.30-5.90) m/uL MCV 104.0 H (80.0-100.0) fL Sodium 149 H (137-145) mmol/L Chloride 117 H (98-107) mmol/L BUN 30 H (9-20) mg/dL Glucose 114 H (74-99) mg/dL POC Glucose (mg/dL) (75-99) mg/dL Microbiology - Last 24 Hours (Table) 11/04/17 02:45 Gram Stain - Final Sputum Sputum Culture - Final Corynebacterium striatum Klebsiella oxytoca Assessment and Plan Plan: 1 change in mental status, multifactorial. The patient is alcoholic and he presented with severe hyponatremia with a sodium level of 115. The underlying cause of hyponatremia is under investigation. Rule out Beer potomania. Rule out a component of hypovolemic hyponatremia/SIADH. The patient had a computed tomography scan of the brain that showed diffuse cerebral atrophy without any acute changes. His neurologic exam is nonfocal. Sodium corrected nicely over the last few days. As a matter of fact it seems to be elevated today, and that has to do with his IV fluid, and the fact that the patient is not getting much free water. His fluid was changed to D5W, 2 acute COPD exacerbation, improving. 3 hyponatremia, resolved 4 limited bibasilar pulmonary infiltrates, rule out aspiration pneumonia, currently on IV Zosyn 5 alcoholism 6 smoker 7 obstructive sleep apnea not receiving any CPAP therapy on outpatient basis 8 frequent falls with a blunt trauma to his lower abdomen with some limited bruising. 9 compression fracture of the L4 spine status post kyphoplasty 10 chronic anxiety 11 depression 12 hypertension 13 osteoporosis 14 BPH 15 abnormal swallow evaluation, hence his fluids will be thickened, and we'll watch closely for potential aspiration. Refer to the report by the speech therapist. Recommendation: Continue treatment plan, adjust his IV fluid to address his hypernatremia, arrange for patient to transfer out of the ICU to a monitored bed on selective. Arrange for a sitter at bedside. We'll continue to follow Time with Patient: Less than 30
[2017-09-22 12:57] LABS: Glucose,Whole Blood 124 mg/dL (75-99)
--- NOTE | 2017-09-22 14:26 | P.PN ---
Progress Note - Text Progress Note Date: 09/22/17 DATE OF SERVICE: 09/22/2017 PRESENTING COMPLAINT: Increasing weakness HISTORY OF PRESENT ILLNESS: 77-year-old male who presented with increasing generalized weakness shortness of breath and cough. Has a long-standing history of alcohol abuse, stopped drinking in November and restarted again drinking about 4-6 beers a day. On admission found to be severely hyponatremic, elevated JVD, bilateral pleural effusions and was admitted to the ICU for the same. INTERVAL HISTORY: 09/22/2017: Patient seen in the ICU today, sitting up in a chair alert to self, able to follow simple straightforward commands wants to be discharged home, brother at the bedside. Remains in Atrial/fibrillation/flutter Continues on a pure diet was able to eat about 30% of his breakfast this morning. I blood cell count slowly improving, sodium elevated IV fluids switched to D5W. [facility] today may require a sitter due to his agitation.Last BM 09/21/2017. 09/21/2017: Patient seen in the ICU today, unable to answer questions received Ativan and Haldol for agitation about 11:30 PM on 09/20/2017. Family at the bedside, patient is unable to stay awake long enough to eat, continues on honey thick liquids and pured diet. Requires assistance to move about the bed and getting in and out of bed. Last BM 09/18/2017. 09/20/2017: Patient seen in the ICU today, not able to answer many questions. Is somewhat redirectable and is restless on exam. Has had some swallowing difficulties speech to evaluate patient today. Not tolerating much food, concerns for aspiration, will await speech evaluation. Requires assistance in and out of bed. REVIEW OF SYSTEMS: Done for constitutional ,cardiovascular, GI, pulmonary with relevant findings as above. CURRENT MEDICATIONS DuoNeb, Pulmicort, Catapres patch 0.3 mg every 7 days, Perforomist, Haldol, heparin 5000 units subcu every 8 hours, hydralazine 10 mg IV push every 6 hours , Ativan per [facility] protocol., Solu-Medrol 40 mg IV every 8 hours, Lopressor IV push, Protonix 40 mg IV push daily, Zosyn 3.375 g IV piggyback, Flomax 0.4 mg by mouth at bedtime, vitamin B 100 mg IV push daily. PHYSICAL EXAM VITAL SIGNS: Temperature 98.4, heart rate 112, respirations 20, blood pressure 114/73, oxygen saturation 96% on 2 L GENERAL APPEARANCE: Sitting up in a chair, appears restless. EYES: Pupils equal. Conjunctiva normal. NECK: JVD not raised. Mass not palpable. RESPIRATORY: Respiratory effort increased. Lungs diminished with coarse rhonchi to auscultation. CARDIOVASCULAR: Irregular rhythm. No edema. ABDOMEN: Soft. Liver and spleen not palpable. No tenderness. No mass palpable. PSYCHIATRY: Alert and oriented x1. Mood and affect somewhat anxious INTEGUMENT: Multiple scattered reddened flat abrasions to the coccyx area, skin intact no drainage, tender to touch. INVESTIGATIONS: White blood cell count 15.7, sodium 149, chloride 117, BUN 30, Accu-Cheks noted. Chest x-ray: Basilar atelectasis versus pneumonia and a possible associated effusion. Modified barium swallow: Mildly moderately impaired oropharyngeal swallow with a delayed swallow initiation, epiglottic inversion, mild/moderate valleculae residuals. 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 -Acute on chronic congestive heartfailure exacerbation from diastolic dysfunction ejection fraction 55-60% from underlying hypertensive heart disease -chronic obstructive pulmonary disease in a smoker, acute exacerbation -Depression not otherwise specified -Osteopenia -BPH -Essential Hypertension -Hypernatremia likely due to decreased fluid intake PLAN: Transfer to [address] [place] [address] later today, pured diet with honey thick liquids to continue and Speech recommends base of tongue exercises, pharyngeal resistive exercises, sitting upright at 90 angle, no straws, liquids from a spoon, small bites and sips with direct supervision for all meals. IV antibiotics continue for pneumonia. Change IV fluids to D5W. will continue alcohol withdrawal protocol. May require a sitter due to agitation. Plan of care discussed with family and patient at the bedside. We'll follow closely. COMMISSARY SUPERINTENDENT statement: Patient was seen and examined by nurse practitioner Shanel Ahumada and all elements of the case discussed with attending Dr. Spain
--- NOTE | 2017-09-22 15:07 | PN ---
PROGRESS NOTE The patient is seen for followup for hyponatremia initially. However, last night I was called as his urine output was low. The patient was given a fluid bolus and it appears that his urine output has picked up. He is currently maintained on IV fluids, was running normal saline at 50 mL an hour, which was changed to half-normal saline yesterday given his sodium of 146. This morning his sodium is up to 149. The patient's mentation has improved significantly since admission as at that time he had been in DTs. He is also trying to eat. EXAMINATION: Blood pressure is 114/70, heart rate 112 per minute. He is afebrile. Examination of the heart S1, S2. Exam of the lungs bilateral breath sounds are heard. Abdomen is soft, nontender. Exam of the lower extremities shows no evidence of edema. [employer] exam shows patient moving all 4 extremities. He is anxious, not in any acute distress. LABS: Sodium 149, potassium 4.0, hemoglobin 13.7, serum creatinine 1.0. ASSESSMENT: 1. Hyponatremia initially on admission, currently improved. Patient is now hypernatremic. 2. Hypernatremia. DC the half-normal saline and change IV fluids to D5W at 50 mL an hour. We want to avoid excessive hydration secondary to issues with the respiratory status and fluid overload. 3. Delirium tremens, currently improved. 4. Hypomagnesemia, now resolved. 5. Altered mentation secondary to DTs and significantly improved since admission. 6. Severe chronic obstructive pulmonary disease exacerbation, currently improved. 7. Pneumonia with sputum culture growing Klebsiella oxytoca and . PLAN: Change IV fluids to D5W. Continue to encourage increased oral intake. Repeat labs in a.m.. MMODL / IJN: [id number] /
[2017-09-22 17:48] LABS: Glucose,Whole Blood 126 mg/dL (75-99)
--- NOTE | 2017-09-22 17:59 | PN ---
PROGRESS NOTE DATE OF SERVICE: 09/22/17 ATTENDING NOTE: This patient seen examined by me. I discussed with my nurse practitioner, Ms. Ahumada. Patient admitted with multiple problems to the ICU. The patient slept better after started on Seroquel last night. Oral intake is still a bit slow. Brother is at bedside. Does recognize me as a physician, otherwise does not know where he is at. PHYSICAL EXAMINATION: On examination, afebrile, pulse 112, respiration 20, blood pressure 114/73. Sitting up in a chair. Tired appearing. Answering simple questions. LUNGS: Decreased breath sounds, some wheezing. Cardiovascular first and second sounds normal. LABORATORY DATA: White count 15.7, potassium 4.0. ASSESSMENT: 1. Bilateral aspiration pneumonia. 2. Chronic alcoholism. 3. Acute delirium with metabolic encephalopathy. PLAN: Continue current medication and treatment plan. Care was discussed with the brother at the bedside. The patient to be transferred out of ICU. MMLULU / SAGRARION: [id number] /
[2017-09-22] MEDS: INSULIN ASPART 100 UNIT/ML 1 ML 10 ML VIAL SQ SCH ×2 (18:13→21:33)
[2017-09-22 20:34] LABS: Glucose,Whole Blood 143 mg/dL (75-99)
[2017-09-22] MEDS: TAMSULOSIN 0.4 MG CAP.ER.24H PO SCH (21:36)
[2017-09-22] MEDS: QUEtiapine 25 MG TAB PO SCH (21:36)
[2017-09-23] MEDS: HEPARIN SODIUM,PORCINE 5,000 UNIT/ML 1 ML VIAL SQ SCH ×3 (00:15→16:52)
[2017-09-23] MEDS: PIPERACILLIN-TAZOBACTAM 3.375 GM in DEXTROSE/WATER 1 50ML.BAG IVPB SCH ×3 (00:15→16:55)
[2017-09-23] MEDS: methylPREDNISolone SOD SUCCI 40 MG/ML 1 ML VIAL IV SCH ×3 (00:15→16:52)
[2017-09-23 05:01] LABS: CH 32.9; CHCM 31.1; HCT 46.2 % (39.0-53.0); HDW 2.19; HGB 14.6 gm/dL (13.0-17.5); MCH 33.5 pg (25.0-35.0); MCHC 31.6 g/dL (31.0-37.0); MCV 106.1 fL (80.0-100.0); Macrocytosis Moderate; Mean Platelet Volume 9.5; RBC 4.35 m/uL (4.30-5.90); RDW 14.5 % (11.5-15.5); WBC 15.1 k/uL (3.8-10.6)
[2017-09-23 05:12] LABS: Calcium 9.1 mg/dL (8.4-10.2); Magnesium 2.3 mg/dL (1.6-2.3); Potassium 3.4 mmol/L (3.5-5.1)
[2017-09-23] MEDS: DEXTROSE 5% IN WATER 1,000 ML IV SCH (05:48)
[2017-09-23] MEDS ORDERED: POTASSIUM CHLORIDE 10 MEQ, LIDOCAINE 2% INJ 10 MG in SODIUM CHLORIDE 0.9% 100 ML IV SCH (06:00)
[2017-09-23] MEDS: FORMOTEROL FUMARATE 20 MCG/2 ML NEBU INHALATION SCH ×2 (08:13→19:33)
[2017-09-23] MEDS: BUDESONIDE 0.5 MG/2 ML NEBU INHALATION SCH ×2 (08:13→19:33)
[2017-09-23] MEDS: IPRATROPIUM-ALBUTEROL 3 ML NEB INHALATION SCH ×4 (08:13→19:32)
[2017-09-23 08:14] LABS: Glucose,Whole Blood 140 mg/dL (75-99)
[2017-09-23] MEDS: INSULIN ASPART 100 UNIT/ML 1 ML 10 ML VIAL SQ SCH ×4 (08:29→20:55)
[2017-09-23] MEDS: BISACODYL 10 MG SUPP RECTAL SCH (09:12)
[2017-09-23] MEDS: PANTOPRAZOLE 40 MG/10 ML VIAL IVP SCH (09:15)
[2017-09-23] MEDS: THIAMINE 100 MG/ML 2 ML VIAL IVP SCH (09:15)
--- NOTE | 2017-09-23 09:23 | XR ---
EXAMINATION TYPE: XR chest 1V DATE OF EXAM: 09/23/2017 COMPARISON: Prior chest x-ray 09/22/2017 HISTORY: Abnormal chest x-ray, infiltrates TECHNIQUE: Single frontal view of the chest is obtained. FINDINGS: There is some interval improvement in visualization of the left hemidiaphragm. Patient is rotated. There is no evident pneumothorax. Cardiac mediastinal silhouette, pulmonary vascularity and lauren not significantly changed. IMPRESSION: Suspect some improvement in aeration, follow-up PA and lateral chest x-ray when stable.
[2017-09-23] MEDS ORDERED: DEXTROSE 5% IN WATER 1,000 ML IV ONE ×2 (10:22→16:45)
--- NOTE | 2017-09-23 11:16 | P.PN ---
Subjective Patient is seen in follow-up for hyponatremia, which has been corrected and he is now actually hypernatremic. Sodium level still at 149 this morning. He is maintained on D5W at 50 mL an hour. Overnight his blood pressure dropped into the systolic 70s for unclear reason. Hypotension has now resolved. Patient's currently resting in bed. He is awake and alert. Denies chest pain. Does get dyspneic with minimal exertion. His urine output was also low at 240 mL overnight but has been 100 mL an hour for the last couple of hours. Oral intake is fair. No vomiting or diarrhea. Vital signs are stable. General: The patient appeared well nourished and normally developed. HEENT: Head exam is unremarkable. Neck is without jugular venous distension. LUNGS: Mild rhonchi at bases. Breath sounds decreased. HEART: Rate and Rhythm are regular. First and second heart sounds normal. No murmurs, rubs or gallops. ABDOMEN: Abdominal exam reveals normal bowel sounds. Non-tender and non- distended. No evidence of peritonitis. EXTREMITITES: No clubbing, cyanosis, or edema. Objective - Vital Signs Vital signs: Vital Signs Temp 98.9 F 09/23/17 04:00 Pulse 122 H 09/23/17 10:00 Resp 18 09/23/17 10:00 BP 105/60 09/23/17 10:00 Pulse Ox 96 09/23/17 10:00 Intake & Output 09/22/17 09/23/17 09/23/17 18:59 06:59 18:59 Intake Total 447.5 700 Output Total 840 225 Balance -392.5 475 Weight 84.7 kg 84.7 kg Intake: IV 137.5 50 Piperacillin-Tazobactam 3 37.5 50 .375 gm In Dextrose/Water 1 50ml.bag @ 12.5 mls/hr IVPB Q8HR [facility] Rx#: [id number] Sodium Chloride 0.45% 1, 100 000 ml @ 50 mls/hr IV . Q20H [facility] Rx#:[id number] Intake, IV Titration 250 600 Amount Dextrose 5% in Water 1, 250 600 000 ml @ 50 mls/hr IV . Q20H [facility] Rx#:[id number] Oral 60 50 Output: Urine 840 225 Other: Voiding Method Indwelling Catheter Indwelling Catheter Indwelling Catheter - Labs CBC & Chem 7: 09/23/17 04:40 09/23/17 04:40 Labs: Abnormal Lab Results - Last 24 Hours (Table) 09/22/17 09/22/17 09/22/17 Range/Units 12:55 17:46 20:32 WBC (3.8-10.6) k/uL MCV (80.0-100.0) fL Sodium (137-145) mmol/L Potassium (3.5-5.1) mmol/L Chloride (98-107) mmol/L BUN (9-20) mg/dL Creatinine (0.66-1.25) mg/dL Glucose (74-99) mg/dL POC Glucose (mg/dL) 124 H 126 H 143 H (75-99) mg/dL Phosphorus (2.5-4.5) mg/dL 09/23/17 09/23/17 09/23/17 Range/Units 04:40 04:40 08:12 WBC 15.1 H (3.8-10.6) k/uL MCV 106.1 H (80.0-100.0) fL Sodium 149 H (137-145) mmol/L Potassium 3.4 L (3.5-5.1) mmol/L Chloride 111 H (98-107) mmol/L BUN 43 H (9-20) mg/dL Creatinine 1.47 H (0.66-1.25) mg/dL Glucose 146 H (74-99) mg/dL POC Glucose (mg/dL) 140 H (75-99) mg/dL Phosphorus 5.0 H (2.5-4.5) mg/dL Assessment and Plan Plan: Assessment: #1. Hypernatremia secondary to lack of oral water intake. Sodium level stable at 149 this morning. #2. Nonoliguric acute kidney injury mostly prerenal related to hypotension overnight. Creatinine up to 1.47 today. Expect improvement as hypotension has resolved. #3. Hypokalemia related to poor oral intake. Being replaced. Magnesium replete. #4. Delirium tremens. Improved. #5. Pneumonia with sputum culture positive for Corynebacterium and Klebsiella, maintained on antibiotics. Plan: Increase D5W to be run at 100 mL an hour. Encouraged oral intake as able to tolerate. Continue to monitor renal function and urine output. Repeat electrolytes in the morning. Avoid nephrotoxic agents and hypotensive episodes.
[2017-09-23 12:05] LABS: Glucose,Whole Blood 138 mg/dL (75-99)
--- NOTE | 2017-09-23 13:23 | P.PN ---
Progress Note - Text Progress Note Date: 09/23/17 DATE OF SERVICE: 09/23/2017 PRESENTING COMPLAINT: Increasing weakness HISTORY OF PRESENT ILLNESS: 77-year-old male who presented with increasing generalized weakness shortness of breath and cough. Has a long-standing history of alcohol abuse, stopped drinking in November and restarted again drinking about 4-6 beers a day. On admission found to be severely hyponatremic, elevated JVD, bilateral pleural effusions and was admitted to the ICU for the same. INTERVAL HISTORY: 09/23/2017: Patient seen in follow-up the ICU today, lying in bed a bit restless able to follow simple straightforward commands. Heart regular remains in atrial fibrillation flutter, on honey thick liquids and pured diet ate about 75% of his breakfast this morning and tolerating, requires 2 person assist for transfers due to weakness, White blood cell count continues to improve albeit slowly, plans to transfer to [address]. soon as bed available. 09/22/2017: Patient seen in the ICU today, sitting up in a chair alert to self, able to follow simple straightforward commands wants to be discharged home, brother at the bedside. Remains in Atrial/fibrillation/flutter Continues on a pure diet was able to eat about 30% of his breakfast this morning. I blood cell count slowly improving, sodium elevated IV fluids switched to D5W. Patient will likely be transferred to selective care later today may require a sitter due to his agitation.Last BM 09/21/2017. 09/21/2017: Patient seen in the ICU today, unable to answer questions received Ativan and Haldol for agitation about 11:30 PM on 09/20/2017. Family at the bedside, patient is unable to stay awake long enough to eat, continues on honey thick liquids and pured diet. Requires assistance to move about the bed and getting in and out of bed. Last BM 09/18/2017. 09/20/2017: Patient seen in the ICU today, not able to answer many questions. Is somewhat redirectable and is restless on exam. Has had some swallowing difficulties speech to evaluate patient today. Not tolerating much food, concerns for aspiration, will await speech evaluation. Requires assistance in and out of bed. REVIEW OF SYSTEMS: Done for constitutional ,cardiovascular, GI, pulmonary with relevant findings as above. CURRENT MEDICATIONS DuoNeb, Pulmicort, Catapres patch 0.3 mg every 7 days, Perforomist, Haldol, heparin 5000 units subcu every 8 hours, hydralazine 10 mg IV push every 6 hours , Ativan per [facility] protocol., Solu-Medrol 40 mg IV every 8 hours, Lopressor IV push, Protonix 40 mg IV push daily, Zosyn 3.375 g IV piggyback, Seroquel 25 mg by mouth at bedtime, Flomax 0.4 mg by mouth at bedtime, vitamin B 100 mg IV push daily. PHYSICAL EXAM VITAL SIGNS: Temperature 98.9, pulse 92, respiratory rate 21, blood pressure 141/90, oxygen saturation 95% on room air. GENERAL APPEARANCE: Lying in bed, appears restless. EYES: Pupils equal. Conjunctiva normal. NECK: JVD not raised. Mass not palpable. RESPIRATORY: Respiratory effort increased. Lungs diminished with coarse rhonchi to auscultation. CARDIOVASCULAR: Irregular rhythm. No edema. ABDOMEN: Soft. Liver and spleen not palpable. No tenderness. No mass palpable. PSYCHIATRY: Alert and oriented x1. Mood and affect somewhat anxious INTEGUMENT: Multiple scattered reddened flat abrasions to the coccyx area, skin intact no drainage, tender to touch. INVESTIGATIONS: White blood cell count 15.7, sodium 149, chloride 117, BUN 30, Accu-Cheks noted. Chest x-ray: Suspect some improvement in aeration, follow-up PA and lateral chest x-ray with stable. 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 Seroquel added at bedtime, IV antibiotics continue for pneumonia. Per nephrology D5W increased to 100 mL an hour, will continue alcohol withdrawal protocol. May require a sitter due to agitation. We 'll follow closely. PAYROLL AND BENEFITS ASSISTANT statement: Patient was seen and examined by nurse practitioner Shanel Ahumada and all elements of the case discussed with attending Dr. Spain
--- NOTE | 2017-09-23 15:07 | P.PN ---
Subjective Progress Note Date: 09/23/17 Principal diagnosis: Acute mental status change and hyponatremia. 77-year-old male patient, advanced COPD, alcoholic with excessive beer drinking approximately 8 bottles of beer daily basis, along with history of hypertension and obstructive sleep apnea, noncompliant to CPAP therapy. The patient has been followed up with Dr. Guerra on outpatient basis, his primary care physician. He comes in yesterday to the emergency department because of altered mentation and generalized weakness. The patient was noted by family members to act unusual, trying to eat napkins and this is not a typical behavior for him and it seems that he was getting progressively more short of breath, anxious, tachypneic and uncomfortable. I was told by his daughter the patient has chronic anxiety for which he was given Paxil at a dose of 30 mg by mouth daily by his primary care physician. He does not take any form of benzodiazepines In the emergency department, the patient was found to be profoundly hyponatremic. His sodium level was 115. In addition, the patient had a potassium level of 3.9, he was hypochloremic with a chloride level of 79 and a serum bicarb of 29. Anion gap was 7. He had a normal renal function with a BUN of 13 and creatinine of 0.9. Liver function tests are within normal limits. -year-old was slightly elevated at 1.6, his lactic acid level was at 1, CPK was mildly elevated at 533, first set of cardiac enzymes/troponin was at 0.012. Urinalysis positive for ketones negative for any infection. The patient was initially admitted to the medical floor. In addition, the patient had He was restless, uncomfortable, tachypneic and short of breath. He was started on bronchodilators. He was given a dose of Lasix. Following that he was admitted to the medical floor. CAT scan of the head done in the emergency department showed moderate degree of atrophy and chronic small vessel ischemic disease without any acute intracranial abnormalities. The patient had a chest x-ray that showed bilateral lower lobe pulmonary infiltrate and small effusion. The chest x-ray was consistent with COPD and there was a mild component of pulmonary vascular congestion. A 1 cm right lower lobe pulmonary nodule cannot be completely excluded on the chest x-ray findings. Overnight, the patient became progressively more short of breath, bronchospastic and wheezy and confused. At a time of arrival to the ICU, the patient was unresponsive. The patient had received a total of 3 mg of Ativan since the emergency department for agitation. At that point, the patient was immediately placed on a BiPAP which is currently on a day setting of 14/5 cm of water with an FiO2 of 35%. He was started on IV Zosyn. He was started on DuoNeb nebulized treatment [id number] on IV Solu-Medrol 60 mg every 6 hours. I also started him on Lasix 40 mg every 12 hours. He is producing adequate amount of urine output in his urine output is more than 100 mL an hour. At a time of my evaluation this morning, the patient was arousable. He would respond to deep painful stimuli. He will move all 4 extremities without any limitation. He would open up his eyes. He is unable to hold a conversation as the patient has a full face BiPAP mask to which she seems to be more synchronous at this point. At times he wakes up spontaneously and he thrashes and he will have a bedside sitter. Serial monitoring of his sodium level showed a sodium level is gradually improving is up to 123. His renal function remains stable. No significant electrolyte imbalance at this point. Repeat chest x-ray in the morning showed no major interval change. Echo was done this morning and there is also still pending. Meanwhile the patient had an echo on 11/19/2016 that showed a preserved LV function without any significant LV dysfunction. The patient also has history of compression fracture of the lumbar spine. On 2016 the patient is being seen for a follow-up. The patient spent the past 24 hours on a BiPAP at a pressure of 14 over 5 cm of water no FiO2 of 35%. He was treated with bronchodilators and systemic steroids and he was also given IV Zosyn for possible left lower lobe aspiration pneumonia. On today's evaluation his last bronchus spastic and wheezy compared to yesterday. He'll be given a trial off the BiPAP and placed on oxygen by nasal cannula. As such, the BiPAP was discontinued. Clinically the patient is more awake compared to yesterday. He opens up his eyes. He followed simple commands. He is moving all 4 extremities without any limitation. He remains lethargic. Less dose of Ativan was around 4 AM this morning. Delirium tremens is still a concern in this patient has been chronic alcoholic. As far as the sodium level, is gradually improving is up to 128. Fluid balance is been negative as the patient has been diuresed with IV Lasix. Echocardiac Wolf showed no acute abnormalities and the LV function is well-preserved. As for the ultrasound of the abdomen, there was no significant abnormalities noted. No significant electrode imbalance and the potassium level and a chloride level and the sodium level gradually improving and normalizing. No fever. No chills. On 09/17/2017 the patient is being seen in follow-up. Note that the patient did well yesterday now was able to get him off the BiPAP yesterday morning. I checked on him yesterday evening and late in afternoon and in the early evening the patient was doing well and he was in the point where he was waking up and following commands and answering questions. He was getting more appropriate . However, later on, the patient became progressively more agitated and confused and overnight he required a total of 2 mg of Ativan and a total of 50 mg of Haldol. This morning it is quite sedated. He is less restless. He was on a BiPAP at a pressure of 14/5 throughout the night and he was taken off the BiPAP again this morning. He has bronchus spastic and wheezy. He has a congested cough. Chest x-ray from today is showing small bilateral pleural effusion left greater than right. There is continuing left basilar airspace disease that is improved from previous evaluation. The patient remains on DuoNeb nebulized treatments around the clock, IV Solu-Medrol, Pulmicort and Perforomist neb last treatment twice a day, and IV Zosyn as empiric antibiotic coverage for possible left lower lobe pneumonia. The patient has a congested cough. Unable to bring up much sputum. At time he gets worked up and he uses abdominal muscles of breathing. No witnessed aspiration. In terms of fluid balance, the patient was placed on normal state rate of 50 mL an hour. Sodium level continues to improve and it's up to 133. Renal function stable with a creatinine of 1.1. The echocardiogram showed a preserved LV function. On 09/18/2017 the patient remains essentially the same condition. His mentation is waxing and waning. He gets agitated and restless and he requires Ativan and Haldol. Noted the patient arouses in between. He sometimes follows simple commands and answer simple questions. Yet when he gets agitated he required Haldol and he becomes more sedated. I think this is a manifestation of delirium tremens noted the patient is an alcoholic and he will need another few days to fully recovers from this episode. He is hemodynamically stable. On and off is requiring BiPAP for respiratory support. Whenever agitated his blood pressure rises and the patient would require IV Lopressor for heart rate and blood pressure control. No aspiration. He remains nothing by mouth. Chest x-ray is still showing no acute pulmonary infiltration or pneumonias. The patient is also being cheered for his acute COPD exacerbation with a combination of DuoNeb nebulized treatments around the clock, Pulmicort Respules , Perforomist neb last treatment and systemic steroids. He is producing adequate amount of urine output and 50 mL an hour of normal saline. The patient is also normalized his sodium level and the rest of the electrolytes. On 09/19/2017, the patient is slightly improved compared to yesterday. Overnight he required only 1 mg of Haldol and he was less agitated and he was able to tolerate the BiPAP without any major difficulties. This morning, he is opening his eyes and holding some simple conversations. He was able to recognize his daughter the bedside. He is moving all 4 extremities. No focal neurological deficit at this point. He is still nothing by mouth. Chest x- rays showing a stable left lower lobe consolidation. No fever. No chills. No chest pain. No hemodynamic instability. Sodium level has normalized. The rest of the electrodes are all within normal limits. He is less bronchospastic and wheezy also in terms of his COPD exacerbation. On 09/20/2017, patient seems to be gradually improving, he had intermittent episodes of agitation last night, but today he seems to be very appropriate, in no form of distress, recognizing relatives around him, oriented to place but not to time. Chest x-ray continues to show left lower lobe airspace disease/ pneumonia. Swallow evaluation report is pending at this time. Patient remains nothing by mouth. Blood pressure is elevated, hence I recommended Apresoline for elevated blood pressure. I also recommended that we keep the patient in the ICU for one more day today. Labs were reviewed, renal profile is relatively unremarkable, sodium is 144. CBC is relatively normal. On 09/21/2017, patient continues to have intermittent episodes of agitation and confusions, received multiple doses of Ativan yesterday along with Haldol, patient is lethargic today, however he is arousable, and follows simple instructions. Seems to be a bit more confused compared to yesterday. Chest x- ray continues to show left lower lobe airspace disease. The patient remains intermittently elevated, however he is receiving Apresoline. CBC showed WBC count of 11.4 hemoglobin is 13.3 basic metabolic profile is normal sodium is back to normal. On 09/22/2017, patient seems to be more appropriate today, awake, follows simple instructions, not fully oriented to time and place. Did require Ativan and Haldol last night for extreme agitation. But seems to be much improved today. His brother Ester is at bedside, and he feels that the patient is much more appropriate today compared to yesterday. His sodium however is 149, and we will correct that by changing his IV fluid to D5W. WBC count is 15.7. Hemoglobin is 13.7 I discussed the plan to may be transfer the patient out of the ICU to a monitored bed on selective however the patient will need to have a sitter next to him at all times. On 09/23/2017, patient continues to show steady improvement in his mental status over the last few days. Today is the best he has been, seems to be more awake, alert, oriented, and in no distress. Patient is presently a selective overflow. His sodium remains high, hence I increased his IV fluid, presently on D5W at 100 and hour. His BUN was noted to be elevated and creatinine is 1.47 , I believe this is a picture reflecting free water deficit and dehydration. The rest of the labs were relatively unremarkable. Objective - Vital Signs Vital signs: Vital Signs Temp 98.3 F 09/23/17 12:00 Pulse 114 H 09/23/17 14:00 Resp 18 09/23/17 14:00 BP 85/66 09/23/17 14:00 Pulse Ox 98 09/23/17 14:00 Intake & Output 09/22/17 09/23/17 09/23/17 18:59 06:59 18:59 Intake Total 447.5 700 100 Output Total 840 225 400 Balance -392.5 475 -300 Weight 84.7 kg 84.7 kg Intake: IV 137.5 50 100 Dextrose 5% in Water 1, 100 000 ml @ 100 mls/hr IV . Q10H [facility] Rx#:[id number] Piperacillin-Tazobactam 3 37.5 50 .375 gm In Dextrose/Water 1 50ml.bag @ 12.5 mls/hr IVPB Q8HR [facility] Rx#: [id number] Sodium Chloride 0.45% 1, 100 000 ml @ 50 mls/hr IV . Q20H [facility] Rx#:[id number] Intake, IV Titration 250 600 Amount Dextrose 5% in Water 1, 250 600 000 ml @ 50 mls/hr IV . Q20H [facility] Rx#:[id number] Oral 60 50 Output: Urine 840 225 400 Other: Voiding Method Indwelling Catheter Indwelling Catheter Indwelling Catheter # Bowel Movements 1 - Exam Physical Exam: Revealed a 77-year-old white male in no distress. HEENT:[Neck is supple.] [No neck masses.] [No thyromegaly.] [No JVD.] Chest: [Minimal fine crackles at the left base, otherwise unremarkable. Cardiac Exam: [Normal S1 and S2, no S3 gallop, no murmur.] Abdomen: [Soft, nontender, no megaly, no rebound, no guarding, normal bowel sounds.] Extremities: [No clubbing, no edema, no cyanosis.] Neurological Exam: [No focal neurologic deficit. Psychiatric: Marginal mental status examination , improving. Lymphatics: No lymphadenopathy. Musculoskeletal: No limitations in range of motion, no deformities noted.] - Labs CBC & Chem 7: 09/23/17 04:40 09/23/17 04:40 Labs: Abnormal Lab Results - Last 24 Hours (Table) 09/22/17 09/22/17 09/23/17 Range/Units 17:46 20:32 04:40 WBC 15.1 H (3.8-10.6) k/uL MCV 106.1 H (80.0-100.0) fL Sodium (137-145) mmol/L Potassium (3.5-5.1) mmol/L Chloride (98-107) mmol/L BUN (9-20) mg/dL Creatinine (0.66-1.25) mg/dL Glucose (74-99) mg/dL POC Glucose (mg/dL) 126 H 143 H (75-99) mg/dL Phosphorus (2.5-4.5) mg/dL 09/23/17 09/23/17 09/23/17 Range/Units 04:40 08:12 12:03 WBC (3.8-10.6) k/uL MCV (80.0-100.0) fL Sodium 149 H (137-145) mmol/L Potassium 3.4 L (3.5-5.1) mmol/L Chloride 111 H (98-107) mmol/L BUN 43 H (9-20) mg/dL Creatinine 1.47 H (0.66-1.25) mg/dL Glucose 146 H (74-99) mg/dL POC Glucose (mg/dL) 140 H 138 H (75-99) mg/dL Phosphorus 5.0 H (2.5-4.5) mg/dL Assessment and Plan Plan: 1 change in mental status, multifactorial. The patient is alcoholic and he presented with severe hyponatremia with a sodium level of 115. On admission. The underlying cause of hyponatremia is under investigation. Rule out Beer potomania. Rule out a component of hypovolemic hyponatremia/SIADH. The patient had a computed tomography scan of the brain that showed diffuse cerebral atrophy without any acute changes. His neurologic exam is nonfocal. Sodium corrected nicely over the last few days. As a matter of fact it seems to be elevated today, and that has to do with his IV fluid, and the fact that the patient is not getting much free water. His fluid was changed to D5W, 2 acute COPD exacerbation, improving. 3 hyponatremia, resolved presently the patient is hypernatremic hence placed on D5W at 100 mL per hour. 4 limited bibasilar pulmonary infiltrates, rule out aspiration pneumonia, currently on IV Zosyn 5 alcoholism 6 smoker 7 obstructive sleep apnea not receiving any CPAP therapy on outpatient basis 8 frequent falls with a blunt trauma to his lower abdomen with some limited bruising. 9 compression fracture of the L4 spine status post kyphoplasty 10 chronic anxiety 11 depression 12 hypertension 13 osteoporosis 14 BPH 15 abnormal swallow evaluation, hence his fluids will be thickened, and we'll watch closely for potential aspiration. Refer to the report by the speech therapist. Recommendation: Continue treatment plan, continue IV fluid at D5W for hypernatremia., arrange for patient to transfer out of the ICU to a monitored bed on selective. Once a bed is available, patient is presently overflow. We' ll continue to follow. Time with Patient: Less than 30
[2017-09-23 17:09] LABS: Glucose,Whole Blood 266 mg/dL (75-99)
[2017-09-23 17:15] LABS: Glucose,Whole Blood 232 mg/dL (75-99)
[2017-09-23] MEDS: POTASSIUM CHLORIDE 10 MEQ in WATER FOR INJECTION 1 100ML.BAG IVPB SCH ×2 (18:04→20:12)
[2017-09-23] MEDS ORDERED: NOREPINEPHRIN 4 MG-0.9% NS PMX 4 MG/250 ML ML IV SCH (18:30)
[2017-09-23] MEDS: TAMSULOSIN 0.4 MG CAP.ER.24H PO SCH (20:38)
[2017-09-23] MEDS: QUEtiapine 25 MG TAB PO SCH (20:38)
[2017-09-23 20:43] LABS: Glucose,Whole Blood 133 mg/dL (75-99)
--- NOTE | 2017-09-23 20:48 | PN ---
PROGRESS NOTE DATE OF SERVICE: 09/23/17 ATTENDING NOTE: Patient was seen and examined by me. I discussed with my nurse practitioner, Ms. Ahumada. The patient has multiple issues. Did well last night. He did actually sleep rather well. The patient is remains on honey thick liquids and a pureed diet. PHYSICAL EXAMINATION: On examination, afebrile, pulse 117, respiration 25, blood pressure 84/62, pulse 98% on 2 L. On exam lungs decreased breath sounds. Answering simple questions. ASSESSMENT: 1. Bilateral aspiration pneumonia, sputum culture positive Corynebacterium and Klebsiella. 2. Acute delirium with metabolic encephalopathy improving. 3. Alcoholic induced dementia. PLAN: Antibiotics are to continue. Continue current medication and treatment plan. Prognosis is guarded. MMODL / IJN: [id number] /
[2017-09-24] MEDS: HEPARIN SODIUM,PORCINE 5,000 UNIT/ML 1 ML VIAL SQ SCH ×4 (00:28→23:38)
[2017-09-24] MEDS: methylPREDNISolone SOD SUCCI 40 MG/ML 1 ML VIAL IV SCH ×3 (00:28→21:01)
[2017-09-24] MEDS: PIPERACILLIN-TAZOBACTAM 3.375 GM in DEXTROSE/WATER 1 50ML.BAG IVPB SCH ×4 (00:28→23:42)
[2017-09-24 05:48] LABS: Basophils # (A) 0.1 k/uL (0-0.2); Basophils % (A) 1 %; CHCM 31.8; Eosinophils # (A) 0.2 k/uL (0-0.7); Eosinophils % (A) 1 %; HCT 43.2 % (39.0-53.0); HDW 2.16; HGB 13.6 gm/dL (13.0-17.5); Luc # (Auto) 0.12; Luc % (Auto) 1; Lymphocytes # (A) 0.8 k/uL (1.0-4.8); Lymphocytes % (A) 4 %; MCHC 31.6 g/dL (31.0-37.0); MCV 104.4 fL (80.0-100.0); Macrocytosis Slight; Mean Platelet Volume 9.8; Monocytes # (A) 0.6 k/uL (0-1.0); Monocytes % (A) 3 %; Neutrophils # (A) 19.9 k/uL (1.3-7.7); Neutrophils % (A) 92 %; RBC 4.14 m/uL (4.30-5.90); RDW 14.6 % (11.5-15.5); WBC 21.7 k/uL (3.8-10.6); WBC (Perox) 22.24
[2017-09-24 06:01] LABS: INR 1.1 (<1.2); Partial Thromboplastin Time 29.5 sec (22.0-30.0); Prothrombin Time 10.9 sec (9.0-12.0)
[2017-09-24 06:02] LABS: Anion Gap 8 mmol/L; Blood Urea Nitrogen 39 mg/dL (9-20); Calcium 8.6 mg/dL (8.4-10.2); Carbon Dioxide 24 mmol/L (22-30); Chloride 105 mmol/L (98-107); Glucose 149 mg/dL (74-99); Non-African American GFR(MDRD) 58 (>60 ml/min/1.73 sqM); Potassium 3.5 mmol/L (3.5-5.1); Sodium 137 mmol/L (137-145)
[2017-09-24] MEDS ORDERED: Potassium Replacement Protocol 1 EACH MISC MISCELLANE PRN ×2 (06:31→07:20)
[2017-09-24 06:43] LABS: Phosphorus 3.6 mg/dL (2.5-4.5)
[2017-09-24] MEDS ORDERED: POTASSIUM CHLORIDE 10 MEQ in WATER FOR INJECTION 1 100ML.BAG IVPB SCH (07:00)
[2017-09-24] MEDS: IPRATROPIUM-ALBUTEROL 3 ML NEB INHALATION SCH ×4 (07:30→20:28)
[2017-09-24] MEDS: FORMOTEROL FUMARATE 20 MCG/2 ML NEBU INHALATION SCH ×2 (07:30→20:28)
[2017-09-24] MEDS: BUDESONIDE 0.5 MG/2 ML NEBU INHALATION SCH ×2 (07:30→20:28)
[2017-09-24 07:39] LABS: Glucose,Whole Blood 136 mg/dL (75-99)
[2017-09-24] MEDS: INSULIN ASPART 100 UNIT/ML 1 ML 10 ML VIAL SQ SCH ×4 (07:41→21:10)
[2017-09-24] MEDS: POTASSIUM CHLORIDE 10 MEQ, LIDOCAINE 2% INJ 10 MG in SODIUM CHLORIDE 0.9% 100 ML IV SCH ×2 (08:00→09:46)
[2017-09-24] MEDS: BISACODYL 10 MG SUPP RECTAL SCH (08:54)
[2017-09-24] MEDS: PANTOPRAZOLE 40 MG/10 ML VIAL IVP SCH (08:54)
[2017-09-24] MEDS: THIAMINE 100 MG/ML 2 ML VIAL IVP SCH (08:55)
[2017-09-24] MEDS: cloNIDine HCL 0.1 MG TAB PO SCH ×2 (11:44→21:00)
[2017-09-24 11:49] LABS: Glucose,Whole Blood 128 mg/dL (75-99)
--- NOTE | 2017-09-24 12:45 | P.PN ---
Subjective Progress Note Date: 09/24/17 Principal diagnosis: Acute mental status change and hyponatremia. 77-year-old male patient, advanced COPD, alcoholic with excessive beer drinking approximately 8 bottles of beer daily basis, along with history of hypertension and obstructive sleep apnea, noncompliant to CPAP therapy. The patient has been followed up with Dr. Guerra on outpatient basis, his primary care physician. He comes in yesterday to the emergency department because of altered mentation and generalized weakness. The patient was noted by family members to act unusual, trying to eat napkins and this is not a typical behavior for him and it seems that he was getting progressively more short of breath, anxious, tachypneic and uncomfortable. I was told by his daughter the patient has chronic anxiety for which he was given Paxil at a dose of 30 mg by mouth daily by his primary care physician. He does not take any form of benzodiazepines In the emergency department, the patient was found to be profoundly hyponatremic. His sodium level was 115. In addition, the patient had a potassium level of 3.9, he was hypochloremic with a chloride level of 79 and a serum bicarb of 29. Anion gap was 7. He had a normal renal function with a BUN of 13 and creatinine of 0.9. Liver function tests are within normal limits. -year-old was slightly elevated at 1.6, his lactic acid level was at 1, CPK was mildly elevated at 533, first set of cardiac enzymes/troponin was at 0.012. Urinalysis positive for ketones negative for any infection. The patient was initially admitted to the medical floor. In addition, the patient had He was restless, uncomfortable, tachypneic and short of breath. He was started on bronchodilators. He was given a dose of Lasix. Following that he was admitted to the medical floor. CAT scan of the head done in the emergency department showed moderate degree of atrophy and chronic small vessel ischemic disease without any acute intracranial abnormalities. The patient had a chest x-ray that showed bilateral lower lobe pulmonary infiltrate and small effusion. The chest x-ray was consistent with COPD and there was a mild component of pulmonary vascular congestion. A 1 cm right lower lobe pulmonary nodule cannot be completely excluded on the chest x-ray findings. Overnight, the patient became progressively more short of breath, bronchospastic and wheezy and confused. At a time of arrival to the ICU, the patient was unresponsive. The patient had received a total of 3 mg of Ativan since the emergency department for agitation. At that point, the patient was immediately placed on a BiPAP which is currently on a day setting of 14/5 cm of water with an FiO2 of 35%. He was started on IV Zosyn. He was started on DuoNeb nebulized treatment [id number] on IV Solu-Medrol 60 mg every 6 hours. I also started him on Lasix 40 mg every 12 hours. He is producing adequate amount of urine output in his urine output is more than 100 mL an hour. At a time of my evaluation this morning, the patient was arousable. He would respond to deep painful stimuli. He will move all 4 extremities without any limitation. He would open up his eyes. He is unable to hold a conversation as the patient has a full face BiPAP mask to which she seems to be more synchronous at this point. At times he wakes up spontaneously and he thrashes and he will have a bedside sitter. Serial monitoring of his sodium level showed a sodium level is gradually improving is up to 123. His renal function remains stable. No significant electrolyte imbalance at this point. Repeat chest x-ray in the morning showed no major interval change. Echo was done this morning and there is also still pending. Meanwhile the patient had an echo on 11/19/2016 that showed a preserved LV function without any significant LV dysfunction. The patient also has history of compression fracture of the lumbar spine. On 2016 the patient is being seen for a follow-up. The patient spent the past 24 hours on a BiPAP at a pressure of 14 over 5 cm of water no FiO2 of 35%. He was treated with bronchodilators and systemic steroids and he was also given IV Zosyn for possible left lower lobe aspiration pneumonia. On today's evaluation his last bronchus spastic and wheezy compared to yesterday. He'll be given a trial off the BiPAP and placed on oxygen by nasal cannula. As such, the BiPAP was discontinued. Clinically the patient is more awake compared to yesterday. He opens up his eyes. He followed simple commands. He is moving all 4 extremities without any limitation. He remains lethargic. Less dose of Ativan was around 4 AM this morning. Delirium tremens is still a concern in this patient has been chronic alcoholic. As far as the sodium level, is gradually improving is up to 128. Fluid balance is been negative as the patient has been diuresed with IV Lasix. Echocardiac Wolf showed no acute abnormalities and the LV function is well-preserved. As for the ultrasound of the abdomen, there was no significant abnormalities noted. No significant electrode imbalance and the potassium level and a chloride level and the sodium level gradually improving and normalizing. No fever. No chills. On 09/17/2017 the patient is being seen in follow-up. Note that the patient did well yesterday now was able to get him off the BiPAP yesterday morning. I checked on him yesterday evening and late in afternoon and in the early evening the patient was doing well and he was in the point where he was waking up and following commands and answering questions. He was getting more appropriate . However, later on, the patient became progressively more agitated and confused and overnight he required a total of 2 mg of Ativan and a total of 50 mg of Haldol. This morning it is quite sedated. He is less restless. He was on a BiPAP at a pressure of 14/5 throughout the night and he was taken off the BiPAP again this morning. He has bronchus spastic and wheezy. He has a congested cough. Chest x-ray from today is showing small bilateral pleural effusion left greater than right. There is continuing left basilar airspace disease that is improved from previous evaluation. The patient remains on DuoNeb nebulized treatments around the clock, IV Solu-Medrol, Pulmicort and Perforomist neb last treatment twice a day, and IV Zosyn as empiric antibiotic coverage for possible left lower lobe pneumonia. The patient has a congested cough. Unable to bring up much sputum. At time he gets worked up and he uses abdominal muscles of breathing. No witnessed aspiration. In terms of fluid balance, the patient was placed on normal state rate of 50 mL an hour. Sodium level continues to improve and it's up to 133. Renal function stable with a creatinine of 1.1. The echocardiogram showed a preserved LV function. On 09/18/2017 the patient remains essentially the same condition. His mentation is waxing and waning. He gets agitated and restless and he requires Ativan and Haldol. Noted the patient arouses in between. He sometimes follows simple commands and answer simple questions. Yet when he gets agitated he required Haldol and he becomes more sedated. I think this is a manifestation of delirium tremens noted the patient is an alcoholic and he will need another few days to fully recovers from this episode. He is hemodynamically stable. On and off is requiring BiPAP for respiratory support. Whenever agitated his blood pressure rises and the patient would require IV Lopressor for heart rate and blood pressure control. No aspiration. He remains nothing by mouth. Chest x-ray is still showing no acute pulmonary infiltration or pneumonias. The patient is also being cheered for his acute COPD exacerbation with a combination of DuoNeb nebulized treatments around the clock, Pulmicort Respules , Perforomist neb last treatment and systemic steroids. He is producing adequate amount of urine output and 50 mL an hour of normal saline. The patient is also normalized his sodium level and the rest of the electrolytes. On 09/19/2017, the patient is slightly improved compared to yesterday. Overnight he required only 1 mg of Haldol and he was less agitated and he was able to tolerate the BiPAP without any major difficulties. This morning, he is opening his eyes and holding some simple conversations. He was able to recognize his daughter the bedside. He is moving all 4 extremities. No focal neurological deficit at this point. He is still nothing by mouth. Chest x- rays showing a stable left lower lobe consolidation. No fever. No chills. No chest pain. No hemodynamic instability. Sodium level has normalized. The rest of the electrodes are all within normal limits. He is less bronchospastic and wheezy also in terms of his COPD exacerbation. On 09/20/2017, patient seems to be gradually improving, he had intermittent episodes of agitation last night, but today he seems to be very appropriate, in no form of distress, recognizing relatives around him, oriented to place but not to time. Chest x-ray continues to show left lower lobe airspace disease/ pneumonia. Swallow evaluation report is pending at this time. Patient remains nothing by mouth. Blood pressure is elevated, hence I recommended Apresoline for elevated blood pressure. I also recommended that we keep the patient in the ICU for one more day today. Labs were reviewed, renal profile is relatively unremarkable, sodium is 144. CBC is relatively normal. On 09/21/2017, patient continues to have intermittent episodes of agitation and confusions, received multiple doses of Ativan yesterday along with Haldol, patient is lethargic today, however he is arousable, and follows simple instructions. Seems to be a bit more confused compared to yesterday. Chest x- ray continues to show left lower lobe airspace disease. The patient remains intermittently elevated, however he is receiving Apresoline. CBC showed WBC count of 11.4 hemoglobin is 13.3 basic metabolic profile is normal sodium is back to normal. On 09/22/2017, patient seems to be more appropriate today, awake, follows simple instructions, not fully oriented to time and place. Did require Ativan and Haldol last night for extreme agitation. But seems to be much improved today. His brother Ester is at bedside, and he feels that the patient is much more appropriate today compared to yesterday. His sodium however is 149, and we will correct that by changing his IV fluid to D5W. WBC count is 15.7. Hemoglobin is 13.7 I discussed the plan to may be transfer the patient out of the ICU to a monitored bed on selective however the patient will need to have a sitter next to him at all times. On 09/23/2017, patient continues to show steady improvement in his mental status over the last few days. Today is the best he has been, seems to be more awake, alert, oriented, and in no distress. Patient is presently a selective overflow. His sodium remains high, hence I increased his IV fluid, presently on D5W at 100 and hour. His BUN was noted to be elevated and creatinine is 1.47 , I believe this is a picture reflecting free water deficit and dehydration. The rest of the labs were relatively unremarkable. On 09/24/2017, patient is feeling much better today, relatively asymptomatic, more appropriate, alert oriented 3, patient denies any shortness of breath, no cough, no wheezing, no chest pain. Urine output has been marginal. Patient developed slightly low blood pressure last night, and he had to be placed on norepinephrine for a very short. This time. Patient did receive fluid boluses. Today's sodium is much improved, and I have recommended switching his IV fluid from D5 W-to D5 45. WBC count is 21.7 hemoglobin is 13.6 sodium is 137 BUN is 39 and creatinine is 1.21. Chest x-ray from yesterday showed better aeration of the lower lobes, and his questionable infiltrate in the left lower lobe seems to be improving. Patient remains on Zosyn in the meantime Objective - Vital Signs Vital signs: Vital Signs Temp 98.3 F 09/24/17 12:00 Pulse 101 H 09/24/17 12:00 Resp 20 09/24/17 12:00 BP 121/58 09/24/17 12:00 Pulse Ox 97 09/24/17 12:00 Intake & Output 09/23/17 09/24/17 09/24/17 18:59 06:59 18:59 Intake Total 1419 2212.750 650 Output Total 530 375 300 Balance 889 1837.750 350 Weight 84.7 kg 89.7 kg Intake: IV 1419 1337.5 650 D5W Bolus 1000ml 999 Dextrose 5% in Water 1, 370 1100 400 000 ml @ 100 mls/hr IV . Q10H [facility] Rx#:[id number] Piperacillin-Tazobactam 3 50 37.5 50 .375 gm In Dextrose/Water 1 50ml.bag @ 12.5 mls/hr IVPB Q8HR [facility] Rx#: [id number] Potassium Chloride 10 meq 200 Lidocaine 2% Inj 10 mg In Sodium Chloride 0.9% 100 ml @ 100 mls/hr IV Q1HR [facility] Rx#:[id number] Potassium Chloride 10 meq 200 Lidocaine 2% Inj 10 mg In Sodium Chloride 0.9% 100 ml @ 100 mls/hr IV Q1HR [facility] Rx#:[id number] Intake, IV Titration 45.250 Amount Norepinephrin 4 mg-0.9% 45.250 Ns Pmx 4 mg In 250 ml @ Titrate IV .Q0M [facility] Rx#: [id number] Tube Feeding 830 Output: Urine 530 375 300 Other: Voiding Method Indwelling Catheter Indwelling Catheter # Bowel Movements 1 - Exam Physical Exam: Revealed a 77-year-old white male in no distress. HEENT:[Neck is supple.] [No neck masses.] [No thyromegaly.] [No JVD.] Chest: [Minimal fine crackles at the left base, otherwise unremarkable. Cardiac Exam: [Normal S1 and S2, no S3 gallop, no murmur.] Abdomen: [Soft, nontender, no megaly, no rebound, no guarding, normal bowel sounds.] Extremities: [No clubbing, no edema, no cyanosis.] Neurological Exam: [No focal neurologic deficit. Psychiatric: Normal mood and affect, and significantly improved mental status examination noted today. Lymphatics: No lymphadenopathy. Musculoskeletal: No limitations in range of motion, no deformities noted.] - Labs CBC & Chem 7: 09/24/17 05:40 09/24/17 05:40 Labs: Abnormal Lab Results - Last 24 Hours (Table) 09/23/17 09/23/17 09/23/17 Range/Units 16:40 17:07 17:13 WBC (3.8-10.6) k/uL RBC (4.30-5.90) m/uL MCV (80.0-100.0) fL Neutrophils # (1.3-7.7) k/uL Lymphocytes # (1.0-4.8) k/uL Potassium 3.3 L (3.5-5.1) mmol/L BUN (9-20) mg/dL Glucose (74-99) mg/dL POC Glucose (mg/dL) 266 H 232 H (75-99) mg/dL 09/23/17 09/24/17 09/24/17 Range/Units 20:42 05:40 05:40 WBC 21.7 H (3.8-10.6) k/uL RBC 4.14 L (4.30-5.90) m/uL MCV 104.4 H (80.0-100.0) fL Neutrophils # 19.9 H (1.3-7.7) k/uL Lymphocytes # 0.8 L (1.0-4.8) k/uL Potassium (3.5-5.1) mmol/L BUN 39 H (9-20) mg/dL Glucose 149 H (74-99) mg/dL POC Glucose (mg/dL) 133 H (75-99) mg/dL 09/24/17 09/24/17 Range/Units 07:38 11:48 WBC (3.8-10.6) k/uL RBC (4.30-5.90) m/uL MCV (80.0-100.0) fL Neutrophils # (1.3-7.7) k/uL Lymphocytes # (1.0-4.8) k/uL Potassium (3.5-5.1) mmol/L BUN (9-20) mg/dL Glucose (74-99) mg/dL POC Glucose (mg/dL) 136 H 128 H (75-99) mg/dL Assessment and Plan Plan: 1 acute change in mental status, multifactorial. The patient is alcoholic and he presented with severe hyponatremia with a sodium level of 115. On admission. The underlying cause is probably related to Beer potomania. Rule out a component of hypovolemic hyponatremia/SIADH. The patient had a computed tomography scan of the brain that showed diffuse cerebral atrophy without any acute changes. His neurologic exam is nonfocal. His hypernatremia has completely resolved. 2 acute COPD exacerbation, improving. 3 hyponatremia, resolved presently the patient is hypernatremic hence placed on D5 0.45 at 100 mL/h. 4 limited bibasilar pulmonary infiltrates, rule out aspiration pneumonia, currently on IV Zosyn 5 alcoholism 6 smoker 7 obstructive sleep apnea not receiving any CPAP therapy on outpatient basis 8 frequent falls with a blunt trauma to his lower abdomen with some limited bruising. 9 compression fracture of the L4 spine status post kyphoplasty 10 chronic anxiety 11 depression 12 hypertension 13 osteoporosis 14 BPH 15 abnormal swallow evaluation, hence his fluids will be thickened, and we'll watch closely for potential aspiration. Refer to the report by the speech therapist. Recommendation: Continue treatment plan, patient would like to be transferred today to a regular medical floor, will continue to follow, possible discharge planning early next week. Patient may benefit from being sent to a rehab facility. Time with Patient: Less than 30
--- NOTE | 2017-09-24 17:06 | PN ---
PROGRESS NOTE DATE OF SERVICE: 09/24/2017 ATTENDING NOTE: This patient was seen and examined by me. I discussed with my nurse practitioner, Ms. Ahumada. The patient doing reasonably okay, actually eating better. The patient is on honey thick liquids and pureed diet. His delirium is actually better. Brother is at the bedside. The patient is breathing on room air. EXAMINATION: Afebrile, pulse 100, respirations 20, blood pressure 121/58. LUNGS: Decreased breath sounds. CARDIOVASCULAR: First and second sounds are normal. Patient is able answer simple questions. CURRENT MEDICATIONS: Include: 1. DuoNeb. 2. IV Solu-Medrol. 3. IV Zosyn. PLAN: Will change patient's Catapres to 0.1 mg p.o. b.i.d. by mouth, also decrease the Solu- Medrol to q.12. The patient's white count has been going up. It may be noted that the patient is clinically actually looking better. Will keep a close eye. MMODL / IJN: [id number] /
[2017-09-24] MEDS: DEXTROSE 5%-0.9% NACL 1,000 ML IV SCH (17:15)
[2017-09-24] MEDS: INSULIN LISPRO (humaLOG) 300 UNIT/3 ML VIAL SQ SCH (17:16)
[2017-09-24 17:23] LABS: Glucose,Whole Blood 109 mg/dL (75-99)
[2017-09-24] MEDS: NYSTATIN 100,000 UNIT/ML SUSP 500,000 UNIT/5 ML CUP PO SCH ×2 (18:15→21:01)
--- NOTE | 2017-09-24 19:31 | P.PN ---
Progress Note - Text Progress Note Date: 09/24/17 DATE OF SERVICE: 09/24/2017 PRESENTING COMPLAINT: Increasing weakness HISTORY OF PRESENT ILLNESS: 77-year-old male who presented with increasing generalized weakness shortness of breath and cough. Has a long-standing history of alcohol abuse, stopped drinking in November and restarted again drinking about 4-6 beers a day. On admission found to be severely hyponatremic, elevated JVD, bilateral pleural effusions and was admitted to the ICU for the same. INTERVAL HISTORY: 09/24/2017: Patient seen in follow-up today in the ICU. Sitting up in bed, brother at the bedside, patient's eating his breakfast approximately 75%. Meals continues to have honey thick liquids and a pured diet. More awake today more alert and able to answer more questions behavior is more appropriate. Remains in atrial fibrillation/sinus rhythm with PACs, rate controlled. Continues to require 2 person assist for transfers due to weakness. White blood cell count continues to be elevated but improving, transferred to 6 E. later today. 09/23/2017: Patient seen in follow-up the ICU today, lying in bed a bit restless able to follow simple straightforward commands. Heart regular remains in atrial fibrillation flutter, on honey thick liquids and pured diet ate about 75% of his breakfast this morning and tolerating, requires 2 person assist for transfers due to weakness, White blood cell count continues to improve albeit slowly, plans to transfer to 6 E. soon as bed available. 09/22/2017: Patient seen in the ICU today, sitting up in a chair alert to self, able to follow simple straightforward commands wants to be discharged home, brother at the bedside. Remains in Atrial/fibrillation/flutter Continues on a pure diet was able to eat about 30% of his breakfast this morning. I blood cell count slowly improving, sodium elevated IV fluids switched to D5W. Patient will likely be transferred to [facility] later today may require a sitter due to his agitation.Last BM 09/21/2017. 09/21/2017: Patient seen in the ICU today, unable to answer questions received Ativan and Haldol for agitation about 11:30 PM on 09/20/2017. Family at the bedside, patient is unable to stay awake long enough to eat, continues on honey thick liquids and pured diet. Requires assistance to move about the bed and getting in and out of bed. Last BM 09/18/2017. 09/20/2017: Patient seen in the ICU today, not able to answer many questions. Is somewhat redirectable and is restless on exam. Has had some swallowing difficulties speech to evaluate patient today. Not tolerating much food, concerns for aspiration, will await speech evaluation. Requires assistance in and out of bed. REVIEW OF SYSTEMS: Done for constitutional ,cardiovascular, GI, pulmonary with relevant findings as above. CURRENT MEDICATIONS DuoNeb, Pulmicort, Catapres patch 0.1 mg by mouth twice a day, Perforomist, Haldol, heparin 5000 units subcu every 8 hours, hydralazine 10 mg IV push every 6 hours, Ativan per [facility] protocol., Solu-Medrol 40 mg IV every 12 hours, nystatin 500,000 units by mouth 4 times a day, Protonix 40 mg IV push daily, Zosyn 3.375 g IV piggyback, Seroquel 25 mg by mouth at bedtime, Flomax 0.4 mg by mouth at bedtime, vitamin B 100 mg IV push daily. PHYSICAL EXAM VITAL SIGNS: 97.6, pulse 98, respirations 15, blood pressure 145/81, oxygen saturation 96% on room air. GENERAL APPEARANCE: Sitting up in bed, appears comfortable. EYES: Pupils equal. Conjunctiva normal. NECK: JVD not raised. Mass not palpable. RESPIRATORY: Respiratory effort increased. Lungs diminished to auscultation. CARDIOVASCULAR: Irregular rhythm. No edema. ABDOMEN: Soft. Liver and spleen not palpable. No tenderness. No mass palpable. PSYCHIATRY: Alert and oriented x1. Mood and affect somewhat anxious INTEGUMENT: Multiple scattered reddened flat abrasions to the coccyx area, skin intact no drainage, tender to touch. INVESTIGATIONS: White blood cell count 15.7, sodium 149, chloride 117, BUN 30, Accu-Cheks noted. ASSESSMENT: - bilateral aspiration pneumonia, with sputum culture positive for Corynebacterium and Klebsiella slow to respond -Chronic alcoholism -chronic hypercapnic respiratory failure -Gait dysfunction, chronic uses a walker at home -Chronic L4 Compression fracture with kyphoplasty -Acute delirium, with metabolic encephalopathy improving -Possible chronic metabolic encephalopathy -severe hypoosmolar hyponatremia, resolved -Possible alcohol induced dementia -Acute on chronic congestive heartfailure exacerbation from diastolic dysfunction ejection fraction 55-60% from underlying hypertensive heart disease -chronic obstructive pulmonary disease in a smoker, acute exacerbation -Depression not otherwise specified -Osteopenia -BPH -Essential Hypertension -Hypernatremia likely due to decreased fluid intake PLAN: Transfer to [address] [place] [address] when bed available, pured diet with honey thick liquids to continue no straws, liquids from a spoon, small bites and sips with direct supervision for all meals. IV antibiotics continue for pneumonia. Prognosis is guarded. We'll follow closely. [employer] OPERATOR statement: Patient was seen and examined by nurse practitioner Shanel Ahumada and all elements of the case discussed with attending Dr. [place]
[2017-09-24] MEDS: QUEtiapine 25 MG TAB PO SCH (21:01)
[2017-09-24] MEDS: TAMSULOSIN 0.4 MG CAP.ER.24H PO SCH (21:01)
[2017-09-24 21:03] LABS: Glucose,Whole Blood 116 mg/dL (75-99)
[2017-09-25] MEDS: PANTOPRAZOLE SODIUM 40 MG GRANULE PKT PO SCH (06:02)
[2017-09-25] MEDS: NYSTATIN 100,000 UNIT/ML SUSP 500,000 UNIT/5 ML CUP PO SCH ×3 (06:02→17:25)
[2017-09-25 06:10] LABS: Glucose,Whole Blood 112 mg/dL (75-99)
[2017-09-25] MEDS: INSULIN ASPART 100 UNIT/ML 1 ML 10 ML VIAL SQ SCH ×4 (06:12→21:00)
[2017-09-25 06:34] LABS: Anion Gap 4 mmol/L; Blood Urea Nitrogen 30 mg/dL (9-20); Calcium 8.5 mg/dL (8.4-10.2); Carbon Dioxide 28 mmol/L (22-30); Chloride 104 mmol/L (98-107); Glucose 98 mg/dL (74-99); Non-African American GFR(MDRD) >60 (>60 ml/min/1.73 sqM); Sodium 136 mmol/L (137-145)
[2017-09-25 06:41] LABS: Basophils % (A) 0 %; CH 33.8; CHCM 32.7; Eosinophils # (A) 0.1 k/uL (0-0.7); Eosinophils % (A) 0 %; HCT 39.3 % (39.0-53.0); HDW 2.27; HGB 12.8 gm/dL (13.0-17.5); Luc % (Auto) 1; Lymphocytes % (A) 6 %; MCH 33.7 pg (25.0-35.0); MCHC 32.6 g/dL (31.0-37.0); MCV 103.6 fL (80.0-100.0); Macrocytosis Slight; Mean Platelet Volume 9.8; Monocytes # (A) 0.6 k/uL (0-1.0); Monocytes % (A) 4 %; Neutrophils # (A) 13.4 k/uL (1.3-7.7); Neutrophils % (A) 88 %; RBC 3.79 m/uL (4.30-5.90); WBC 15.2 k/uL (3.8-10.6); WBC (Perox) 15.11
[2017-09-25] MEDS: IPRATROPIUM-ALBUTEROL 3 ML NEB INHALATION SCH ×4 (08:08→20:10)
[2017-09-25] MEDS: BUDESONIDE 0.5 MG/2 ML NEBU INHALATION SCH ×2 (08:08→20:10)
[2017-09-25] MEDS: FORMOTEROL FUMARATE 20 MCG/2 ML NEBU INHALATION SCH ×2 (08:08→20:10)
[2017-09-25] MEDS: HEPARIN SODIUM,PORCINE 5,000 UNIT/ML 1 ML VIAL SQ SCH ×2 (08:45→17:03)
[2017-09-25] MEDS: THIAMINE 100 MG/ML 2 ML VIAL IVP SCH (08:45)
[2017-09-25] MEDS: cloNIDine HCL 0.1 MG TAB PO SCH ×2 (08:45→20:25)
[2017-09-25] MEDS: methylPREDNISolone SOD SUCCI 40 MG/ML 1 ML VIAL IV SCH ×2 (08:46→20:26)
--- NOTE | 2017-09-25 11:00 | P.PN ---
Subjective Progress Note Date: 09/25/17 Principal diagnosis: Acute mental status change and hyponatremia. 77-year-old male patient, advanced COPD, alcoholic with excessive beer drinking approximately 8 bottles of beer daily basis, along with history of hypertension and obstructive sleep apnea, noncompliant to CPAP therapy. The patient has been followed up with Dr. Guerra on outpatient basis, his primary care physician. He comes in yesterday to the emergency department because of altered mentation and generalized weakness. The patient was noted by family members to act unusual, trying to eat napkins and this is not a typical behavior for him and it seems that he was getting progressively more short of breath, anxious, tachypneic and uncomfortable. I was told by his daughter the patient has chronic anxiety for which he was given Paxil at a dose of 30 mg by mouth daily by his primary care physician. He does not take any form of benzodiazepines In the emergency department, the patient was found to be profoundly hyponatremic. His sodium level was 115. In addition, the patient had a potassium level of 3.9, he was hypochloremic with a chloride level of 79 and a serum bicarb of 29. Anion gap was 7. He had a normal renal function with a BUN of 13 and creatinine of 0.9. Liver function tests are within normal limits. -year-old was slightly elevated at 1.6, his lactic acid level was at 1, CPK was mildly elevated at 533, first set of cardiac enzymes/troponin was at 0.012. Urinalysis positive for ketones negative for any infection. The patient was initially admitted to the medical floor. In addition, the patient had He was restless, uncomfortable, tachypneic and short of breath. He was started on bronchodilators. He was given a dose of Lasix. Following that he was admitted to the medical floor. CAT scan of the head done in the emergency department showed moderate degree of atrophy and chronic small vessel ischemic disease without any acute intracranial abnormalities. The patient had a chest x-ray that showed bilateral lower lobe pulmonary infiltrate and small effusion. The chest x-ray was consistent with COPD and there was a mild component of pulmonary vascular congestion. A 1 cm right lower lobe pulmonary nodule cannot be completely excluded on the chest x-ray findings. Overnight, the patient became progressively more short of breath, bronchospastic and wheezy and confused. At a time of arrival to the ICU, the patient was unresponsive. The patient had received a total of 3 mg of Ativan since the emergency department for agitation. At that point, the patient was immediately placed on a BiPAP which is currently on a day setting of 14/5 cm of water with an FiO2 of 35%. He was started on IV Zosyn. He was started on DuoNeb nebulized treatment [id number] on IV Solu-Medrol 60 mg every 6 hours. I also started him on Lasix 40 mg every 12 hours. He is producing adequate amount of urine output in his urine output is more than 100 mL an hour. At a time of my evaluation this morning, the patient was arousable. He would respond to deep painful stimuli. He will move all 4 extremities without any limitation. He would open up his eyes. He is unable to hold a conversation as the patient has a full face BiPAP mask to which she seems to be more synchronous at this point. At times he wakes up spontaneously and he thrashes and he will have a bedside sitter. Serial monitoring of his sodium level showed a sodium level is gradually improving is up to 123. His renal function remains stable. No significant electrolyte imbalance at this point. Repeat chest x-ray in the morning showed no major interval change. Echo was done this morning and there is also still pending. Meanwhile the patient had an echo on 11/19/2016 that showed a preserved LV function without any significant LV dysfunction. The patient also has history of compression fracture of the lumbar spine. On 2016 the patient is being seen for a follow-up. The patient spent the past 24 hours on a BiPAP at a pressure of 14 over 5 cm of water no FiO2 of 35%. He was treated with bronchodilators and systemic steroids and he was also given IV Zosyn for possible left lower lobe aspiration pneumonia. On today's evaluation his last bronchus spastic and wheezy compared to yesterday. He'll be given a trial off the BiPAP and placed on oxygen by nasal cannula. As such, the BiPAP was discontinued. Clinically the patient is more awake compared to yesterday. He opens up his eyes. He followed simple commands. He is moving all 4 extremities without any limitation. He remains lethargic. Less dose of Ativan was around 4 AM this morning. Delirium tremens is still a concern in this patient has been chronic alcoholic. As far as the sodium level, is gradually improving is up to 128. Fluid balance is been negative as the patient has been diuresed with IV Lasix. Echocardiac Wolf showed no acute abnormalities and the LV function is well-preserved. As for the ultrasound of the abdomen, there was no significant abnormalities noted. No significant electrode imbalance and the potassium level and a chloride level and the sodium level gradually improving and normalizing. No fever. No chills. On 09/17/2017 the patient is being seen in follow-up. Note that the patient did well yesterday now was able to get him off the BiPAP yesterday morning. I checked on him yesterday evening and late in afternoon and in the early evening the patient was doing well and he was in the point where he was waking up and following commands and answering questions. He was getting more appropriate . However, later on, the patient became progressively more agitated and confused and overnight he required a total of 2 mg of Ativan and a total of 50 mg of Haldol. This morning it is quite sedated. He is less restless. He was on a BiPAP at a pressure of 14/5 throughout the night and he was taken off the BiPAP again this morning. He has bronchus spastic and wheezy. He has a congested cough. Chest x-ray from today is showing small bilateral pleural effusion left greater than right. There is continuing left basilar airspace disease that is improved from previous evaluation. The patient remains on DuoNeb nebulized treatments around the clock, IV Solu-Medrol, Pulmicort and Perforomist neb last treatment twice a day, and IV Zosyn as empiric antibiotic coverage for possible left lower lobe pneumonia. The patient has a congested cough. Unable to bring up much sputum. At time he gets worked up and he uses abdominal muscles of breathing. No witnessed aspiration. In terms of fluid balance, the patient was placed on normal state rate of 50 mL an hour. Sodium level continues to improve and it's up to 133. Renal function stable with a creatinine of 1.1. The echocardiogram showed a preserved LV function. On 09/18/2017 the patient remains essentially the same condition. His mentation is waxing and waning. He gets agitated and restless and he requires Ativan and Haldol. Noted the patient arouses in between. He sometimes follows simple commands and answer simple questions. Yet when he gets agitated he required Haldol and he becomes more sedated. I think this is a manifestation of delirium tremens noted the patient is an alcoholic and he will need another few days to fully recovers from this episode. He is hemodynamically stable. On and off is requiring BiPAP for respiratory support. Whenever agitated his blood pressure rises and the patient would require IV Lopressor for heart rate and blood pressure control. No aspiration. He remains nothing by mouth. Chest x-ray is still showing no acute pulmonary infiltration or pneumonias. The patient is also being cheered for his acute COPD exacerbation with a combination of DuoNeb nebulized treatments around the clock, Pulmicort Respules , Perforomist neb last treatment and systemic steroids. He is producing adequate amount of urine output and 50 mL an hour of normal saline. The patient is also normalized his sodium level and the rest of the electrolytes. On 09/19/2017, the patient is slightly improved compared to yesterday. Overnight he required only 1 mg of Haldol and he was less agitated and he was able to tolerate the BiPAP without any major difficulties. This morning, he is opening his eyes and holding some simple conversations. He was able to recognize his daughter the bedside. He is moving all 4 extremities. No focal neurological deficit at this point. He is still nothing by mouth. Chest x- rays showing a stable left lower lobe consolidation. No fever. No chills. No chest pain. No hemodynamic instability. Sodium level has normalized. The rest of the electrodes are all within normal limits. He is less bronchospastic and wheezy also in terms of his COPD exacerbation. On 09/20/2017, patient seems to be gradually improving, he had intermittent episodes of agitation last night, but today he seems to be very appropriate, in no form of distress, recognizing relatives around him, oriented to place but not to time. Chest x-ray continues to show left lower lobe airspace disease/ pneumonia. Swallow evaluation report is pending at this time. Patient remains nothing by mouth. Blood pressure is elevated, hence I recommended Apresoline for elevated blood pressure. I also recommended that we keep the patient in the ICU for one more day today. Labs were reviewed, renal profile is relatively unremarkable, sodium is 144. CBC is relatively normal. On 09/21/2017, patient continues to have intermittent episodes of agitation and confusions, received multiple doses of Ativan yesterday along with Haldol, patient is lethargic today, however he is arousable, and follows simple instructions. Seems to be a bit more confused compared to yesterday. Chest x- ray continues to show left lower lobe airspace disease. The patient remains intermittently elevated, however he is receiving Apresoline. CBC showed WBC count of 11.4 hemoglobin is 13.3 basic metabolic profile is normal sodium is back to normal. On 09/22/2017, patient seems to be more appropriate today, awake, follows simple instructions, not fully oriented to time and place. Did require Ativan and Haldol last night for extreme agitation. But seems to be much improved today. His brother Ester is at bedside, and he feels that the patient is much more appropriate today compared to yesterday. His sodium however is 149, and we will correct that by changing his IV fluid to D5W. WBC count is 15.7. Hemoglobin is 13.7 I discussed the plan to may be transfer the patient out of the ICU to a monitored bed on selective however the patient will need to have a sitter next to him at all times. On 09/23/2017, patient continues to show steady improvement in his mental status over the last few days. Today is the best he has been, seems to be more awake, alert, oriented, and in no distress. Patient is presently a selective overflow. His sodium remains high, hence I increased his IV fluid, presently on D5W at 100 and hour. His BUN was noted to be elevated and creatinine is 1.47 , I believe this is a picture reflecting free water deficit and dehydration. The rest of the labs were relatively unremarkable. On 09/24/2017, patient is feeling much better today, relatively asymptomatic, more appropriate, alert oriented 3, patient denies any shortness of breath, no cough, no wheezing, no chest pain. Urine output has been marginal. Patient developed slightly low blood pressure last night, and he had to be placed on norepinephrine for a very short. This time. Patient did receive fluid boluses. Today's sodium is much improved, and I have recommended switching his IV fluid from D5 W-to D5 45. WBC count is 21.7 hemoglobin is 13.6 sodium is 137 BUN is 39 and creatinine is 1.21. Chest x-ray from yesterday showed better aeration of the lower lobes, and his questionable infiltrate in the left lower lobe seems to be improving. Patient remains on Zosyn in the meantime On 09/25/2017, patient continues to improve, denies any specific complaints, alert oriented 3, sitting with his brother Ester and seems to be extremely appropriate. Patient is asymptomatic, and he is able to walk to the bathroom. His delirium and his mental status has completely cleared. Labs were reviewed electrolytes are normal renal profile is normal CBC is relatively normal except for WBC count of 15.2. Objective - Vital Signs Vital signs: Vital Signs Temp 97.8 F 09/25/17 09:06 Pulse 92 09/25/17 09:06 Resp 18 09/25/17 09:06 BP 115/55 09/25/17 09:06 Pulse Ox 95 09/25/17 09:06 Intake & Output 09/24/17 09/25/17 09/25/17 18:59 06:59 18:59 Intake Total 1210 50 240 Output Total 505 Balance 705 50 240 Weight 83.4 kg Intake: IV 1050 50 Dextrose 5% in Water 1, 800 000 ml @ 100 mls/hr IV . Q10H [facility] Rx#:[id number] Piperacillin-Tazobactam 3 50 50 .375 gm In Dextrose/Water 1 50ml.bag @ 12.5 mls/hr IVPB Q8HR [facility] Rx#: [id number] Potassium Chloride 10 meq 200 Lidocaine 2% Inj 10 mg In Sodium Chloride 0.9% 100 ml @ 100 mls/hr IV Q1HR [facility] Rx#:[id number] Oral 160 240 Output: Urine 505 Other: Voiding Method Indwelling Catheter Indwelling Catheter Indwelling Catheter # Voids 1 - Exam Physical Exam: Revealed a 77-year-old white male in no distress. HEENT:[Neck is supple.] [No neck masses.] [No thyromegaly.] [No JVD.] Chest: [Minimal fine crackles at the left base, otherwise unremarkable. Cardiac Exam: [Normal S1 and S2, no S3 gallop, no murmur.] Abdomen: [Soft, nontender, no megaly, no rebound, no guarding, normal bowel sounds.] Extremities: [No clubbing, no edema, no cyanosis.] Neurological Exam: [No focal neurologic deficit. Psychiatric: Normal mood and affect, normal mental status examination. Lymphatics: No lymphadenopathy. Musculoskeletal: No limitations in range of motion, no deformities noted.] - Labs CBC & Chem 7: 09/25/17 05:49 09/25/17 05:49 Labs: Abnormal Lab Results - Last 24 Hours (Table) 09/24/17 09/24/17 09/24/17 Range/Units 11:48 17:20 21:01 WBC (3.8-10.6) k/uL RBC (4.30-5.90) m/uL Hgb (13.0-17.5) gm/dL MCV (80.0-100.0) fL Neutrophils # (1.3-7.7) k/uL Sodium (137-145) mmol/L BUN (9-20) mg/dL POC Glucose (mg/dL) 128 H 109 H 116 H (75-99) mg/dL 09/25/17 09/25/17 09/25/17 Range/Units 05:49 05:49 06:08 WBC 15.2 H (3.8-10.6) k/uL RBC 3.79 L (4.30-5.90) m/uL Hgb 12.8 L (13.0-17.5) gm/dL MCV 103.6 H (80.0-100.0) fL Neutrophils # 13.4 H (1.3-7.7) k/uL Sodium 136 L (137-145) mmol/L BUN 30 H (9-20) mg/dL POC Glucose (mg/dL) 112 H (75-99) mg/dL Assessment and Plan Plan: 1 acute change in mental status, multifactorial. The patient is alcoholic and he presented with severe hyponatremia with a sodium level of 115. On admission. The underlying cause is probably related to Beer potomania. Rule out a component of hypovolemic hyponatremia/SIADH. The patient had a computed tomography scan of the brain that showed diffuse cerebral atrophy without any acute changes. His neurologic exam is nonfocal. His hypernatremia has completely resolved. 2 acute COPD exacerbation, improving. 3 hyponatremia, resolved presently the patient is hypernatremic hence placed on D5 0.45 at 100 mL/h. 4 limited bibasilar pulmonary infiltrates, rule out aspiration pneumonia, currently on IV Zosyn 5 alcoholism 6 smoker 7 obstructive sleep apnea not receiving any CPAP therapy on outpatient basis 8 frequent falls with a blunt trauma to his lower abdomen with some limited bruising. 9 compression fracture of the L4 spine status post kyphoplasty 10 chronic anxiety 11 depression 12 hypertension 13 osteoporosis 14 BPH 15 abnormal swallow evaluation, hence his fluids will be thickened, and we'll watch closely for potential aspiration. Refer to the report by the speech therapist. Recommendation: Continue present supportive care measures, consider discharge planning by early next week to a rehab facility. Time with Patient: Less than 30
[2017-09-25 11:22] LABS: Glucose,Whole Blood 100 mg/dL (75-99)
[2017-09-25] MEDS: PIPERACILLIN-TAZOBACTAM 3.375 GM in DEXTROSE/WATER 1 50ML.BAG IVPB SCH ×2 (11:22→17:02)
[2017-09-25] MEDS: BISACODYL 10 MG SUPP RECTAL SCH (11:26)
--- NOTE | 2017-09-25 14:28 | P.PN ---
Progress Note - Text Progress Note Date: 09/25/17 DATE OF SERVICE: 09/25/2017 PRESENTING COMPLAINT: Increasing weakness HISTORY OF PRESENT ILLNESS: 77-year-old male who presented with increasing generalized weakness shortness of breath and cough. Has a long-standing history of alcohol abuse, stopped drinking in November and restarted again drinking about 4-6 beers a day. On admission found to be severely hyponatremic, elevated JVD, bilateral pleural effusions and was admitted to the ICU for the same. INTERVAL HISTORY: 09/25/2017: Patient seen in follow-up on 6 E. Patient sitting in a chair at the bedside brother present, patient more alert and able to answer all questions clearly and communicate clearly, eating about 75% of his meals which continue to be honey thick liquids and pured diet. Ambulatory with assistance, moved his bowels today. Family would like patient to be considered for rehabilitation, notified case management. Vital signs stable White blood cell count remains elevated, currently continues on IV Zosyn. 09/24/2017: Patient seen in follow-up today in the ICU. Sitting up in bed, brother at the bedside, patient's eating his breakfast approximately 75%. Meals continues to have honey thick liquids and a pured diet. More awake today more alert and able to answer more questions behavior is more appropriate. Remains in atrial fibrillation/sinus rhythm with PACs, rate controlled. Continues to require 2 person assist for transfers due to weakness. White blood cell count continues to be elevated but improving, transferred to 6 E. later today. 09/23/2017: Patient seen in follow-up the ICU today, lying in bed a bit restless able to follow simple straightforward commands. Heart regular remains in atrial fibrillation flutter, on honey thick liquids and pured diet ate about 75% of his breakfast this morning and tolerating, requires 2 person assist for transfers due to weakness, White blood cell count continues to improve albeit slowly, plans to transfer to 6 E. soon as bed available. 09/22/2017: Patient seen in the ICU today, sitting up in a chair alert to self, able to follow simple straightforward commands wants to be discharged home, brother at the bedside. Remains in Atrial/fibrillation/flutter Continues on a pure diet was able to eat about 30% of his breakfast this morning. I blood cell count slowly improving, sodium elevated IV fluids switched to D5W. Patient will likely be transferred to [facility] care later today may require a sitter due to his agitation.Last BM 09/21/2017. 09/21/2017: Patient seen in the ICU today, unable to answer questions received Ativan and Haldol for agitation about 11:30 PM on 09/20/2017. Family at the bedside, patient is unable to stay awake long enough to eat, continues on honey thick liquids and pured diet. Requires assistance to move about the bed and getting in and out of bed. Last BM 09/18/2017. 09/20/2017: Patient seen in the ICU today, not able to answer many questions. Is somewhat redirectable and is restless on exam. Has had some swallowing difficulties speech to evaluate patient today. Not tolerating much food, concerns for aspiration, will await speech evaluation. Requires assistance in and out of bed. REVIEW OF SYSTEMS: Done for constitutional ,cardiovascular, GI, pulmonary with relevant findings as above. CURRENT MEDICATIONS DuoNeb, Pulmicort, Catapres patch 0.1 mg by mouth twice a day, Perforomist, Haldol, heparin 5000 units subcu every 8 hours, hydralazine 10 mg IV push every 6 hours, Solu-Medrol 40 mg IV every 12 hours, nystatin 500,000 units by mouth 4 times a day, Protonix 40 mg IV push daily, Zosyn 3.375 g IV piggyback, Seroquel 25 mg by mouth at bedtime, Flomax 0.4 mg by mouth at bedtime, vitamin B 100 mg IV push daily. PHYSICAL EXAM VITAL SIGNS: Temperature 97.8, pulse 92, respirations 16, blood pressure 115/55, oxygen saturation 95% on room air. GENERAL APPEARANCE: Sitting up in chair, appears comfortable. EYES: Pupils equal. Conjunctiva normal. NECK: JVD not raised. Mass not palpable. RESPIRATORY: Respiratory effort increased. Lungs diminished to auscultation. CARDIOVASCULAR: Irregular rhythm. No edema. ABDOMEN: Soft. Liver and spleen not palpable. No tenderness. No mass palpable. PSYCHIATRY: Alert and oriented x1. Mood and affect somewhat anxious INTEGUMENT: Multiple scattered reddened flat abrasions to the coccyx area, skin intact no drainage, tender to touch. INVESTIGATIONS: White blood cell count 15.2, hemoglobin 12.8, sodium 136, BUN 30, creatinine 1.00. Accu-Cheks noted. 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 IV antibiotics continue for pneumonia. Prognosis is guarded. Will likely discharge on Wednesday to rehab facility. We'll follow closely. [employer]TM CONSULTANT statement: Patient was seen and examined by nurse practitioner Shanel Ahumada and all elements of the case discussed with attending Dr. [place]
[2017-09-25 16:36] LABS: Glucose,Whole Blood 118 mg/dL (75-99)
[2017-09-25] MEDS: TAMSULOSIN 0.4 MG CAP.ER.24H PO SCH (20:25)
[2017-09-25] MEDS: QUEtiapine 25 MG TAB PO SCH (20:25)
[2017-09-25 20:51] LABS: Glucose,Whole Blood 76 mg/dL (75-99)
[2017-09-26] MEDS: PIPERACILLIN-TAZOBACTAM 3.375 GM in DEXTROSE/WATER 1 50ML.BAG IVPB SCH ×4 (00:26→23:41)
[2017-09-26] MEDS: HEPARIN SODIUM,PORCINE 5,000 UNIT/ML 1 ML VIAL SQ SCH ×4 (00:26→23:41)
[2017-09-26] MEDS: NYSTATIN 100,000 UNIT/ML SUSP 500,000 UNIT/5 ML CUP PO SCH ×5 (00:26→19:59)
[2017-09-26 04:20] LABS: Glucose,Whole Blood 117 mg/dL (75-99)
[2017-09-26 06:03] LABS: Glucose,Whole Blood 104 mg/dL (75-99)
[2017-09-26] MEDS: INSULIN ASPART 100 UNIT/ML 1 ML 10 ML VIAL SQ SCH ×4 (06:18→21:31)
[2017-09-26] MEDS: PANTOPRAZOLE SODIUM 40 MG GRANULE PKT PO SCH (06:19)
[2017-09-26 07:11] LABS: Basophils # (A) 0.1 k/uL (0-0.2); Basophils % (A) 0 %; CHCM 33.1; Eosinophils # (A) 0.1 k/uL (0-0.7); Eosinophils % (A) 0 %; HCT 39.6 % (39.0-53.0); HDW 2.27; HGB 12.7 gm/dL (13.0-17.5); Luc # (Auto) 0.11; Luc % (Auto) 1; Lymphocytes # (A) 0.9 k/uL (1.0-4.8); Lymphocytes % (A) 5 %; MCH 32.9 pg (25.0-35.0); MCHC 31.9 g/dL (31.0-37.0); MCV 103.1 fL (80.0-100.0); Macrocytosis Slight; Mean Platelet Volume 9.8; Monocytes # (A) 0.8 k/uL (0-1.0); Monocytes % (A) 5 %; Neutrophils % (A) 89 %; RBC 3.84 m/uL (4.30-5.90); RDW 13.2 % (11.5-15.5); WBC 16.9 k/uL (3.8-10.6); WBC (Perox) 17.98
[2017-09-26 07:28] LABS: Anion Gap 5 mmol/L; Blood Urea Nitrogen 28 mg/dL (9-20); Calcium 8.5 mg/dL (8.4-10.2); Carbon Dioxide 27 mmol/L (22-30); Chloride 105 mmol/L (98-107); Glucose 92 mg/dL (74-99); Non-African American GFR(MDRD) >60 (>60 ml/min/1.73 sqM); Potassium 3.9 mmol/L (3.5-5.1); Sodium 137 mmol/L (137-145)
[2017-09-26] MEDS: cloNIDine HCL 0.1 MG TAB PO SCH ×2 (08:16→19:59)
[2017-09-26] MEDS: methylPREDNISolone SOD SUCCI 40 MG/ML 1 ML VIAL IV SCH (08:16)
[2017-09-26] MEDS: THIAMINE 100 MG/ML 2 ML VIAL IVP SCH (08:16)
[2017-09-26] MEDS: BISACODYL 10 MG SUPP RECTAL SCH (08:19)
[2017-09-26] MEDS: BUDESONIDE 0.5 MG/2 ML NEBU INHALATION SCH ×2 (08:34→20:19)
[2017-09-26] MEDS: FORMOTEROL FUMARATE 20 MCG/2 ML NEBU INHALATION SCH ×2 (08:35→20:19)
[2017-09-26] MEDS: IPRATROPIUM-ALBUTEROL 3 ML NEB INHALATION SCH ×4 (08:35→20:19)
--- NOTE | 2017-09-26 10:33 | P.PN ---
Subjective Progress Note Date: 09/26/17 Principal diagnosis: Acute mental status change and hyponatremia. 77-year-old male patient, advanced COPD, alcoholic with excessive beer drinking approximately 8 bottles of beer daily basis, along with history of hypertension and obstructive sleep apnea, noncompliant to CPAP therapy. The patient has been followed up with Dr. Guerra on outpatient basis, his primary care physician. He comes in yesterday to the emergency department because of altered mentation and generalized weakness. The patient was noted by family members to act unusual, trying to eat napkins and this is not a typical behavior for him and it seems that he was getting progressively more short of breath, anxious, tachypneic and uncomfortable. I was told by his daughter the patient has chronic anxiety for which he was given Paxil at a dose of 30 mg by mouth daily by his primary care physician. He does not take any form of benzodiazepines In the emergency department, the patient was found to be profoundly hyponatremic. His sodium level was 115. In addition, the patient had a potassium level of 3.9, he was hypochloremic with a chloride level of 79 and a serum bicarb of 29. Anion gap was 7. He had a normal renal function with a BUN of 13 and creatinine of 0.9. Liver function tests are within normal limits. -year-old was slightly elevated at 1.6, his lactic acid level was at 1, CPK was mildly elevated at 533, first set of cardiac enzymes/troponin was at 0.012. Urinalysis positive for ketones negative for any infection. The patient was initially admitted to the medical floor. In addition, the patient had He was restless, uncomfortable, tachypneic and short of breath. He was started on bronchodilators. He was given a dose of Lasix. Following that he was admitted to the medical floor. CAT scan of the head done in the emergency department showed moderate degree of atrophy and chronic small vessel ischemic disease without any acute intracranial abnormalities. The patient had a chest x-ray that showed bilateral lower lobe pulmonary infiltrate and small effusion. The chest x-ray was consistent with COPD and there was a mild component of pulmonary vascular congestion. A 1 cm right lower lobe pulmonary nodule cannot be completely excluded on the chest x-ray findings. Overnight, the patient became progressively more short of breath, bronchospastic and wheezy and confused. At a time of arrival to the ICU, the patient was unresponsive. The patient had received a total of 3 mg of Ativan since the emergency department for agitation. At that point, the patient was immediately placed on a BiPAP which is currently on a day setting of 14/5 cm of water with an FiO2 of 35%. He was started on IV Zosyn. He was started on DuoNeb nebulized treatment [id number] on IV Solu-Medrol 60 mg every 6 hours. I also started him on Lasix 40 mg every 12 hours. He is producing adequate amount of urine output in his urine output is more than 100 mL an hour. At a time of my evaluation this morning, the patient was arousable. He would respond to deep painful stimuli. He will move all 4 extremities without any limitation. He would open up his eyes. He is unable to hold a conversation as the patient has a full face BiPAP mask to which she seems to be more synchronous at this point. At times he wakes up spontaneously and he thrashes and he will have a bedside sitter. Serial monitoring of his sodium level showed a sodium level is gradually improving is up to 123. His renal function remains stable. No significant electrolyte imbalance at this point. Repeat chest x-ray in the morning showed no major interval change. Echo was done this morning and there is also still pending. Meanwhile the patient had an echo on 11/19/2016 that showed a preserved LV function without any significant LV dysfunction. The patient also has history of compression fracture of the lumbar spine. On 2016 the patient is being seen for a follow-up. The patient spent the past 24 hours on a BiPAP at a pressure of 14 over 5 cm of water no FiO2 of 35%. He was treated with bronchodilators and systemic steroids and he was also given IV Zosyn for possible left lower lobe aspiration pneumonia. On today's evaluation his last bronchus spastic and wheezy compared to yesterday. He'll be given a trial off the BiPAP and placed on oxygen by nasal cannula. As such, the BiPAP was discontinued. Clinically the patient is more awake compared to yesterday. He opens up his eyes. He followed simple commands. He is moving all 4 extremities without any limitation. He remains lethargic. Less dose of Ativan was around 4 AM this morning. Delirium tremens is still a concern in this patient has been chronic alcoholic. As far as the sodium level, is gradually improving is up to 128. Fluid balance is been negative as the patient has been diuresed with IV Lasix. Echocardiac Wolf showed no acute abnormalities and the LV function is well-preserved. As for the ultrasound of the abdomen, there was no significant abnormalities noted. No significant electrode imbalance and the potassium level and a chloride level and the sodium level gradually improving and normalizing. No fever. No chills. On 09/17/2017 the patient is being seen in follow-up. Note that the patient did well yesterday now was able to get him off the BiPAP yesterday morning. I checked on him yesterday evening and late in afternoon and in the early evening the patient was doing well and he was in the point where he was waking up and following commands and answering questions. He was getting more appropriate . However, later on, the patient became progressively more agitated and confused and overnight he required a total of 2 mg of Ativan and a total of 50 mg of Haldol. This morning it is quite sedated. He is less restless. He was on a BiPAP at a pressure of 14/5 throughout the night and he was taken off the BiPAP again this morning. He has bronchus spastic and wheezy. He has a congested cough. Chest x-ray from today is showing small bilateral pleural effusion left greater than right. There is continuing left basilar airspace disease that is improved from previous evaluation. The patient remains on DuoNeb nebulized treatments around the clock, IV Solu-Medrol, Pulmicort and Perforomist neb last treatment twice a day, and IV Zosyn as empiric antibiotic coverage for possible left lower lobe pneumonia. The patient has a congested cough. Unable to bring up much sputum. At time he gets worked up and he uses abdominal muscles of breathing. No witnessed aspiration. In terms of fluid balance, the patient was placed on normal state rate of 50 mL an hour. Sodium level continues to improve and it's up to 133. Renal function stable with a creatinine of 1.1. The echocardiogram showed a preserved LV function. On 09/18/2017 the patient remains essentially the same condition. His mentation is waxing and waning. He gets agitated and restless and he requires Ativan and Haldol. Noted the patient arouses in between. He sometimes follows simple commands and answer simple questions. Yet when he gets agitated he required Haldol and he becomes more sedated. I think this is a manifestation of delirium tremens noted the patient is an alcoholic and he will need another few days to fully recovers from this episode. He is hemodynamically stable. On and off is requiring BiPAP for respiratory support. Whenever agitated his blood pressure rises and the patient would require IV Lopressor for heart rate and blood pressure control. No aspiration. He remains nothing by mouth. Chest x-ray is still showing no acute pulmonary infiltration or pneumonias. The patient is also being cheered for his acute COPD exacerbation with a combination of DuoNeb nebulized treatments around the clock, Pulmicort Respules , Perforomist neb last treatment and systemic steroids. He is producing adequate amount of urine output and 50 mL an hour of normal saline. The patient is also normalized his sodium level and the rest of the electrolytes. On 09/19/2017, the patient is slightly improved compared to yesterday. Overnight he required only 1 mg of Haldol and he was less agitated and he was able to tolerate the BiPAP without any major difficulties. This morning, he is opening his eyes and holding some simple conversations. He was able to recognize his daughter the bedside. He is moving all 4 extremities. No focal neurological deficit at this point. He is still nothing by mouth. Chest x- rays showing a stable left lower lobe consolidation. No fever. No chills. No chest pain. No hemodynamic instability. Sodium level has normalized. The rest of the electrodes are all within normal limits. He is less bronchospastic and wheezy also in terms of his COPD exacerbation. On 09/20/2017, patient seems to be gradually improving, he had intermittent episodes of agitation last night, but today he seems to be very appropriate, in no form of distress, recognizing relatives around him, oriented to place but not to time. Chest x-ray continues to show left lower lobe airspace disease/ pneumonia. Swallow evaluation report is pending at this time. Patient remains nothing by mouth. Blood pressure is elevated, hence I recommended Apresoline for elevated blood pressure. I also recommended that we keep the patient in the ICU for one more day today. Labs were reviewed, renal profile is relatively unremarkable, sodium is 144. CBC is relatively normal. On 09/21/2017, patient continues to have intermittent episodes of agitation and confusions, received multiple doses of Ativan yesterday along with Haldol, patient is lethargic today, however he is arousable, and follows simple instructions. Seems to be a bit more confused compared to yesterday. Chest x- ray continues to show left lower lobe airspace disease. The patient remains intermittently elevated, however he is receiving Apresoline. CBC showed WBC count of 11.4 hemoglobin is 13.3 basic metabolic profile is normal sodium is back to normal. On 09/22/2017, patient seems to be more appropriate today, awake, follows simple instructions, not fully oriented to time and place. Did require Ativan and Haldol last night for extreme agitation. But seems to be much improved today. His brother Ester is at bedside, and he feels that the patient is much more appropriate today compared to yesterday. His sodium however is 149, and we will correct that by changing his IV fluid to D5W. WBC count is 15.7. Hemoglobin is 13.7 I discussed the plan to may be transfer the patient out of the ICU to a monitored bed on selective however the patient will need to have a sitter next to him at all times. On 09/23/2017, patient continues to show steady improvement in his mental status over the last few days. Today is the best he has been, seems to be more awake, alert, oriented, and in no distress. Patient is presently a selective overflow. His sodium remains high, hence I increased his IV fluid, presently on D5W at 100 and hour. His BUN was noted to be elevated and creatinine is 1.47 , I believe this is a picture reflecting free water deficit and dehydration. The rest of the labs were relatively unremarkable. On 09/24/2017, patient is feeling much better today, relatively asymptomatic, more appropriate, alert oriented 3, patient denies any shortness of breath, no cough, no wheezing, no chest pain. Urine output has been marginal. Patient developed slightly low blood pressure last night, and he had to be placed on norepinephrine for a very short. This time. Patient did receive fluid boluses. Today's sodium is much improved, and I have recommended switching his IV fluid from D5 W-to D5 45. WBC count is 21.7 hemoglobin is 13.6 sodium is 137 BUN is 39 and creatinine is 1.21. Chest x-ray from yesterday showed better aeration of the lower lobes, and his questionable infiltrate in the left lower lobe seems to be improving. Patient remains on Zosyn in the meantime On 09/25/2017, patient continues to improve, denies any specific complaints, alert oriented 3, sitting with his brother Ester and seems to be extremely appropriate. Patient is asymptomatic, and he is able to walk to the bathroom. His delirium and his mental status has completely cleared. Labs were reviewed electrolytes are normal renal profile is normal CBC is relatively normal except for WBC count of 15.2. Reevaluated today on 09/2017, patient continues to do well, today he is even much better, asymptomatic, alert oriented and very appropriate. WBC count is 16.9 hemoglobin is 12.7 and basic metabolic profile is relatively normal. Objective - Vital Signs Vital signs: Vital Signs Temp 97.6 F 09/26/17 08:20 Pulse 92 09/26/17 08:54 Resp 18 09/26/17 08:20 BP 117/70 09/26/17 08:20 Pulse Ox 93 L 09/26/17 08:35 Intake & Output 09/25/17 09/26/17 09/26/17 18:59 06:59 18:59 Intake Total 720 300 Output Total 250 Balance 720 -250 300 Weight 84 kg Intake: Oral 720 300 Output: Urine 250 Other: Voiding Method Indwelling Catheter Indwelling Catheter Indwelling Catheter # Voids 0 - Exam Physical Exam: Revealed a 77-year-old white male in no distress. HEENT:[Neck is supple.] [No neck masses.] [No thyromegaly.] [No JVD.] Chest: Clear throughout, no crackles or rhonchi or wheezes. Cardiac Exam: [Normal S1 and S2, no S3 gallop, no murmur.] Abdomen: [Soft, nontender, no megaly, no rebound, no guarding, normal bowel sounds.] Extremities: [No clubbing, no edema, no cyanosis.] Neurological Exam: [No focal neurologic deficit. Psychiatric: Normal mood and affect, normal mental status examination. Lymphatics: No lymphadenopathy. Musculoskeletal: No limitations in range of motion, no deformities noted.] - Labs CBC & Chem 7: 09/26/17 06:29 09/26/17 06:29 Labs: Abnormal Lab Results - Last 24 Hours (Table) 09/25/17 09/25/17 09/26/17 Range/Units 11:15 16:19 04:17 WBC (3.8-10.6) k/uL RBC (4.30-5.90) m/uL Hgb (13.0-17.5) gm/dL MCV (80.0-100.0) fL Neutrophils # (1.3-7.7) k/uL Lymphocytes # (1.0-4.8) k/uL BUN (9-20) mg/dL POC Glucose (mg/dL) 100 H 118 H 117 H (75-99) mg/dL 09/26/17 09/26/17 09/26/17 Range/Units 06:02 06:29 06:29 WBC 16.9 H (3.8-10.6) k/uL RBC 3.84 L (4.30-5.90) m/uL Hgb 12.7 L (13.0-17.5) gm/dL MCV 103.1 H (80.0-100.0) fL Neutrophils # 15.0 H (1.3-7.7) k/uL Lymphocytes # 0.9 L (1.0-4.8) k/uL BUN 28 H (9-20) mg/dL POC Glucose (mg/dL) 104 H (75-99) mg/dL Assessment and Plan Plan: 1 acute change in mental status, multifactorial. The patient is alcoholic and he presented with severe hyponatremia with a sodium level of 115. On admission. The underlying cause is probably related to Beer potomania. Rule out a component of hypovolemic hyponatremia/SIADH. The patient had a computed tomography scan of the brain that showed diffuse cerebral atrophy without any acute changes. His neurologic exam is nonfocal. His hypernatremia has completely resolved. 2 acute COPD exacerbation, improving. 3 hyponatremia, resolved presently the patient is hypernatremic hence placed on D5 0.45 at 100 mL/h. 4 limited bibasilar pulmonary infiltrates, rule out aspiration pneumonia, currently on IV Zosyn 5 alcoholism 6 smoker 7 obstructive sleep apnea not receiving any CPAP therapy on outpatient basis 8 frequent falls with a blunt trauma to his lower abdomen with some limited bruising. 9 compression fracture of the L4 spine status post kyphoplasty 10 chronic anxiety 11 depression 12 hypertension 13 osteoporosis 14 BPH 15 abnormal swallow evaluation, hence his fluids will be thickened, and we'll watch closely for potential aspiration. Refer to the report by the speech therapist. Recommendation: Clear for possible discharge to a rehab facility in a.m. Time with Patient: Less than 30
[2017-09-26 11:59] LABS: Glucose,Whole Blood 108 mg/dL (75-99)
--- NOTE | 2017-09-26 13:26 | P.PN ---
Progress Note - Text Progress Note Date: 09/26/17 DATE OF SERVICE: 09/26/2017 PRESENTING COMPLAINT: Increasing weakness HISTORY OF PRESENT ILLNESS: 77-year-old male who presented with increasing generalized weakness shortness of breath and cough. Has a long-standing history of alcohol abuse, stopped drinking in November and restarted again drinking about 4-6 beers a day. On admission found to be severely hyponatremic, elevated JVD, bilateral pleural effusions and was admitted to the ICU for the same. INTERVAL HISTORY: 09/26/2017: Patient seen in follow-up on 6 E. Patient sitting in a chair, brother at the bedside. Patient is able fully converse, alert and oriented conversation appropriate. No further swallowing difficulties, complaining of pured diet, doesn't care for it. Bedside swallow performed patient has no difficulties diet changed to soft diet. Honey thickened liquids remain. Breathing is much improved, no cough noted, currently on room air. Heart rhythm remains in atrial fibrillation.White blood cell count remains elevated, continues on Zosyn. Appetite is good. Ambulatory with assistance, moved his bowels 2016. Tentative discharge planning for [facility]. 09/25/2017: Patient seen in follow-up on 6 E. Patient sitting in a chair at the bedside brother present, patient more alert and able to answer all questions clearly and communicate clearly, eating about 75% of his meals which continue to be honey thick liquids and pured diet. Ambulatory with assistance, moved his bowels today. Family would like patient to be considered for rehabilitation, notified case management. Vital signs stable White blood cell count remains elevated, currently continues on IV Zosyn. 09/24/2017: Patient seen in follow-up today in the ICU. Sitting up in bed, brother at the bedside, patient's eating his breakfast approximately 75%. Meals continues to have honey thick liquids and a pured diet. More awake today more alert and able to answer more questions behavior is more appropriate. Remains in atrial fibrillation/sinus rhythm with PACs, rate controlled. Continues to require 2 person assist for transfers due to weakness. White blood cell count continues to be elevated but improving, transferred to 6 E. later today. 09/23/2017: Patient seen in follow-up the ICU today, lying in bed a bit restless able to follow simple straightforward commands. Heart regular remains in atrial fibrillation flutter, on honey thick liquids and pured diet ate about 75% of his breakfast this morning and tolerating, requires 2 person assist for transfers due to weakness, White blood cell count continues to improve albeit slowly, plans to transfer to 6 E. soon as bed available. 09/22/2017: Patient seen in the ICU today, sitting up in a chair alert to self, able to follow simple straightforward commands wants to be discharged home, brother at the bedside. Remains in Atrial/fibrillation/flutter Continues on a pure diet was able to eat about 30% of his breakfast this morning. I blood cell count slowly improving, sodium elevated IV fluids switched to D5W. Patient will likely be transferred to [facility] care later today may require a sitter due to his agitation.Last BM 09/21/2017. 09/21/2017: Patient seen in the ICU today, unable to answer questions received Ativan and Haldol for agitation about 11:30 PM on 09/20/2017. Family at the bedside, patient is unable to stay awake long enough to eat, continues on honey thick liquids and pured diet. Requires assistance to move about the bed and getting in and out of bed. Last BM 09/18/2017. 09/20/2017: Patient seen in the ICU today, not able to answer many questions. Is somewhat redirectable and is restless on exam. Has had some swallowing difficulties speech to evaluate patient today. Not tolerating much food, concerns for aspiration, will await speech evaluation. Requires assistance in and out of bed. REVIEW OF SYSTEMS: Done for constitutional ,cardiovascular, GI, pulmonary with relevant findings as above. CURRENT MEDICATIONS DuoNeb, Pulmicort, Catapres 0.1 mg by mouth twice a day, Perforomist, Haldol, heparin 5000 units subcu every 8 hours, hydralazine 10 mg IV push every 6 hours , Solu-Medrol 40 mg IV every 12 hours, nystatin 500,000 units by mouth 4 times a day, Protonix 40 mg IV push daily, Zosyn 3.375 g IV piggyback, Seroquel 25 mg by mouth at bedtime, Flomax 0.4 mg by mouth at bedtime, vitamin B 100 mg IV push daily. PHYSICAL EXAM VITAL SIGNS: Temperature 97.7, pulse 76, respiratory rate 16, blood pressure 117/70, oxygen saturation 93% on room air. GENERAL APPEARANCE: Sitting up in chair, appears comfortable. EYES: Pupils equal. Conjunctiva normal. NECK: JVD not raised. Mass not palpable. RESPIRATORY: Respiratory effort increased. Lungs diminished to auscultation. CARDIOVASCULAR: Irregular rhythm. No edema. ABDOMEN: Soft. Liver and spleen not palpable. No tenderness. No mass palpable. PSYCHIATRY: Alert and oriented x1. Mood and affect somewhat anxious INTEGUMENT: Multiple scattered reddened flat abrasions to the coccyx area, skin intact no drainage, tender to touch. INVESTIGATIONS: White blood cell count 16.9, hemoglobin 12.7, BUN 28 Accu-Cheks noted. 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 Taper steroids, IV antibiotics continue for pneumonia. Prognosis is guarded. Will likely discharge on Wednesday to rehab facility. Plan of care discussed at bedside with patient and brother, they are in agreement. We'll follow closely. HADOOP DEVELOPER statement: Patient was seen and examined by nurse practitioner Shanel Ahumada and all elements of the case discussed with attending Dr. Spain
[2017-09-26 16:48] LABS: Glucose,Whole Blood 118 mg/dL (75-99)
--- NOTE | 2017-09-26 19:29 | PN ---
PROGRESS NOTE DATE OF SERVICE: 09/26/17. ATTENDING NOTE: Patient was seen and examined by me. I discussed with nurse practitioner, Ms. Ahumada. Patient doing better. Tolerating a diet. Had a bowel movement. Far more perky. PHYSICAL EXAMINATION: Temperature 97.5, pulse 76, blood pressure 112/75. LUNGS: Decreased breath sounds. Cardiovascular first and second sounds normal. Awake, answering questions appropriately. INVESTIGATIONS: White count 16.9, potassium 3.9. ASSESSMENT: Multiple medical problems. Doing much better. MMODL / IJN: [id number] /
[2017-09-26] MEDS: TAMSULOSIN 0.4 MG CAP.ER.24H PO SCH (19:59)
[2017-09-26] MEDS: QUEtiapine 25 MG TAB PO SCH (19:59)
[2017-09-26 21:20] LABS: Glucose,Whole Blood 96 mg/dL (75-99)
[2017-09-27] MEDS: ACETAMINOPHEN TAB 325 MG TAB PO PRN ×4 (03:02→21:02)
[2017-09-27 06:10] LABS: Basophils # (A) 0.1 k/uL (0-0.2); Basophils % (A) 0 %; CH 32.9; CHCM 32.4; Eosinophils # (A) 0.4 k/uL (0-0.7); Eosinophils % (A) 2 %; HCT 36.6 % (39.0-53.0); HDW 2.18; Luc # (Auto) 0.16; Luc % (Auto) 1; Lymphocytes # (A) 1.3 k/uL (1.0-4.8); Lymphocytes % (A) 9 %; MCH 33.5 pg (25.0-35.0); MCHC 32.8 g/dL (31.0-37.0); MCV 102.1 fL (80.0-100.0); Macrocytosis Slight; Mean Platelet Volume 10.6; Monocytes # (A) 1.1 k/uL (0-1.0); Monocytes % (A) 7 %; Neutrophils % (A) 80 %; RBC 3.59 m/uL (4.30-5.90); RDW 14.1 % (11.5-15.5); WBC (Perox) 13.61
[2017-09-27 06:22] LABS: Anion Gap 2 mmol/L; Blood Urea Nitrogen 24 mg/dL (9-20); Calcium 8.6 mg/dL (8.4-10.2); Carbon Dioxide 27 mmol/L (22-30); Chloride 105 mmol/L (98-107); Glucose 78 mg/dL (74-99); Non-African American GFR(MDRD) >60 (>60 ml/min/1.73 sqM); Potassium 3.9 mmol/L (3.5-5.1); Sodium 134 mmol/L (137-145)
[2017-09-27] MEDS: INSULIN ASPART 100 UNIT/ML 1 ML 10 ML VIAL SQ SCH ×4 (06:22→21:22)
[2017-09-27 06:23] LABS: Glucose,Whole Blood 97 mg/dL (75-99)
[2017-09-27] MEDS: PANTOPRAZOLE SODIUM 40 MG GRANULE PKT PO SCH (06:24)
[2017-09-27] MEDS: BUDESONIDE 0.5 MG/2 ML NEBU INHALATION SCH ×2 (09:04→19:43)
[2017-09-27] MEDS: IPRATROPIUM-ALBUTEROL 3 ML NEB INHALATION SCH ×4 (09:04→19:46)
[2017-09-27] MEDS: HEPARIN SODIUM,PORCINE 5,000 UNIT/ML 1 ML VIAL SQ SCH ×2 (09:14→19:37)
[2017-09-27] MEDS: methylPREDNISolone SOD SUCCI 40 MG/ML 1 ML VIAL IV SCH (09:15)
[2017-09-27] MEDS: cloNIDine HCL 0.1 MG TAB PO SCH ×2 (09:15→21:02)
[2017-09-27] MEDS: PIPERACILLIN-TAZOBACTAM 3.375 GM in DEXTROSE/WATER 1 50ML.BAG IVPB SCH (09:15)
[2017-09-27] MEDS: NYSTATIN 100,000 UNIT/ML SUSP 500,000 UNIT/5 ML CUP PO SCH ×4 (09:15→21:01)
[2017-09-27] MEDS: THIAMINE 100 MG/ML 2 ML VIAL IVP SCH (09:16)
[2017-09-27] MEDS: BISACODYL 10 MG SUPP RECTAL SCH (09:16)
[2017-09-27] MEDS: FORMOTEROL FUMARATE 20 MCG/2 ML NEBU INHALATION SCH ×2 (09:18→19:43)
[2017-09-27 11:41] LABS: Glucose,Whole Blood 171 mg/dL (75-99)
[2017-09-27] MEDS: NICOTINE 14MG/24HR PATCH TRANSDERM SCH (12:45)
--- NOTE | 2017-09-27 14:25 | P.PN ---
Subjective Progress Note Date: 09/27/17 Principal diagnosis: Acute mental status change and hyponatremia 77-year-old male patient, advanced COPD, alcoholic with excessive beer drinking approximately 8 bottles of beer daily basis, along with history of hypertension and obstructive sleep apnea, noncompliant to CPAP therapy. The patient has been followed up with Dr. Guerra on outpatient basis, his primary care physician. He comes in yesterday to the emergency department because of altered mentation and generalized weakness. The patient was noted by family members to act unusual, trying to eat napkins and this is not a typical behavior for him and it seems that he was getting progressively more short of breath, anxious, tachypneic and uncomfortable. I was told by his daughter the patient has chronic anxiety for which he was given Paxil at a dose of 30 mg by mouth daily by his primary care physician. He does not take any form of benzodiazepines In the emergency department, the patient was found to be profoundly hyponatremic. His sodium level was 115. In addition, the patient had a potassium level of 3.9, he was hypochloremic with a chloride level of 79 and a serum bicarb of 29. Anion gap was 7. He had a normal renal function with a BUN of 13 and creatinine of 0.9. Liver function tests are within normal limits. -year-old was slightly elevated at 1.6, his lactic acid level was at 1, CPK was mildly elevated at 533, first set of cardiac enzymes/troponin was at 0.012. Urinalysis positive for ketones negative for any infection. The patient was initially admitted to the medical floor. In addition, the patient had He was restless, uncomfortable, tachypneic and short of breath. He was started on bronchodilators. He was given a dose of Lasix. Following that he was admitted to the medical floor. CAT scan of the head done in the emergency department showed moderate degree of atrophy and chronic small vessel ischemic disease without any acute intracranial abnormalities. The patient had a chest x-ray that showed bilateral lower lobe pulmonary infiltrate and small effusion. The chest x-ray was consistent with COPD and there was a mild component of pulmonary vascular congestion. A 1 cm right lower lobe pulmonary nodule cannot be completely excluded on the chest x-ray findings. Overnight, the patient became progressively more short of breath, bronchospastic and wheezy and confused. At a time of arrival to the ICU, the patient was unresponsive. The patient had received a total of 3 mg of Ativan since the emergency department for agitation. At that point, the patient was immediately placed on a BiPAP which is currently on a day setting of 14/5 cm of water with an FiO2 of 35%. He was started on IV Zosyn. He was started on DuoNeb nebulized treatment [id number] on IV Solu-Medrol 60 mg every 6 hours. I also started him on Lasix 40 mg every 12 hours. He is producing adequate amount of urine output in his urine output is more than 100 mL an hour. At a time of my evaluation this morning, the patient was arousable. He would respond to deep painful stimuli. He will move all 4 extremities without any limitation. He would open up his eyes. He is unable to hold a conversation as the patient has a full face BiPAP mask to which she seems to be more synchronous at this point. At times he wakes up spontaneously and he thrashes and he will have a bedside sitter. Serial monitoring of his sodium level showed a sodium level is gradually improving is up to 123. His renal function remains stable. No significant electrolyte imbalance at this point. Repeat chest x-ray in the morning showed no major interval change. Echo was done this morning and there is also still pending. Meanwhile the patient had an echo on 11/19/2016 that showed a preserved LV function without any significant LV dysfunction. The patient also has history of compression fracture of the lumbar spine. On 2016 the patient is being seen for a follow-up. The patient spent the past 24 hours on a BiPAP at a pressure of 14 over 5 cm of water no FiO2 of 35%. He was treated with bronchodilators and systemic steroids and he was also given IV Zosyn for possible left lower lobe aspiration pneumonia. On today's evaluation his last bronchus spastic and wheezy compared to yesterday. He'll be given a trial off the BiPAP and placed on oxygen by nasal cannula. As such, the BiPAP was discontinued. Clinically the patient is more awake compared to yesterday. He opens up his eyes. He followed simple commands. He is moving all 4 extremities without any limitation. He remains lethargic. Less dose of Ativan was around 4 AM this morning. Delirium tremens is still a concern in this patient has been chronic alcoholic. As far as the sodium level, is gradually improving is up to 128. Fluid balance is been negative as the patient has been diuresed with IV Lasix. Echocardiac Wolf showed no acute abnormalities and the LV function is well-preserved. As for the ultrasound of the abdomen, there was no significant abnormalities noted. No significant electrode imbalance and the potassium level and a chloride level and the sodium level gradually improving and normalizing. No fever. No chills. On 09/17/2017 the patient is being seen in follow-up. Note that the patient did well yesterday now was able to get him off the BiPAP yesterday morning. I checked on him yesterday evening and late in afternoon and in the early evening the patient was doing well and he was in the point where he was waking up and following commands and answering questions. He was getting more appropriate . However, later on, the patient became progressively more agitated and confused and overnight he required a total of 2 mg of Ativan and a total of 50 mg of Haldol. This morning it is quite sedated. He is less restless. He was on a BiPAP at a pressure of 14/5 throughout the night and he was taken off the BiPAP again this morning. He has bronchus spastic and wheezy. He has a congested cough. Chest x-ray from today is showing small bilateral pleural effusion left greater than right. There is continuing left basilar airspace disease that is improved from previous evaluation. The patient remains on DuoNeb nebulized treatments around the clock, IV Solu-Medrol, Pulmicort and Perforomist neb last treatment twice a day, and IV Zosyn as empiric antibiotic coverage for possible left lower lobe pneumonia. The patient has a congested cough. Unable to bring up much sputum. At time he gets worked up and he uses abdominal muscles of breathing. No witnessed aspiration. In terms of fluid balance, the patient was placed on normal state rate of 50 mL an hour. Sodium level continues to improve and it's up to 133. Renal function stable with a creatinine of 1.1. The echocardiogram showed a preserved LV function. On 09/18/2017 the patient remains essentially the same condition. His mentation is waxing and waning. He gets agitated and restless and he requires Ativan and Haldol. Noted the patient arouses in between. He sometimes follows simple commands and answer simple questions. Yet when he gets agitated he required Haldol and he becomes more sedated. I think this is a manifestation of delirium tremens noted the patient is an alcoholic and he will need another few days to fully recovers from this episode. He is hemodynamically stable. On and off is requiring BiPAP for respiratory support. Whenever agitated his blood pressure rises and the patient would require IV Lopressor for heart rate and blood pressure control. No aspiration. He remains nothing by mouth. Chest x-ray is still showing no acute pulmonary infiltration or pneumonias. The patient is also being cheered for his acute COPD exacerbation with a combination of DuoNeb nebulized treatments around the clock, Pulmicort Respules , Perforomist neb last treatment and systemic steroids. He is producing adequate amount of urine output and 50 mL an hour of normal saline. The patient is also normalized his sodium level and the rest of the electrolytes. On 09/19/2017, the patient is slightly improved compared to yesterday. Overnight he required only 1 mg of Haldol and he was less agitated and he was able to tolerate the BiPAP without any major difficulties. This morning, he is opening his eyes and holding some simple conversations. He was able to recognize his daughter the bedside. He is moving all 4 extremities. No focal neurological deficit at this point. He is still nothing by mouth. Chest x- rays showing a stable left lower lobe consolidation. No fever. No chills. No chest pain. No hemodynamic instability. Sodium level has normalized. The rest of the electrodes are all within normal limits. He is less bronchospastic and wheezy also in terms of his COPD exacerbation. On 09/20/2017, patient seems to be gradually improving, he had intermittent episodes of agitation last night, but today he seems to be very appropriate, in no form of distress, recognizing relatives around him, oriented to place but not to time. Chest x-ray continues to show left lower lobe airspace disease/ pneumonia. Swallow evaluation report is pending at this time. Patient remains nothing by mouth. Blood pressure is elevated, hence I recommended Apresoline for elevated blood pressure. I also recommended that we keep the patient in the ICU for one more day today. Labs were reviewed, renal profile is relatively unremarkable, sodium is 144. CBC is relatively normal. On 09/21/2017, patient continues to have intermittent episodes of agitation and confusions, received multiple doses of Ativan yesterday along with Haldol, patient is lethargic today, however he is arousable, and follows simple instructions. Seems to be a bit more confused compared to yesterday. Chest x- ray continues to show left lower lobe airspace disease. The patient remains intermittently elevated, however he is receiving Apresoline. CBC showed WBC count of 11.4 hemoglobin is 13.3 basic metabolic profile is normal sodium is back to normal. On 09/22/2017, patient seems to be more appropriate today, awake, follows simple instructions, not fully oriented to time and place. Did require Ativan and Haldol last night for extreme agitation. But seems to be much improved today. His brother Ester is at bedside, and he feels that the patient is much more appropriate today compared to yesterday. His sodium however is 149, and we will correct that by changing his IV fluid to D5W. WBC count is 15.7. Hemoglobin is 13.7 I discussed the plan to may be transfer the patient out of the ICU to a monitored bed on selective however the patient will need to have a sitter next to him at all times. On 09/23/2017, patient continues to show steady improvement in his mental status over the last few days. Today is the best he has been, seems to be more awake, alert, oriented, and in no distress. Patient is presently a selective overflow. His sodium remains high, hence I increased his IV fluid, presently on D5W at 100 and hour. His BUN was noted to be elevated and creatinine is 1.47 , I believe this is a picture reflecting free water deficit and dehydration. The rest of the labs were relatively unremarkable. On 09/24/2017, patient is feeling much better today, relatively asymptomatic, more appropriate, alert oriented 3, patient denies any shortness of breath, no cough, no wheezing, no chest pain. Urine output has been marginal. Patient developed slightly low blood pressure last night, and he had to be placed on norepinephrine for a very short. This time. Patient did receive fluid boluses. Today's sodium is much improved, and I have recommended switching his IV fluid from D5 W-to D5 45. WBC count is 21.7 hemoglobin is 13.6 sodium is 137 BUN is 39 and creatinine is 1.21. Chest x-ray from yesterday showed better aeration of the lower lobes, and his questionable infiltrate in the left lower lobe seems to be improving. Patient remains on Zosyn in the meantime On 09/25/2017, patient continues to improve, denies any specific complaints, alert oriented 3, sitting with his brother Ester and seems to be extremely appropriate. Patient is asymptomatic, and he is able to walk to the bathroom. His delirium and his mental status has completely cleared. Labs were reviewed electrolytes are normal renal profile is normal CBC is relatively normal except for WBC count of 15.2. Reevaluated today on 09/2017, patient continues to do well, today he is even much better, asymptomatic, alert oriented and very appropriate. WBC count is 16.9 hemoglobin is 12.7 and basic metabolic profile is relatively normal. On 09/27/2017 patient is seen in follow-up on selective care, he sits up in the chair, in no acute distress. He states he is feeling much better today, occasional productive cough with small amount of brownish sputum. Lung sounds diminished air entry bilaterally, but no rhonchi, no wheezes, no rales. His oxygenation is stable on room air with O2 sat 98%. He has been afebrile since admission. His sodium is at 134 today, BUN is 24, and creatinine is 1.1. White count is trending down is down to 15 today. Sputum culture was positive for Corynebacterium striata and Klebsiella oxytoca with sensitivity to Zosyn. Discharge planning is in progress for discharge to rehab in the next 24 hours. Objective - Vital Signs Vital signs: Vital Signs Temp 97.9 F 09/27/17 08:30 Pulse 93 09/27/17 12:10 Resp 18 09/27/17 08:30 BP 147/98 09/27/17 08:30 Pulse Ox 98 09/27/17 09:05 Intake & Output 09/26/17 09/27/17 09/27/17 18:59 06:59 18:59 Intake Total 1180 180 Output Total 100 Balance 1080 180 Weight 86 kg Intake: Oral 1080 180 Tube Feeding 100 Output: Urine 100 Other: Voiding Method Indwelling Catheter Urinal Urinal # Voids 1 2 # Bowel Movements 1 - Exam Physical Exam: Revealed a 77-year-old white male in no distress. HEENT:[Neck is supple.] [No neck masses.] [No thyromegaly.] [No JVD.] Chest: Clear throughout, no crackles or rhonchi or wheezes. Diminished air entry, sounds diminished at the bases. Cardiac Exam: [Normal S1 and S2, no S3 gallop, no murmur.] Abdomen: [Soft, nontender, no megaly, no rebound, no guarding, normal bowel sounds.] Extremities: [No clubbing, no edema, no cyanosis.] Neurological Exam: [No focal neurologic deficit. Psychiatric: Normal mood and affect, normal mental status examination. Lymphatics: No lymphadenopathy. Musculoskeletal: No limitations in range of motion, no deformities noted.] - Labs CBC & Chem 7: 09/27/17 05:53 09/27/17 05:53 Labs: Abnormal Lab Results - Last 24 Hours (Table) 09/26/17 09/27/17 09/27/17 Range/Units 16:38 05:53 05:53 WBC 15.0 H (3.8-10.6) k/uL RBC 3.59 L (4.30-5.90) m/uL Hgb 12.0 L (13.0-17.5) gm/dL Hct 36.6 L (39.0-53.0) % MCV 102.1 H (80.0-100.0) fL Neutrophils # 12.0 H (1.3-7.7) k/uL Monocytes # 1.1 H (0-1.0) k/uL Sodium 134 L (137-145) mmol/L BUN 24 H (9-20) mg/dL POC Glucose (mg/dL) 118 H (75-99) mg/dL 09/27/17 Range/Units 11:40 WBC (3.8-10.6) k/uL RBC (4.30-5.90) m/uL Hgb (13.0-17.5) gm/dL Hct (39.0-53.0) % MCV (80.0-100.0) fL Neutrophils # (1.3-7.7) k/uL Monocytes # (0-1.0) k/uL Sodium (137-145) mmol/L BUN (9-20) mg/dL POC Glucose (mg/dL) 171 H (75-99) mg/dL Assessment and Plan Plan: 1 acute change in mental status, multifactorial. The patient is alcoholic and he presented with severe hyponatremia with a sodium level of 115. On admission. The underlying cause is probably related to Beer potomania. Rule out a component of hypovolemic hyponatremia/SIADH. The patient had a computed tomography scan of the brain that showed diffuse cerebral atrophy without any acute changes. His neurologic exam is nonfocal. His hypernatremia has completely resolved. 2 acute COPD exacerbation, improving. 3 hyponatremia, resolved, patient is tolerating oral intake, IV fluids have been discontinued. 4 limited bibasilar pulmonary infiltrates, rule out aspiration pneumonia, currently on IV Zosyn 5 alcoholism 6 smoker 7 obstructive sleep apnea not receiving any CPAP therapy on outpatient basis 8 frequent falls with a blunt trauma to his lower abdomen with some limited bruising. 9 compression fracture of the L4 spine status post kyphoplasty 10 chronic anxiety 11 depression 12 hypertension 13 osteoporosis 14 BPH 15 abnormal swallow evaluation, hence his fluids will be thickened, and we'll watch closely for potential aspiration. Refer to the report by the speech therapist. Recommendation: Patient is doing well, in no acute distress, stable oxygenation on room air. No specific complaints at this time, no acute events overnight. Continues on nectar thick liquids for aspiration precautions. Serum sodium is 134 today. Continues on Zosyn for antibiotic coverage for Corynebacterium striata, Klebsiella oxytoca and the sputum culture. Start planning is in progress for transfer to rehabilitation center. From pulmonary standpoint patient is stable for discharge to rehab. Time with Patient: Less than 30
[2017-09-27 14:29] VITALS: BMI 27.1
[2017-09-27 16:54] LABS: Glucose,Whole Blood 108 mg/dL (75-99)
[2017-09-27 20:49] LABS: Glucose,Whole Blood 145 mg/dL (75-99)
[2017-09-27] MEDS: QUEtiapine 25 MG TAB PO SCH (21:02)
[2017-09-27] MEDS: TAMSULOSIN 0.4 MG CAP.ER.24H PO SCH (21:02)
--- NOTE | 2017-09-27 21:37 | PN ---
PROGRESS NOTE DATE OF SERVICE: 09/27/2017 ATTENDING NOTE: Patient was seen and examined by me. I discussed with my nurse practitioner, Ms. Ahumada. The patient continues to improve, seen by Speech Therapy, who has advanced her to a soft diet with nectar-thick liquids. The patient is much more chirpy. EXAMINATION: Afebrile, blood pressure 116/73, pulse ox 99% on room air. LUNGS: Diminished breath sounds. Awake, answering questions. INVESTIGATION: White count 15, hemoglobin 12.0. Potassium 3.9. ASSESSMENT: Multiple medical problems, including pneumonia, clinically greatly improved. PLAN: Awaiting transfer to [facility]. Will cut back on the dose of Seroquel to 12.5. Antibiotics can now be discontinued. Care was discussed with the patient. Patient is rather excited about going to the rehab. LINO / [place]: [id number] /
[2017-09-28] MEDS: HEPARIN SODIUM,PORCINE 5,000 UNIT/ML 1 ML VIAL SQ SCH ×2 (00:23→08:57)
[2017-09-28] MEDS: ACETAMINOPHEN TAB 325 MG TAB PO PRN ×3 (00:55→09:03)
[2017-09-28] MEDS: BENZOCAINE/MENTHOL LOZENG 1 EACH LOZENGE MUCOUS MEM PRN ×2 (04:18→12:35)
[2017-09-28 06:03] LABS: Glucose,Whole Blood 89 mg/dL (75-99)
[2017-09-28] MEDS: INSULIN ASPART 100 UNIT/ML 1 ML 10 ML VIAL SQ SCH ×2 (06:26→12:37)
[2017-09-28 06:27] LABS: Basophils # (A) 0.1 k/uL (0-0.2); Basophils % (A) 0 %; CH 33.9; CHCM 33.2; Eosinophils # (A) 0.2 k/uL (0-0.7); Eosinophils % (A) 1 %; HCT 39.9 % (39.0-53.0); HDW 2.34; HGB 13.1 gm/dL (13.0-17.5); Luc # (Auto) 0.19; Luc % (Auto) 1; Lymphocytes # (A) 1.9 k/uL (1.0-4.8); Lymphocytes % (A) 11 %; MCH 33.5 pg (25.0-35.0); MCHC 32.7 g/dL (31.0-37.0); MCV 102.4 fL (80.0-100.0); Macrocytosis Slight; Mean Platelet Volume 9.6; Monocytes # (A) 0.9 k/uL (0-1.0); Monocytes % (A) 5 %; Neutrophils # (A) 14.3 k/uL (1.3-7.7); Neutrophils % (A) 81 %; WBC 17.6 k/uL (3.8-10.6); WBC (Perox) 18.02
[2017-09-28 06:42] LABS: Anion Gap 7 mmol/L; Blood Urea Nitrogen 21 mg/dL (9-20); Carbon Dioxide 27 mmol/L (22-30); Chloride 101 mmol/L (98-107); Glucose 70 mg/dL (74-99); Non-African American GFR(MDRD) >60 (>60 ml/min/1.73 sqM); Potassium 3.7 mmol/L (3.5-5.1); Sodium 135 mmol/L (137-145)
--- NOTE | 2017-09-28 08:42 | P.PN ---
Progress Note - Text Progress Note Date: 09/27/17 DATE OF SERVICE: 09/27/17 PRESENTING COMPLAINT: Increasing weakness HISTORY OF PRESENT ILLNESS: 77-year-old male who presented with increasing generalized weakness shortness of breath and cough. Has a long-standing history of alcohol abuse, stopped drinking in November and restarted again drinking about 4-6 beers a day. On admission found to be severely hyponatremic, elevated JVD, bilateral pleural effusions and was admitted to the ICU for the same. INTERVAL HISTORY: 09/27/17: Patient seen in follow up, Patient sitting in a chair at the bedside, eating his breakfast. Ate about 30%. Continues on honey thick liquids but is tolerating soft diet well with no difficulty swallowing. Speech to re-evaluate patient today. Breathing is improved no oxygen necessary to maintain appropriate saturations, Patient has no signs of alcohol withdrawl. Has had no ativan administered since leaving the ICU. Patient states he slept well. Seroquel dose to be adjusted as patient is sleeping well and sleep cycle has responded to this intervention. 09/26/2017: Patient seen in follow-up on 6 E. Patient sitting in a chair, brother at the bedside. Patient is able fully converse, alert and oriented conversation appropriate. No further swallowing difficulties, complaining of pured diet, doesn't care for it. Bedside swallow performed patient has no difficulties diet changed to soft diet. Honey thickened liquids remain. Breathing is much improved, no cough noted, currently on room air. Heart rhythm remains in atrial fibrillation.White blood cell count remains elevated, continues on Zosyn. Appetite is good. Ambulatory with assistance, moved his bowels 2016. Tentative discharge planning for [facility] rehab facility. 09/25/2017: Patient seen in follow-up on 6 E. Patient sitting in a chair at the bedside brother present, patient more alert and able to answer all questions clearly and communicate clearly, eating about 75% of his meals which continue to be honey thick liquids and pured diet. Ambulatory with assistance, moved his bowels today. Family would like patient to be considered for rehabilitation, notified case management. Vital signs stable White blood cell count remains elevated, currently continues on IV Zosyn. 09/24/2017: Patient seen in follow-up today in the ICU. Sitting up in bed, brother at the bedside, patient's eating his breakfast approximately 75%. Meals continues to have honey thick liquids and a pured diet. More awake today more alert and able to answer more questions behavior is more appropriate. Remains in atrial fibrillation/sinus rhythm with PACs, rate controlled. Continues to require 2 person assist for transfers due to weakness. White blood cell count continues to be elevated but improving, transferred to 6 E. later today. 09/23/2017: Patient seen in follow-up the ICU today, lying in bed a bit restless able to follow simple straightforward commands. Heart regular remains in atrial fibrillation flutter, on honey thick liquids and pured diet ate about 75% of his breakfast this morning and tolerating, requires 2 person assist for transfers due to weakness, White blood cell count continues to improve albeit slowly, plans to transfer to 6 E. soon as bed available. 09/22/2017: Patient seen in the ICU today, sitting up in a chair alert to self, able to follow simple straightforward commands wants to be discharged home, brother at the bedside. Remains in Atrial/fibrillation/flutter Continues on a pure diet was able to eat about 30% of his breakfast this morning. I blood cell count slowly improving, sodium elevated IV fluids switched to D5W. Patient will likely be transferred to [facility] care later today may require a sitter due to his agitation.Last BM 09/21/2017. 09/21/2017: Patient seen in the ICU today, unable to answer questions received Ativan and Haldol for agitation about 11:30 PM on 09/20/2017. Family at the bedside, patient is unable to stay awake long enough to eat, continues on honey thick liquids and pured diet. Requires assistance to move about the bed and getting in and out of bed. Last BM 09/18/2017. 09/20/2017: Patient seen in the ICU today, not able to answer many questions. Is somewhat redirectable and is restless on exam. Has had some swallowing difficulties speech to evaluate patient today. Not tolerating much food, concerns for aspiration, will await speech evaluation. Requires assistance in and out of bed. REVIEW OF SYSTEMS: Done for constitutional ,cardiovascular, GI, pulmonary with relevant findings as above. CURRENT MEDICATIONS DuoNeb, Pulmicort, Catapres 0.1 mg by mouth twice a day, Perforomist, Haldol, heparin 5000 units subcu every 8 hours, hydralazine 10 mg IV push every 6 hours , Solu-Medrol 40 mg IV every 12 hours, nystatin 500,000 units by mouth 4 times a day, Protonix 40 mg IV push daily, Zosyn 3.375 g IV piggyback, Seroquel 25 mg by mouth at bedtime, Flomax 0.4 mg by mouth at bedtime, vitamin B 100 mg IV push daily. PHYSICAL EXAM VITAL SIGNS: Temperature 97.9, pulse 93, respiratory rate 18, blood pressure 147/98, oxygen saturation 95% on room air. GENERAL APPEARANCE: Sitting up in chair, appears comfortable. EYES: Pupils equal. Conjunctiva normal. NECK: JVD not raised. Mass not palpable. RESPIRATORY: Respiratory effort normal. Lungs diminished to auscultation. CARDIOVASCULAR: Irregular rhythm. No edema. ABDOMEN: Soft. Liver and spleen not palpable. No tenderness. No mass palpable. PSYCHIATRY: Alert and oriented x1. Mood and affect somewhat anxious INTEGUMENT: Multiple scattered reddened flat abrasions to the coccyx area, skin intact no drainage, tender to touch. INVESTIGATIONS: White blood cell count 15.0, hemoglobin 12.0, BUN 24 Accu-Cheks noted. 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 Taper steroids, IV antibiotics continue for pneumonia. Seroquel to be reduced beginning tonight. Prognosis is guarded. Will likely discharge on Wednesday to rehab facility. Plan of care discussed at bedside with patient he is in agreement. We'll follow closely. [employer]PLIANCE MANAGER STATEMENT: Patient was seen and examined by Nurse Practitioner Shanel Ahumada and all elements of the case discussed with attending Dr. Spain.
[2017-09-28] MEDS: IPRATROPIUM-ALBUTEROL 3 ML NEB INHALATION SCH ×3 (08:51→15:55)
[2017-09-28] MEDS: BUDESONIDE 0.5 MG/2 ML NEBU INHALATION SCH (08:51)
[2017-09-28] MEDS: FORMOTEROL FUMARATE 20 MCG/2 ML NEBU INHALATION SCH (08:51)
[2017-09-28] MEDS: cloNIDine HCL 0.1 MG TAB PO SCH (08:57)
[2017-09-28] MEDS: methylPREDNISolone SOD SUCCI 40 MG/ML 1 ML VIAL IV SCH (08:57)
[2017-09-28] MEDS: NYSTATIN 100,000 UNIT/ML SUSP 500,000 UNIT/5 ML CUP PO SCH ×2 (08:57→12:38)
[2017-09-28] MEDS: NICOTINE 14MG/24HR PATCH TRANSDERM SCH (08:57)
[2017-09-28] MEDS: BISACODYL 10 MG SUPP RECTAL SCH (08:58)
[2017-09-28] MEDS: PANTOPRAZOLE SODIUM 40 MG GRANULE PKT PO SCH (08:58)
[2017-09-28 09:17] VITALS: BP 133/80; RESP 18; TEMP 98.3
[2017-09-28] MEDS ORDERED: LOPERAMIDE 2 MG CAP PO STA (11:50)
[2017-09-28 11:51] LABS: Glucose,Whole Blood 102 mg/dL (75-99)
[2017-09-28] MEDS: THIAMINE 100 MG/ML 2 ML VIAL IVP SCH (12:35)
--- NOTE | 2017-09-28 15:04 | P.PN ---
Subjective Progress Note Date: 09/28/17 Principal diagnosis: Acute mental status change and hyponatremia 77-year-old male patient, advanced COPD, alcoholic with excessive beer drinking approximately 8 bottles of beer daily basis, along with history of hypertension and obstructive sleep apnea, noncompliant to CPAP therapy. The patient has been followed up with Dr. Guerra on outpatient basis, his primary care physician. He comes in yesterday to the emergency department because of altered mentation and generalized weakness. The patient was noted by family members to act unusual, trying to eat napkins and this is not a typical behavior for him and it seems that he was getting progressively more short of breath, anxious, tachypneic and uncomfortable. I was told by his daughter the patient has chronic anxiety for which he was given Paxil at a dose of 30 mg by mouth daily by his primary care physician. He does not take any form of benzodiazepines In the emergency department, the patient was found to be profoundly hyponatremic. His sodium level was 115. In addition, the patient had a potassium level of 3.9, he was hypochloremic with a chloride level of 79 and a serum bicarb of 29. Anion gap was 7. He had a normal renal function with a BUN of 13 and creatinine of 0.9. Liver function tests are within normal limits. -year-old was slightly elevated at 1.6, his lactic acid level was at 1, CPK was mildly elevated at 533, first set of cardiac enzymes/troponin was at 0.012. Urinalysis positive for ketones negative for any infection. The patient was initially admitted to the medical floor. In addition, the patient had He was restless, uncomfortable, tachypneic and short of breath. He was started on bronchodilators. He was given a dose of Lasix. Following that he was admitted to the medical floor. CAT scan of the head done in the emergency department showed moderate degree of atrophy and chronic small vessel ischemic disease without any acute intracranial abnormalities. The patient had a chest x-ray that showed bilateral lower lobe pulmonary infiltrate and small effusion. The chest x-ray was consistent with COPD and there was a mild component of pulmonary vascular congestion. A 1 cm right lower lobe pulmonary nodule cannot be completely excluded on the chest x-ray findings. Overnight, the patient became progressively more short of breath, bronchospastic and wheezy and confused. At a time of arrival to the ICU, the patient was unresponsive. The patient had received a total of 3 mg of Ativan since the emergency department for agitation. At that point, the patient was immediately placed on a BiPAP which is currently on a day setting of 14/5 cm of water with an FiO2 of 35%. He was started on IV Zosyn. He was started on DuoNeb nebulized treatment [id number] on IV Solu-Medrol 60 mg every 6 hours. I also started him on Lasix 40 mg every 12 hours. He is producing adequate amount of urine output in his urine output is more than 100 mL an hour. At a time of my evaluation this morning, the patient was arousable. He would respond to deep painful stimuli. He will move all 4 extremities without any limitation. He would open up his eyes. He is unable to hold a conversation as the patient has a full face BiPAP mask to which she seems to be more synchronous at this point. At times he wakes up spontaneously and he thrashes and he will have a bedside sitter. Serial monitoring of his sodium level showed a sodium level is gradually improving is up to 123. His renal function remains stable. No significant electrolyte imbalance at this point. Repeat chest x-ray in the morning showed no major interval change. Echo was done this morning and there is also still pending. Meanwhile the patient had an echo on 11/19/2016 that showed a preserved LV function without any significant LV dysfunction. The patient also has history of compression fracture of the lumbar spine. On 2016 the patient is being seen for a follow-up. The patient spent the past 24 hours on a BiPAP at a pressure of 14 over 5 cm of water no FiO2 of 35%. He was treated with bronchodilators and systemic steroids and he was also given IV Zosyn for possible left lower lobe aspiration pneumonia. On today's evaluation his last bronchus spastic and wheezy compared to yesterday. He'll be given a trial off the BiPAP and placed on oxygen by nasal cannula. As such, the BiPAP was discontinued. Clinically the patient is more awake compared to yesterday. He opens up his eyes. He followed simple commands. He is moving all 4 extremities without any limitation. He remains lethargic. Less dose of Ativan was around 4 AM this morning. Delirium tremens is still a concern in this patient has been chronic alcoholic. As far as the sodium level, is gradually improving is up to 128. Fluid balance is been negative as the patient has been diuresed with IV Lasix. Echocardiac Wolf showed no acute abnormalities and the LV function is well-preserved. As for the ultrasound of the abdomen, there was no significant abnormalities noted. No significant electrode imbalance and the potassium level and a chloride level and the sodium level gradually improving and normalizing. No fever. No chills. On 09/17/2017 the patient is being seen in follow-up. Note that the patient did well yesterday now was able to get him off the BiPAP yesterday morning. I checked on him yesterday evening and late in afternoon and in the early evening the patient was doing well and he was in the point where he was waking up and following commands and answering questions. He was getting more appropriate . However, later on, the patient became progressively more agitated and confused and overnight he required a total of 2 mg of Ativan and a total of 50 mg of Haldol. This morning it is quite sedated. He is less restless. He was on a BiPAP at a pressure of 14/5 throughout the night and he was taken off the BiPAP again this morning. He has bronchus spastic and wheezy. He has a congested cough. Chest x-ray from today is showing small bilateral pleural effusion left greater than right. There is continuing left basilar airspace disease that is improved from previous evaluation. The patient remains on DuoNeb nebulized treatments around the clock, IV Solu-Medrol, Pulmicort and Perforomist neb last treatment twice a day, and IV Zosyn as empiric antibiotic coverage for possible left lower lobe pneumonia. The patient has a congested cough. Unable to bring up much sputum. At time he gets worked up and he uses abdominal muscles of breathing. No witnessed aspiration. In terms of fluid balance, the patient was placed on normal state rate of 50 mL an hour. Sodium level continues to improve and it's up to 133. Renal function stable with a creatinine of 1.1. The echocardiogram showed a preserved LV function. On 09/18/2017 the patient remains essentially the same condition. His mentation is waxing and waning. He gets agitated and restless and he requires Ativan and Haldol. Noted the patient arouses in between. He sometimes follows simple commands and answer simple questions. Yet when he gets agitated he required Haldol and he becomes more sedated. I think this is a manifestation of delirium tremens noted the patient is an alcoholic and he will need another few days to fully recovers from this episode. He is hemodynamically stable. On and off is requiring BiPAP for respiratory support. Whenever agitated his blood pressure rises and the patient would require IV Lopressor for heart rate and blood pressure control. No aspiration. He remains nothing by mouth. Chest x-ray is still showing no acute pulmonary infiltration or pneumonias. The patient is also being cheered for his acute COPD exacerbation with a combination of DuoNeb nebulized treatments around the clock, Pulmicort Respules , Perforomist neb last treatment and systemic steroids. He is producing adequate amount of urine output and 50 mL an hour of normal saline. The patient is also normalized his sodium level and the rest of the electrolytes. On 09/19/2017, the patient is slightly improved compared to yesterday. Overnight he required only 1 mg of Haldol and he was less agitated and he was able to tolerate the BiPAP without any major difficulties. This morning, he is opening his eyes and holding some simple conversations. He was able to recognize his daughter the bedside. He is moving all 4 extremities. No focal neurological deficit at this point. He is still nothing by mouth. Chest x- rays showing a stable left lower lobe consolidation. No fever. No chills. No chest pain. No hemodynamic instability. Sodium level has normalized. The rest of the electrodes are all within normal limits. He is less bronchospastic and wheezy also in terms of his COPD exacerbation. On 09/20/2017, patient seems to be gradually improving, he had intermittent episodes of agitation last night, but today he seems to be very appropriate, in no form of distress, recognizing relatives around him, oriented to place but not to time. Chest x-ray continues to show left lower lobe airspace disease/ pneumonia. Swallow evaluation report is pending at this time. Patient remains nothing by mouth. Blood pressure is elevated, hence I recommended Apresoline for elevated blood pressure. I also recommended that we keep the patient in the ICU for one more day today. Labs were reviewed, renal profile is relatively unremarkable, sodium is 144. CBC is relatively normal. On 09/21/2017, patient continues to have intermittent episodes of agitation and confusions, received multiple doses of Ativan yesterday along with Haldol, patient is lethargic today, however he is arousable, and follows simple instructions. Seems to be a bit more confused compared to yesterday. Chest x- ray continues to show left lower lobe airspace disease. The patient remains intermittently elevated, however he is receiving Apresoline. CBC showed WBC count of 11.4 hemoglobin is 13.3 basic metabolic profile is normal sodium is back to normal. On 09/22/2017, patient seems to be more appropriate today, awake, follows simple instructions, not fully oriented to time and place. Did require Ativan and Haldol last night for extreme agitation. But seems to be much improved today. His brother Ester is at bedside, and he feels that the patient is much more appropriate today compared to yesterday. His sodium however is 149, and we will correct that by changing his IV fluid to D5W. WBC count is 15.7. Hemoglobin is 13.7 I discussed the plan to may be transfer the patient out of the ICU to a monitored bed on selective however the patient will need to have a sitter next to him at all times. On 09/23/2017, patient continues to show steady improvement in his mental status over the last few days. Today is the best he has been, seems to be more awake, alert, oriented, and in no distress. Patient is presently a selective overflow. His sodium remains high, hence I increased his IV fluid, presently on D5W at 100 and hour. His BUN was noted to be elevated and creatinine is 1.47 , I believe this is a picture reflecting free water deficit and dehydration. The rest of the labs were relatively unremarkable. On 09/24/2017, patient is feeling much better today, relatively asymptomatic, more appropriate, alert oriented 3, patient denies any shortness of breath, no cough, no wheezing, no chest pain. Urine output has been marginal. Patient developed slightly low blood pressure last night, and he had to be placed on norepinephrine for a very short. This time. Patient did receive fluid boluses. Today's sodium is much improved, and I have recommended switching his IV fluid from D5 W-to D5 45. WBC count is 21.7 hemoglobin is 13.6 sodium is 137 BUN is 39 and creatinine is 1.21. Chest x-ray from yesterday showed better aeration of the lower lobes, and his questionable infiltrate in the left lower lobe seems to be improving. Patient remains on Zosyn in the meantime On 09/25/2017, patient continues to improve, denies any specific complaints, alert oriented 3, sitting with his brother Ester and seems to be extremely appropriate. Patient is asymptomatic, and he is able to walk to the bathroom. His delirium and his mental status has completely cleared. Labs were reviewed electrolytes are normal renal profile is normal CBC is relatively normal except for WBC count of 15.2. Reevaluated today on 09/2017, patient continues to do well, today he is even much better, asymptomatic, alert oriented and very appropriate. WBC count is 16.9 hemoglobin is 12.7 and basic metabolic profile is relatively normal. On 09/27/2017 patient is seen in follow-up on selective care, he sits up in the chair, in no acute distress. He states he is feeling much better today, occasional productive cough with small amount of brownish sputum. Lung sounds diminished air entry bilaterally, but no rhonchi, no wheezes, no rales. His oxygenation is stable on room air with O2 sat 98%. He has been afebrile since admission. His sodium is at 134 today, BUN is 24, and creatinine is 1.1. White count is trending down is down to 15 today. Sputum culture was positive for Corynebacterium striata and Klebsiella oxytoca with sensitivity to Zosyn. Discharge planning is in progress for discharge to rehab in the next 24 hours. On 09/28/2017 patient seen in follow-up on selective care unit. He is sitting up in the chair, on room air, in no acute distress. Lung sounds are clear, diminished at the bases. But no rhonchi, no wheezes, no rales. His oxygenation remains good on room air, O2 sat is 98%. He has been afebrile. His sputum culture was positive for Corynebacterium striata woman Klebsiella oxytoca for which he is appropriately covered with Zosyn. Discharge planning is in progress for [facility] today or possibly tomorrow. Patient's main complaint today is sore throat, on inspection patient's pharynx is erythematous , but no exudate noted. We will go ahead and place the patient on Diflucan 100 mg by mouth twice a day and Mycelex troches 10 mg 5 times a day. Objective - Vital Signs Vital signs: Vital Signs Temp 98.3 F 09/28/17 08:00 Pulse 88 09/28/17 11:58 Resp 18 09/28/17 08:00 BP 133/80 09/28/17 08:00 Pulse Ox 98 09/28/17 08:54 Intake & Output 09/27/17 09/28/17 09/28/17 18:59 06:59 18:59 Intake Total 600 240 Output Total 280 Balance 600 -280 240 Weight 86 kg 86 kg Intake: Oral 600 240 Output: Urine 280 Other: Voiding Method Urinal Urinal Urinal - Exam Physical Exam: Revealed a 77-year-old white male in no distress. HEENT:[Neck is supple.] [No neck masses.] [No thyromegaly.] [No JVD.] Chest: Clear throughout, no crackles or rhonchi or wheezes. Diminished air entry, sounds diminished at the bases. Cardiac Exam: [Normal S1 and S2, no S3 gallop, no murmur.] Abdomen: [Soft, nontender, no megaly, no rebound, no guarding, normal bowel sounds.] Extremities: [No clubbing, no edema, no cyanosis.] Neurological Exam: [No focal neurologic deficit. Psychiatric: Normal mood and affect, normal mental status examination. Lymphatics: No lymphadenopathy. Musculoskeletal: No limitations in range of motion, no deformities noted.] - Labs CBC & Chem 7: 09/28/17 05:40 09/28/17 05:40 Labs: Abnormal Lab Results - Last 24 Hours (Table) 09/27/17 09/27/17 09/28/17 Range/Units 16:49 20:47 05:40 WBC 17.6 H (3.8-10.6) k/uL RBC 3.90 L (4.30-5.90) m/uL MCV 102.4 H (80.0-100.0) fL Neutrophils # 14.3 H (1.3-7.7) k/uL Sodium (137-145) mmol/L BUN (9-20) mg/dL Glucose (74-99) mg/dL POC Glucose (mg/dL) 108 H 145 H (75-99) mg/dL 09/28/17 09/28/17 Range/Units 05:40 11:48 WBC (3.8-10.6) k/uL RBC (4.30-5.90) m/uL MCV (80.0-100.0) fL Neutrophils # (1.3-7.7) k/uL Sodium 135 L (137-145) mmol/L BUN 21 H (9-20) mg/dL Glucose 70 L (74-99) mg/dL POC Glucose (mg/dL) 102 H (75-99) mg/dL Assessment and Plan Plan: 1 acute change in mental status, multifactorial. The patient is alcoholic and he presented with severe hyponatremia with a sodium level of 115. On admission. The underlying cause is probably related to Beer potomania. Rule out a component of hypovolemic hyponatremia/SIADH. The patient had a computed tomography scan of the brain that showed diffuse cerebral atrophy without any acute changes. His neurologic exam is nonfocal. His hypernatremia has completely resolved. 2 acute COPD exacerbation, improving. 3 hyponatremia, resolved, patient is tolerating oral intake, IV fluids have been discontinued. 4 limited bibasilar pulmonary infiltrates, rule out aspiration pneumonia, currently on IV Zosyn 5 alcoholism 6 smoker 7 obstructive sleep apnea not receiving any CPAP therapy on outpatient basis 8 frequent falls with a blunt trauma to his lower abdomen with some limited bruising. 9 compression fracture of the L4 spine status post kyphoplasty 10 chronic anxiety 11 depression 12 hypertension 13 osteoporosis 14 BPH 15 abnormal swallow evaluation, hence his fluids will be thickened, and we'll watch closely for potential aspiration. Refer to the report by the speech therapist. Recommendation: Patient is doing well, in no acute distress, stable oxygenation on room air. He is complaining of a sore throat, we will place the patient on oral Diflucan and Mycelex troches. Continues on nectar thick liquids for aspiration precautions. Serum sodium is 135 today. Continues on Zosyn for antibiotic coverage for Corynebacterium striata, Klebsiella oxytoca and the sputum culture. Start planning is in progress for transfer to rehabilitation center. From pulmonary standpoint patient is stable for discharge to rehab. I performed a history & physical examination of the patient and discussed their management with my nurse practitioner, Shantell Bloom. I reviewed the nurse practitioner's note and agree with the documented findings and plan of care. Lung sounds are clear, no wheezes, no rales.. The findings and the impression was discussed with the patient. I attest to the documentation by the nurse practitioner. Time with Patient: Less than 30
--- NOTE | 2017-09-28 15:13 | P.DS ---
Providers Date of admission: 09/14/17 15:05 Expected date of discharge: 09/28/17 Attending physician: Ru Spain Consults: 09/15/17 00:51 Consult Physician Stat Consulting Provider: Juanis Mcclellan Consult Reason/Comments: ICU Do you want consulting provider notified?: Already Contacted 09/15/17 10:19 Consult Physician Routine Consulting Provider: Dhiraj Marroquin Consult Reason/Comments: low sodium Do you want consulting provider notified?: Yes Primary care physician: [facility] Course: FINAL DIAGNOSES: - bilateral aspiration pneumonia, with sputum culture positive for Corynebacterium and Klebsiella -Chronic alcoholism -chronic hypercapnic respiratory failure,resolved -Gait dysfunction, chronic uses a walker at home -Chronic L4 Compression fracture with kyphoplasty -Acute delirium, with metabolic encephalopathy resolved -Possible chronic metabolic encephalopathy -severe hypoosmolar hyponatremia, resolved -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 Pulmonology and nephrology consulted home medications were ordered. He additionally had increasing shortness of breath and restlessness received Lasix, bronchodilators. Chest x-ray revealed bilateral lower lobe pneumonia infiltrate and small effusion. Patient became progressively more short of breath bronchospastic wheezing confused. Confusion was attributed in part to alcohol withdrawal patient has chronic alcohol abuse history, placed on CIWA protocol. Was transferred to the ICU and unresponsive on arrival. Placed on BiPAP started on IV Zosyn. DuoNeb nebulized treatments [id number]. Along with IV Solu-Medrol. Was found to be silently aspirating speech was consulted to evaluate swallowing ability. Patient found to be at a high risk for aspiration and was placed on honey thick liquids no straws pured diet. Fluids provided slowly normalize sodium levels, sodium normalized, breathing improved, symptoms of alcohol withdrawal ended. Mentation improved, following commands, engaging in conversation appropriately. As mentation improved, swallowing ability also improved reevaluated by speech diet advanced to nectar thick liquids, regular soft diet, with no straws. Patient is alert and oriented , able to answer questions appropriately, make his needs clearly known, breathing is improved, no longer requiring oxygen, occasional cough with no sputum, serum sodium normalized, patient was evaluated by PT and stay at inpatient rehab is appropriate for gait training and strengthening. Overall condition has stabilized, consultants agree patient is appropriate for discharge. PHYSICAL EXAM: CARDIOVASCULAR: Irregular rhythm, mild edema noted. RESPIRATORY: Respiratory effort normal, lung sounds diminished bilaterally GI: Abdomen soft nontender liver and spleen not palpable MUSKULOSKELETAL: Has some weakness to bilateral lower extremities uses a walker to get about PSYCHIATRY: Alert and oriented 3, mood and affect normal. Patient was seen and examined by nurse practitioner Shanel Ahumada in all elements of the case discussed with attending Dr. Spain DISPOSITION: Transfer to [facility], [place] Patient Condition at Discharge: Stable Plan - Discharge Summary Discharge Rx Participant: No New Discharge Prescriptions: New Acetaminophen Tab [Tylenol] 650 mg PO Q6HR PRN tab PRN Reason: Fever And/ Or Pain Bisacodyl [Dulcolax] 10 mg RECTAL DAILY supp Budesonide [Pulmicort] 0.5 mg INHALATION RT-BID nebu Formoterol Fumarate [Perforomist] 20 mcg INHALATION RT-BID nebu Ipratropium-Albuterol Nebulize [Duoneb 0.5 mg-3 mg/3 ml Soln] 3 ml INHALATION RT-QID ampul.neb Ipratropium-Albuterol Nebulize [Duoneb 0.5 mg-3 mg/3 ml Soln] 3 ml INHALATION RT-Q2H PRN ampul.neb PRN Reason: Shortness Of Breath Or Wheezing Nicotine 14Mg/24Hr Patch [Habitrol] 1 patch TRANSDERM DAILY patch QUEtiapine [SEROquel] 12.5 mg PO HS #7 tab Benzocaine/Menthol Lozeng [Cepacol lozenge] 1 each MUCOUS MEM Q4HR PRN lozenge PRN Reason: Sore Throat Clotrimazole Brit [Mycelex Brit] 10 mg MUCOUS MEM 5XD 7 Days #35 brit Fluconazole [Diflucan] 100 mg PO BID 7 Days #14 tab Continue Metoprolol Tartrate [Lopressor] 12.5 mg PO BID Tamsulosin [Flomax] 0.4 mg PO HS Mometasone/Formoterol [Dulera 200 Mcg/5 Mcg Inhaler] 2 puff INHALATION RT-BID Melatonin 10 mg PO HS Furosemide [Lasix] 40 mg PO QAM Pantoprazole Sodium [Protonix] 40 mg PO QAM Discontinued Naproxen Sod/Diphenhydramine [Aleve Pm Caplet] 1 tab PO HS PARoxetine HCL [Paxil] 30 mg PO HS Discharge Medication List Metoprolol Tartrate [Lopressor] 12.5 mg PO BID 01/14/17 [History] Tamsulosin [Flomax] 0.4 mg PO HS 01/21/17 [History] Furosemide [Lasix] 40 mg PO QAM 09/14/17 [History] Melatonin 10 mg PO HS 09/14/17 [History] Mometasone/Formoterol [Dulera 200 Mcg/5 Mcg Inhaler] 2 puff INHALATION RT-BID [History] Pantoprazole Sodium [Protonix] 40 mg PO QAM 09/14/17 [History] Acetaminophen Tab [Tylenol] 650 mg PO Q6HR PRN tab 09/27/17 [Rx] Bisacodyl [Dulcolax] 10 mg RECTAL DAILY supp 09/27/17 [Rx] Budesonide [Pulmicort] 0.5 mg INHALATION RT-BID nebu 09/27/17 [Rx] Formoterol Fumarate [Perforomist] 20 mcg INHALATION RT-BID nebu 09/27/17 [Rx] Ipratropium-Albuterol Nebulize [Duoneb 0.5 mg-3 mg/3 ml Soln] 3 ml INHALATION RT -Q2H PRN ampul.neb 09/27/17 [Rx] Ipratropium-Albuterol Nebulize [Duoneb 0.5 mg-3 mg/3 ml Soln] 3 ml INHALATION RT -QID ampul.neb 09/27/17 [Rx] Nicotine 14Mg/24Hr Patch [Habitrol] 1 patch TRANSDERM DAILY patch 09/27/17 [Rx] QUEtiapine [SEROquel] 12.5 mg PO HS #7 tab 09/27/17 [Rx] Benzocaine/Menthol Lozeng [Cepacol lozenge] 1 each MUCOUS MEM Q4HR PRN lozenge 09/28/17 [Rx] Clotrimazole Brit [Mycelex Brit] 10 mg MUCOUS MEM 5XD 7 Days #35 brit [Rx] Fluconazole [Diflucan] 100 mg PO BID 7 Days #14 tab 09/28/17 [Rx] Follow up Appointment(s)/Referral(s): Milly Don MD [STAFF PHYSICIAN] - 1 Week Rambo Fontaine DO [STAFF PHYSICIAN] - 09/29/17 Ruiz Kilpatrick MD [Primary Care Provider] - As Needed Ambulatory/Diagnostic Orders: Basic Metabolic Panel [LAB.AMB] Location: Determined By Patient Complete Blood Count w/diff [LAB.AMB] Location: Determined By Patient Patient Instructions/Handouts: Hyponatremia (DC) Activity/Diet/Wound Care/Special Instructions: [place] thick liquids, no straws soft regular diet
[2017-09-28] MEDS ORDERED: CLOTRIMAZOLE TROCHE 10 MG TROCHE MUCOUS MEM SCH (16:00)
[2017-09-28 16:22] VITALS: PULSE 86
[2017-09-28] MEDS ORDERED: FLUCONAZOLE 100 MG TAB PO SCH (21:00)
--- NOTE | 2017-09-29 05:47 | DS ---
DISCHARGE SUMMARY DATE OF SERVICE: 09/28/17. ATTENDING NOTE: The patient seen and examined by me. I discussed with my nurse practitioner Ms. Ahumada. The patient seemed much better. Eating better. The patient has a bit of a sore throat. Did tell him to use salt water and gargle. Lungs decreased breath sounds. Psych AO x3. Overall, patient is much improved. The patient will be going back to the [facility] today. Care was discussed in detail. MMEVELYNL / IJN: [id number] /
--- NOTE | 2017-10-18 17:11 | PN ---
PROGRESS NOTE DATE OF SERVICE: 09/21/17. ADDENDUM: Correction to a progress on Bunny Page. CORRECTION: The patient note dictated on 09/21/17. Time 17:18 pm. Date transcribed on 09/21/2017 at 17:40 pm. The correct date of service should read 09/21/17. MMODL / IJN: [id number] /
--- NOTE | 2017-10-18 17:30 | PN ---
PROGRESS NOTE DATE OF SERVICE: 09/25/17. ATTENDING NOTE: Patient seen and examined by me. I discussed with nurse practitioner, Ms. Ahumada. The patient is feeling better. Did tolerate some diet. Sitting up in a chair. PHYSICAL EXAMINATION: On exam, sitting up in a chair. Lungs decreased breath sounds. Cardiovascular heart sounds irregular. ABDOMEN: Soft. Answering simple questions. ASSESSMENT: 1. Bilateral pneumonia. 2. Multiple other medical problems. Diet is going to be pureed diet with honey thick liquids. Antibiotics to continue. Looking at discharge planning to the rehab. MMODL / IJN: [id number] /
== END 2017-09-28 16:39 | DRG 177 ==
LOC: EC 13:05 → 6SEL 15:05 → 6ICU 23:56 → 6SEL 09-24 16:24
PROVIDERS: ADMIT Hospitalist; ATTEND Hospitalist
PROC: 5A09557 Assistance with Respiratory Ventilation, Greater than 96 Consecutive Hours, Continuous Positive Airway Pressure (ICD-10-PCS; principal; 2017-09-19)
DX: J69.0 Pneumonitis due to inhalation of food and vomit (principal); J96.22 Acute and chronic respiratory failure with hypercapnia; G93.41 Metabolic encephalopathy; I50.33 Acute on chronic diastolic (congestive) heart failure; N17.9 Acute kidney failure, unspecified; F10.231 Alcohol dependence with withdrawal delirium; E87.0 Hyperosmolality and hypernatremia; E87.3 Alkalosis; S32.049A Unspecified fracture of fourth lumbar vertebra, initial encounter for closed fracture; I48.92 Unspecified atrial flutter; J44.0 Chronic obstructive pulmonary disease with (acute) lower respiratory infection; E87.1 Hypo-osmolality and hyponatremia; J44.1 Chronic obstructive pulmonary disease with (acute) exacerbation; I95.9 Hypotension, unspecified; I11.0 Hypertensive heart disease with heart failure; E86.0 Dehydration; I48.91 Unspecified atrial fibrillation; E87.8 Other disorders of electrolyte and fluid balance, not elsewhere classified; E83.42 Hypomagnesemia; J15.6 Pneumonia due to other Gram-negative bacteria; J15.8 Pneumonia due to other specified bacteria; E86.1 Hypovolemia; E87.6 Hypokalemia; F10.97 Alcohol use, unspecified with alcohol-induced persisting dementia; F17.210 Nicotine dependence, cigarettes, uncomplicated; F41.8 Other specified anxiety disorders; G47.33 Obstructive sleep apnea (adult) (pediatric); M81.0 Age-related osteoporosis without current pathological fracture; N40.0 Benign prostatic hyperplasia without lower urinary tract symptoms; R13.10 Dysphagia, unspecified; R29.6 Repeated falls; T38.0X5A Adverse effect of glucocorticoids and synthetic analogues, initial encounter; M54.9 Dorsalgia, unspecified; G89.29 Other chronic pain; R26.9 Unspecified abnormalities of gait and mobility; D72.829 Elevated white blood cell count, unspecified; F32.9 Major depressive disorder, single episode, unspecified; Z79.899 Other long term (current) drug therapy; Z91.19 Patient's noncompliance with other medical treatment and regimen; Z82.49 Family history of ischemic heart disease and other diseases of the circulatory system
CPT/HCPCS: 36415; 36600; 70450; 71010; 71020; 74230; 76705; 80048; 80053; 81003; 82550; 82553; 82805; 83605; 83735; 83880; 84100; 84132; 84295; 84300; 84484; 85025; 85027; 85610; 85730; 87040; 87070; 87077; 87086; 87186; 87205; 87324; 93005; 93306; 94640; 94660; 94760; 96360; 96361; 96365; 96367; 96372; 96375; 99285